=== PATIENT | male | born 1955 | race Caucasian/White ===

== ENCOUNTER → 2016-03-14 | Outpatient (CLI) | payer OTHER ==
[~2016-03-14] MED LIST: ALBU1NEB10 INH; ASPCH81X PO; BUPR-79 PO; CARV3.12 PO; CLBCRM30 EXT; DICY10CA55 PO; DIVA500T3 PO; DTRSR/10 PO; DULO-24 PO; ERGO500037 PO; FENO145T26 PO; FLNIN NAE; FURO-85 PO; HYDR-3126 PO; HYDR2.5C37 TOP; INSDGI SC; INSUINJ14 SC; INSUINJ4 SC; LEVO-14 PO; LEVO100T7 PO; LOSA100T65 PO; MECL1TAB42 PO; METO-157 PO; MIRT15TA2 PO; MIRT15TA3 PO; MTR600X PO; MYS50 PO; NIFEDIPINE TD; NIFEDIPINE TOP; NVLGI/PEN SQ; OMEGCAP2 PO; OMEP20TA PO; ONDA4TAB46 PO; OXYB10TA PO; OXYB15TA PO; OXYC1TAB3 PO; POLY3350 PO; PRIM50TA34 PO; RANI300T PO; ROSU40TA PO; TIZA2CAP2 PO; TRAM-10 PO; TRAM-453 PO; TRIA0.1C20 TOP; TRMCR130WC TOP; VNTHFA/IN INH
--- NOTE | 2016-03-14 12:09 | DIAGNOSTIC IMAGING REPORT ---
CT OF THE CHEST WITHOUT IV CONTRAST CLINICAL HISTORY: Pulmonary nodule. COMPARISON STUDY: Chest CTs April 18, 2015 and July 11, 2015. CT DOSE: 485.69 mGycm TECHNIQUE: Axial images of the chest were obtained without IV contrast. Images were reviewed in the axial, sagittal, and coronal planes. IV contrast was not administered for this examination. FINDINGS: The irregular linear density within the right upper lobe shown on image 91 of [address] of June 17, 2015. Exact measurements are difficult to obtain due to the configuration. The largest component measures approximately 1 cm. There is an associated dilated airway. No nodular component is present. Several small left lower lobe nodules are unchanged since abdominal CT of August 18, 2011. These are benign. No new nodules are present. Central airways are patent. There are no enlarged thoracic lymph nodes. The size the heart is normal. There is fatty infiltration of the liver. A small left adrenal nodule is unchanged. The gallbladder surgically absent. No suspicious osseous lesions are present. IMPRESSION: No change in the irregular linear density within the right upper lobe since CT of April 18, 2015. The appearance favors scar. A neoplastic etiology is considered less likely although a follow-up CT in one year to ensure stability is recommended. Electronically signed by: Bhanu Levy M.D. 03/14/2016 12:07 PM Dictated Date/Time: 03/14/2016 11:53 AM
== END | disposition home or self-care (01) ==
LOC: C.CTS 11:31
PROVIDERS: ATTEND Internal Medicine Critical Care Medicine
DX: R91.1 Solitary pulmonary nodule (principal)

== ENCOUNTER 2016-04-01 02:20 | Inpatient (IN) | payer OTHER ==
[2016-04-01] VITALS (7 sets, daily range): BP systolic 125–169; BP diastolic 74–116; PULSE 65–103; TEMP 36.4–36.7; O2SAT 97–99; BMI 36.5
[~2016-04-01] VITALS: Ht 165.1 cm; Wt 99.6 kg
[~2016-04-01 02:20] MED LIST changes: -BUPR-79 PO; -CARV3.12 PO; -CLBCRM30 EXT; -DIVA500T3 PO; -DTRSR/10 PO; -DULO-24 PO; -ERGO500037 PO; -FENO145T26 PO; -FURO-85 PO; -HYDR2.5C37 TOP; -INSDGI SC; -LEVO-14 PO; -LEVO100T7 PO; -LOSA100T65 PO; -METO-157 PO; -MIRT15TA3 PO; -MYS50 PO; -NIFEDIPINE TOP; -NVLGI/PEN SQ; -OMEP20TA PO; -ONDA4TAB46 PO; -OXYB10TA PO; -OXYC1TAB3 PO; -POLY3350 PO; -PRIM50TA34 PO; -RANI300T PO; -ROSU40TA PO; -TRAM-10 PO; -TRMCR130WC TOP; -VNTHFA/IN INH
[2016-04-01] MEDS ORDERED: SODIUM CHLORIDE 0.9% 1000ML 1,000 ML IV STA (02:39)
[2016-04-01] MEDS ORDERED: ONDANSETRON INJ 2 MG/ML 2 ML VIAL IV STA (02:39)
[2016-04-01] MEDS ORDERED: FENTANYL CITRATE INJ 50 MCG/1 ML 2 ML VIAL IV STA (02:39)
--- NOTE | 2016-04-01 02:45 | EMERGENCY ROOM VISIT NOTE ---
History Report prepared by Nina: Claudine Macario Under the Supervision of: Dr. Thomas Adler M.D. First contact with patient: 02:31 Chief Complaint: DIARRHEA Stated Complaint: HARD TIME BREATHING,HIGH SUGAR,KIDNEYS NOT WORKING Nursing Triage Summary: Pt reports that since Thursday he has had nausea, vomiting, diarrhea, SOB with exertion, and urinary incontinence. Pt states it has continued to get worse. Also complaining of feeling weak and shakey. History of Present Illness The patient is a 60 year old male who presents to the Emergency Room with complaints of persistent shortness of breath starting 2 days ago. He uses 3 L oxygen at home. The patient also complains of a headache, runny nose, and a dry cough starting 2 days ago. He has been taking Tylenol without relief. He also reports high blood sugar levels. He has a history of diabetes and uses insulin. He has a history of chronic headaches. He denies fevers, neck stiffness/pain, or any other complaints. Source of History: patient Onset: 2 days ago Position: other (global) Quality: other (shortness of breath) Timing: other (persistent) Modifying Factors (Relieving): tylenol (without relief) Associated Symptoms: + cough, + headache, No fevers, No neck pain Review of Systems See HPI for pertinent positives & negatives. A total of 10 systems reviewed and were otherwise negative. Past Medical & Surgical Medical Problems: (1) Appendectomy (2) Asthma (3) Benign hypertension (4) Cholecystectomy (5) Depression (6) Diabetes mellitus (7) Gastroesophageal reflux disease (8) Pneumonia Family History Diabetes mellitus FH: lung disease FHx: cancer FHx: gallbladder disease Hypertension Social History Smoking Status: Never Smoker Alcohol Use: none Drug Use: none Marital Status: Housing Status: lives with family Occupation Status: disabled Current/Historical Medications Scheduled Bupropion (Wellbutrin Sr), 150 MG PO BID Carvedilol (Coreg), 3.125 MG PO BID Clobetasol Propionate (Clobetasol Propionate Cream 0.05%), 1 APPLN EXT BID Dicyclomine Hcl (Bentyl), 10 MG PO AC Divalproex Sodium (Depakote Er), 1,500 MG PO HS Duloxetine HCl (Cymbalta), 20 MG PO DAILY Fenofibrate (Tricor), 145 MG PO DAILY Furosemide (Lasix), 20 MG PO QPM Insulin Aspart (Novolog Flexpen), 28 UNITS SQ TIDM Insulin Glargine (Lantus), 55 UNITS SC BID Levocetirizine Dihydrochloride (Levocetirizine Dihydrochl), 5 MG PO QPM Levothyroxine Sodium (Levothyroxine Sodium), 100 MCG PO DAILY Losartan Potassium (Cozaar), 100 MG PO DAILY Mirtazapine (Remeron), 15 MG PO HS Omeprazole (Omeprazole), 20 MG PO DAILY Oxybutynin Chloride Er (Ditropan Xl), 10 MG PO DAILY Polyethylene Glycol 3350 (Polyethylene Glycol 3350), 17 GM PO DAILY Primidone (Mysoline), 250 MG PO QAM Primidone (Mysoline), 100 MG PO QPM Ranitidine Hcl (Zantac), 300 MG PO BID Rosuvastatin Calcium (Crestor), 40 MG PO DAILY Triamcinolone Acet (Aristocort 0.1%), 1 APPLN TOP BID [Nifedipine 2% Oint], 1 APPLN TOP DAILY Scheduled PRN Albuterol Hfa (Ventolin Hfa), 2 PUFFS INH Q6H PRN for Shortness of Breath Hydrocortisone 2.5% (Rectal) (Anusol-Hc 2.5%), 1 APPLN TOP TID PRN for Hemorrhoids Ondansetron Hcl (Zofran), 4 MG PO Q8 PRN for Nausea Tramadol Hcl (Ultram), 50 MG PO Q6H PRN for Pain Allergies Coded Allergies: Amitriptyline (Verified Allergy, Intermediate, HIVES, 04/01/16) Penicillins (Verified Allergy, Intermediate, HIVES, 04/01/16) ITCHY,HIVES Tramadol (Verified Allergy, Intermediate, ITCHY, 04/01/16) ITCHY Acetaminophen (Verified Allergy, Mild, Rash, Hives, 04/01/16) BIRGIT Inhibitors (Verified Allergy, Unknown, ? ANGIOEDEMA, 04/01/16) Lorazepam (Verified Allergy, Unknown, "DON'T REMEMBER", 04/01/16) Codeine (Verified Adverse Reaction, Mild, N&V, 04/01/16) N/V Physical Exam Vital Signs Date Time Temp Pulse Resp B/P Pulse Ox O2 Delivery O2 Flow Rate FiO2 04/01/16 04:34 104 16 04/01/16 04:29 175/99 04/01/16 04:25 102 17 98 Nasal Cannula 3.0 04/01/16 03:58 145/87 04/01/16 03:55 86 14 98 Nasal Cannula 3.0 04/01/16 03:50 87 16 98 Nasal Cannula 3.0 04/01/16 03:28 174/97 04/01/16 03:20 89 14 99 Nasal Cannula 3.0 04/01/16 03:15 98 Nasal Cannula 3.0 04/01/16 03:12 165/97 04/01/16 03:06 92 04/01/16 02:35 98 Nasal Cannula 3.0 04/01/16 02:32 177/97 04/01/16 02:26 36.6 108 21 182/98 96 Room Air Physical Exam GENERAL: Patient is well appearing and in no acute distress. HEENT: No acute trauma, normocephalic atraumatic, mucous membranes moist, no nasal congestion, no scleral icterus. NECK: No stridor, no adenopathy, no meningismus, trachea is midline. LUNGS: No dyspnea. Clear to auscultation and equal bilaterally. No wheeze, no rhonchi. HEART: Regular rate and rhythm. No murmurs, rubs, gallops appreciated. ABDOMEN: Soft, epigastric tenderness to palpation, bowel sounds positive, no masses appreciated, no peritonitis. BACK: No midline tenderness, no CVA tenderness EXTREMITIES: Normal motion all extremities, no cyanosis, no edema. NEUROLOGIC: Alert and oriented, no acute motor or sensory deficits, no focal weakness, cranial nerves grossly intact. SKIN: No rash, no jaundice, no diaphoresis. Medical Decision & Procedures ER Provider Diagnostic Interpretation: X ray results are stated below per my interpretation: Chest: 1 view: No infiltrate, no effusion, normal cardiac border. Laboratory Results 04/01/16 03:05 Red Blood Count 4.90, Mean Corpuscular Volume 84.1, Mean Corpuscular Hemoglobin 30.0, Mean Corpuscular Hemoglobin Concent 35.7, Mean Platelet Volume 9.9, Neutrophils (%) (Auto) 46.0, Lymphocytes (%) (Auto) 42.9, Monocytes (%) (Auto) 8.8, Eosinophils (%) (Auto) 1.9, Basophils (%) (Auto) 0.1, Neutrophils # (Auto) 3.18, Lymphocytes # (Auto) 2.97, Monocytes # (Auto) 0.61, Eosinophils # (Auto) 0.13, Basophils # (Auto) 0.01 04/01/16 03:05 Test 04/01/16 03:05 04/01/16 03:16 White Blood Count 6.92 K/uL (4.8-10.8) Red Blood Count 4.90 M/uL (4.7-6.1) Hemoglobin 14.7 g/dL (14.0-18.0) Hematocrit 41.2 % (42-52) Mean Corpuscular Volume 84.1 fL (80-100) Mean Corpuscular Hemoglobin 30.0 pg (25-34) Mean Corpuscular Hemoglobin Concent 35.7 g/dl (32-36) Platelet Count 208 K/uL (130-400) Mean Platelet Volume 9.9 fL (7.4-10.4) Neutrophils (%) (Auto) 46.0 % Lymphocytes (%) (Auto) 42.9 % Monocytes (%) (Auto) 8.8 % Eosinophils (%) (Auto) 1.9 % Basophils (%) (Auto) 0.1 % Neutrophils # (Auto) 3.18 K/uL (1.4-6.5) Lymphocytes # (Auto) 2.97 K/uL (1.2-3.4) Monocytes # (Auto) 0.61 K/uL (0.11-0.59) Eosinophils # (Auto) 0.13 K/uL (0-0.5) Basophils # (Auto) 0.01 K/uL (0-0.2) RDW Standard Deviation 39.8 fL (36.4-46.3) RDW Coefficient of Variation 13.3 % (11.5-14.5) Immature Granulocyte % (Auto) 0.3 % Immature Granulocyte # (Auto) 0.02 K/uL (0.00-0.02) Prothrombin Time 10.7 SECONDS (9.0-12.0) Prothromb Time International Ratio 1.0 (0.9-1.1) Activated Partial Thromboplast Time 23.5 SECONDS (21.0-31.0) Partial Thromboplastin Ratio 0.9 D-Dimer < 190 ug/L FEU (0-500) Urine Color YELLOW Urine Appearance CLEAR (CLEAR) Urine pH 6.5 (4.5-7.5) Urine Specific [place] 1.033 (1.000-1.030) Urine Protein NEG (NEG) Urine Glucose (UA) 3+ (NEG) Urine Ketones TRACE (NEG) Urine Occult Blood NEG (NEG) Urine Nitrite NEG (NEG) Urine Bilirubin NEG (NEG) Urine Urobilinogen NEG (NEG) Urine Leukocyte Esterase NEG (NEG) Urine WBC (Auto) 1-5 /hpf (0-5) Urine RBC (Auto) 0-4 /hpf (0-4) Urine Hyaline Casts (Auto) 1-5 /lpf (0-5) Urine Epithelial Cells (Auto) 20-30 /lpf (0-5) Urine Bacteria (Auto) NEG (NEG) Anion Gap 10.0 mmol/L (3-11) Est Creatinine Clear Calc Drug Dose 66.2 ml/min Estimated GFR () 69.2 Estimated GFR (Non- 59.7 BUN/Creatinine Ratio 10.8 (10-20) Calcium Level 8.8 mg/dl (8.5-10.1) Magnesium Level 1.8 mg/dl (1.8-2.4) Total Bilirubin 0.2 mg/dl (0.2-1) Direct Bilirubin < 0.1 mg/dl (0-0.2) Aspartate Amino Transf (AST/SGOT) 11 U/L (15-37) Alanine Aminotransferase (ALT/SGPT) 23 U/L (12-78) Alkaline Phosphatase 62 U/L (45-117) Troponin I < 0.015 ng/ml (0-0.045) Total Protein 7.0 gm/dl (6.4-8.2) Albumin 4.0 gm/dl (3.4-5.0) Triglycerides Level 542 mg/dl (0-150) Lipase 1198 U/L (73-393) Valproic Acid (Depakene) Level 70 mcg/ml (50-100) Influenza Type A (RT-PCR) Neg for Influ A (NEG) Influenza Type A Antigen Neg for Influ A (NEG) Influenza Type B Antigen Neg for Influ B (NEG) Influenza Type B (RT-PCR) Neg for Influ B (NEG) Laboratory results as reviewed by me. Medications Administered Medications (Trade) Dose Ordered Sig/Dean Route Start Time Stop Time Status Last Admin Dose Admin Sodium Chloride (Nss 1000ml) 1,000 ml @ 999 mls/hr Q1H1M STAT IV 04/01/16 02:39 04/01/16 03:39 DC 04/01/16 03:09 999 MLS/HR Fentanyl Citrate (Fentanyl Inj) 75 mcg NOW STAT IV 04/01/16 02:39 04/01/16 02:41 DC 04/01/16 03:10 75 MCG Ondansetron HCl 4 mg 4 mg NOW STAT IV 04/01/16 02:39 04/01/16 02:41 DC 04/01/16 03:09 4 MG Lactated Ringer's (Lr 1000ml) 1,000 ml @ 100 mls/hr Q10H IV 04/01/16 04:30 04/02/16 00:29 04/01/16 04:40 100 MLS/HR ECG Indication: SOB/dyspnea Rate (beats per minute): 94 Rhythm: normal sinus Findings: no acute ischemic change, no ectopy ED Course 0231: The patient was evaluated in room B12B. A complete history and physical exam was performed. 0239: Zofran Inj 4 mg IV, Fentanyl Inj 75 mcg IV, Sodium Chloride 1000 ml @ 999 mls/hr IV 0400: Upon reevaluation, the patient is complaining of some discomfort. Discussed results and treatment plan with the patient. He verbalized understanding and agreement with the treatment plan. The patient will be evaluated for further management. 0412: I discussed the [facility]'s [facility] Medical Decision Differential: Sepsis, Infectious (UTI/Pneumonia/Meningitis/etc), Metabolic/ Electrolyte Abnormality, Cardiac, Hepatic, Endocrine, Toxicologic, Neurologic, amongst other pathologies entertained. 60 yr old male arrives with multiple complaints including URI symptoms and epigastric abdominal pain and diarrhea. Exam he is uncomfortable though does not have meningitic findings. He has TTP over epigastrium though no other acute abdominal findings. No pneumonia on CXR. BG is actually good here currently. Does have elevated Lipase which given his epigastric TTP consistent with pancreatitis. Will defer imaging to hospitalist team as patient stable, feeling improved after fentanyl and does not have surgical abdomen by examination. No evidence of sepsis at this time and otherwise labs looking good as well. No neuro deficits. Consults Time Called: [phone] Consulting Physician: Dr. Washington, from [facility] Returned Call: [phone] I discussed the patient's case with Dr. Washington, from [facility]. Impression Primary Impression: Acute pancreatitis Additional Impression: URI (upper respiratory infection) Scribe Attestation The scribe's documentation has been prepared under my direction and personally reviewed by me in its entirety. I confirm that the note above accurately reflects all work, treatment, procedures, and medical decision making performed by me. Departure Information Dispostion Being Evaluated By Hospitalist Referrals Anup Butt D.O. (PCP) Patient Instructions My [facility] Problem Qualifiers Primary Impression: Acute pancreatitis Pancreatitis type: unspecified pancreatitis type Acute pancreatitis complication: unspecified Qualified Codes: K85.90 - Acute pancreatitis without necrosis or infection, unspecified Additional Impression: URI (upper respiratory infection) URI type: unspecified URI Qualified Codes: J06.9 - Acute upper respiratory infection, unspecified
[2016-04-01] MEDS ORDERED: MYS50 PO (03:23)
[2016-04-01] MEDS ORDERED: POLY3350 PO (03:25)
[2016-04-01] MEDS ORDERED: DTRSR/10 PO (03:28)
[2016-04-01 03:29] LABS: BASO % 0.1 %; BASO ABS # 0.01 K/uL (0-0.2); COMPLETE YES; EOS % 1.9 %; HEMATOCRIT 41.2 % (42-52); IG% 0.3 %; LYMPH % 42.9 %; LYMPH ABS # 2.97 K/uL (1.2-3.4); MEAN CELL VOLUME 84.1 fL (80-100); MEAN CORPUSCULAR HGB CONC 35.7 g/dl (32-36); MEAN PLATELET VOLUME 9.9 fL (7.4-10.4); MONO % 8.8 %; PLATELET COUNT 208 K/uL (130-400); WHITE BLOOD COUNT 6.92 K/uL (4.8-10.8)
[2016-04-01 03:30] LABS: URINE APPEARANCE CLEAR (CLEAR); URINE BILIRUBIN NEG (NEG); URINE COLOR YELLOW; URINE EPITHELIAL CELL AUTO 20-30 /lpf (0-5); URINE NITRITE NEG (NEG); URINE PH 6.5 (4.5-7.5); URINE SPECIFIC GRAVITY 1.033 (1.000-1.030); UROBILINOGEN NEG (NEG); ZZUR CULT IF INDIC CLEAN CATCH NO
[2016-04-01 03:31] LABS: MANUAL MICROSCOPIC REQUIRED? NO; REVIEW REQ? NO
[2016-04-01 03:40] LABS: PARTIAL THROMBOPLASTIN RATIO 0.9; PROTHROMBIN TIME (PATIENT) 10.7 SECONDS (9.0-12.0)
[2016-04-01] MEDS ORDERED: NVLGI/PEN SQ (03:43)
[2016-04-01] MEDS ORDERED: INSDGI SC (03:43)
[2016-04-01] MEDS ORDERED: TRMCR130WC TOP (03:47)
[2016-04-01 03:48] LABS: ALT/SGPT 23 U/L (12-78); AST/SGOT 11 U/L (15-37); BLOOD UREA NITROGEN 14 mg/dl (7-18); BUN/CREATININE RATIO 10.8 (10-20); CALCIUM 8.8 mg/dl (8.5-10.1); CARBON DIOXIDE 28 mmol/L (21-32); CHLORIDE 108 mmol/L (98-107); GLUCOSE 100 mg/dl (70-99); MAGNESIUM 1.8 mg/dl (1.8-2.4); POTASSIUM 3.5 mmol/L (3.5-5.1); SODIUM 146 mmol/L (136-145)
[2016-04-01] MEDS ORDERED: CLBCRM30 EXT (03:50)
[2016-04-01 03:53] LABS: ALKALINE PHOSPHATASE 62 U/L (45-117)
[2016-04-01] MEDS: LACTATED RINGER'S 1000ML 1,000 ML IV SCH ×5 (04:40→23:58)
[2016-04-01 05:15] LABS: INFLUENZA A PCR Neg for Influ A (NEG); INFLUENZA B PCR Neg for Influ B (NEG)
[2016-04-01] MEDS ORDERED: MoRPHine SULFATE 2 MG/ML CARP IV PRN (05:15)
[2016-04-01] MEDS ORDERED: ACETAMINOPHEN 325 MG TAB PO PRN (05:15)
[2016-04-01] MEDS ORDERED: GLUCOSE 10 TABS/TUBE PO PRN (05:15)
[2016-04-01] MEDS ORDERED: GLUCAGON FOR INJ 1 MG VIAL SQ PRN (05:15)
[2016-04-01] MEDS ORDERED: DEXTROSE 50% 50 ML SYR IV PRN (05:15)
[2016-04-01] MEDS ORDERED: GLUCOSE 40% GEL 15 GM TUBE PO PRN (05:15)
[2016-04-01] MEDS ORDERED: PROMETHAZINE HCL INJ 12.5 MG in SODIUM CHLORIDE 0.9% 50ML 50 ML IV PRN (05:15)
[2016-04-01 05:25] LABS: TRIGLYCERIDES 542 mg/dl (0-150)
[2016-04-01] MEDS ORDERED: HYDROmorphone INJ 0.5 MG/0.5 ML SYR IV PRN (05:30)
[2016-04-01] MEDS ORDERED: CARVEDILOL 3.125 MG TAB PO STA (05:33)
--- NOTE | 2016-04-01 06:02 | HISTORY & PHYSICAL EXAMINATION ---
DATE OF ADMISSION: 04/01/2016 PRIMARY CARE PHYSICIAN: Dr. Butt. CHIEF COMPLAINT: Abdominal pain and shortness of breath. Hx obtained from px and records. HISTORY OF PRESENT ILLNESS: Medical history is significant for hypertension, DM2 insulin requiring, chronic respiratory failure secondary to on home O2 2 to ILD (asbestosis) on home O2, past tobacco abuse, PVD as per records. Recent confinement in the hospital last year for bronchitis. Few days history of diarrhea symptoms, epigastric pain achy and sharp, some nausea, some vomiting, no fever, no chills, no abdominal trauma, sob, hurts to take a deep breath. No cough symptoms. loose stools, non-bloody, no recent antibiotic intake/no known sick contacts Denies alcohol intake. Blood sugars high at home 200-300 as per px. The patient was brought to the Emergency Room. MEDICAL HISTORY: As above. SURGERIES: He has had cholecystectomy, back surgery, carpal tunnel surgery, tonsillectomy, and adenectomy. HOME MEDICATIONS: Include bupropion, fenofibrate, levothyroxine, Remeron, losartan, Crestor, Zofran, oxybutynin, tramadol, clobetasone, dicyclomine, omeprazole, Flonase, aspirin, NovoLog, Cymbalta, Lantus, Mysoline, valproic acid , Lasix. ALLERGIES: AMITRIPTYLINE, GABAPENTIN, PENICILLIN. FAMILY HISTORY: Heart disease. PERSONAL AND SOCIAL HISTORY: Past tobacco abuse. No chronic intake of alcoholic beverages. Disabled. REVIEW OF SYSTEMS: As per HPI. All other ROS negative. PHYSICAL EXAMINATION: VITAL SIGNS: Blood pressure was noted to be 175/89, pulse rate 102, RR 17, temperature 36.6, sats 98 on 3 liters. GENERAL: Noted to be uncomfortable, obese, no respiratory distress. SKIN: Normal. HEENT: [place] palpebral conjunctivae. Dry mucosa. nasal cannula in place NECK: Short neck. LUNGS: Decreased breath sounds. HEART: Tachycardic ABD : epigastric tenderness. EXTREMITIES: Minimal LE edema. no tenderness NEUROLOGIC: No gross focality. LABORATORY DATA: Hemoglobin 14, hematocrit 40, white cells 9, platelets 208. Sodium 140, potassium 4, chloride 108, CO2 28, BUN 14, creatinine 1.3, glucose 100. lipase 1198, troponin normal. D-dimer normal. outpx Hemoglobin A1c from March of 2016 was 9.5. TSH was noted to be normal IMAGING DATA: Chest x-ray, elevated right hemidiaphragm. EKG NSR, no ischemia. ASSESSMENT: 1. Acute pancreatitis unclear etiology 2. hypertension urgency secondary to discomfort. 3. DM2, insulin requiring suboptimal control as of recent outpx HgA1c admission BSG kind of low 4. chronic resp failure secondary to interstitial lung disease/asbestosis as per records pulmo status at baseline 5. past tobacco abuse. 6. diarrhea 2 to pancreatitis ro cdif PLAN: GMF analgesia, IV fluids, clear liquids for now. check serum triglyceride levels GI consult, pancreatitis. Facilitate home blood pressure meds. Basal insulin adjusted for clear liquid diet for now. ISS BG goal 140-180. Carb count coverage indicated for suboptimal blood sugar control. stool cdif DVT prophylaxis Lovenox subQ. Full code. MTDD
[2016-04-01] MEDS: INSULIN ASPART 100 UNITS/ML 3 ML PEN SC SCH ×4 (06:30→20:41)
--- NOTE | 2016-04-01 07:45 | DIAGNOSTIC IMAGING REPORT ---
CHEST ONE VIEW PORTABLE CLINICAL HISTORY: Shortness of breath, cough and fatigue. COMPARISON STUDY: Chest CT March 14, 2016. FINDINGS: An anterior cervical spine fusion is incidentally noted. No pneumothorax or pleural effusion is present. There is no evidence of pulmonary edema. Cardiac size is normal. Mediastinal contours are normal. The appearance of the chest is unchanged. IMPRESSION: No acute cardiopulmonary findings. Electronically signed by: Bhanu Levy M.D. 04/01/2016 7:43 AM Dictated Date/Time: 04/01/2016 7:43 AM
[2016-04-01] MEDS: LEVOTHYROXINE 100 MCG TAB PO SCH (07:58)
[2016-04-01] MEDS: PANTOprazole SOD 40 MG TAB PO SCH (08:00)
[2016-04-01] MEDS: BuPROPion SR 150 MG TABCR PO SCH ×2 (08:01→20:43)
[2016-04-01] MEDS: LOSARTAN POTASSIUM 50 MG TAB PO SCH (08:01)
[2016-04-01] MEDS: RANITIDINE HCL 150 MG TAB PO SCH ×2 (08:02→20:43)
[2016-04-01] MEDS: DULOXETINE HCL 20 MG CAP PO SCH (08:02)
[2016-04-01] MEDS: PRIMIDONE 50 MG TAB PO SCH ×2 (08:04→20:44)
[2016-04-01] MEDS: ENOXAPARIN 40 MG/0.4 ML SYR SQ SCH (08:05)
[2016-04-01] MEDS: INSULIN GLARGINE SOLOSTAR 100 UNITS/ML 3 ML PEN SC SCH ×2 (08:07→20:36)
[2016-04-01] MEDS ORDERED: NURSING VERBAL MED ORDER ONE ×2 (08:15→08:30)
[2016-04-01] MEDS: OXYCODONE/ACETAMINOPHEN 5-325 TAB PO PRN ×2 (08:31→15:32)
[2016-04-01] MEDS ORDERED: LANTUS PER UNIT CHARGE SC SCH (09:00)
--- NOTE | 2016-04-01 09:59 | Progress Note ---
Internal Med Progress Note Date of Service: Apr 01, 2016. Provider Documentation: SUBJECTIVE: Patient is c/o epigastric and RLQ pain. No vomiting since yesterday night. No fever, chills, diarrhea. Asking for food OBJECTIVE: Vital Signs-as noted below Exam: General-AAOX3, no distress Eyes-No icterus Neck-Supple, NO JVD Lungs-AEBE, no wheezing, rhonchi Heart-S1, S2 normal, no murmurs Abdomen-Soft, tenderness in epigastrium, No distension, BS present Extremities-No edema Lab data as noted below. ASSESSMENT & PLAN: ASSESSMENT AND PLAN : ACUTE PANCREATITIS: Unclear etiology. No hx of alcoholism, hx of cholecystectomy. Hypertriglyceridemia with TGLS 542 ? -IV fluids, NPO -Pain mx- IV hydrocodone 0.5 mg PRN -Work up - Lipase 1198, TGLS- 542 HYPERTENSIVE URGENCY- Improved -Likely precipitated by pain, pancreatitis -Continue home meds - losartan DM-IDDM Suboptimal control as of recent outpatient HBA1C -On high doses of Insulin at home -As NPO, decreased dose, ISS -Monitor CHRONIC RESPIRATORY FAILURE SECONDARY TO ILD./ASBESTOSIS -On 3 L at rest/night DVT prophylaxis Lovenox subQ. FULL CODE DISPOSITION Expected discharge home when stable Vital Signs: Date Time Temp Pulse Resp B/P Pulse Ox O2 Delivery O2 Flow Rate FiO2 04/01/16 09:02 87 99 04/01/16 08:39 36.5 78 18 147/80 97 Room Air 04/01/16 05:40 36.6 103 22 169/77 98 Nasal Cannula 3.0 04/01/16 05:30 93 20 145/91 97 04/01/16 05:04 100 16 97 Nasal Cannula 3.0 04/01/16 04:59 185/87 04/01/16 04:34 104 16 04/01/16 04:29 175/99 04/01/16 04:25 102 17 98 Nasal Cannula 3.0 04/01/16 03:58 145/87 04/01/16 03:55 86 14 98 Nasal Cannula 3.0 04/01/16 03:50 87 16 98 Nasal Cannula 3.0 04/01/16 03:28 174/97 04/01/16 03:20 89 14 99 Nasal Cannula 3.0 04/01/16 03:15 98 Nasal Cannula 3.0 04/01/16 03:12 165/97 04/01/16 03:06 92 04/01/16 02:35 98 Nasal Cannula 3.0 04/01/16 02:32 177/97 04/01/16 02:26 36.6 108 21 182/98 96 Room Air Lab Results: Results Past 24 Hours Test 04/01/16 03:05 04/01/16 03:16 04/01/16 08:44 Range/Units White Blood Count 6.92 4.8-10.8 K/uL Red Blood Count 4.90 4.7-6.1 M/uL Hemoglobin 14.7 14.0-18.0 g/dL Hematocrit 41.2 42-52 % Mean Corpuscular Volume 84.1 80-100 fL Mean Corpuscular Hemoglobin 30.0 25-34 pg Mean Corpuscular Hemoglobin Concent 35.7 32-36 g/dl Platelet Count 208 130-400 K/uL Mean Platelet Volume 9.9 7.4-10.4 fL Neutrophils (%) (Auto) 46.0 % Lymphocytes (%) (Auto) 42.9 % Monocytes (%) (Auto) 8.8 % Eosinophils (%) (Auto) 1.9 % Basophils (%) (Auto) 0.1 % Neutrophils # (Auto) 3.18 1.4-6.5 K/uL Lymphocytes # (Auto) 2.97 1.2-3.4 K/uL Monocytes # (Auto) 0.61 0.11-0.59 K/uL Eosinophils # (Auto) 0.13 0-0.5 K/uL Basophils # (Auto) 0.01 0-0.2 K/uL RDW Standard Deviation 39.8 36.4-46.3 fL RDW Coefficient of Variation 13.3 11.5-14.5 % Immature Granulocyte % (Auto) 0.3 % Immature Granulocyte # (Auto) 0.02 0.00-0.02 K/uL Prothrombin Time 10.7 9.0-12.0 SECONDS Prothromb Time International Ratio 1.0 0.9-1.1 Activated Partial Thromboplast Time 23.5 21.0-31.0 SECONDS Partial Thromboplastin Ratio 0.9 D-Dimer < 190 0-500 ug/L FEU Urine Color YELLOW Urine Appearance CLEAR CLEAR Urine pH 6.5 4.5-7.5 Urine Specific [place] 1.033 1.000-1.030 Urine Protein NEG NEG Urine Glucose (UA) 3+ NEG Urine Ketones TRACE NEG Urine Occult Blood NEG NEG Urine Nitrite NEG NEG Urine Bilirubin NEG NEG Urine Urobilinogen NEG NEG Urine Leukocyte Esterase NEG NEG Urine WBC (Auto) 1-5 0-5 /hpf Urine RBC (Auto) 0-4 0-4 /hpf Urine Hyaline Casts (Auto) 1-5 0-5 /lpf Urine Epithelial Cells (Auto) 20-30 0-5 /lpf Urine Bacteria (Auto) NEG NEG Sodium Level 146 136-145 mmol/L Potassium Level 3.5 3.5-5.1 mmol/L Chloride Level 108 98-107 mmol/L Carbon Dioxide Level 28 21-32 mmol/L Anion Gap 10.0 3-11 mmol/L Blood Urea Nitrogen 14 7-18 mg/dl Creatinine 1.30 0.60-1.40 mg/dl Est Creatinine Clear Calc Drug Dose 66.2 ml/min Estimated GFR () 69.2 Estimated GFR (Non- 59.7 BUN/Creatinine Ratio 10.8 10-20 Random Glucose 100 70-99 mg/dl Calcium Level 8.8 8.5-10.1 mg/dl Magnesium Level 1.8 1.8-2.4 mg/dl Total Bilirubin 0.2 0.2-1 mg/dl Direct Bilirubin < 0.1 0-0.2 mg/dl Aspartate Amino Transf (AST/SGOT) 11 15-37 U/L Alanine Aminotransferase (ALT/SGPT) 23 12-78 U/L Alkaline Phosphatase 62 45-117 U/L Troponin I < 0.015 0-0.045 ng/ml Total Protein 7.0 6.4-8.2 gm/dl Albumin 4.0 3.4-5.0 gm/dl Triglycerides Level 542 0-150 mg/dl Lipase 1198 73-393 U/L Valproic Acid (Depakene) Level 70 50-100 mcg/ml Influenza Type A (RT-PCR) Neg for Influ A NEG Influenza Type A Antigen Neg for Influ A NEG Influenza Type B Antigen Neg for Influ B NEG Influenza Type B (RT-PCR) Neg for Influ B NEG Bedside Glucose 120 70-99 mg/dl
--- NOTE | 2016-04-01 10:38 | Gastrointestinal Consultation ---
Gastrointestinal Consultation Date of Consultation: Apr 01, 2016 Attending Physician: Consult from Dr. Washington; on Dr. Monique Johns's service Consulting Physician: Dr. Alcala Reason for Consultation: Pancreatitis History of Present Illness Patient is a 60 year old male patient of Dr. Butt with a hx of DM-2, gastroparesis, PVD, chronic respiratory failure, lung nodules on home O2 presented to the ED yesterday for abdominal pain. GI consulted for pancreatitis. He experienced a sudden onset of upper abdomen burning, knife like pain, nausea and vomiting on Thursday evening after eating a few wings. The pain persisted, accompanied by and nausea but he was able to get some sleep that night. He woke Thursday morning with the same pain, nausea, one yellow, loose BM with mucous early that morning. He was unable to eat but did drink some water yesterday morning. He was unable to sleep last night and presented to the ED. He had very dark urine on Thursday, now clear. He has not had jaundice or icterus. He denies ever drinking any alcohol. His is S/P cholecystectomy in 2005 with a normal cholangiogram. On arrival, Lipase was 1198, Hb 14.7, Cr 1.3, triglycerides 542. He has been afebrile w/o leukocytosis and his LFTs are normal. He is seen and examined while he is resting in bed. He continues with moderate to severe epigastric pain. He is being kept NPO. Past Medical/Surgical History Medical Problems: (1) Acute pancreatitis Status: Acute (2) Dermatitis Status: Acute (3) Foot pain Status: Acute (4) Light-headed feeling Status: Acute (5) URI (upper respiratory infection) Status: Acute Past Medical History: 1. HTN 2. Hyperlipidemia 3. DM-2 4. GERD 5. Gastroparesis 6. Chronic Respiratory Failure 7. Seizure Disorder Past Surgical History: 1. Shoulder surgery 2. Lap Cholecystectomy 3. Appendectomy 4. TURP Family History Diabetes mellitus FH: lung disease FHx: cancer FHx: gallbladder disease Hypertension Social History Smoking Status: Former Smoker Alcohol Use: none Drug Use: none Marital Status: Housing Status: lives with family Occupation Status: disabled Allergies Coded Allergies: Amitriptyline (Verified Allergy, Intermediate, HIVES, 04/01/16) Penicillins (Verified Allergy, Intermediate, HIVES, 04/01/16) ITCHY,HIVES Tramadol (Verified Allergy, Intermediate, ITCHY, 04/01/16) ITCHY Acetaminophen (Verified Allergy, Mild, Rash, Hives, 04/01/16) BIRGIT Inhibitors (Verified Allergy, Unknown, ? ANGIOEDEMA, 04/01/16) Lorazepam (Verified Allergy, Unknown, "DON'T REMEMBER", 04/01/16) Codeine (Verified Adverse Reaction, Mild, N&V, 04/01/16) N/V Current Medications Home Meds and Scripts Medications Dose Route/Sig Max Daily Dose Days Date Category Dose Instructions Clobetasol Propionate Cream 0.05% (Clobetasol Propionate) 90 Appln/30 Gm Cr 1 Appln EXT BID 04/01/16 Reported APPLY TO AFFECTED AREA FOR UP TO 2 WEEKS Ditropan Xl (Oxybutynin Chloride) 10 Mg Tab 10 Mg PO DAILY 04/01/16 Reported Aristocort 0.1% (Triamcinolone Acet) 90 Appln/30 Gm Cr 1 Appln TOP BID 04/01/16 Reported APPLY TO AFFECTED AREA [Nifedipine 2% Oint] 1 Appln TOP DAILY 04/01/16 Reported NIFEDIPINE RECTAL OINTMENT Lantus (Insulin Glargine) 100 Unit/Ml Inj 55 Units SC BID 04/01/16 Reported Novolog Flexpen (Insulin Aspart) 100 Units/Ml Inj 28 Units SQ TIDM 04/01/16 Reported PLUS SLIDING SCALE Zofran (Ondansetron HCl) 4 Mg Tab 4 Mg PO Q8 PRN 04/01/16 Reported Remeron (Mirtazapine) 15 Mg Tab 15 Mg PO HS 04/01/16 Reported Lasix (Furosemide) 20 Mg Tab 20 Mg PO QPM 04/01/16 Reported take at 6pm to lessen overnight urine output Polyethylene Glycol 3350 1 Pow Pow 17 Gm PO DAILY 04/01/16 Reported Levocetirizine Dihydrochl (Levocetirizine Dihydrochloride) 5 Mg Tab 5 Mg PO QPM 04/01/16 Reported Cymbalta (Duloxetine HCl) 20 Mg Cap 20 Mg PO DAILY 04/01/16 Reported Ventolin Hfa (Albuterol) 200 Puffs/55975 Mcg Aers 2 Puffs INH Q6H PRN 04/01/16 Reported Wellbutrin Sr (Bupropion HCl) 150 Mg Ertab 150 Mg PO BID 03/31/15 Reported Anusol-Hc 2.5% (Hydrocortisone 2.5% (Rectal)) 2.5 % Cre 1 Appln TOP TID PRN 7 03/31/15 Reported Bentyl (Dicyclomine Hcl) 10 Mg Cap 10 Mg PO AC 03/31/15 Reported Ultram (Tramadol Hcl) 50 Mg Tab 50 Mg PO Q6H PRN 10/27/12 Reported Omeprazole 20 Mg Tab 20 Mg PO DAILY 10/27/12 Reported Levothyroxine Sodium 100 Mcg Tab 100 Mcg PO DAILY 10/27/12 Reported Zantac (Ranitidine Hcl) 300 Mg Tab 300 Mg PO BID 10/27/12 Reported Mysoline (Primidone) 50 Mg Tab 100 Mg PO QPM 10/27/12 Reported Mysoline (Primidone) 50 Mg Tab 250 Mg PO QAM 10/27/12 Reported Cozaar (Losartan Potassium) 100 Mg Tab 100 Mg PO DAILY 10/27/12 Reported Coreg (Carvedilol) 3.125 Mg Tab 3.125 Mg PO BID 10/27/12 Reported TAKE THIS MEDICATION WITH FOOD. Crestor (Rosuvastatin Calcium) 40 Mg Tab 40 Mg PO DAILY 10/27/12 Reported Depakote Er (Divalproex Sodium) 500 Mg Tab 1,500 Mg PO HS 10/27/12 Reported Tricor (Fenofibrate) 145 Mg Tab 145 Mg PO DAILY 08/18/11 Reported Review of Systems Constitutional: No chills, No fever, No sweats, No weakness, No weight loss Eyes: No eye pain, No redness ENT: No pain on swallowing, No sore throat, No trouble swallowing Respiratory: No cough, No dyspnea on exertion, No shortness of breath, No wheezing Cardiac: No chest pain, No edema, No palpitations Abdomen: + diarrhea, + nausea, + pain, + see HPI, + vomiting (one Thursday), No GI bleeding, No constipation Neuro: No balance problems, No memory loss, No numbness/tingling, No vertigo, No weakness Psych: No anxiety, No depression symptoms, No insomnia Heme: No abnormal bleeding/bruising, No night sweats Endo: No excessive thirst, No excessive urination Skin: No itch, No jaundice, No new/changing skin lesions, No rash Physical Exam Date Time Temp Pulse Resp B/P Pulse Ox O2 Delivery O2 Flow Rate FiO2 04/01/16 09:02 87 99 04/01/16 08:39 36.5 78 18 147/80 97 Room Air 04/01/16 05:40 36.6 103 22 169/77 98 Nasal Cannula 3.0 04/01/16 05:30 93 20 145/91 97 04/01/16 05:04 100 16 97 Nasal Cannula 3.0 04/01/16 04:59 185/87 04/01/16 04:34 104 16 04/01/16 04:29 175/99 04/01/16 04:25 102 17 98 Nasal Cannula 3.0 04/01/16 03:58 145/87 04/01/16 03:55 86 14 98 Nasal Cannula 3.0 04/01/16 03:50 87 16 98 Nasal Cannula 3.0 04/01/16 03:28 174/97 04/01/16 03:20 89 14 99 Nasal Cannula 3.0 04/01/16 03:15 98 Nasal Cannula 3.0 04/01/16 03:12 165/97 04/01/16 03:06 92 04/01/16 02:35 98 Nasal Cannula 3.0 04/01/16 02:32 177/97 04/01/16 02:26 36.6 108 21 182/98 96 Room Air General Appearance: no apparent distress Eyes: normal inspection, EOMI Neck: supple, no adenopathy, thyroid normal Respiratory/Chest: chest non-tender, lungs clear, normal breath sounds, no accessory muscle use Cardiovascular: regular rate, rhythm, no JVD, no murmur Abdomen: normal bowel sounds, soft, no organomegaly, + tenderness (very tender epigastric area) Extremities: normal inspection, no pedal edema, normal capillary refill Neurologic/Psych: alert, normal mood/affect, oriented x 3 Skin: normal color, no jaundice, warm/dry, no rash Laboratory Results Last 24 Hours Test 04/01/16 03:05 04/01/16 03:16 04/01/16 08:44 White Blood Count 6.92 K/uL Red Blood Count 4.90 M/uL Hemoglobin 14.7 g/dL Hematocrit 41.2 % Mean Corpuscular Volume 84.1 fL Mean Corpuscular Hemoglobin 30.0 pg Mean Corpuscular Hemoglobin Concent 35.7 g/dl Platelet Count 208 K/uL Mean Platelet Volume 9.9 fL Neutrophils (%) (Auto) 46.0 % Lymphocytes (%) (Auto) 42.9 % Monocytes (%) (Auto) 8.8 % Eosinophils (%) (Auto) 1.9 % Basophils (%) (Auto) 0.1 % Neutrophils # (Auto) 3.18 K/uL Lymphocytes # (Auto) 2.97 K/uL Monocytes # (Auto) 0.61 K/uL Eosinophils # (Auto) 0.13 K/uL Basophils # (Auto) 0.01 K/uL RDW Standard Deviation 39.8 fL RDW Coefficient of Variation 13.3 % Immature Granulocyte % (Auto) 0.3 % Immature Granulocyte # (Auto) 0.02 K/uL Prothrombin Time 10.7 SECONDS Prothromb Time International Ratio 1.0 Activated Partial Thromboplast Time 23.5 SECONDS Partial Thromboplastin Ratio 0.9 D-Dimer < 190 ug/L FEU Urine Color YELLOW Urine Appearance CLEAR Urine pH 6.5 Urine Specific Matthews 1.033 Urine Protein NEG Urine Glucose (UA) 3+ Urine Ketones TRACE Urine Occult Blood NEG Urine Nitrite NEG Urine Bilirubin NEG Urine Urobilinogen NEG Urine Leukocyte Esterase NEG Urine WBC (Auto) 1-5 /hpf Urine RBC (Auto) 0-4 /hpf Urine Hyaline Casts (Auto) 1-5 /lpf Urine Epithelial Cells (Auto) 20-30 /lpf Urine Bacteria (Auto) NEG Sodium Level 146 mmol/L Potassium Level 3.5 mmol/L Chloride Level 108 mmol/L Carbon Dioxide Level 28 mmol/L Anion Gap 10.0 mmol/L Blood Urea Nitrogen 14 mg/dl Creatinine 1.30 mg/dl Est Creatinine Clear Calc Drug Dose 66.2 ml/min Estimated GFR () 69.2 Estimated GFR (Non- 59.7 BUN/Creatinine Ratio 10.8 Random Glucose 100 mg/dl Calcium Level 8.8 mg/dl Magnesium Level 1.8 mg/dl Total Bilirubin 0.2 mg/dl Direct Bilirubin < 0.1 mg/dl Aspartate Amino Transf (AST/SGOT) 11 U/L Alanine Aminotransferase (ALT/SGPT) 23 U/L Alkaline Phosphatase 62 U/L Troponin I < 0.015 ng/ml Total Protein 7.0 gm/dl Albumin 4.0 gm/dl Triglycerides Level 542 mg/dl Lipase 1198 U/L Valproic Acid (Depakene) Level 70 mcg/ml Influenza Type A (RT-PCR) Neg for Influ A Influenza Type A Antigen Neg for Influ A Influenza Type B Antigen Neg for Influ B Influenza Type B (RT-PCR) Neg for Influ B Bedside Glucose 120 mg/dl Impression Patient is a 60 year old male with acute pancreatitis. Plan 1. Increase LR to 250cc/hr. 2. Biliary US to screen for choledocholithiasis. 3. Eventual CT or EUS of pancreas. 4. Clears Attg addendum: I interviewed and examined pt, reviewed chart and labs. Pt with h/o DM, obesity, hyperTG s/p khoa admit with abrupt onset of severe pain Sun night after eating fatty meal. Pain continued on Thursday. Admission labs show increased lipase with nl LFT's, Hypernatremia, mildly increased creat above baseline with normal BUN and no hemoconcentration. He was hydrated with improvement in admission tachy. At present, he reports some mild abd pain after drinking clears, persistent diffuse abd pain, + flatus. A/P: Aggressive hydration overnight, then decrease fluid rate to maintenance tomorrow am. Follow BUN and Hgb. Consider CT tomorrow, pending clinical eval Diet as brenton Suspect that his panc may be related to hyperTG, agree with Priyanka. Eventual EUS.
[2016-04-01] MEDS: HYDROmorphone INJ 1 MG/ML SYR IV PRN ×2 (10:44→18:39)
--- NOTE | 2016-04-01 15:04 | DIAGNOSTIC IMAGING REPORT ---
ABDOMINAL ULTRASOUND, RIGHT UPPER QUADRANT HISTORY: Pancreatitis, r/o bile duct abnormalities. COMPARISON: CT of the abdomen and pelvis June 18, 2015. FINDINGS: Hepatic echogenicity is increased. This suggests fatty infiltration. The liver is mildly enlarged. There is no biliary ductal dilatation status post cholecystectomy. There is no right hydronephrosis. A hypoechoic focus within the right renal sinus likely reflects a prominent column of Onur when correlating with CT of June 18, 2015. The pancreatic body is normal. The head and tail are obscured. No peripancreatic fluid collection is identified IMPRESSION: 1. No biliary ductal dilatation status post cholecystectomy. 2. Fatty liver and hepatomegaly. 3. Partially obscured pancreas. Electronically signed by: Bhanu Levy M.D. 04/01/2016 3:03 PM Dictated Date/Time: 04/01/2016 3:00 PM
[2016-04-01] MEDS: ONDANSETRON INJ 2 MG/ML 2 ML VIAL IV PRN (15:31)
[2016-04-01] MEDS: CARVEDILOL 3.125 MG TAB PO SCH (20:42)
[2016-04-01] MEDS: MIRTAZAPINE TAB 15 MG TAB PO SCH (20:43)
[2016-04-01] MEDS: DIVALPROEX 500 MG EXTENDED RELEASE TAB PO SCH (20:44)
[2016-04-01] MEDS ORDERED: DiphenhydrAMINE INJ 12.5 MG in SYRINGE 0 ML IV PRN (21:45)
[2016-04-01] MEDS ORDERED: DiphenhydrAMINE HCL 50 MG/ML VIAL IV PRN (22:00)
[2016-04-02] VITALS (8 sets, daily range): BP systolic 124–181; BP diastolic 76–97; PULSE 63–78; TEMP 36.3–36.9; O2SAT 93–99; Ht 165.1 cm; Wt 99.6 kg
[2016-04-02] MEDS: LACTATED RINGER'S 1000ML 1,000 ML IV SCH ×5 (04:02→20:54)
[2016-04-02] MEDS: LEVOTHYROXINE 100 MCG TAB PO SCH (06:09)
[2016-04-02] MEDS: INSULIN ASPART 100 UNITS/ML 3 ML PEN SC SCH ×4 (06:30→21:13)
[2016-04-02 07:48] LABS: BASO % 0.1 %; BASO ABS # 0.01 K/uL (0-0.2); COMPLETE YES; EOS % 1.3 %; HEMATOCRIT 37.3 % (42-52); IG% 0.1 %; LYMPH % 32.5 %; LYMPH ABS # 2.17 K/uL (1.2-3.4); MEAN CELL VOLUME 84.4 fL (80-100); MEAN CORPUSCULAR HEMOGLOBIN 29.9 pg (25-34); MEAN CORPUSCULAR HGB CONC 35.4 g/dl (32-36); MEAN PLATELET VOLUME 9.6 fL (7.4-10.4); MONO % 9.4 %; NEUT % 56.6 %; PLATELET COUNT 165 K/uL (130-400); RED BLOOD COUNT 4.42 M/uL (4.7-6.1); WHITE BLOOD COUNT 6.68 K/uL (4.8-10.8)
[2016-04-02] MEDS: OXYCODONE/ACETAMINOPHEN 5-325 TAB PO PRN ×2 (07:52→17:52)
[2016-04-02] MEDS: RANITIDINE HCL 150 MG TAB PO SCH ×2 (07:54→20:58)
[2016-04-02] MEDS: PRIMIDONE 50 MG TAB PO SCH ×2 (07:55→20:57)
[2016-04-02] MEDS: BuPROPion SR 150 MG TABCR PO SCH ×2 (07:55→20:58)
[2016-04-02] MEDS: PANTOprazole SOD 40 MG TAB PO SCH (07:56)
[2016-04-02] MEDS: FENOFIBRATE 145 MG TAB PO SCH (07:56)
[2016-04-02] MEDS: CARVEDILOL 3.125 MG TAB PO SCH ×2 (07:57→20:55)
[2016-04-02] MEDS: DULOXETINE HCL 20 MG CAP PO SCH (07:58)
[2016-04-02] MEDS: LOSARTAN POTASSIUM 50 MG TAB PO SCH (07:58)
[2016-04-02] MEDS: INSULIN GLARGINE SOLOSTAR 100 UNITS/ML 3 ML PEN SC SCH ×2 (08:00→21:13)
[2016-04-02] MEDS: ENOXAPARIN 40 MG/0.4 ML SYR SQ SCH (08:00)
[2016-04-02 08:22] LABS: ALB/GLOB RATIO 1.3 (0.9-2); BUN/CREATININE RATIO 7.4 (10-20); CALCIUM 8.7 mg/dl (8.5-10.1); CREATININE 0.84 mg/dl (0.60-1.40); POTASSIUM 3.6 mmol/L (3.5-5.1)
--- NOTE | 2016-04-02 11:08 | Progress Note ---
Internal Med Progress Note Date of Service: Apr 02, 2016. Provider Documentation: SUBJECTIVE: Patient is doing better- epigastric pain has improved. No more nausea, vomiting. No fever, chills, diarrhea. Tolerating clear liquid well OBJECTIVE: Vital Signs-as noted below Exam: General-AAOX3, no distress Eyes-No icterus Neck-Supple, NO JVD Lungs-AEBE, no wheezing, rhonchi Heart-S1, S2 normal, no murmurs Abdomen-Soft, tenderness in epigastrium, No distension, BS present Extremities-No edema Lab data as noted below. ASSESSMENT & PLAN: ASSESSMENT AND PLAN : ACUTE PANCREATITIS: Improving Unclear etiology. No hx of alcoholism, hx of cholecystectomy. Hypertriglyceridemia with TGLS 542 ? -IV fluids- decrease frequency, Clear liquid diet -Pain mx- IV hydrocodone 0.5 mg PRN- decrease frequency as c/o nausea with meds -Work up - Lipase 1198-->132, TGLS- 542; US- no biliary duct obstruction, no GB -GI - discussed with WILLIAM may require CT scan/EUS in future as unclear etiology of pancreatitis. 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 FULL CODE DISPOSITION Expected discharge home when stable Discussed with GI Vital Signs: Date Time Temp Pulse Resp B/P Pulse Ox O2 Delivery O2 Flow Rate FiO2 04/02/16 07:51 99 Nasal Cannula 2.0 04/02/16 07:41 36.3 73 17 130/80 99 Nasal Cannula 2.0 04/02/16 04:12 63 159/93 04/02/16 01:26 Nasal Cannula 3.0 04/01/16 23:58 36.4 68 18 161/90 97 Nasal Cannula 3.0 04/01/16 20:30 Nasal Cannula 3.0 04/01/16 20:28 36.7 82 18 125/74 04/01/16 18:27 75 153/95 04/01/16 15:39 36.6 65 17 166/116 99 Nasal Cannula 3.0 Lab Results: Results Past 24 Hours Test 04/01/16 11:52 04/01/16 16:18 04/01/16 20:14 04/02/16 07:24 Range/Units Bedside Glucose 86 123 102 70-99 mg/dl White Blood Count 6.68 4.8-10.8 K/uL Red Blood Count 4.42 4.7-6.1 M/uL Hemoglobin 13.2 14.0-18.0 g/dL Hematocrit 37.3 42-52 % Mean Corpuscular Volume 84.4 80-100 fL Mean Corpuscular Hemoglobin 29.9 25-34 pg Mean Corpuscular Hemoglobin Concent 35.4 32-36 g/dl Platelet Count 165 130-400 K/uL Mean Platelet Volume 9.6 7.4-10.4 fL Neutrophils (%) (Auto) 56.6 % Lymphocytes (%) (Auto) 32.5 % Monocytes (%) (Auto) 9.4 % Eosinophils (%) (Auto) 1.3 % Basophils (%) (Auto) 0.1 % Neutrophils # (Auto) 3.77 1.4-6.5 K/uL Lymphocytes # (Auto) 2.17 1.2-3.4 K/uL Monocytes # (Auto) 0.63 0.11-0.59 K/uL Eosinophils # (Auto) 0.09 0-0.5 K/uL Basophils # (Auto) 0.01 0-0.2 K/uL RDW Standard Deviation 41.4 36.4-46.3 fL RDW Coefficient of Variation 13.5 11.5-14.5 % Immature Granulocyte % (Auto) 0.1 % Immature Granulocyte # (Auto) 0.01 0.00-0.02 K/uL Sodium Level 146 136-145 mmol/L Potassium Level 3.6 3.5-5.1 mmol/L Chloride Level 109 98-107 mmol/L Carbon Dioxide Level 29 21-32 mmol/L Anion Gap 8.0 3-11 mmol/L Blood Urea Nitrogen 6 7-18 mg/dl Creatinine 0.84 0.60-1.40 mg/dl Est Creatinine Clear Calc Drug Dose 102.8 ml/min Estimated GFR () 111.1 Estimated GFR (Non- 95.8 BUN/Creatinine Ratio 7.4 10-20 Random Glucose 59 70-99 mg/dl Calcium Level 8.7 8.5-10.1 mg/dl Total Bilirubin 0.2 0.2-1 mg/dl Aspartate Amino Transf (AST/SGOT) 84 15-37 U/L Alanine Aminotransferase (ALT/SGPT) 100 12-78 U/L Alkaline Phosphatase 81 45-117 U/L Total Protein 6.0 6.4-8.2 gm/dl Albumin 3.4 3.4-5.0 gm/dl Globulin 2.6 2.5-4.0 gm/dl Albumin/Globulin Ratio 1.3 0.9-2 Lipase 132 73-393 U/L Test 04/02/16 07:47 Range/Units Bedside Glucose 88 70-99 mg/dl
[2016-04-02] MEDS ORDERED: MoRPHine SULFATE 2 MG/ML CARP IV PRN (11:15)
[2016-04-02] MEDS ORDERED: KETOROLAC TROMETHAMINE 15 MG/ML VIAL IV PRN (11:15)
--- NOTE | 2016-04-02 12:07 | Gastroenterology Progress Note ---
Progress Note Date of Service: Apr 02, 2016 Subjective Pt evaluation today including: conversation w/ patient, conversation w/ family , physical exam, chart review, lab review, review of studies, review of inpatient medication list Mr. De Santiago is a 60 yr old male who was admitted on 03/31 for pancreatitis. Today his pain is "better" but he still rates it as an 8 of 10. His pain is right mid to RLQ (but this area is chronic and his pain is not worse than usual ) and epigastric which is new and is improved compared to yesterday. He is taking clear liquids po w/o increased pain or nausea. No vomiting. Lipase was 1198 yesterday, today 132. Review of Systems Constitutional: No fever Respiratory: No cough Cardiac: No chest pain Abdomen: + pain, No GI bleeding, No constipation, No diarrhea, No nausea, No vomiting Male : No dysuria Neuro: No memory loss Psych: No depression symptoms Heme: No abnormal bleeding/bruising Endo: No fatigue Skin: No itch, No jaundice, No rash Medications Current Inpatient Medications Medications (Trade) Dose Ordered Sig/Dean Route Start Time Stop Time Status Last Admin Dose Admin Lactated Ringer's (Lr 1000ml) 1,000 ml @ 150 mls/hr Q6H40M IV 04/01/16 04:30 05/01/16 04:29 04/02/16 10:43 150 MLS/HR Enoxaparin Sodium (Lovenox Inj) 40 mg Q24H SQ 04/01/16 09:00 05/01/16 08:59 04/02/16 08:00 40 MG Insulin Aspart (novoLOG ASPART) SLIDING SCALE If C... ACHS SC 04/01/16 06:30 05/01/16 06:59 Glucose (Glucose 40% Gel) 15-30 GRAMS 15 GRAMS... UD PRN PO 04/01/16 05:15 05/01/16 05:14 Glucose (Glucose Chew Tab) 4-8 Tablets 4 Tabl... UD PRN PO 04/01/16 05:15 05/01/16 05:14 Dextrose (Dextrose 50% 50ML Syringe) 25-50ML OF 50% DW IV FOR... UD PRN IV 04/01/16 05:15 05/01/16 05:14 Glucagon (Glucagon Inj) 1 mg UD PRN SQ 04/01/16 05:15 05/01/16 05:14 Oxycodone/ Acetaminophen (Percocet 5-325mg Tab) pain not relieved by tylenol Q6H PRN PO 04/01/16 05:15 04/15/16 05:14 04/02/16 07:52 2 TAB Bupropion HCl (Wellbutrin-Sr Tab) 150 mg BID PO 04/01/16 09:00 05/01/16 08:59 04/02/16 07:55 150 MG Carvedilol (Coreg Tab) 3.125 mg BID PO 04/01/16 21:00 05/01/16 20:59 04/02/16 07:57 3.125 MG Divalproex Sodium (Depakote Extended Rel Tab) 1,500 mg HS PO 04/01/16 21:00 05/01/16 20:59 04/01/16 20:44 1,500 MG Duloxetine HCl (Cymbalta Cap) 20 mg DAILY PO 04/01/16 09:00 05/01/16 08:59 04/02/16 07:58 20 MG Levothyroxine Sodium (Synthroid Tab) 100 mcg DAILYBB PO 04/01/16 06:30 05/01/16 06:59 04/02/16 06:09 100 MCG Losartan Potassium (coZAAR TAB) 100 mg DAILY PO 04/01/16 09:00 05/01/16 08:59 04/02/16 07:58 100 MG Mirtazapine (Remeron Tab) 15 mg HS PO 04/01/16 21:00 05/01/16 20:59 04/01/16 20:43 15 MG Primidone (Mysoline Tab) 100 mg QPM PO 04/01/16 21:00 05/01/16 20:59 04/01/16 20:44 100 MG Primidone (Mysoline Tab) 250 mg QAM PO 04/01/16 09:00 05/01/16 08:59 04/02/16 07:55 250 MG Miscellaneous Information (Order Awaiting Action) 1 ea QS N/A 04/01/16 08:00 05/01/16 07:59 Pantoprazole Sodium (Protonix Tab) 40 mg QAM PO 04/01/16 09:00 05/01/16 08:59 04/02/16 07:56 40 MG Ranitidine HCl (zANTac TAB) 300 mg BID PO 04/01/16 09:00 05/01/16 08:59 04/02/16 07:54 300 MG Ondansetron HCl 4 mg 4 mg Q6H PRN IV 04/01/16 05:15 05/01/16 05:14 04/01/16 15:31 4 MG Promethazine HCl/ Sodium Chloride (Phenergan Inj/ Nss 50ml) 50.5 ml @ 204 mls/hr Q6H PRN IV 04/01/16 05:15 05/01/16 05:14 04/01/16 18:50 204 MLS/HR Insulin Glargine (Lantus Solostar Pen) 5 unit BID SC 04/01/16 09:00 05/01/16 08:59 04/02/16 08:00 5 UNIT Fenofibrate (Tricor Tab) 145 mg QAM PO 04/02/16 09:00 05/02/16 08:59 04/02/16 07:56 145 MG Diphenhydramine HCl (Benadryl Inj) 12.5 mg Q6H PRN IV 04/01/16 22:00 05/01/16 21:59 04/01/16 22:08 12.5 MG Morphine Sulfate (MoRPHine SULFATE INJ) 2 mg Q4H PRN IV 04/02/16 11:15 04/16/16 11:14 Ketorolac Tromethamine (Toradol Inj) 15 mg Q6H PRN IV 04/02/16 11:15 04/07/16 11:14 Objective Vital Signs Date Time Temp Pulse Resp B/P Pulse Ox O2 Delivery O2 Flow Rate FiO2 04/02/16 08:00 Room Air 04/02/16 07:51 99 Nasal Cannula 2.0 04/02/16 07:41 36.3 73 17 130/80 99 Nasal Cannula 2.0 04/02/16 04:12 63 159/93 04/02/16 01:26 Nasal Cannula 3.0 04/01/16 23:58 36.4 68 18 161/90 97 Nasal Cannula 3.0 04/01/16 20:30 Nasal Cannula 3.0 04/01/16 20:28 36.7 82 18 125/74 04/01/16 18:27 75 153/95 04/01/16 15:39 36.6 65 17 166/116 99 Nasal Cannula 3.0 Physical Exam General Appearance: + mild distress Neck: no adenopathy, no JVD Respiratory/Chest: lungs clear, normal breath sounds Cardiovascular: regular rate, rhythm, no JVD, no murmur Abdomen: soft, + tenderness (epigastric and diffuse right mid/lower abdomen tenderness) Neurologic/Psych: alert, normal mood/affect, oriented x 3 Skin: no jaundice Laboratory Results Last 24 Hours Test 04/01/16 16:18 04/01/16 20:14 04/02/16 07:24 04/02/16 07:47 Bedside Glucose 123 mg/dl 102 mg/dl 88 mg/dl White Blood Count 6.68 K/uL Red Blood Count 4.42 M/uL Hemoglobin 13.2 g/dL Hematocrit 37.3 % Mean Corpuscular Volume 84.4 fL Mean Corpuscular Hemoglobin 29.9 pg Mean Corpuscular Hemoglobin Concent 35.4 g/dl Platelet Count 165 K/uL Mean Platelet Volume 9.6 fL Neutrophils (%) (Auto) 56.6 % Lymphocytes (%) (Auto) 32.5 % Monocytes (%) (Auto) 9.4 % Eosinophils (%) (Auto) 1.3 % Basophils (%) (Auto) 0.1 % Neutrophils # (Auto) 3.77 K/uL Lymphocytes # (Auto) 2.17 K/uL Monocytes # (Auto) 0.63 K/uL Eosinophils # (Auto) 0.09 K/uL Basophils # (Auto) 0.01 K/uL RDW Standard Deviation 41.4 fL RDW Coefficient of Variation 13.5 % Immature Granulocyte % (Auto) 0.1 % Immature Granulocyte # (Auto) 0.01 K/uL Sodium Level 146 mmol/L Potassium Level 3.6 mmol/L Chloride Level 109 mmol/L Carbon Dioxide Level 29 mmol/L Anion Gap 8.0 mmol/L Blood Urea Nitrogen 6 mg/dl Creatinine 0.84 mg/dl Est Creatinine Clear Calc Drug Dose 102.8 ml/min Estimated GFR () 111.1 Estimated GFR (Non- 95.8 BUN/Creatinine Ratio 7.4 Random Glucose 59 mg/dl Calcium Level 8.7 mg/dl Total Bilirubin 0.2 mg/dl Aspartate Amino Transf (AST/SGOT) 84 U/L Alanine Aminotransferase (ALT/SGPT) 100 U/L Alkaline Phosphatase 81 U/L Total Protein 6.0 gm/dl Albumin 3.4 gm/dl Globulin 2.6 gm/dl Albumin/Globulin Ratio 1.3 Lipase 132 U/L Test 04/02/16 11:18 Bedside Glucose 112 mg/dl Assessment and Plan Mr. De Santiago is a 60 yr old male with acute pancreatitis. Etiology is uncertain, possibly hypertriglyceridemia. He does not drink alcohol and is S/P cholecystectomy w/o bile duct abnormalities on US. No new suspect medications. Plan: 1. Decreased LR to 150cc/hr. 2. Daily LFTs, lipase. 3. Incentive spirometry and ambulation to prevent pneumonia. 4. Clear liquids po. 5. Will plan for CT pancreatic protocol tomorrow and for EUS in 6-8 weeks. Attg addendum: I interviewed an examined pt, reviewed chart and labs. Pt mildly improved, but still with persistent pain. Rob small amts clears, passing gas. Abd non distended, mild tender. Plan CT tomorrow, ow cont current plan of care.
[2016-04-02] MEDS: ONDANSETRON INJ 2 MG/ML 2 ML VIAL IV PRN ×2 (12:27→17:52)
[2016-04-02] MEDS: DIVALPROEX 500 MG EXTENDED RELEASE TAB PO SCH (20:56)
[2016-04-02] MEDS: MIRTAZAPINE TAB 15 MG TAB PO SCH (20:57)
[2016-04-02] MEDS: LEVOCETIRIZINE 5 MG PO SCH (21:04)
[2016-04-03] MEDS: LACTATED RINGER'S 1000ML 1,000 ML IV SCH ×4 (03:18→21:06)
[2016-04-03] MEDS: LEVOTHYROXINE 100 MCG TAB PO SCH (06:11)
[2016-04-03 07:21] LABS: HEMATOCRIT 35.4 % (42-52); MEAN CELL VOLUME 85.5 fL (80-100); MEAN CORPUSCULAR HEMOGLOBIN 29.7 pg (25-34); MEAN CORPUSCULAR HGB CONC 34.7 g/dl (32-36); MEAN PLATELET VOLUME 9.8 fL (7.4-10.4); PLATELET COUNT 152 K/uL (130-400); RED BLOOD COUNT 4.14 M/uL (4.7-6.1); WHITE BLOOD COUNT 4.63 K/uL (4.8-10.8)
[2016-04-03 07:48] LABS: BUN/CREATININE RATIO 4.1 (10-20); CALCIUM 8.8 mg/dl (8.5-10.1); CREATININE 0.92 mg/dl (0.60-1.40); POTASSIUM 4.2 mmol/L (3.5-5.1)
[2016-04-03 07:51] VITALS: BP 127/70; PULSE 76; TEMP 36.5; O2SAT 94
[2016-04-03] MEDS ORDERED: OPTIRAY 320 IV PRN (08:15)
--- NOTE | 2016-04-03 08:25 | DIAGNOSTIC IMAGING REPORT ---
CT OF THE ABDOMEN WITH AND WITHOUT CONTRAST PANCREAS PROTOCOL CT DOSE: 2084.97 mGy.cm CLINICAL HISTORY: Acute pancreatitis. TECHNIQUE: Unenhanced, arterial and venous phase imaging of the abdomen was performed. Injection of 93 cc of Optiray 320 IV was uneventful. Oral contrast was administered. COMPARISON STUDY: CT of the abdomen and pelvis June 18, 2015 and right upper quadrant ultrasound April 01, 2016. FINDINGS: Several left lower lobe nodules measuring up to 4 mm are unchanged since CT of August 18, 2011. These are benign. There is mild interlobular septal thickening and scattered groundglass opacities within visualized portions of the lungs. The liver is mildly enlarged. There is fatty infiltration of the liver. No biliary ductal dilatation is identified status post cholecystectomy. There is no pancreatic ductal dilatation. No peripancreatic infiltration or fluid is present. No pancreatic mass is identified. The spleen, adrenal glands and kidneys are unremarkable. There is no upper abdominal adenopathy or ascites. There is moderate plaque of the abdominal aorta which is normal in caliber. Caliber and wall thickness of visualized small and large bowel are normal. Skeletal structures are unremarkable. Major vasculature of the abdomen is patent. IMPRESSION: 1. No acute findings within the abdomen. Normal CT appearance of the pancreas. 2. No biliary ductal dilatation status post cholecystectomy. 3. Hepatomegaly and fatty infiltration of the liver. 4. Scattered groundglass opacities within the lungs. Atelectasis is favored. However, a mild infectious process or mild pulmonary edema could appear similar. Electronically signed by: Bhanu Levy M.D. 04/03/2016 8:24 AM Dictated Date/Time: 04/03/2016 8:12 AM
[2016-04-03] MEDS: OXYCODONE/ACETAMINOPHEN 5-325 TAB PO PRN (08:34)
[2016-04-03] MEDS: CARVEDILOL 3.125 MG TAB PO SCH ×2 (08:35→21:07)
[2016-04-03] MEDS: DULOXETINE HCL 20 MG CAP PO SCH (08:35)
[2016-04-03] MEDS: LOSARTAN POTASSIUM 50 MG TAB PO SCH (08:35)
[2016-04-03] MEDS: PRIMIDONE 50 MG TAB PO SCH ×2 (08:36→21:07)
[2016-04-03] MEDS: ENOXAPARIN 40 MG/0.4 ML SYR SQ SCH (08:37)
[2016-04-03] MEDS: BuPROPion SR 150 MG TABCR PO SCH ×2 (08:37→21:08)
[2016-04-03] MEDS: RANITIDINE HCL 150 MG TAB PO SCH ×2 (08:37→21:08)
[2016-04-03] MEDS: FENOFIBRATE 145 MG TAB PO SCH (08:37)
[2016-04-03] MEDS: INSULIN GLARGINE SOLOSTAR 100 UNITS/ML 3 ML PEN SC SCH ×2 (08:45→21:09)
[2016-04-03] MEDS: INSULIN ASPART 100 UNITS/ML 3 ML PEN SC SCH ×4 (08:47→21:09)
--- NOTE | 2016-04-03 09:29 | Progress Note ---
Internal Med Progress Note Date of Service: Apr 03, 2016. Provider Documentation: SUBJECTIVE: Patient is doing better - epigastric pain has improved. No more nausea, vomiting. No fever, chills, diarrhea. Tolerating clear liquid well OBJECTIVE: Vital Signs-as noted below Exam: General-AAOX3, no distress Eyes-No icterus Neck-Supple, NO JVD Lungs-AEBE, no wheezing, rhonchi Heart-S1, S2 normal, no murmurs Abdomen-Soft, Mild tenderness in epigastrium, No distension, BS present Extremities-No edema Lab data as noted below. CT SCAN ABD: IMPRESSION: 1. No acute findings within the abdomen. Normal CT appearance of the pancreas. 2. No biliary ductal dilatation status post cholecystectomy. 3. Hepatomegaly and fatty infiltration of the liver. 4. Scattered groundglass opacities within the lungs. Atelectasis is favored. However, a mild infectious process or mild pulmonary edema could appear similar. ASSESSMENT & PLAN: ASSESSMENT AND PLAN : ACUTE PANCREATITIS: Improving Unclear etiology. No hx of alcoholism, hx of cholecystectomy. Hypertriglyceridemia with TGLS 542 ? -IV fluids- decrease frequency, Clear liquid diet--> advance to mechanical soft diet -Pain mx- IV hydrocodone 0.5 mg PRN- decrease frequency as c/o nausea with meds -Work up - Lipase 1198-->132, TGLS- 542; US- no biliary duct obstruction, no GB ; CT scan with IV contrast today- No acute abn, hepatomegaly/fatty liver -GI - discussed with WILLIAM may require EUS in future as unclear etiology of pancreatitis. 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 FULL CODE DISPOSITION Expected discharge home when stable Discussed with GI Vital Signs: Date Time Temp Pulse Resp B/P Pulse Ox O2 Delivery O2 Flow Rate FiO2 04/03/16 07:51 36.5 76 20 127/70 94 Room Air 04/02/16 23:59 Nasal Cannula 3.0 04/02/16 23:54 36.5 63 16 143/84 93 Room Air 04/02/16 16:15 78 17 124/76 98 Nasal Cannula 3.0 04/02/16 16:00 98 Nasal Cannula 3.0 04/02/16 15:08 36.9 69 17 181/97 96 Nasal Cannula 2.0 04/02/16 12:35 36.5 70 16 131/77 96 Nasal Cannula 2.0 Lab Results: Results Past 24 Hours Test 04/02/16 11:18 04/02/16 16:31 04/02/16 19:55 04/03/16 06:48 Range/Units Bedside Glucose 112 94 214 70-99 mg/dl White Blood Count 4.63 4.8-10.8 K/uL Red Blood Count 4.14 4.7-6.1 M/uL Hemoglobin 12.3 14.0-18.0 g/dL Hematocrit 35.4 42-52 % Mean Corpuscular Volume 85.5 80-100 fL Mean Corpuscular Hemoglobin 29.7 25-34 pg Mean Corpuscular Hemoglobin Concent 34.7 32-36 g/dl RDW Standard Deviation 42.0 36.4-46.3 fL RDW Coefficient of Variation 13.5 11.5-14.5 % Platelet Count 152 130-400 K/uL Mean Platelet Volume 9.8 7.4-10.4 fL Sodium Level 145 136-145 mmol/L Potassium Level 4.2 3.5-5.1 mmol/L Chloride Level 108 98-107 mmol/L Carbon Dioxide Level 29 21-32 mmol/L Anion Gap 8.0 3-11 mmol/L Blood Urea Nitrogen 4 7-18 mg/dl Creatinine 0.92 0.60-1.40 mg/dl Est Creatinine Clear Calc Drug Dose 93.8 ml/min Estimated GFR () 105.1 Estimated GFR (Non- 90.7 BUN/Creatinine Ratio 4.1 10-20 Random Glucose 131 70-99 mg/dl Calcium Level 8.8 8.5-10.1 mg/dl Test 04/03/16 07:39 Range/Units Bedside Glucose 130 70-99 mg/dl
--- NOTE | 2016-04-03 11:42 | Gastroenterology Progress Note ---
Progress Note Date of Service: Apr 03, 2016 Subjective Pt evaluation today including: conversation w/ patient, physical exam, chart review, lab review, review of studies, review of inpatient medication list Mr. Toscano is a 60 yr old male admitted on 04/01 for acute pancreatitis, possibly from hypertriglyceridemia. CT normal yesterday. Lipase 1198 on arrival and 132 now. Review of Systems Constitutional: No fever Respiratory: No cough Cardiac: No chest pain Abdomen: No nausea, No pain Male : No dysuria Neuro: No memory loss Heme: No abnormal bleeding/bruising Endo: No fatigue Skin: No rash Medications Current Inpatient Medications Medications (Trade) Dose Ordered Sig/Dean Route Start Time Stop Time Status Last Admin Dose Admin Lactated Ringer's (Lr 1000ml) 1,000 ml @ 100 mls/hr Q10H IV 04/01/16 04:30 05/01/16 04:29 04/03/16 11:01 100 MLS/HR Enoxaparin Sodium (Lovenox Inj) 40 mg Q24H SQ 04/01/16 09:00 05/01/16 08:59 04/03/16 08:37 40 MG Insulin Aspart (novoLOG ASPART) SLIDING SCALE If C... ACHS SC 04/01/16 06:30 05/01/16 06:59 04/03/16 08:47 4 UNITS Glucose (Glucose 40% Gel) 15-30 GRAMS 15 GRAMS... UD PRN PO 04/01/16 05:15 05/01/16 05:14 Glucose (Glucose Chew Tab) 4-8 Tablets 4 Tabl... UD PRN PO 04/01/16 05:15 05/01/16 05:14 Dextrose (Dextrose 50% 50ML Syringe) 25-50ML OF 50% DW IV FOR... UD PRN IV 04/01/16 05:15 05/01/16 05:14 Glucagon (Glucagon Inj) 1 mg UD PRN SQ 04/01/16 05:15 05/01/16 05:14 Oxycodone/ Acetaminophen (Percocet 5-325mg Tab) pain not relieved by tylenol Q6H PRN PO 04/01/16 05:15 04/15/16 05:14 04/03/16 08:34 2 TAB Bupropion HCl (Wellbutrin-Sr Tab) 150 mg BID PO 04/01/16 09:00 05/01/16 08:59 04/03/16 08:37 150 MG Carvedilol (Coreg Tab) 3.125 mg BID PO 04/01/16 21:00 05/01/16 20:59 04/03/16 08:35 3.125 MG Divalproex Sodium (Depakote Extended Rel Tab) 1,500 mg HS PO 04/01/16 21:00 05/01/16 20:59 04/02/16 20:56 1,500 MG Duloxetine HCl (Cymbalta Cap) 20 mg DAILY PO 04/01/16 09:00 05/01/16 08:59 04/03/16 08:35 20 MG Levothyroxine Sodium (Synthroid Tab) 100 mcg DAILYBB PO 04/01/16 06:30 05/01/16 06:59 04/03/16 06:11 100 MCG Losartan Potassium (coZAAR TAB) 100 mg DAILY PO 04/01/16 09:00 05/01/16 08:59 04/03/16 08:35 100 MG Mirtazapine (Remeron Tab) 15 mg HS PO 04/01/16 21:00 05/01/16 20:59 04/02/16 20:57 15 MG Primidone (Mysoline Tab) 100 mg QPM PO 04/01/16 21:00 05/01/16 20:59 04/02/16 20:57 100 MG Primidone (Mysoline Tab) 250 mg QAM PO 04/01/16 09:00 05/01/16 08:59 04/03/16 08:36 250 MG Pantoprazole Sodium (Protonix Tab) 40 mg QAM PO 04/01/16 09:00 05/01/16 08:59 04/02/16 07:56 40 MG Ranitidine HCl (zANTac TAB) 300 mg BID PO 04/01/16 09:00 05/01/16 08:59 04/03/16 08:37 300 MG Ondansetron HCl 4 mg 4 mg Q6H PRN IV 04/01/16 05:15 05/01/16 05:14 04/02/16 17:52 4 MG Promethazine HCl/ Sodium Chloride (Phenergan Inj/ Nss 50ml) 50.5 ml @ 204 mls/hr Q6H PRN IV 04/01/16 05:15 05/01/16 05:14 04/01/16 18:50 204 MLS/HR Insulin Glargine (Lantus Solostar Pen) 5 unit BID SC 04/01/16 09:00 05/01/16 08:59 04/03/16 08:45 5 UNIT Fenofibrate (Tricor Tab) 145 mg QAM PO 04/02/16 09:00 05/02/16 08:59 04/03/16 08:37 145 MG Diphenhydramine HCl (Benadryl Inj) 12.5 mg Q6H PRN IV 04/01/16 22:00 05/01/16 21:59 04/01/16 22:08 12.5 MG Morphine Sulfate (MoRPHine SULFATE INJ) 2 mg Q4H PRN IV 04/02/16 11:15 04/16/16 11:14 04/02/16 20:02 2 MG Ketorolac Tromethamine (Toradol Inj) 15 mg Q6H PRN IV 04/02/16 11:15 04/07/16 11:14 Levocetirizine (Xyzal) 5 mg HS PO 04/02/16 21:00 05/02/16 20:59 04/02/16 21:04 5 MG Ioversol (Optiray 320) 111 ml UD PRN IV 04/03/16 08:15 04/07/16 08:14 Objective Vital Signs Date Time Temp Pulse Resp B/P Pulse Ox O2 Delivery O2 Flow Rate FiO2 04/03/16 08:00 Room Air 04/03/16 07:51 36.5 76 20 127/70 94 Room Air 04/02/16 23:59 Nasal Cannula 3.0 04/02/16 23:54 36.5 63 16 143/84 93 Room Air 04/02/16 16:15 78 17 124/76 98 Nasal Cannula 3.0 04/02/16 16:00 98 Nasal Cannula 3.0 04/02/16 15:08 36.9 69 17 181/97 96 Nasal Cannula 2.0 04/02/16 12:35 36.5 70 16 131/77 96 Nasal Cannula 2.0 Physical Exam General Appearance: + mild distress Neck: no JVD Respiratory/Chest: lungs clear Cardiovascular: regular rate, rhythm, no JVD, no murmur Abdomen: soft, + tenderness (minimal epigastric tenderness) Neurologic/Psych: alert, normal mood/affect, oriented x 3 Skin: no jaundice Laboratory Results Last 24 Hours Test 04/02/16 16:31 04/02/16 19:55 04/03/16 06:48 04/03/16 07:39 Bedside Glucose 94 mg/dl 214 mg/dl 130 mg/dl White Blood Count 4.63 K/uL Red Blood Count 4.14 M/uL Hemoglobin 12.3 g/dL Hematocrit 35.4 % Mean Corpuscular Volume 85.5 fL Mean Corpuscular Hemoglobin 29.7 pg Mean Corpuscular Hemoglobin Concent 34.7 g/dl RDW Standard Deviation 42.0 fL RDW Coefficient of Variation 13.5 % Platelet Count 152 K/uL Mean Platelet Volume 9.8 fL Sodium Level 145 mmol/L Potassium Level 4.2 mmol/L Chloride Level 108 mmol/L Carbon Dioxide Level 29 mmol/L Anion Gap 8.0 mmol/L Blood Urea Nitrogen 4 mg/dl Creatinine 0.92 mg/dl Est Creatinine Clear Calc Drug Dose 93.8 ml/min Estimated GFR () 105.1 Estimated GFR (Non- 90.7 BUN/Creatinine Ratio 4.1 Random Glucose 131 mg/dl Calcium Level 8.8 mg/dl Test 04/03/16 10:58 Bedside Glucose 228 mg/dl Assessment and Plan Mr. De Santiago is a 60 yr old male with acute pancreatitis. Etiology is uncertain, possibly hypertriglyceridemia. He does not drink alcohol and is S/P cholecystectomy w/o bile duct abnormalities on US. No new suspect medications. Plan: 1. Continue LR at 150cc/hr. 2. Daily LFTs, lipase. 3. Incentive spirometry and ambulation to prevent pneumonia. 4. Clear liquids po. 5. Will plan for OP EUS in about 6 weeks. Attg addendum: I interviewed and examined pt, reviewed chart and labs. Pt with continued discomfot, although improved. He is tolerating small amts of PO. Still requiring narcs. Abd is tender in epigastrium. CT without evidence of pancreatitis. Possible that his discomfort is related to gastroparesis? Willl begin Reglan, cont current diet.
[2016-04-03] MEDS: PANTOprazole SOD 40 MG TAB PO SCH (12:14)
[2016-04-03] MEDS: ONDANSETRON INJ 2 MG/ML 2 ML VIAL IV PRN (12:18)
[2016-04-03 15:47] VITALS: BP 127/77; PULSE 72; TEMP 37.3; O2SAT 91
[2016-04-03] MEDS: METOCLOPRAMIDE HCL INJ 5 MG/ML 2 ML VIAL IV. SCH ×2 (16:00→21:08)
[2016-04-03] MEDS: DIVALPROEX 500 MG EXTENDED RELEASE TAB PO SCH (21:07)
[2016-04-03] MEDS: MIRTAZAPINE TAB 15 MG TAB PO SCH (21:07)
[2016-04-03] MEDS: LEVOCETIRIZINE 5 MG PO SCH (21:08)
[2016-04-03 23:23] VITALS: BP 146/86; PULSE 71; TEMP 36.9; O2SAT 92
[2016-04-04] MEDS: METOCLOPRAMIDE HCL INJ 5 MG/ML 2 ML VIAL IV. SCH ×2 (03:11→10:24)
[2016-04-04] MEDS: LACTATED RINGER'S 1000ML 1,000 ML IV SCH (05:11)
[2016-04-04] MEDS: LEVOTHYROXINE 100 MCG TAB PO SCH (06:01)
[2016-04-04 07:56] LABS: BUN/CREATININE RATIO 9.1 (10-20); CALCIUM 8.9 mg/dl (8.5-10.1); CREATININE 0.96 mg/dl (0.60-1.40)
[2016-04-04 07:57] VITALS: BP 130/84; PULSE 68; TEMP 36.7; O2SAT 90
[2016-04-04 07:58] LABS: ALB/GLOB RATIO 1.3 (0.9-2)
[2016-04-04] MEDS: PRIMIDONE 50 MG TAB PO SCH (08:45)
[2016-04-04] MEDS: RANITIDINE HCL 150 MG TAB PO SCH (08:46)
[2016-04-04] MEDS: FENOFIBRATE 145 MG TAB PO SCH (08:46)
[2016-04-04] MEDS: LOSARTAN POTASSIUM 50 MG TAB PO SCH (08:46)
[2016-04-04] MEDS: DULOXETINE HCL 20 MG CAP PO SCH (08:46)
[2016-04-04] MEDS: BuPROPion SR 150 MG TABCR PO SCH (08:47)
[2016-04-04] MEDS: PANTOprazole SOD 40 MG TAB PO SCH (08:47)
[2016-04-04] MEDS: ENOXAPARIN 40 MG/0.4 ML SYR SQ SCH (08:47)
[2016-04-04] MEDS: CARVEDILOL 3.125 MG TAB PO SCH (08:47)
[2016-04-04] MEDS: INSULIN ASPART 100 UNITS/ML 3 ML PEN SC SCH ×2 (08:53→12:43)
[2016-04-04] MEDS: INSULIN GLARGINE SOLOSTAR 100 UNITS/ML 3 ML PEN SC SCH (08:54)
[2016-04-04] MEDS: ONDANSETRON INJ 2 MG/ML 2 ML VIAL IV PRN (08:54)
[2016-04-04 09:12] VITALS: O2SAT 90
--- NOTE | 2016-04-04 09:56 | Progress Note ---
Internal Med Progress Note Date of Service: Apr 04, 2016. Provider Documentation: SUBJECTIVE : Patient is doing better - epigastric pain has improved significantly. Last IV morphine use 8 PM, just once in 24 hours, none since than No more nausea, vomiting. No fever, chills, diarrhea. Tolerating soft diet well. OBJECTIVE: Vital Signs-as noted below Exam: General-AAOX3, no distress Eyes-No icterus Neck-Supple, NO JVD Lungs-AEBE, no wheezing, rhonchi Heart-S1, S2 normal, no murmurs Abdomen-Soft, Mild tenderness in epigastrium- improved, No distension, BS present Extremities-No edema Lab data as noted below. CT SCAN ABD: IMPRESSION: 1. No acute findings within the abdomen. Normal CT appearance of the pancreas. 2. No biliary ductal dilatation status post cholecystectomy. 3. Hepatomegaly and fatty infiltration of the liver. 4. Scattered groundglass opacities within the lungs. Atelectasis is favored. However, a mild infectious process or mild pulmonary edema could appear similar. ASSESSMENT & PLAN: ASSESSMENT AND PLAN : ACUTE PANCREATITIS: Improving Unclear etiology. No hx of alcoholism, hx of cholecystectomy. Hypertriglyceridemia with TGLS 542 ? -IV fluids- decrease frequency, Clear liquid diet--> advance to mechanical soft diet -Pain mx- IV Morphine PRN, PO percocet PRN (used one po percocet and one IV morphine dose in 24 hours) -Work up - Lipase 1198-->132, TGLS- 542; US- no biliary duct obstruction, no GB ; CT scan with IV contrast today- No acute abn, hepatomegaly/fatty liver -GI - discussed with WILLIAM will require EUS in 6-8 weeks as unclear etiology of pancreatitis. 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 FULL CODE DISPOSITION Expected discharge home when stable. Probably dc in AM Discussed with GI Vital Signs: Date Time Temp Pulse Resp B/P Pulse Ox O2 Delivery O2 Flow Rate FiO2 2/10/17 09:12 90 Room Air 04/04/16 08:30 Room Air 04/04/16 07:57 36.7 68 18 130/84 90 Room Air 04/04/16 00:00 Nasal Cannula 3.0 04/03/16 23:23 36.9 71 16 146/86 92 Room Air 04/03/16 16:00 Room Air 3.0 04/03/16 15:47 37.3 72 18 127/77 91 Room Air Lab Results: Results Past 24 Hours Test 04/03/16 10:58 04/03/16 16:04 04/04/16 06:23 04/04/16 08:00 Range/Units Bedside Glucose 228 128 145 70-99 mg/dl Sodium Level 144 136-145 mmol/L Potassium Level 4.0 3.5-5.1 mmol/L Chloride Level 106 98-107 mmol/L Carbon Dioxide Level 30 21-32 mmol/L Anion Gap 8.0 3-11 mmol/L Blood Urea Nitrogen 9 7-18 mg/dl Creatinine 0.96 0.60-1.40 mg/dl Est Creatinine Clear Calc Drug Dose 89.9 ml/min Estimated GFR () 99.9 Estimated GFR (Non- 86.2 BUN/Creatinine Ratio 9.1 10-20 Random Glucose 140 70-99 mg/dl Calcium Level 8.9 8.5-10.1 mg/dl Total Bilirubin 0.3 0.2-1 mg/dl Aspartate Amino Transf (AST/SGOT) 19 15-37 U/L Alanine Aminotransferase (ALT/SGPT) 54 12-78 U/L Alkaline Phosphatase 68 45-117 U/L Total Protein 5.6 6.4-8.2 gm/dl Albumin 3.2 3.4-5.0 gm/dl Globulin 2.4 2.5-4.0 gm/dl Albumin/Globulin Ratio 1.3 0.9-2 Microbiology Results 04/03/16 C.difficile Toxin B Gene (PCR) - Final, Complete No C. difficile toxin B gene detected
[2016-04-04] MEDS ORDERED: DICY10CA55 PO (12:54)
[2016-04-04] MEDS ORDERED: INSDGI SC (12:54)
--- NOTE | 2016-04-04 12:58 | Discharge Instructions ---
Discharge Instructions Admission Reason for Admission: Acute Pancreatitis Discharge Discharge Diagnosis / Problem: 1. Acute pancreatitis Discharge Goals Goal(s): Diagnostic testing, Therapeutic intervention Activity Recommendations Activity Limitations: resume your previous activity (as tolerated) . Instructions / Follow-Up Instructions / Follow-Up MEDICATION CHANGES -DM medications: Insulin Novolog with meals discontinued Insulin Glargine decreased to 10 Units SQ BID Significant reduction in doses due to hypoglycemia episodes and blood sugar in range of 120-130s only while on Insulin lantus 5 units BID. Need to monitor closely outpatient and need home blood glucose monitoring - to take readings to PCP office during next visit DIET: Low fat, Low cholesterol, Diabetes, Low sodium, heart health diet recommended. Triglycerides very high 500s, so need good diet control. FOLLOW UP Dr Butt 04/10/16 at 8:50 AM GI as scheduled- Need Endoscopic ultrasound to be done in 6-8 weeks to look into the cause of pancreatitis Current Hospital Diet Patient's current hospital diet: Low Sodium Diet (2gm Na), Diabetes Type 2 Diet Discharge Diet Recommended Diet: AHA Diet (Heart Healthy), Low Sodium Diet (2gm Na), Diabetes Type 2 Diet, Low Fat Diet Pending Studies Studies pending at discharge: no Laboratory Results Lipid Panel Test 04/01/16 03:05 Range/Units Triglycerides Level 542 H 0-150 mg/dl Medical Emergencies . Who to Call and When: Medical Emergencies: If at any time you feel your situation is an emergency, please call 911 immediately. . Non-Emergent Contact Non-Emergency issues call your: Primary Care Provider . . "Provider Documentation" section prepared by Basilia Johns. VTE Core Measure Inpt VTE Proph given/why not?: Jimmy Viera, SCD's
--- NOTE | 2016-04-04 13:01 | Discharge Summary ---
Discharge Summary Admission Date: Apr 01, 2016 at 04:58 Discharge Date: Apr 04, 2016 Discharge Disposition: Home Principal Diagnosis: 1. Acute pancreatitis 2. Hypertension, uncontrolled Secondary Diagnoses/Problems: 1. DM-IDDM 2. Chronic respiratory failure (hypoxic) Procedures: IV fluids CT scan abd/pelvis US abdomen CXR Consultations: GI Pending Studies/Follow-Up: Instructions / Follow-Up -DM medications: Insulin Novolog with meals discontinued Insulin Glargine decreased to 10 units SQ BID Significant reduction in doses due to hypoglycemia episodes and blood sugar in range of 120-130s only while on Insulin lantus 5 units BID. Need to monitor closely outpatient and need home blood glucose monitoring - to take readings to PCP office during next visit DIET: Low fat, Low cholesterol, Diabetes, Low sodium, heart health diet recommended. Triglycerides very high 500s, so need good diet control. FOLLOW UP Dr Butt 04/10/16 at 8:50 AM GI as scheduled- Need Endoscopic ultrasound to be done in 6-8 weeks to look into the cause of pancreatitis Medication Reconciliation Changed Medications: Dicyclomine Hcl (Bentyl) 10 Mg Cap 10 MG PO BID PRN for abdominal cramps, #20 3 Refills (Changed from: AC) Insulin Glargine (Lantus) 100 Unit/Ml Inj 10 UNITS SC BID for 30 Days, VIAL (Changed from: 55 UNITS) Continued Medications: Albuterol Hfa (Ventolin Hfa) 200 Puffs/53859 Mcg Aers 2 PUFFS INH Q6H PRN for Shortness of Breath Bupropion (Wellbutrin Sr) 150 Mg Ertab 150 MG PO BID, TAB Carvedilol (Coreg) 3.125 Mg Tab 3.125 MG PO BID, TAB TAKE THIS MEDICATION WITH FOOD. Clobetasol Propionate (Clobetasol Propionate Cream 0.05%) 90 Appln/30 Gm Cr 1 APPLN EXT BID APPLY TO AFFECTED AREA FOR UP TO 2 WEEKS Divalproex Sodium (Depakote Er) 500 Mg Tab 1500 MG PO HS Duloxetine HCl (Cymbalta) 20 Mg Cap 20 MG PO DAILY Fenofibrate (Tricor) 145 Mg Tab 145 MG PO DAILY, TAB Furosemide (Lasix) 20 Mg Tab 20 MG PO QPM take at 6pm to lessen overnight urine output Hydrocortisone 2.5% (Rectal) (Anusol-Hc 2.5%) 2.5 % Cre 1 APPLN TOP TID PRN for Hemorrhoids for 7 Days, 1 Refill Levocetirizine Dihydrochloride (Levocetirizine Dihydrochl) 5 Mg Tab 5 MG PO QPM Levothyroxine Sodium (Levothyroxine Sodium) 100 Mcg Tab 100 MCG PO DAILY Losartan Potassium (Cozaar) 100 Mg Tab 100 MG PO DAILY, TAB Mirtazapine (Remeron) 15 Mg Tab 15 MG PO HS Omeprazole (Omeprazole) 20 Mg Tab 20 MG PO DAILY Ondansetron Hcl (Zofran) 4 Mg Tab 4 MG PO Q8 PRN for Nausea, TAB Oxybutynin Chloride Er (Ditropan Xl) 10 Mg Tab 10 MG PO DAILY Polyethylene Glycol 3350 (Polyethylene Glycol 3350) 1 Pow Pow 17 GM PO DAILY, #527 GM Primidone (Mysoline) 50 Mg Tab 250 MG PO QAM Primidone (Mysoline) 50 Mg Tab 100 MG PO QPM Ranitidine Hcl (Zantac) 300 Mg Tab 300 MG PO BID, TAB Rosuvastatin Calcium (Crestor) 40 Mg Tab 40 MG PO DAILY, TAB Tramadol Hcl (Ultram) 50 Mg Tab 50 MG PO Q6H PRN for Pain Triamcinolone Acet (Aristocort 0.1%) 90 Appln/30 Gm Cr 1 APPLN TOP BID APPLY TO AFFECTED AREA [Nifedipine 2% Oint] () 1 APPLN TOP DAILY NIFEDIPINE RECTAL OINTMENT Discontinued Medications: Insulin Aspart (Novolog Flexpen) 100 Units/Ml Inj 28 UNITS SQ TIDM PLUS SLIDING SCALE Admission Information HPI (per Admitting provider): HISTORY OF PRESENT ILLNESS: Medical history is significant for hypertension, DM2 insulin requiring, chronic respiratory failure secondary to on home O2 2 to ILD (asbestosis) on home O2, past tobacco abuse, PVD as per records. Recent confinement in the hospital last year for bronchitis. Few days history of diarrhea symptoms, epigastric pain achy and sharp, some nausea, some vomiting, no fever, no chills, no abdominal trauma, sob, hurts to take a deep breath. No cough symptoms. loose stools, non-bloody, no recent antibiotic intake/no known sick contacts Denies alcohol intake. Blood sugars high at home 200-300 as per px. The patient was brought to the Emergency Room. Hospital Course ASSESSMENT AND PLAN : ACUTE PANCREATITIS: Improving Unclear etiology. No hx of alcoholism, hx of cholecystectomy. Hypertriglyceridemia with TGLS 542 ? -IV fluids- decrease frequency, Clear liquid diet--> advance to mechanical soft diet -Pain mx- IV Morphine PRN, PO percocet PRN (used one po percocet and one IV morphine dose in 24 hours) -Work up - Lipase 1198-->132, TGLS- 542; US- no biliary duct obstruction, no GB ; CT scan with IV contrast today- No acute abn, hepatomegaly/fatty liver -GI - discussed with PAShaun will require EUS in 6-8 weeks as unclear etiology of pancreatitis. 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 FULL CODE DISPOSITION Expected discharge home when stable. Probably dc in AM Discussed with GI Total time spent on discharge = 35 minutes This includes examination of the patient, discharge planning, medication reconciliation, and communication with other providers. Discharge Instructions Activity Recommendations Activity Limitations: resume your previous activity (as tolerated) . Instructions / Follow-Up Instructions / Follow-Up No changes in medications DIET: Low fat, Low cholesterol, Diabetes, Low sodium, heart health diet recommended. Triglycerides very high 500s, so need good diet control. FOLLOW UP Dr Butt 04/10/16 at 8:50 AM GI as scheduled- Need Endoscopic ultrasound to be done in 6-8 weeks to look into the cause of pancreatitis Current Hospital Diet Patient's current hospital diet: Low Sodium Diet (2gm Na), Diabetes Type 2 Diet Discharge Diet Recommended Diet: AHA Diet (Heart Healthy), Low Sodium Diet (2gm Na), Diabetes Type 2 Diet, Low Fat Diet Pending Studies Studies pending at discharge: no Laboratory Results Lipid Panel Test 04/01/16 03:05 Range/Units Triglycerides Level 542 H 0-150 mg/dl Medical Emergencies . Who to Call and When: Medical Emergencies: If at any time you feel your situation is an emergency, please call 911 immediately. . Non-Emergent Contact Non-Emergency issues call your: Primary Care Provider . . "Provider Documentation" section prepared by Basilia Johns. VTE Core Measure Inpt VTE Proph given/why not?: Jimmy Viera, SCD's
[2016-04-04 13:23] VITALS: BP 130/84; PULSE 68; TEMP 36.7; O2SAT 90
[2016-08-17] MEDS ORDERED: VNTHFA/IN INH (03:18)
[2016-08-17] MEDS ORDERED: DULO-24 PO (03:20)
[2016-08-17] MEDS ORDERED: LEVO-14 PO (03:23)
[2016-08-17] MEDS ORDERED: FURO-85 PO (03:26)
[2016-08-17] MEDS ORDERED: MIRT15TA3 PO (03:30)
[2016-08-17] MEDS ORDERED: ONDA4TAB46 PO (03:34)
[2016-08-17] MEDS ORDERED: NIFEDIPINE TOP (03:46)
[2016-08-17] MEDS ORDERED: OXYB10TA PO (03:49)
[2016-08-17] MEDS ORDERED: INSDGI SC ×2 (09:53)
[2016-08-17] MEDS ORDERED: NVLGI/PEN SQ (09:53)
[2016-08-17] MEDS ORDERED: ERGO500037 PO (09:54)
[2016-08-17] MEDS ORDERED: FENO145T26 PO (15:42)
[2016-10-31] MEDS ORDERED: TRAM-10 PO (12:10)
== END 2016-04-04 13:50 | disposition home or self-care (01) | DRG 439 ==
LOC: ENRESERVDT → ENRESERVTM → C.EDB 02:21 → C.MS2W 04:58
PROVIDERS: ADMIT Internal Medicine; ATTEND Internal Medicine
DX: K85.90 Acute pancreatitis without necrosis or infection, unspecified (principal); J96.10 Chronic respiratory failure, unspecified whether with hypoxia or hypercapnia; J84.9 Interstitial pulmonary disease, unspecified; Z99.81 Dependence on supplemental oxygen; Z87.891 Personal history of nicotine dependence; E11.51 Type 2 diabetes mellitus with diabetic peripheral angiopathy without gangrene; Z90.49 Acquired absence of other specified parts of digestive tract; I10 Essential (primary) hypertension; Z79.82 Long term (current) use of aspirin; Z79.4 Long term (current) use of insulin; Z79.899 Other long term (current) drug therapy; Z88.8 Allergy status to other drugs, medicaments and biological substances; Z88.0 Allergy status to penicillin; Z82.49 Family history of ischemic heart disease and other diseases of the circulatory system; I16.0 Hypertensive urgency; K21.9 Gastro-esophageal reflux disease without esophagitis; G40.909 Epilepsy, unspecified, not intractable, without status epilepticus; E11.43 Type 2 diabetes mellitus with diabetic autonomic (poly)neuropathy; E78.5 Hyperlipidemia, unspecified; Z83.3 Family history of diabetes mellitus; Z83.6 Family history of other diseases of the respiratory system; Z80.9 Family history of malignant neoplasm, unspecified; Z83.79 Family history of other diseases of the digestive system; Z88.6 Allergy status to analgesic agent; Z88.5 Allergy status to narcotic agent; E78.1 Pure hyperglyceridemia; J61 Pneumoconiosis due to asbestos and other mineral fibers; E11.649 Type 2 diabetes mellitus with hypoglycemia without coma

== ENCOUNTER → 2016-04-28 | Outpatient (CLI) | payer OTHER ==
[~2016-04-28] MED LIST changes: -ALBU1NEB10 INH; -ASPCH81X PO; +BUPR-79 PO; +CARV3.12 PO; +CLBCRM30 EXT; +DIVA500T3 PO; +DULO-24 PO; +ERGO500037 PO; +FENO145T26 PO; -FLNIN NAE; +FURO-85 PO; -HYDR-3126 PO; +HYDR2.5C37 TOP; +INSDGI SC; -INSUINJ14 SC; -INSUINJ4 SC; +LEVO-14 PO; +LEVO100T7 PO; +LOSA100T65 PO; -MECL1TAB42 PO; +METO-157 PO; -MIRT15TA2 PO; +MIRT15TA3 PO; -MTR600X PO; -NIFEDIPINE TD; +NIFEDIPINE TOP; +NVLGI/PEN SQ; -OMEGCAP2 PO; +OMEP20TA PO; +ONDA4TAB46 PO; +OXYB10TA PO; -OXYB15TA PO; +OXYC1TAB3 PO; +POLY3350 PO; +PRIM50TA34 PO; +RANI300T PO; +ROSU40TA PO; -TIZA2CAP2 PO; +TRAM-10 PO; -TRIA0.1C20 TOP; +TRMCR130WC TOP; +VNTHFA/IN INH
--- NOTE | 2016-04-30 16:19 | EEG Procedure Note ---
EEG Procedure Note Date of Service Apr 28, 2016. Start / End Times Start Time: 1:58 PM End Time: 2:58 PM Referring Physician Shreya Lopez History This is a 60-year-old male with a history of epilepsy and intermittent numbness/ paresthesias of the left leg. EEG for further evaluation of possible seizure etiology. Pertinent home medications: Depakote Home Medication List Scheduled Bupropion (Wellbutrin Sr), 150 MG PO BID Carvedilol (Coreg), 3.125 MG PO BID Clobetasol Propionate (Clobetasol Propionate Cream 0.05%), 1 APPLN EXT BID Divalproex Sodium (Depakote Er), 1,500 MG PO HS Duloxetine HCl (Cymbalta), 20 MG PO DAILY Fenofibrate (Tricor), 145 MG PO DAILY Furosemide (Lasix), 20 MG PO QPM Insulin Glargine (Lantus), 10 UNITS SC BID Levocetirizine Dihydrochloride (Levocetirizine Dihydrochl), 5 MG PO QPM Levothyroxine Sodium (Levothyroxine Sodium), 100 MCG PO DAILY Losartan Potassium (Cozaar), 100 MG PO DAILY Mirtazapine (Remeron), 15 MG PO HS Omeprazole (Omeprazole), 20 MG PO DAILY Oxybutynin Chloride Er (Ditropan Xl), 10 MG PO DAILY Polyethylene Glycol 3350 (Polyethylene Glycol 3350), 17 GM PO DAILY Primidone (Mysoline), 250 MG PO QAM Primidone (Mysoline), 100 MG PO QPM Ranitidine Hcl (Zantac), 300 MG PO BID Rosuvastatin Calcium (Crestor), 40 MG PO DAILY Triamcinolone Acet (Aristocort 0.1%), 1 APPLN TOP BID [Nifedipine 2% Oint], 1 APPLN TOP DAILY Scheduled PRN Albuterol Hfa (Ventolin Hfa), 2 PUFFS INH Q6H PRN for Shortness of Breath Dicyclomine Hcl (Bentyl), 10 MG PO BID PRN for abdominal cramps Hydrocortisone 2.5% (Rectal) (Anusol-Hc 2.5%), 1 APPLN TOP TID PRN for Hemorrhoids Ondansetron Hcl (Zofran), 4 MG PO Q8 PRN for Nausea Tramadol Hcl (Ultram), 50 MG PO Q6H PRN for Pain Description This is a 21 electrode EEG with a single channel dedicated to limited EKG. The electrodes were placed in accordance with the International 10-20 system. At the start of the recording the patient was in an awake state. Background was well organized and composed of symmetric low to moderate amplitude mixed alpha and beta frequencies. There was a symmetric well-formed moderate amplitude 8-9 Hz posterior dominant rhythm that was reactive to eye opening and closure. Hyperventilation was not done. Intermittent photic stimulation at various frequencies produced no abnormalities. Sleep was indicated by vertex waves and symmetric sleep spindles. Interpretation This is a normal awake and asleep 1 hour extended EEG. There was no electrographic seizures or epileptiform discharges. Clinical Correlation A normal EEG does not rule out epilepsy if there is a strong clinical suspicion.
== END | disposition home or self-care (01) ==
LOC: C.NEUR 13:44
PROVIDERS: ATTEND Psychiatry & Neurology Neurology
DX: R20.2 Paresthesia of skin (principal)

== ENCOUNTER → 2016-05-13 | Outpatient (CLI) | payer OTHER ==
[2016-05-13 14:50] LABS: ALT/SGPT 20 U/L (12-78); BLOOD UREA NITROGEN 15 mg/dl (7-18); BUN/CREATININE RATIO 13.2 (10-20); CALCIUM 9.3 mg/dl (8.5-10.1); CARBON DIOXIDE 27 mmol/L (21-32); CHLORIDE 102 mmol/L (98-107); CHOLESTEROL 199 mg/dl (0-200); GLUCOSE 222 mg/dl (70-99); POTASSIUM 4.6 mmol/L (3.5-5.1); SODIUM 138 mmol/L (136-145); TRIGLYCERIDES 208 mg/dl (0-150); VERY LOW DENSITY LIPOPROT CALC 42 mg/dl
[2016-05-13 14:53] LABS: ALB/GLOB RATIO 1.3 (0.9-2); ALKALINE PHOSPHATASE 55 U/L (45-117); AST/SGOT 12 U/L (15-37); CHOLESTEROL/HDL RATIO 4.3; HDL CHOLESTEROL 46 mg/dl; LDL CHOLESTEROL CALCULATED 111 mg/dl; PROTHROMBIN TIME (PATIENT) 10.7 SECONDS (9.0-12.0)
[2016-05-13 14:56] LABS: BASO % 0.2 %; BASO ABS # 0.01 K/uL (0-0.2); COMPLETE YES; EOS % 0.7 %; HEMATOCRIT 39.3 % (42-52); IG% 0.5 %; LYMPH ABS # 2.23 K/uL (1.2-3.4); MEAN CELL VOLUME 84.3 fL (80-100); MEAN CORPUSCULAR HEMOGLOBIN 29.6 pg (25-34); MEAN CORPUSCULAR HGB CONC 35.1 g/dl (32-36); MEAN PLATELET VOLUME 10.4 fL (7.4-10.4); NEUT % 52.6 %; PLATELET COUNT 228 K/uL (130-400); RED BLOOD COUNT 4.66 M/uL (4.7-6.1); WHITE BLOOD COUNT 6.03 K/uL (4.8-10.8)
[2016-05-13 15:17] LABS: RATIO 5.1 mcg/mg (0-30.0)
--- NOTE | 2016-05-20 08:22 | CODING QUERY MEDICAL NECESSITY ---
SUPPORTING DIAGNOSIS NEEDED A supporting diagnosis is required for the test/procedure performed on this patient in order for us to be reimbursed by the patient's insurance. Please provide a supporting diagnosis for the following test/procedure listed below next to the test name along with your signature. *If there is no additional diagnosis for this patient that would support the following test/procedure please document that below next to the test/procedure. Test(s)/Procedure(s) that require a supporting diagnosis: DOS 05/13 * Vitamin D DIAGNOSIS: Provider Signature: Date: Thank you Edna Rosales Health Information Management Once completed, please kindly fax back to [phone] For questions please call [phone]
== END | disposition home or self-care (01) ==
LOC: C.LAB1850 12:28
PROVIDERS: ATTEND Nurse Practitioner Adult Health
DX: R91.1 Solitary pulmonary nodule (principal); E11.65 Type 2 diabetes mellitus with hyperglycemia; E78.5 Hyperlipidemia, unspecified; I10 Essential (primary) hypertension; G25.0 Essential tremor; G40.309 Generalized idiopathic epilepsy and epileptic syndromes, not intractable, without status epilepticus; E55.9 Vitamin D deficiency, unspecified

== ENCOUNTER 2016-06-06 09:02 | Day surgery (SDC) | payer OTHER ==
[2016-05-29 09:27] VITALS: BMI 37.0
[~2016-06-06] VITALS: Ht 165.1 cm; Wt 100.9 kg
[~2016-06-06 09:02] MED LIST changes: -BUPR-79 PO; -CARV3.12 PO; -DIVA500T3 PO; -DULO-24 PO; -ERGO500037 PO; -FENO145T26 PO; -FURO-85 PO; -HYDR2.5C37 TOP; -INSDGI SC; -LEVO-14 PO; -LEVO100T7 PO; -LOSA100T65 PO; -METO-157 PO; -MIRT15TA3 PO; -NIFEDIPINE TOP; -NVLGI/PEN SQ; -OMEP20TA PO; -ONDA4TAB46 PO; -OXYB10TA PO; -OXYC1TAB3 PO; -POLY3350 PO; -PRIM50TA34 PO; -RANI300T PO; -ROSU40TA PO; -TRAM-10 PO; -TRAM-453 PO; -VNTHFA/IN INH
[2016-06-06 09:32] VITALS: BP 148/81; PULSE 62; TEMP 36.6; O2SAT 97; Ht 165.1 cm; Wt 100.9 kg
[2016-06-06] MEDS ORDERED: MIDAZOLAM HCL 1 MG/ML 2ML VIAL ONE (10:03)
[2016-06-06] MEDS ORDERED: FENTANYL CITRATE INJ 50 MCG/1 ML 2 ML VIAL ONE (10:09)
[2016-06-06] MEDS ORDERED: FLUMAZENIL 0.1 MG/1 ML 10 ML VIAL IV PRN (10:15)
[2016-06-06] MEDS ORDERED: ONDANSETRON INJ 2 MG/ML 2 ML VIAL IV PRN (10:15)
[2016-06-06] MEDS ORDERED: NALOXONE HCL 0.4 MG/1 ML VIAL/CARP IV PRN (10:15)
[2016-06-06] MEDS ORDERED: LABETALOL HCL IV 5 MG/ML 20ML IV PRN (10:15)
[2016-06-06] MEDS ORDERED: EpHEDrine SULFATE INJ 50 MG/ML AMP IV PRN (10:15)
[2016-06-06] MEDS ORDERED: ATROPINE SULFATE 0.1 MG/ML 5ML SYR IV PRN (10:15)
[2016-06-06] MEDS ORDERED: PHENYLEPHRINE 100MCG/ML 5ML SYR IV PRN (10:15)
--- NOTE | 2016-06-06 10:29 | Progress Note ---
Progress Note Date of Service Jun 06, 2016. Progress Note Discussed with patient NABS/Soft/NT/ND A and o x 3 cohen nad Proceed with EUS as scheduled
--- NOTE | 2016-06-06 10:29 | Endo History and Physical ---
History & Physical Date of Service: Jun 05, 2016. Chief Complaint: Referring Physician: History of Present Illness Erikc Pardo III is a 60 year old male, who presented to clinic today for c/ o diarrhea. He was admitted at [facility], [place] early March for acute pancreatitis, suspected to be due to hypertriglyceridemia (TG >500s). He has been started on Tricor and is currently on Crestor. Lipase >1000 on admission and had normalized at DC. He denies any ETOH uses, current tobacco uses, autoimmune disorder in the family. He is also s/p cholecystectomy. Pt reports that since his DC from hospital, he's been having watery stools up to 5x a day. Has nocturnal awakening w diarrhea. Has hemorrhoids, and given frequency of BM, felt it's irritated and sometimes they may bleed. He had diffuse abd cramping. Denies any nausea, vomiting, fever, chills. He has hx of Cdiff years ago, states been eating yogurt hoping he'll not have a recurrence. Denies any sick contact other than his last hospitalization, also denies any recent med changes , including antibx. He had hx of diarrhea after eating years ago. Also hx of gastroparesis. Is currently taking Dicyclomine 10mg twice daily but not getting much relief w the abd cramping and diarrhea. Last colonoscopy 2013 - normal exam. Past Medical History Diabetes, Arthritis, Male Genitourinary Prob., Anxiety, Seizure Disorder, High Cholesterol, Syncopal Episodes, Hypertension, COPD, Thyroid Disease, Chronic Steroid Use, Depression Past Surgical History Hx Cardiac Surgery: No Hx Internal Defibrillator: No Hx Pacemaker: No Hx Abdominal Surgery: Yes (appendectomy and cholecystectomy 2013) Hx Post-Op Nausea and Vomiting: No Hx Cancer Surgery: No Hx Thoracic Surgery: No Hx Orthopedic: Yes (rotator cuff 1997, neck c5,c6,c7 replaced) Hx Urinary Tract Surgery: Yes (turp 1998) Social History Smoking Status: Former Smoker Hx Substance Use: No Hx Alcohol Use: No Allergies Coded Allergies: Amitriptyline (Verified Allergy, Intermediate, HIVES, 05/29/16) Penicillins (Verified Allergy, Intermediate, HIVES, 05/29/16) ITCHY,HIVES Tramadol (Verified Allergy, Intermediate, ITCHY, 05/29/16) ITCHY Acetaminophen (Verified Allergy, Mild, Rash, Hives, 05/29/16) BIRGIT Inhibitors (Verified Allergy, Unknown, ? ANGIOEDEMA, 04/01/16) Gabapentin (Unverified Allergy, Unknown, per sandstone inspector repairer note , ) Lorazepam (Verified Allergy, Unknown, "DON'T REMEMBER", 04/01/16) Codeine (Verified Adverse Reaction, Mild, N&V, 04/01/16) N/V Current Medications Reported Home Medications Medications Dose Route/Sig Max Daily Dose Days Date Category Dose Instructions Vitamin D 68321 Unit (Ergocalciferol) 50,000 Unit Cap 50,000 Unit PO WK 05/29/16 Reported Novolog Flexpen (Insulin Aspart) 100 Units/Ml Inj 1 Units SQ UD 05/29/16 Reported sliding scale taken before meals Lantus (Insulin Glargine) 100 Unit/Ml Inj 55 Units SC HS 05/29/16 Reported Lantus (Insulin Glargine) 100 Unit/Ml Inj 44 Units SC QAM 05/29/16 Reported Bentyl (Dicyclomine Hcl) 10 Mg Cap 10 Mg PO BID PRN 04/04/16 Rx Clobetasol Propionate Cream 0.05% (Clobetasol Propionate) 90 Appln/30 Gm Cr 1 Appln EXT BID 04/01/16 Reported APPLY TO AFFECTED AREA FOR UP TO 2 WEEKS Ditropan Xl (Oxybutynin Chloride) 10 Mg Tab 10 Mg PO HS 04/01/16 Reported Aristocort 0.1% (Triamcinolone Acet) 90 Appln/30 Gm Cr 1 Appln TOP BID 04/01/16 Reported APPLY TO AFFECTED AREA [Nifedipine 2% Oint] 1 Appln TOP DAILY 04/01/16 Reported NIFEDIPINE RECTAL OINTMENT Zofran (Ondansetron HCl) 4 Mg Tab 4 Mg PO Q8 PRN 04/01/16 Reported Remeron (Mirtazapine) 15 Mg Tab 15 Mg PO HS 04/01/16 Reported Lasix (Furosemide) 20 Mg Tab 20 Mg PO QPM 04/01/16 Reported take at 6pm to lessen overnight urine output Levocetirizine Dihydrochl (Levocetirizine Dihydrochloride) 5 Mg Tab 5 Mg PO QPM 04/01/16 Reported Cymbalta (Duloxetine HCl) 20 Mg Cap 20 Mg PO QAM 04/01/16 Reported Ventolin Hfa (Albuterol) 200 Puffs/60695 Mcg Aers 2 Puffs INH Q6H PRN 04/01/16 Reported Wellbutrin Sr (Bupropion HCl) 150 Mg Ertab 150 Mg PO BID 03/31/15 Reported Anusol-Hc 2.5% (Hydrocortisone 2.5% (Rectal)) 2.5 % Cre 1 Appln TOP TID PRN 7 03/31/15 Reported Omeprazole 20 Mg Tab 20 Mg PO QAM 10/27/12 Reported Levothyroxine Sodium 100 Mcg Tab 100 Mcg PO DAILY 10/27/12 Reported Zantac (Ranitidine Hcl) 300 Mg Tab 300 Mg PO BID 10/27/12 Reported Mysoline (Primidone) 50 Mg Tab 100 Mg PO QPM 10/27/12 Reported Mysoline (Primidone) 50 Mg Tab 250 Mg PO QAM 10/27/12 Reported Cozaar (Losartan Potassium) 100 Mg Tab 100 Mg PO HS 10/27/12 Reported Coreg (Carvedilol) 3.125 Mg Tab 3.125 Mg PO BID 10/27/12 Reported TAKE THIS MEDICATION WITH FOOD. Crestor (Rosuvastatin Calcium) 40 Mg Tab 40 Mg PO HS 10/27/12 Reported Depakote Er (Divalproex Sodium) 500 Mg Tab 1,500 Mg PO HS 10/27/12 Reported Tricor (Fenofibrate) 145 Mg Tab 145 Mg PO HS 08/18/11 Reported Vital Signs Weight (Kilograms): 100.91 Height (Feet): 5 Height (Inches): 5 Physical Exam General Appearance: WD/WN, no apparent distress Respiratory/Chest: Respiratory effort: no dyspnea Auscultation: breath sounds normal, CTA except as noted, no wheezing Cardiovascular: Apical Impulse: not displaced Heart Auscultation: RRR, normal S1, normal S2 Abdomen: Bowel Sounds: normal Inspection & Palpation: soft, non-distended Assessment and Plan 60-year-old gentleman with longstanding diarrhea and recent admission to the hospital with possible hypertriglyceridemia induced pancreatitis presenting for endoscopic ultrasound. Proceed as planned
[2016-06-06] MEDS ORDERED: ONDANSETRON INJ 2 MG/ML 2 ML VIAL ONE (10:57)
[2016-06-06] MEDS ORDERED: SUCCINYLCHOLINE CHLORIDE 20 MG/ML 10 ML VIAL IV ONE (10:57)
[2016-06-06] MEDS ORDERED: LIDOCAINE HCL 2% 2 ML VIAL (20MG/ML) ONE (10:57)
[2016-06-06] MEDS ORDERED: PROPOFOL IV EMULSION 10 MG/ML 20 ML VIAL IV ONE (10:57)
[2016-06-06] MEDS ORDERED: DEXAMETHASONE SOD INJ 4 MG/ML VIAL ONE (10:57)
[2016-06-06] MEDS ORDERED: ALBUTEROL HFA INHALER 8.5 GM INH ONE (11:35)
--- NOTE | 2016-06-06 11:48 | GI REPORT ---
Procedure Date: 06/06/2016 10:51 AM Procedure: Upper EUS Indications: Acute pancreatitis Medicines: General Anesthesia Complications: No immediate complications. Estimated blood loss: None. Estimated Blood Loss: Estimated blood loss: none. Procedure: Pre-Anesthesia Assessment: - Pre-Anesthesia Assessment: - Prior to the procedure, a History and Physical was performed, and patient medications, allergies and sensitivities were reviewed. The patient's tolerance of previous anesthesia was reviewed. Please see Tarena for complete details. - The risks and benefits of the procedure and the sedation options and risks were discussed with the patient. All questions were answered and informed consent was obtained. - Patient identification and proposed procedure were verified prior to the procedure by the physician and the nurse. The procedure was verified in the pre-procedure area in the procedure room. After obtaining informed consent, the endoscope was passed carefully and meticuously under direct vision and only advanced when the lumen was clearly identified, C02 insuflation was utilized throughout the entirity of the procedure. Throughout the procedure, the patient's blood pressure, pulse, and oxygen saturations were monitored continuously. After obtaining informed consent, the endoscope was passed under direct vision. Throughout the procedure, the patient's blood pressure, pulse, and oxygen saturations were monitored continuously. The Endosonoscope was introduced through the mouth, and advanced to the second part of duodenum. The upper EUS was accomplished without difficulty. The patient tolerated the procedure well. Findings: Endosonographic Finding : There was no sign of significant endosonographic abnormality in the entire pancreas. No masses, no cysts, no calcifications, the pancreatic duct was well visualized from ampulla to tail, the pancreatic duct was thin in caliber, the pancreatic duct was regular in contour. No lymphadenopathy seen. A lesion was found in the left lobe of the liver. The lesion was hypoechoic. The lesion measured 9 mm by 9 mm in maximal cross-sectional diameter. OTHER There was no sign of significant endosonographic abnormality in the entire examined left adrenal gland. There was no sign of significant endosonographic abnormality involving the celiac trunk. There was no sign of significant endosonographic abnormality in the common bile duct. No pathologic lymphadenopathy, no masses, no cysts, no calcifications, no stones and no biliary sludge were identified. Impression: - There was no sign of significant pathology in the entire pancreas. - A lesion was found in the left lobe of the liver. The lesion was hypoechoic. The lesion measured 9 mm by 9 mm. - Endosonographic images of the left adrenal gland were unremarkable. - The celiac trunk was endosonographically normal. - There was no sign of significant pathology in the common bile duct. - No specimens collected. Recommendation: - Discharge patient to home (with escort). - Return to referring physician as previously scheduled. - Contrasted image of the abdomen, preferably MRI to eval left liver lobe lesion Neftaly Small MD 06/06/2016 11:48:10 AM This report has been signed electronically. Note Initiated On: 06/06/2016 10:51 AM I attest to the content of the Intraoperative Record and orders documented therein, exceptions below
[2016-06-06] MEDS: FENTANYL CITRATE INJ 50 MCG/1 ML 2 ML VIAL IV PRN ×4 (11:55→12:10)
--- NOTE | 2016-06-06 11:55 | Discharge Instructions ---
Endoscopy Patient Instructions Date / Procedure(s) Performed Jun 06, 2016. Other (Endoscopic ultrasound) Allergy Information Coded Allergies: Amitriptyline (Verified Allergy, Intermediate, HIVES, 05/29/16) Penicillins (Verified Allergy, Intermediate, HIVES, 05/29/16) ITCHY,HIVES Tramadol (Verified Allergy, Intermediate, ITCHY, 05/29/16) ITCHY Acetaminophen (Verified Allergy, Mild, Rash, Hives, 05/29/16) BIRGIT Inhibitors (Verified Allergy, Unknown, ? ANGIOEDEMA, 04/01/16) Gabapentin (Unverified Allergy, Unknown, per doctor of dental medicine note , ) Lorazepam (Verified Allergy, Unknown, "DON'T REMEMBER", 04/01/16) Codeine (Verified Adverse Reaction, Mild, N&V, 04/01/16) N/V Discharge Date / Findings Jun 06, 2016. Small ill defined lesion in left lobe of liver Provider Instructions Activity Restrictions - No exercising or heavy lifting for 24 hours. - Do not drink alcohol the day of the procedure. - Do not drive a car or operate machinery until the day after the procedure. - Do not make any important decisions or sign important papers in 24 hours after the procedure. Following Day: - Return to full activity which may include returning to work/school. Diet Start your diet with liquids and light foods (jello, soup, juice, toast). Then eat your usual diet if not nauseated. Treatment For Common After Affects For mild abdominal pain, bloating, or excessive gas: - Rest - Eat lightly - Lie on right side Follow-Up Information Follow-up with as scheduled Anesthesia Information What You Should Know You have had a procedure that required some medicine to reduce anxiety and discomfort. This treatment is called moderate sedation. After receiving the treatment, you may be sleepy, but you will be able to breathe on your own. The effects of the treatment may last for several hours. Follow these instructions along with Activity/Diet recommendations noted above: * Do NOT do anything where dizziness or clumsiness would be dangerous. * Rest quietly at home today, then you can be up and about tomorrow. * Have a responsible person stay with you the rest of today. * You may have had an I.V. today. If so, you may take the dressing off later today. Recommendations Call your doctor if: * Trouble breathing * Continuous vomiting for more than 24 hours * Temperature above 101 degrees * Severe abdominal pain or bloating * Pain not relieved by pain medicine ordered * There is increased drainage or redness from any incision * A large amount of rectal bleeding greater than 2-3 tablespoons. (If you had a polyp/s removed or have hemorrhoids, a small amount of blood - from the rectum is to be expected.) * You have any unanswered questions or concerns. IN THE EVENT OF A SERIOUS EMERGENCY, GO TO THE NEAREST EMERGENCY ROOM Your discharge instructions were prepared by provider Neftaly Small. Patient Instructions Signature Page Erick Pardo Patient (or Guardian) Signature/Date: I have read and understand the instructions given to me by my caregivers. Caregiver/RN/Doctor Signature/Date: The above-named patient and/or guardian has received patient instructions on this date. + Original Patient Signature Page (only) stays with chart. Please make copy for patient.
[2016-06-06] MEDS: MEPERIDINE HCL 25 MG/ML CARP IV PRN ×3 (12:15→12:25)
[2016-06-06] MEDS ORDERED: LARYING-O-JET KIT (LTA) EXT ONE ×2 (12:52)
[2016-06-06 12:55] VITALS: BP 141/78; PULSE 90; TEMP 37.1; O2SAT 94
--- NOTE | 2016-06-06 12:55 | Anesthesiology Progress Note ---
Anesthesia Post Op Note Date & Time Jun 06, 2016 at 12:54 Vital Signs Pain Intensity: 2 Vital Signs Past 12 Hours Date Time Temp Pulse Resp B/P Pulse Ox O2 Delivery O2 Flow Rate FiO2 06/06/16 12:45 36.3 72 18 121/68 97 Nasal Cannula 2 06/06/16 12:35 82 14 135/68 97 Nasal Cannula 2 06/06/16 12:25 77 12 131/79 90 Nasal Cannula 2 06/06/16 12:15 89 19 136/91 94 Nasal Cannula 2 06/06/16 12:05 74 13 116/79 99 Mask 10 06/06/16 11:55 64 12 132/73 100 Mask 10 06/06/16 11:48 36.0 84 16 141/79 99 Mask 10 06/06/16 09:32 36.6 62 18 148/81 97 Room Air Notes Mental Status: alert / awake / arousable, participated in evaluation Pt Amnestic to Procedure: Yes Nausea / Vomiting: adequately controlled Pain: adequately controlled Airway Patency, RR, SpO2: stable & adequate BP & HR: stable & adequate Hydration State: stable & adequate Anesthetic Complications: no major complications apparent
[2016-06-06 13:25] VITALS: BP 126/60; PULSE 85; TEMP 37.1; O2SAT 94
[2016-06-06 13:55] VITALS: BP 121/64; PULSE 81; TEMP 36.5; O2SAT 93
[2016-08-17] MEDS ORDERED: VNTHFA/IN INH (03:18)
[2016-08-17] MEDS ORDERED: DULO-24 PO (03:20)
[2016-08-17] MEDS ORDERED: LEVO-14 PO (03:23)
[2016-08-17] MEDS ORDERED: FURO-85 PO (03:26)
[2016-08-17] MEDS ORDERED: MIRT15TA3 PO (03:30)
[2016-08-17] MEDS ORDERED: ONDA4TAB46 PO (03:34)
[2016-08-17] MEDS ORDERED: NIFEDIPINE TOP (03:46)
[2016-08-17] MEDS ORDERED: OXYB10TA PO (03:49)
[2016-08-17] MEDS ORDERED: NVLGI/PEN SQ (09:53)
[2016-08-17] MEDS ORDERED: INSDGI SC ×2 (09:53)
[2016-08-17] MEDS ORDERED: ERGO500037 PO (09:54)
[2016-08-17] MEDS ORDERED: FENO145T26 PO (15:42)
[2016-10-31] MEDS ORDERED: TRAM-10 PO (12:10)
[2016-12-27] MEDS ORDERED: ASPCH81X PO (05:54)
[2016-12-27] MEDS ORDERED: OMEG10007 PO (05:54)
[2016-12-27] MEDS ORDERED: CHOL1TAB42 PO (05:54)
[2016-12-27] MEDS ORDERED: OXYC1TAB3 PO (05:54)
[2016-12-29] MEDS ORDERED: METF500T PO (15:53)
[2016-12-29] MEDS ORDERED: CARV3.12 PO (15:53)
[2017-01-26] MEDS ORDERED: DICY10CA55 PO (08:36)
== END 2016-06-06 14:00 | disposition home or self-care (01) ==
LOC: C.ACU 09:02
PROVIDERS: ATTEND Internal Medicine
DX: K85.90 Acute pancreatitis without necrosis or infection, unspecified (principal); E11.9 Type 2 diabetes mellitus without complications; M19.90 Unspecified osteoarthritis, unspecified site; F41.9 Anxiety disorder, unspecified; E78.5 Hyperlipidemia, unspecified; I10 Essential (primary) hypertension; J44.9 Chronic obstructive pulmonary disease, unspecified; E07.9 Disorder of thyroid, unspecified; F32.9 Major depressive disorder, single episode, unspecified; Z79.52 Long term (current) use of systemic steroids; Z90.49 Acquired absence of other specified parts of digestive tract; Z98.890 Other specified postprocedural states; Z87.442 Personal history of urinary calculi; Z87.891 Personal history of nicotine dependence; Z88.0 Allergy status to penicillin; Z88.1 Allergy status to other antibiotic agents; Z88.5 Allergy status to narcotic agent; Z88.8 Allergy status to other drugs, medicaments and biological substances

== ENCOUNTER → 2016-06-12 | Outpatient (CLI) | payer OTHER ==
[~2016-06-12] MED LIST changes: +ASPCH81X PO; +BUPR-79 PO; +CARV3.12 PO; +CHOL1TAB42 PO; +DIVA500T3 PO; +DULO-24 PO; +ERGO500037 PO; +FENO145T26 PO; +FURO-85 PO; +GADOXETATE DISODIUM (NON-WT BASED PROCEDURE) IV PRN; +HYDR2.5C37 TOP; +INSDGI SC; +LEVO-14 PO; +LEVO100T7 PO; +LOSA100T65 PO; +METF500T PO; +METO-157 PO; +MIRT15TA3 PO; +NIFEDIPINE TOP; +NVLGI/PEN SQ; +OMEG10007 PO; +OMEP20TA PO; +ONDA4TAB46 PO; +OXYB10TA PO; +OXYC1TAB3 PO; +PRIM50TA34 PO; +RANI300T PO; +ROSU40TA PO; +TRAM-10 PO; +VNTHFA/IN INH
--- NOTE | 2016-06-12 18:35 | DIAGNOSTIC IMAGING REPORT ---
LIVER MRI WITH AND WITHOUT INTRAVENOUS CONTRAST HISTORY: Evaluate LIVER LESION TECHNIQUE: Multiplanar multisequence MRI of the liver was performed both before and after the intravenous administration of contrast to evaluate the liver. 10 cc of Eovist this was administered. COMPARISON STUDY: Abdominal CT 04/03/2016. FINDINGS: Hepatic steatosis. Cholecystectomy. The pancreas, spleen, adrenal glands, and kidneys are unremarkable. No retroperitoneal lymphadenopathy. A left circumaortic renal vein. The lung bases appear clear. There are 2, T2 hyperintense lesions within the liver. The largest in the left hepatic lobe measures 12 mm and the smaller lesion within the right hepatic lobe measures 6 mm. These are best seen on axial image 11 of 30. The 12 mm left hepatic lobe lesion demonstrates discontinuous peripheral nodular enhancement with delayed filling. Therefore, this is consistent with a hemangioma. A 6 mm right hepatic lobe lesion is difficult to characterize due to its small size but appears to demonstrate similar characteristics. Therefore, this also favors a hemangioma. IMPRESSION: 1. There are 2 similar T2 hyperintense lesions within the liver as described above. The left hepatic lobe 12 mm lesion is consistent with a hemangioma. The smaller 6 mm right hepatic lobe lesion is difficult to characterize due to its small size but also favors a hemangioma. 2. Cholecystectomy. 3. Hepatic steatosis.. Electronically signed by: Shahab Golden M.D. 06/12/2016 6:33 PM Dictated Date/Time: 06/12/2016 6:22 PM
== END | disposition home or self-care (01) ==
LOC: C.MRI 16:10
PROVIDERS: ATTEND Internal Medicine
DX: K76.89 Other specified diseases of liver (principal); K76.0 Fatty (change of) liver, not elsewhere classified; Z90.49 Acquired absence of other specified parts of digestive tract

== ENCOUNTER 2016-06-22 23:08 | Emergency (ER) | payer OTHER ==
[~2016-06-22] VITALS: Ht 165.1 cm; Wt 101.0 kg
[~2016-06-22 23:08] MED LIST changes: -ASPCH81X PO; -BUPR-79 PO; -CARV3.12 PO; -CHOL1TAB42 PO; -DIVA500T3 PO; -DULO-24 PO; -ERGO500037 PO; -FENO145T26 PO; -FURO-85 PO; -GADOXETATE DISODIUM (NON-WT BASED PROCEDURE) IV PRN; -HYDR2.5C37 TOP; -INSDGI SC; -LEVO-14 PO; -LEVO100T7 PO; -LOSA100T65 PO; -METF500T PO; -METO-157 PO; -MIRT15TA3 PO; -NIFEDIPINE TOP; -NVLGI/PEN SQ; -OMEG10007 PO; -OMEP20TA PO; -ONDA4TAB46 PO; -OXYB10TA PO; -OXYC1TAB3 PO; -PRIM50TA34 PO; -RANI300T PO; -ROSU40TA PO; -TRAM-10 PO; -VNTHFA/IN INH
[2016-06-22 23:09] VITALS: TEMP 36.9; Ht 165.1 cm; Wt 101.0 kg
[2016-06-22] MEDS ORDERED: SODIUM CHLORIDE 0.9% 1000ML 1,000 ML IV STA (23:24)
[2016-06-22] MEDS ORDERED: PROMETHAZINE HCL INJ 6.25 MG in SODIUM CHLORIDE 0.9% 50ML 50 ML IV STA (23:24)
[2016-06-22] MEDS ORDERED: DiphenhydrAMINE HCL 50 MG/ML VIAL IV STA (23:24)
[2016-06-22] MEDS ORDERED: SODIUM CHLORIDE 0.9% 1000ML 500 ML IV STA (23:24)
[2016-06-22] MEDS ORDERED: ONDANSETRON INJ 2 MG/ML 2 ML VIAL IV STA (23:24)
[2016-06-22] MEDS ORDERED: MoRPHine SULFATE 4 MG/ML 1 ML CARP\\VIAL IV PRN (23:30)
--- NOTE | 2016-06-22 23:31 | EMERGENCY ROOM VISIT NOTE ---
History Report prepared by Nina: Casper Thompson Under the Supervision of: Dr. David Zamora M.D. First contact with patient: 23:19 Chief Complaint: ABDOMINAL PAIN Stated Complaint: ABD CRAMPS,HIVES,ICY/HOT SPOTS,SOB Nursing Triage Summary: Pt reports he was seen here a month ago for pancreatitis. Pt reports he has had abdominal pain ever since. Pt reports nausea, vomiting, and diarrhea. Pt reports he got generalized hives on with unknown cause. Pt reports he was placed on a cream from his PCP and he feels it is not helping. History of Present Illness The patient is a 60 year old male who presents to the Emergency Room with complaints of abdominal pain that began 4 days ago. He rates his pain an 8/10 in severity. 1 month ago, the patient was seen in the ED and discharged with pancreatitis. He states his current pain feels very similar to that pain as well. He states that eating makes his pain worse. His pain does not radiate anywhere. He is experiencing nausea, vomiting, and diarrhea. He also reports that he has generalized hives that began a couple of days ago. He has a past medical history of a cholecystectomy and appendectomy. He denies any hematochezia. Source of History: patient Onset: 4 days ago Position: abdomen Symptom Intensity: 8/10 Quality: sharp Timing: other (persistent) Modifying Factors (Worsening): eating Associated Symptoms: + diarrhea, + nausea, + rash, + vomiting, No back pain , No hematochezia Review of Systems See HPI for pertinent positives & negatives. A total of 10 systems reviewed and were otherwise negative. Past Medical & Surgical Medical Problems: (1) Asbestosis (2) Depression (3) Diabetes mellitus, type II (4) Dyslipidemia (5) GERD (gastroesophageal reflux disease) (6) HTN (hypertension) (7) Hypothyroidism (8) Seizure disorder (9) Tobacco abuse Surgical Problems: (1) H/O arthroscopy of shoulder (2) History of appendectomy (3) History of carpal tunnel surgery (4) History of cholecystectomy (5) History of tonsillectomy and adenoidectomy Family History Diabetes mellitus FH: lung disease FHx: cancer FHx: gallbladder disease Hypertension Social History Smoking Status: Never Smoker Smokeless Tobacco Use: No Alcohol Use: none Drug Use: none Marital Status: Housing Status: lives with family Occupation Status: disabled Current/Historical Medications Scheduled Bupropion (Wellbutrin Sr), 150 MG PO BID Carvedilol (Coreg), 3.125 MG PO BID Clobetasol Propionate (Clobetasol Propionate Cream 0.05%), 1 APPLN EXT BID Divalproex Sodium (Depakote Er), 1,500 MG PO HS Duloxetine HCl (Cymbalta), 20 MG PO QAM Ergocalciferol (Vitamin D 81349 Unit), 50,000 UNIT PO WK Fenofibrate (Tricor), 145 MG PO HS Furosemide (Lasix), 20 MG PO QPM Insulin Aspart (Novolog Flexpen), 1 UNITS SQ UD Insulin Glargine (Lantus), 44 UNITS SC QAM Insulin Glargine (Lantus), 55 UNITS SC HS Levocetirizine Dihydrochloride (Levocetirizine Dihydrochl), 5 MG PO QPM Levothyroxine Sodium (Levothyroxine Sodium), 100 MCG PO DAILY Losartan Potassium (Cozaar), 100 MG PO HS Mirtazapine (Remeron), 15 MG PO HS Omeprazole (Omeprazole), 20 MG PO QAM Oxybutynin Chloride Er (Ditropan Xl), 10 MG PO HS Primidone (Mysoline), 250 MG PO QAM Primidone (Mysoline), 100 MG PO QPM Ranitidine Hcl (Zantac), 300 MG PO BID Rosuvastatin Calcium (Crestor), 40 MG PO HS Triamcinolone Acet (Aristocort 0.1%), 1 APPLN TOP BID [Nifedipine 2% Oint], 1 APPLN TOP DAILY Scheduled PRN Albuterol Hfa (Ventolin Hfa), 2 PUFFS INH Q6H PRN for Shortness of Breath Dicyclomine Hcl (Bentyl), 10 MG PO BID PRN for abdominal cramps Hydrocortisone 2.5% (Rectal) (Anusol-Hc 2.5%), 1 APPLN TOP TID PRN for Hemorrhoids Ondansetron Hcl (Zofran), 4 MG PO Q8 PRN for Nausea Allergies Coded Allergies: Amitriptyline (Verified Allergy, Intermediate, HIVES, 06/23/16) Penicillins (Verified Allergy, Intermediate, HIVES, 06/23/16) ITCHY,HIVES Tramadol (Verified Allergy, Intermediate, ITCHY, 06/23/16) ITCHY Acetaminophen (Verified Allergy, Mild, Rash, Hives, 06/23/16) BIRGIT Inhibitors (Verified Allergy, Unknown, ? ANGIOEDEMA, 06/23/16) Gabapentin (Unverified Allergy, Unknown, per storage brine worker note , 06/23/16 ) Lorazepam (Verified Allergy, Unknown, "DON'T REMEMBER", 06/23/16) Codeine (Verified Adverse Reaction, Mild, N&V, 06/23/16) N/V Physical Exam Vital Signs Date Time Temp Pulse Resp B/P Pulse Ox O2 Delivery O2 Flow Rate FiO2 06/23/16 00:23 93 20 131/71 94 Room Air 06/22/16 23:09 36.9 95 18 123/76 95 Room Air Physical Exam GENERAL: Patient is in no acute distress. HEENT: No acute trauma, normocephalic atraumatic, mucous membranes moist, no nasal congestion, no scleral icterus. NECK: No stridor, no adenopathy, no meningismus, trachea is midline. LUNGS: Clear to auscultation bilaterally, no wheeze, no rhonchi, breath sounds equal. HEART: Without murmurs gallops or rubs, regular rate and rhythm. ABDOMEN: Soft, moderately tender in the epigastrium, bowel sounds positive, no hernias, no peritonitis. EXTREMITIES: No cyanosis or edema, full range of motion of all the joints without pain or difficulty, no signs for acute trauma. NEUROLOGIC: Oriented x 3, no acute motor or sensory deficits, no focal weakness. SKIN: Scattered raised erythematous lesions consistent with urticaria. No evidence for abscess. Medical Decision & Procedures ER Provider Diagnostic Interpretation: X-ray results as stated below per interpretation by me and the radiologist: CHEST 1 VIEW: No mediastinal widening, no pneumonia, no free air. Per me Laboratory Results 06/22/16 23:45 Red Blood Count 4.37, Mean Corpuscular Volume 84.7, Mean Corpuscular Hemoglobin 30.9, Mean Corpuscular Hemoglobin Concent 36.5, Mean Platelet Volume 9.8, Neutrophils (%) (Auto) 53.0, Lymphocytes (%) (Auto) 36.2, Monocytes (%) (Auto) 8.7, Eosinophils (%) (Auto) 1.2, Basophils (%) (Auto) 0.3, Neutrophils # (Auto) 3.49, Lymphocytes # (Auto) 2.38, Monocytes # (Auto) 0.57, Eosinophils # (Auto) 0.08, Basophils # (Auto) 0.02 06/22/16 23:45 06/23/16 01:00 Test 06/22/16 23:35 06/22/16 23:45 06/23/16 01:00 06/23/16 01:39 Urine Color YELLOW Urine Appearance CLEAR (CLEAR) Urine pH 6.5 (4.5-7.5) Urine Specific [place] 1.037 (1.000-1.030) Urine Protein NEG (NEG) Urine Glucose (UA) 3+ (NEG) Urine Ketones TRACE (NEG) Urine Occult Blood NEG (NEG) Urine Nitrite NEG (NEG) Urine Bilirubin NEG (NEG) Urine Urobilinogen NEG (NEG) Urine Leukocyte Esterase NEG (NEG) White Blood Count 6.58 K/uL (4.8-10.8) Red Blood Count 4.37 M/uL (4.7-6.1) Hemoglobin 13.5 g/dL (14.0-18.0) Hematocrit 37.0 % (42-52) Mean Corpuscular Volume 84.7 fL (80-100) Mean Corpuscular Hemoglobin 30.9 pg (25-34) Mean Corpuscular Hemoglobin Concent 36.5 g/dl (32-36) Platelet Count 218 K/uL (130-400) Mean Platelet Volume 9.8 fL (7.4-10.4) Neutrophils (%) (Auto) 53.0 % Lymphocytes (%) (Auto) 36.2 % Monocytes (%) (Auto) 8.7 % Eosinophils (%) (Auto) 1.2 % Basophils (%) (Auto) 0.3 % Neutrophils # (Auto) 3.49 K/uL (1.4-6.5) Lymphocytes # (Auto) 2.38 K/uL (1.2-3.4) Monocytes # (Auto) 0.57 K/uL (0.11-0.59) Eosinophils # (Auto) 0.08 K/uL (0-0.5) Basophils # (Auto) 0.02 K/uL (0-0.2) RDW Standard Deviation 39.8 fL (36.4-46.3) RDW Coefficient of Variation 13.0 % (11.5-14.5) Immature Granulocyte % (Auto) 0.6 % Immature Granulocyte # (Auto) 0.04 K/uL (0.00-0.02) Nucleated RBC Absolute Count (auto) 0.06 K/uL (0-0) Nucleated Red Blood Cells % 1.0 % Prothrombin Time 9.8 SECONDS (9.0-12.0) Prothromb Time International Ratio 0.9 (0.9-1.1) Activated Partial Thromboplast Time 24.2 SECONDS (21.0-31.0) Partial Thromboplastin Ratio 0.9 Anion Gap 7.0 mmol/L (3-11) Est Creatinine Clear Calc Drug Dose 72.5 ml/min Estimated GFR () 76.3 Estimated GFR (Non- 65.8 BUN/Creatinine Ratio 26.7 (10-20) Calcium Level 8.8 mg/dl (8.5-10.1) Total Bilirubin 0.3 mg/dl (0.2-1) Alanine Aminotransferase (ALT/SGPT) 33 U/L (12-78) Alkaline Phosphatase 87 U/L (45-117) Total Protein 7.3 gm/dl (6.4-8.2) Albumin 3.9 gm/dl (3.4-5.0) Globulin 3.4 gm/dl (2.5-4.0) Albumin/Globulin Ratio 1.1 (0.9-2) Lipase 257 U/L (73-393) Beta-Hydroxybutyric Acid 1.43 mg/dL (0.2-2.81) Bedside Glucose 204 mg/dl (70-99) Laboratory results reviewed by me. Medications Administered Medications (Trade) Dose Ordered Sig/Dean Route Start Time Stop Time Status Last Admin Dose Admin Sodium Chloride (Nss 1000ml) 500 ml @ 999 mls/hr Q31M STAT IV 06/22/16 23:24 06/22/16 23:54 DC 06/22/16 23:42 999 MLS/HR Ondansetron HCl 4 mg 4 mg NOW STAT IV 06/22/16 23:24 06/22/16 23:28 DC 06/22/16 23:41 4 MG Sodium Chloride (Nss 1000ml) 1,000 ml @ 200 mls/hr Q5H STAT IV 06/22/16 23:24 06/23/16 04:23 06/22/16 23:42 200 MLS/HR Morphine Sulfate 4 mg 4 mg Q30M PRN IV 06/22/16 23:30 07/06/16 23:29 06/22/16 23:41 4 MG Promethazine HCl/ Sodium Chloride (Phenergan Inj/ Nss 50ml) 50.25 ml @ 204 mls/hr NOW STAT IV 06/22/16 23:24 06/22/16 23:38 DC 06/22/16 23:41 204 MLS/HR Diphenhydramine HCl 25 mg 25 mg NOW STAT IV 06/22/16 23:24 06/22/16 23:28 DC 06/22/16 23:41 25 MG Sodium Chloride (Nss 500ml) 500 ml @ 999 mls/hr Q31M STAT IV 06/23/16 00:32 06/23/16 01:02 DC 06/23/16 00:32 999 MLS/HR Insulin Human Regular 8 units 8 units NOW STAT IV 06/23/16 00:59 06/23/16 01:00 DC 06/23/16 01:09 8 UNITS Sodium Chloride (Nss 500ml) 500 ml @ 999 mls/hr Q31M STAT IV 06/23/16 01:11 06/23/16 01:41 DC 06/23/16 01:11 999 MLS/HR ECG Indication: abdominal pain Rate (beats per minute): 89 Rhythm: normal sinus Findings: no acute ischemic change, no ectopy ED Course 2319: The patient was evaluated in room B6. A complete history and physical exam was performed. 2324: Ordered Benadryl Inj 25 mg IV, Promethazine HCl 6.25 mg/Sodium Chloride 50.25 ml @ 204 mls/hr IV, Sodium Chloride 1000 ml @ 200 mls/hr IV, Zofran Inj 4 mg IV, Sodium Chloride 500 ml @ 999 mls/hr IV 2330: Ordered Morphine Sulfate 4 mg IV 0032: Ordered Sodium Chloride 500 ml @ 999 mls/hr IV. 0059: Ordered Insulin Human Regular 8 units IV 0111: Ordered Sodium Chloride 500 ml @ 999 mls/hr IV. The patient is feeling better at this time. 0146: Reevaluated the patient. Discussed results and discharge instructions: He verbalized understanding and agreement. The patient is ready for discharge. Medical Decision Differential diagnosis includes but is not limited to pancreatitis, bowel obstruction, dehydration, electrolyte imbalance, viral illness, pneumonia, and bowel rupture. There is no leukocytosis or concerning anemia. Renal panel testing shows some hyperglycemia with a sugar just over 300. No other significant electrolyte abnormality requiring correction. No evidence for acidosis. There was no hepatitis. Urinalysis shows glucose, no infection. Chest x-ray does not show pneumonia or mediastinal widening. There was no free air. EKG shows a normal sinus rhythm, no acute ischemia. There was no coagulopathy. Testing here does not show any evidence for pancreatitis. The patient received IV saline, he was eventually given a small amount of IV insulin. He did receive IV morphine for pain, IV Zofran for nausea, IV Phenergan for nausea. He received IV Benadryl for his hives and itching. His blood sugar is now in the low 200s, he feels markedly improved. He is resting comfortably. The patient presents with vomiting and diarrhea, he likely has a viral illness. He was not febrile, he was not toxic. He is doing better since being medicated and receiving IV fluids. I do think he can be discharged home. Impression Primary Impression: Vomiting and diarrhea Additional Impressions: Dehydration Hyperglycemia Epigastric abdominal pain Scribe Attestation The scribe's documentation has been prepared under my direction and personally reviewed by me in its entirety. I confirm that the note above accurately reflects all work, treatment, procedures, and medical decision making performed by me. Departure Information Dispostion Home / Self-Care Referrals Anup Butt DOnielO. (PCP) Forms Call Back Authorization, HOME CARE DOCUMENTATION FORM, IMPORTANT VISIT INFORMATION Patient Instructions My [facility] Additional Instructions benadryl 1-2 tab every 6 hours for itching and hives bland diet--fluids, soup, toast, crackers rest follow with your fam md this week--call tomorrow for an appt keep a good watch on your blood sugars return for worsening symptoms or if not continuing to improve no evidence for pancreatitis today by our testing Problem Qualifiers
[2016-06-22 23:48] LABS: URINE APPEARANCE CLEAR (CLEAR); URINE BILIRUBIN NEG (NEG); URINE COLOR YELLOW; URINE NITRITE NEG (NEG); URINE PH 6.5 (4.5-7.5); URINE SPECIFIC GRAVITY 1.037 (1.000-1.030); UROBILINOGEN NEG (NEG)
[2016-06-22 23:49] LABS: BASO % 0.3 %; BASO ABS # 0.02 K/uL (0-0.2); COMPLETE YES; EOS % 1.2 %; IG% 0.6 %; LYMPH % 36.2 %; LYMPH ABS # 2.38 K/uL (1.2-3.4); MEAN CELL VOLUME 84.7 fL (80-100); MEAN CORPUSCULAR HEMOGLOBIN 30.9 pg (25-34); MEAN CORPUSCULAR HGB CONC 36.5 g/dl (32-36); MEAN PLATELET VOLUME 9.8 fL (7.4-10.4); MONO % 8.7 %; PLATELET COUNT 218 K/uL (130-400); RED BLOOD COUNT 4.37 M/uL (4.7-6.1); WHITE BLOOD COUNT 6.58 K/uL (4.8-10.8)
[2016-06-22 23:52] LABS: MANUAL MICROSCOPIC REQUIRED? NO; REVIEW REQ? NO
[2016-06-23 00:04] LABS: INR 0.9 (0.9-1.1); PARTIAL THROMBOPLASTIN RATIO 0.9; PROTHROMBIN TIME (PATIENT) 9.8 SECONDS (9.0-12.0)
[2016-06-23 00:21] LABS: ALKALINE PHOSPHATASE 87 U/L (45-117); ALT/SGPT 33 U/L (12-78); BLOOD UREA NITROGEN 33 mg/dl (7-18); CALCIUM 8.8 mg/dl (8.5-10.1); CARBON DIOXIDE 33 mmol/L (21-32); CHLORIDE 99 mmol/L (98-107)
[2016-06-23] MEDS ORDERED: SODIUM CHLORIDE 0.9% 500ML 500 ML IV STA ×2 (00:32→01:11)
[2016-06-23 00:47] LABS: ALB/GLOB RATIO 1.1 (0.9-2); GLUCOSE 323 mg/dl (70-99); SODIUM 141 mmol/L (136-145)
[2016-06-23 00:49] LABS: BUN/CREATININE RATIO 26.7 (10-20)
[2016-06-23] MEDS ORDERED: NovoLIN-R INSULIN PER UNIT CHARGE IV STA (00:59)
[2016-06-23 01:14] LABS: BETA-HYDROXYBUTYRATE 1.43 mg/dL (0.2-2.81)
[2016-06-23 01:33] LABS: POTASSIUM 4.2 mmol/L (3.5-5.1)
[2016-06-23 03:49] VITALS: BP 124/59; PULSE 76; O2SAT 95
--- NOTE | 2016-06-23 06:50 | DIAGNOSTIC IMAGING REPORT ---
CHEST ONE VIEW PORTABLE CLINICAL HISTORY: Pain, radiating to the abdomen. Shortness of breath. COMPARISON STUDY: No previous studies for comparison. FINDINGS: The cardiac and mediastinal contours are normal. There is no evidence of focal pulmonary consolidation. There is no evidence of failure. No pleural effusions are visualized.[ No free intraperitoneal air is visualized. IMPRESSION: No active disease in the chest. Electronically signed by: Travis Mendoza M.D. 06/23/2016 6:49 AM Dictated Date/Time: 06/23/2016 6:49 AM
[2016-08-17] MEDS ORDERED: VNTHFA/IN INH (03:18)
[2016-08-17] MEDS ORDERED: DULO-24 PO (03:20)
[2016-08-17] MEDS ORDERED: LEVO-14 PO (03:23)
[2016-08-17] MEDS ORDERED: FURO-85 PO (03:26)
[2016-08-17] MEDS ORDERED: MIRT15TA3 PO (03:30)
[2016-08-17] MEDS ORDERED: ONDA4TAB46 PO (03:34)
[2016-08-17] MEDS ORDERED: NIFEDIPINE TOP (03:46)
[2016-08-17] MEDS ORDERED: OXYB10TA PO (03:49)
[2016-08-17] MEDS ORDERED: NVLGI/PEN SQ (09:53)
[2016-08-17] MEDS ORDERED: INSDGI SC ×2 (09:53)
[2016-08-17] MEDS ORDERED: ERGO500037 PO (09:54)
[2016-08-17] MEDS ORDERED: FENO145T26 PO (15:42)
[2016-10-31] MEDS ORDERED: TRAM-10 PO (12:10)
[2016-12-27] MEDS ORDERED: OXYC1TAB3 PO (05:54)
[2016-12-27] MEDS ORDERED: ASPCH81X PO (05:54)
[2016-12-27] MEDS ORDERED: CHOL1TAB42 PO (05:54)
[2016-12-27] MEDS ORDERED: OMEG10007 PO (05:54)
[2016-12-29] MEDS ORDERED: CARV3.12 PO (15:53)
[2016-12-29] MEDS ORDERED: METF500T PO (15:53)
[2017-01-26] MEDS ORDERED: DICY10CA55 PO (08:36)
== END 2016-06-23 03:49 | disposition home or self-care (01) ==
LOC: C.EDB 23:09
DX: R11.10 Vomiting, unspecified (principal); R19.7 Diarrhea, unspecified; R10.13 Epigastric pain; E11.65 Type 2 diabetes mellitus with hyperglycemia; E86.0 Dehydration; L50.9 Urticaria, unspecified; Z90.49 Acquired absence of other specified parts of digestive tract; F32.9 Major depressive disorder, single episode, unspecified; E78.5 Hyperlipidemia, unspecified; K21.9 Gastro-esophageal reflux disease without esophagitis; I10 Essential (primary) hypertension; E03.9 Hypothyroidism, unspecified; G40.909 Epilepsy, unspecified, not intractable, without status epilepticus; Z83.3 Family history of diabetes mellitus; Z80.9 Family history of malignant neoplasm, unspecified; Z82.49 Family history of ischemic heart disease and other diseases of the circulatory system; Z79.4 Long term (current) use of insulin; Z79.899 Other long term (current) drug therapy

== ENCOUNTER 2016-08-17 18:26 | Emergency (ER) | payer OTHER ==
[~2016-08-17] VITALS: Ht 165.1 cm; Wt 92.0 kg
[~2016-08-17 18:26] MED LIST changes: +DULO-24 PO; +ERGO500037 PO; +FENO145T26 PO; +FURO-85 PO; +INSDGI SC; +LEVO-14 PO; +MIRT15TA3 PO; +NIFEDIPINE TOP; +NVLGI/PEN SQ; +ONDA4TAB46 PO; +OXYB10TA PO; +VNTHFA/IN INH
[2016-08-17 18:38] VITALS: TEMP 36.6; Ht 165.1 cm; Wt 92.0 kg
[2016-08-17] MEDS ORDERED: SODIUM CHLORIDE 0.9% 1000ML 1,000 ML IV STA (19:09)
--- NOTE | 2016-08-17 19:18 | EMERGENCY ROOM VISIT NOTE ---
History Report prepared by Nina: Alexa Thomas Under the Supervision of: Dr. Stuart Chang M.D. First contact with patient: 18:50 Chief Complaint: FOOT PAIN Stated Complaint: RT FOOT FEELS LIKE NEEDLES/PAIN,DIABETIC History of Present Illness The patient is a 60 year old male who presents to the Emergency Room with complaints of worsening right foot pain for the past 2 months. The patient is diabetic. He notes right foot pain, as well as burning and tingling in the right foot. He rates his pain as a 7/10 in severity. His pain is worsened with ambulation. He has seen his PCP for these symptoms and had negative x-rays. The patient was referred to physical therapy. He has not seen orthopedics. He has been taking ibuprofen without relief of his symptoms. He denies fevers or chills. Source of History: patient Onset: 2 months ago Position: foot (right) Symptom Intensity: 7/10 Quality: tingling, burning Timing: worsening Modifying Factors (Worsening): other (ambulation) Associated Symptoms: No fevers, No chills Review of Systems See HPI for pertinent positives & negatives. A total of 10 systems reviewed and were otherwise negative. Past Medical & Surgical Medical Problems: (1) Asbestosis (2) Depression (3) Diabetes mellitus, type II (4) Dyslipidemia (5) GERD (gastroesophageal reflux disease) (6) HTN (hypertension) (7) Hypothyroidism (8) Seizure disorder (9) Tobacco abuse Surgical Problems: (1) H/O arthroscopy of shoulder (2) History of appendectomy (3) History of carpal tunnel surgery (4) History of cholecystectomy (5) History of tonsillectomy and adenoidectomy Family History Diabetes mellitus FH: lung disease FHx: cancer FHx: gallbladder disease Hypertension Social History Smoking Status: Former Smoker Alcohol Use: none Drug Use: none Marital Status: Housing Status: lives with family Occupation Status: disabled Current/Historical Medications Scheduled Bupropion (Wellbutrin Sr), 150 MG PO BID Carvedilol (Coreg), 3.125 MG PO BID Divalproex Sodium (Depakote Er), 1,500 MG PO HS Duloxetine HCl (Cymbalta), 20 MG PO QAM Ergocalciferol (Vitamin D 47178 Unit), 50,000 UNIT PO WK Fenofibrate (Tricor), 145 MG PO HS Furosemide (Lasix), 20 MG PO QPM Insulin Aspart (Novolog Flexpen), 1 UNITS SQ UD Insulin Glargine (Lantus), 44 UNITS SC QAM Insulin Glargine (Lantus), 55 UNITS SC HS Levocetirizine Dihydrochloride (Levocetirizine Dihydrochl), 5 MG PO QPM Levothyroxine Sodium (Levothyroxine Sodium), 100 MCG PO DAILY Losartan Potassium (Cozaar), 100 MG PO HS Mirtazapine (Remeron), 15 MG PO HS Omeprazole (Omeprazole), 20 MG PO QAM Oxybutynin Chloride Er (Ditropan Xl), 10 MG PO HS Primidone (Mysoline), 250 MG PO QAM Primidone (Mysoline), 100 MG PO QPM Ranitidine Hcl (Zantac), 300 MG PO BID Rosuvastatin Calcium (Crestor), 40 MG PO HS Scheduled PRN Albuterol Hfa (Ventolin Hfa), 2 PUFFS INH Q6H PRN for Shortness of Breath Clobetasol Propionate (Clobetasol Propionate Cream 0.05%), 1 APPLN EXT BID PRN for Dicyclomine Hcl (Bentyl), 10 MG PO BID PRN for abdominal cramps Hydrocortisone 2.5% (Rectal) (Anusol-Hc 2.5%), 1 APPLN TOP TID PRN for Hemorrhoids Ondansetron Hcl (Zofran), 4 MG PO Q8 PRN for Nausea Triamcinolone Acet (Aristocort 0.1%), 1 APPLN TOP BID PRN for [Nifedipine 2% Oint], 1 APPLN TOP DAILY PRN for Allergies Coded Allergies: Amitriptyline (Verified Allergy, Intermediate, HIVES, 06/23/16) Penicillins (Verified Allergy, Intermediate, HIVES, 06/23/16) ITCHY,HIVES Tramadol (Verified Allergy, Intermediate, ITCHY, 06/23/16) ITCHY Acetaminophen (Verified Allergy, Mild, Rash, Hives, 06/23/16) BIRGIT Inhibitors (Verified Allergy, Unknown, ? ANGIOEDEMA, 06/23/16) Gabapentin (Unverified Allergy, Unknown, per tax record clerk note , 06/23/16 ) Lorazepam (Verified Allergy, Unknown, "DON'T REMEMBER", 06/23/16) Codeine (Verified Adverse Reaction, Mild, N&V, 06/23/16) N/V Physical Exam Vital Signs Date Time Temp Pulse Resp B/P (MAP) Pulse Ox O2 Delivery O2 Flow Rate FiO2 08/17/16 20:45 66 16 155/84 98 08/17/16 18:38 36.6 77 18 171/94 95 Room Air Physical Exam GENERAL: Patient is a healthy-appearing well-nourished male. HEAD: Normocephalic atraumatic EYES: Ocular movements intact pupils equal and react to light OROPHARYNX mucous membranes are moist no exudates present no erythema or edema present NECK: Supple no nuchal rigidity CHEST: Good equal expansion LUNGS: Clear and equal to auscultation CARDIAC: Normal S1 and S2 ABDOMEN: Soft nontender no guarding BACK: No CVA tenderness EXTREMITIES: Exquisitely tender to the right 5th metatarsal. No bruising, swelling, or redness noted. NEURO: Patient is following commands and answering questions appropriately. Alert and oriented x3 Cranial Nerves 2-12 grossly intact Medical Decision & Procedures ER Provider Diagnostic Interpretation: Radiology results as stated below per my review and radiologist interpretation: RIGHT FOOT MIN 3 VIEWS ROUTINE CLINICAL HISTORY: Pt c/o Rt foot pain Right pain COMPARISON: None. DISCUSSION: Mild soft tissue edema. No acute bony abnormality. Mild degenerative change of the interphalangeal joints distally. There is no evidence for soft tissue swelling. IMPRESSION: Mild degenerative change. No acute bony abnormality. Electronically signed by: Jean Brush M.D. 08/17/2016 7:41 PM Dictated Date/Time: 08/17/2016 7:40 PM Laboratory Results 08/17/16 19:20 Red Blood Count 4.56, Mean Corpuscular Volume 85.1, Mean Corpuscular Hemoglobin 29.6, Mean Corpuscular Hemoglobin Concent 34.8, Mean Platelet Volume 10.0, Neutrophils (%) (Auto) 41.0, Lymphocytes (%) (Auto) 47.1, Monocytes (%) (Auto) 9.5, Eosinophils (%) (Auto) 2.0, Basophils (%) (Auto) 0.2, Neutrophils # (Auto) 2.07, Lymphocytes # (Auto) 2.38, Monocytes # (Auto) 0.48, Eosinophils # (Auto) 0.10, Basophils # (Auto) 0.01 08/17/16 19:20 Test 08/17/16 19:20 White Blood Count 5.05 K/uL (4.8-10.8) Red Blood Count 4.56 M/uL (4.7-6.1) Hemoglobin 13.5 g/dL (14.0-18.0) Hematocrit 38.8 % (42-52) Mean Corpuscular Volume 85.1 fL (80-100) Mean Corpuscular Hemoglobin 29.6 pg (25-34) Mean Corpuscular Hemoglobin Concent 34.8 g/dl (32-36) Platelet Count 191 K/uL (130-400) Mean Platelet Volume 10.0 fL (7.4-10.4) Neutrophils (%) (Auto) 41.0 % Lymphocytes (%) (Auto) 47.1 % Monocytes (%) (Auto) 9.5 % Eosinophils (%) (Auto) 2.0 % Basophils (%) (Auto) 0.2 % Neutrophils # (Auto) 2.07 K/uL (1.4-6.5) Lymphocytes # (Auto) 2.38 K/uL (1.2-3.4) Monocytes # (Auto) 0.48 K/uL (0.11-0.59) Eosinophils # (Auto) 0.10 K/uL (0-0.5) Basophils # (Auto) 0.01 K/uL (0-0.2) RDW Standard Deviation 40.0 fL (36.4-46.3) RDW Coefficient of Variation 13.0 % (11.5-14.5) Immature Granulocyte % (Auto) 0.2 % Immature Granulocyte # (Auto) 0.01 K/uL (0.00-0.02) Erythrocyte Sedimentation Rate 2 mm/hr (0-14) Anion Gap 7.0 mmol/L (3-11) Est Creatinine Clear Calc Drug Dose 75.4 ml/min Estimated GFR () 84.7 Estimated GFR (Non- 73.1 BUN/Creatinine Ratio 12.5 (10-20) Uric Acid 4.6 mg/dl (2.6-7.2) Calcium Level 9.1 mg/dl (8.5-10.1) Total Bilirubin 0.3 mg/dl (0.2-1) Direct Bilirubin < 0.1 mg/dl (0-0.2) Aspartate Amino Transf (AST/SGOT) 13 U/L (15-37) Alanine Aminotransferase (ALT/SGPT) 23 U/L (12-78) Alkaline Phosphatase 55 U/L (45-117) C-Reactive Protein < 0.29 mg/dl (0-0.29) Total Protein 6.7 gm/dl (6.4-8.2) Albumin 4.1 gm/dl (3.4-5.0) Thyroid Stimulating Hormone (TSH) 1.350 uIu/ml (0.300-4.500) Lyme Disease IgG Antibody NEG (NEG) Lyme Disease IgM Antibody NEG (NEG) Anti-Streptolysin O Antibody Screen NEG IU/ml (<200 IU) Labs reviewed by ED physician. Medications Administered Medications (Trade) Dose Ordered Sig/Dean Route Start Time Stop Time Status Last Admin Dose Admin Sodium Chloride 1,000 ml @ 999 mls/hr Q1H1M STAT IV 08/17/16 19:09 08/17/16 20:09 DC 08/17/16 19:09 999 MLS/HR Ketorolac Tromethamine (Toradol Inj) 30 mg NOW STAT IV 08/17/16 19:19 08/17/16 19:23 DC 08/17/16 19:35 30 MG ED Course 1849: Past medical records reviewed. The patient was evaluated in room B9. A complete history and physical examination was performed. 1908: NSS 1000 ml @ 999 mls/hr IV 1918: Toradol 30 mg IV 2011: I reassessed the patient at this time. He is feeling better and resting comfortably. He was able to bear weight on his foot. I discussed the results and treatment plan with the patient. I answered all pertaining questions that he had. He expressed understanding and verbalized agreement. The patient will be discharged home. He will follow-up with orthopedics. Medical Decision Differential diagnosis: Etiologies such as fracture, dislocation, neurovascular compromise, compartment syndrome, soft tissue injury, as well as others were entertained. Medication Reconciliation: I attest that I have personally reviewed the patient' s current medication list. Blood Pressure Screening: Patient was found to have an elevated blood pressure and was referred to their primary care doctor for recheck and further treatment. This is a 60-year-old male who presents emergency department and checked in while his was being evaluated. The patient is complaining of right foot pain however does not appear to be in any distress and is able to bear weight on the foot with his other foot. There is no evidence of redness tenderness or cellulitis on examination. Foot x-ray does not reveal any acute process. The patient was given IV Toradol along with a normal saline bolus in the emergency department. He does not have an elevation in his uric acid level the be consistent with gout. I do believe that the patient is well enough to be discharged home for follow-up with orthopedics. He was placed in a hard sole shoe with crutches. The patient was in agreement with the treatment plan. Impression Primary Impression: Foot pain Scribe Attestation The scribe's documentation has been prepared under my direction and personally reviewed by me in its entirety. I confirm that the note above accurately reflects all work, treatment, procedures, and medical decision making performed by me. Departure Information Dispostion Home / Self-Care Referrals Anup Butt D.O. (PCP) Serjio Suazo M.D. Forms HOME CARE DOCUMENTATION FORM, IMPORTANT VISIT INFORMATION Patient Instructions Crutches Non Weight Bearing Dc, ED RUSSEL, Hypertension Control, My [facility] Additional Instructions Follow up with DR Suazo's office for continued foot pain You were found to have an elevated blood pressure today (>120 sytolic or >90 diastolic). Per medicare guidelines, you need to follow up with this blood pressure screening with your Primary Care Physician (PCP). For a new PCP call [phone]. You have been examined and treated today on an emergency basis only. This is not a substitute for, or an effort to provide, complete comprehensive medical care. It is impossible to recognize and treat all injuries or illnesses in a single emergency department visit. It is therefore important that you follow up closely with [facility]. Call as soon as possible for an appointment. Thank you for your time and consideration. I look forward to speaking with you again soon. Please don't hesitate to call us if you have any questions. Problem Qualifiers Primary Impression: Foot pain Laterality: right Qualified Codes: M79.671 - Pain in right foot
[2016-08-17] MEDS ORDERED: KETOROLAC TROMETHAMINE 30 MG/ML VIAL IV STA (19:19)
[2016-08-17 19:39] LABS: BASO % 0.2 %; BASO ABS # 0.01 K/uL (0-0.2); COMPLETE YES; HEMATOCRIT 38.8 % (42-52); IG% 0.2 %; LYMPH % 47.1 %; LYMPH ABS # 2.38 K/uL (1.2-3.4); MEAN CELL VOLUME 85.1 fL (80-100); MEAN CORPUSCULAR HEMOGLOBIN 29.6 pg (25-34); MEAN CORPUSCULAR HGB CONC 34.8 g/dl (32-36); MONO % 9.5 %; PLATELET COUNT 191 K/uL (130-400); RED BLOOD COUNT 4.56 M/uL (4.7-6.1); WHITE BLOOD COUNT 5.05 K/uL (4.8-10.8)
--- NOTE | 2016-08-17 19:42 | DIAGNOSTIC IMAGING REPORT ---
RIGHT FOOT MIN 3 VIEWS ROUTINE CLINICAL HISTORY: Pt c/o Rt foot pain Right pain COMPARISON: None. DISCUSSION: Mild soft tissue edema. No acute bony abnormality. Mild degenerative change of the interphalangeal joints distally. There is no evidence for soft tissue swelling. IMPRESSION: Mild degenerative change. No acute bony abnormality. Electronically signed by: Jean Brush M.D. 08/17/2016 7:41 PM Dictated Date/Time: 08/17/2016 7:40 PM
[2016-08-17 19:56] LABS: ALT/SGPT 23 U/L (12-78); AST/SGOT 13 U/L (15-37); BLOOD UREA NITROGEN 14 mg/dl (7-18); BUN/CREATININE RATIO 12.5 (10-20); C-REACTIVE PROTEIN < 0.29 mg/dl (0-0.29); CALCIUM 9.1 mg/dl (8.5-10.1); CARBON DIOXIDE 28 mmol/L (21-32); CHLORIDE 101 mmol/L (98-107); GLUCOSE 184 mg/dl (70-99); POTASSIUM 4.2 mmol/L (3.5-5.1); SODIUM 136 mmol/L (136-145); URIC ACID 4.6 mg/dl (2.6-7.2)
[2016-08-17] MEDS ORDERED: ROSU40TA PO (20:00)
[2016-08-17] MEDS ORDERED: DIVA500T3 PO (20:00)
[2016-08-17] MEDS ORDERED: CARV3.12 PO (20:00)
[2016-08-17] MEDS ORDERED: LOSA100T65 PO (20:00)
[2016-08-17] MEDS ORDERED: PRIM50TA34 PO ×2 (20:00)
[2016-08-17] MEDS ORDERED: RANI300T PO (20:03)
[2016-08-17] MEDS ORDERED: OMEP20TA PO (20:03)
[2016-08-17] MEDS ORDERED: LEVO100T7 PO (20:03)
[2016-08-17 20:05] LABS: ANTI-STREP O SCR: 5YRS OR > NEG IU/ml (<200 IU)
[2016-08-17 20:07] LABS: ALKALINE PHOSPHATASE 55 U/L (45-117)
[2016-08-17 20:35] LABS: LYME DISEASE AB IGG NEG (NEG); LYME DISEASE AB IGM NEG (NEG)
[2016-08-17 20:45] VITALS: BP 155/84; PULSE 66; O2SAT 98
[2016-08-17] MEDS ORDERED: HYDR2.5C37 TOP (22:47)
[2016-08-17] MEDS ORDERED: BUPR-79 PO (22:47)
[2016-10-31] MEDS ORDERED: TRAM-10 PO (12:10)
[2016-12-27] MEDS ORDERED: OMEG10007 PO (05:54)
[2016-12-27] MEDS ORDERED: ASPCH81X PO (05:54)
[2016-12-27] MEDS ORDERED: OXYC1TAB3 PO (05:54)
[2016-12-27] MEDS ORDERED: CHOL1TAB42 PO (05:54)
[2016-12-29] MEDS ORDERED: METF500T PO (15:53)
[2016-12-29] MEDS ORDERED: CARV3.12 PO (15:53)
[2017-01-26] MEDS ORDERED: DICY10CA55 PO (08:36)
== END 2016-08-17 20:46 | disposition home or self-care (01) ==
LOC: C.EDB 18:27
DX: M79.671 Pain in right foot (principal); E11.9 Type 2 diabetes mellitus without complications; G40.909 Epilepsy, unspecified, not intractable, without status epilepticus; E03.9 Hypothyroidism, unspecified; Z79.4 Long term (current) use of insulin; I10 Essential (primary) hypertension; E78.5 Hyperlipidemia, unspecified; Z87.891 Personal history of nicotine dependence

== ENCOUNTER → 2016-08-19 | Outpatient (CLI) | payer OTHER ==
[~2016-08-19] MED LIST changes: +BUPR-79 PO; +CARV3.12 PO; +DIVA500T3 PO; +HYDR2.5C37 TOP; +LEVO100T7 PO; +LOSA100T65 PO; +OMEP20TA PO; +PRIM50TA34 PO; +RANI300T PO; +ROSU40TA PO
== END | disposition home or self-care (01) ==
LOC: C.RDSM 13:34
PROVIDERS: ATTEND Physical Medicine & Rehabilitation Sports Medicine
DX: M25.571 Pain in right ankle and joints of right foot (principal)

== ENCOUNTER → 2016-08-22 | Outpatient (CLI) | payer OTHER ==
[~2016-08-22] MED LIST changes: +METO-157 PO; +OXYC1TAB3 PO; +TRAM-10 PO
--- NOTE | 2016-08-22 15:05 | DIAGNOSTIC IMAGING REPORT ---
RIGHT ANKLE MRI HISTORY: Right ankle pain. TECHNIQUE: Multiplanar multisequence MRI of the right ankle was performed without the use of intravenous contrast. COMPARISON STUDY: Right ankle 08/19/2016. FINDINGS: No fracture or dislocation within the right ankle. Normal marrow signal intensity within the osseous structures. The medial and lateral stabilizing ligaments are intact. Mild lateral subcutaneous edema. Small linear focus of increased signal within the distal Achilles tendon. The flexor and extensor tendons are intact. There is a split tear within the peroneus brevis tendon immediately distal to the lateral malleolus. There is fluid surrounding the intact peroneus longus tendon consistent with a tenosynovitis. Cartilage spaces are maintained for age. The plantar fascia is intact. IMPRESSION: 1. Split tear within the peroneus brevis tendon. 2. Tenosynovitis of the peroneus longus. 3. Small linear focus of increased signal within the distal Achilles tendon. This could represent a mild tendinosis versus a small partial tear.. Electronically signed by: Shahab Golden M.D. 08/22/2016 3:03 PM Dictated Date/Time: 08/22/2016 2:55 PM
== END | disposition home or self-care (01) ==
LOC: C.MRI 13:26
PROVIDERS: ATTEND Physical Medicine & Rehabilitation Sports Medicine
DX: M25.571 Pain in right ankle and joints of right foot (principal)

== ENCOUNTER → 2016-10-31 | Outpatient (CLI) | payer OTHER ==
[~2016-10-31] VITALS: Ht 165.1 cm; Wt 103.1 kg
[~2016-10-31] MED LIST changes: +ASPCH81X PO; +CHOL1TAB42 PO; +LACTATED RINGER'S 1000ML 1,000 ML IV SCH; +METF500T PO; +OMEG10007 PO
[2016-10-31 12:12] VITALS: Ht 165.1 cm; Wt 103.1 kg
--- NOTE | 2016-10-31 12:47 | PAT Medication Instructions ---
Service Date Oct 31, 2016. Current Home Medication List Bupropion (Wellbutrin Sr), 150 MG PO BID Carvedilol (Coreg), 3.125 MG PO BID Clobetasol Propionate (Clobetasol Propionate Cream 0.05%), 1 APPLN EXT BID PRN for Dicyclomine Hcl (Bentyl), 10 MG PO BID PRN for abdominal cramps Divalproex Sodium (Depakote Er), 1,500 MG PO HS Duloxetine HCl (Cymbalta), 20 MG PO QAM Ergocalciferol (Vitamin D 79608 Unit), 50,000 UNIT PO WK Fenofibrate (Tricor), 145 MG PO HS Furosemide (Lasix), 20 MG PO QPM Hydrocortisone 2.5% (Rectal) (Anusol-Hc 2.5%), 1 APPLN TOP TID PRN for Hemorrhoids Insulin Aspart (Novolog Flexpen), 1 DOSE SQ UD Insulin Glargine (Lantus), 44 UNITS SC QAM Insulin Glargine (Lantus), 55 UNITS SC HS Levocetirizine Dihydrochloride (Levocetirizine Dihydrochl), 5 MG PO QPM Levothyroxine Sodium (Levothyroxine Sodium), 100 MCG PO QAM Losartan Potassium (Cozaar), 100 MG PO HS Mirtazapine (Remeron), 15 MG PO HS Omeprazole (Omeprazole), 20 MG PO QAM Ondansetron Hcl (Zofran), 4 MG PO Q8 PRN for Nausea Oxybutynin Chloride Er (Ditropan Xl), 10 MG PO HS Primidone (Mysoline), 250 MG PO QAM Primidone (Mysoline), 100 MG PO QPM Ranitidine Hcl (Zantac), 300 MG PO BID Rosuvastatin Calcium (Crestor), 40 MG PO HS Tramadol (Ultram), 50 MG PO Q6 PRN for Pain Triamcinolone Acet (Aristocort 0.1%), 1 APPLN TOP BID PRN for [Nifedipine 2% Oint], 1 APPLN TOP DAILY PRN for Medication Instructions For Your Scheduled Surgery - Hold the following medications 24 hours prior to surgery: Hydrocortisone 2.5% (Rectal) (Anusol-Hc 2.5%), 1 APPLN TOP TID PRN for Hemorrhoids Clobetasol Propionate (Clobetasol Propionate Cream 0.05%), 1 APPLN EXT BID PRN Triamcinolone Acet (Aristocort 0.1%), 1 APPLN TOP BID PRN for [Nifedipine 2% Oint], 1 APPLN TOP DAILY PRN for Fenofibrate (Tricor), 145 MG PO HS Losartan Potassium (Cozaar), 100 MG PO HS - Hold the following medications the morning of surgery: Insulin Aspart (Novolog Flexpen), 1 DOSE SQ UD Dicyclomine Hcl (Bentyl), 10 MG PO BID PRN for abdominal cramps - Take the following medications the morning of surgery with a sip of water OTHERWISE NOTHING TO EAT OR DRINK AFTER MIDNIGHT: Ranitidine Hcl (Zantac), 300 MG PO BID Bupropion (Wellbutrin Sr), 150 MG PO BID Carvedilol (Coreg), 3.125 MG PO BID Levothyroxine Sodium (Levothyroxine Sodium), 100 MCG PO QAM Omeprazole (Omeprazole), 20 MG PO QAM Primidone (Mysoline), 250 MG PO QAM Ondansetron Hcl (Zofran), 4 MG PO Q8 PRN for Nausea Tramadol (Ultram), 50 MG PO Q6 PRN for Pain (may take as needed up to 4 hours prior to surgery) Duloxetine HCl (Cymbalta), 20 MG PO QAM - For Insulin Dependent Diabetic patients: Test blood sugar A.M. of surgery. - If Blood Sugar is GREATER THAN 150, take HALF of your regular dose of: Insulin Glargine (Lantus) - If Blood Sugar is LESS THAN 150, do not take any: Insulin Glargine ( Lantus) - Take the following medications as scheduled the night before surgery: Ranitidine Hcl (Zantac), 300 MG PO BID Bupropion (Wellbutrin Sr), 150 MG PO BID Carvedilol (Coreg), 3.125 MG PO BID Insulin Glargine (Lantus), 55 UNITS SC HS Divalproex Sodium (Depakote Er), 1,500 MG PO HS Oxybutynin Chloride Er (Ditropan Xl), 10 MG PO HS Mirtazapine (Remeron), 15 MG PO HS Furosemide (Lasix), 20 MG PO QPM Levocetirizine Dihydrochloride (Levocetirizine Dihydrochl), 5 MG PO QPM Primidone (Mysoline), 100 MG PO QPM Rosuvastatin Calcium (Crestor), 40 MG PO HS Ondansetron Hcl (Zofran), 4 MG PO Q8 PRN for Nausea Tramadol (Ultram), 50 MG PO Q6 PRN for Pain Dicyclomine Hcl (Bentyl), 10 MG PO BID PRN for abdominal cramps If you have any questions please call us at [phone] or [phone] or [phone]
[2016-10-31 13:20] LABS: BASO % 0.2 %; BASO ABS # 0.01 K/uL (0-0.2); COMPLETE YES; EOS % 3.2 %; HEMATOCRIT 37.8 % (42-52); IG% 0.8 %; LYMPH % 37.7 %; LYMPH ABS # 2.36 K/uL (1.2-3.4); MEAN CELL VOLUME 86.3 fL (80-100); MEAN CORPUSCULAR HEMOGLOBIN 30.1 pg (25-34); MEAN CORPUSCULAR HGB CONC 34.9 g/dl (32-36); MEAN PLATELET VOLUME 9.8 fL (7.4-10.4); MONO % 11.3 %; NEUT % 46.8 %; PLATELET COUNT 195 K/uL (130-400); RED BLOOD COUNT 4.38 M/uL (4.7-6.1); WHITE BLOOD COUNT 6.26 K/uL (4.8-10.8)
[2016-10-31 13:30] LABS: ESTIMATED AVERAGE GLUCOSE 232 mg/dl; HA1C FLAG Normal (Normal)
[2016-10-31 13:39] LABS: BUN/CREATININE RATIO 13.3 (10-20); CALCIUM 8.9 mg/dl (8.5-10.1); CREATININE 1.1 mg/dl (0.60-1.40); POTASSIUM 4.8 mmol/L (3.5-5.1)
--- NOTE | 2016-12-30 10:31 | CODING QUERY MEDICAL NECESSITY ---
SUPPORTING DIAGNOSIS NEEDED A supporting diagnosis is required for the test/procedure performed on this patient in order for us to be reimbursed by the patient's insurance. Please provide a supporting diagnosis for the following test/procedure listed below next to the test name along with your signature. *If there is no additional diagnosis for this patient that would support the following test/procedure please document that below next to the test/procedure. Test(s)/Procedure(s) that require a supporting diagnosis: * HEMOGLOBIN A1C DIAGNOSIS: Provider Signature: Date: Thank you Jhoana Boyle [employer] Information Management Once completed, please kindly fax back to [phone] For questions please call [phone]
== END | disposition home or self-care (01) ==
LOC: C.LAB 08:00 → C.ACU 11:30 → EDSTATUS 11-18 07:00
PROVIDERS: ATTEND Physical Medicine & Rehabilitation Sports Medicine
DX: Z01.812 Encounter for preprocedural laboratory examination (principal)

== ENCOUNTER 2016-11-20 15:53 | Emergency (ER) | payer OTHER ==
[~2016-11-20] VITALS: Ht 165.1 cm; Wt 104.0 kg
[~2016-11-20 15:53] MED LIST changes: -METO-157 PO; -OXYC1TAB3 PO
[2016-11-20 15:56] VITALS: TEMP 36.6; Ht 165.1 cm; Wt 104.0 kg
[2016-11-20] MEDS ORDERED: OXYCODONE HCL IR 5 MG TAB (IMMEDIATE RELEASE) PO STA (16:07)
--- NOTE | 2016-11-20 16:20 | EMERGENCY ROOM VISIT NOTE ---
History First contact with patient: 16:01 Chief Complaint: FOOT PAIN Stated Complaint: RT FOOT SHARP PAIN, PAIN GOING THROUGH LEG History of Present Illness The patient is a 61 year old male who presents to the Emergency Room via private vehicle with complaints of "right foot sharp pain, pain going through leg". The patient states that he has to torn tendons, and to numb toes and was to have surgery this past Thursday. He states his family doctor canceled this because his sugar was uncontrolled. The surgeries mostly performed by Dr. Navas. Patient states he has had CTs and MRIs of the foot. He has diabetes. He states that the pain is now worse over the past 2 days. He has been working with his new family doctor, Dr. Loya and after calling the office today he was referred here for further evaluation and management. Review of Systems A complete 6-point Review of Systems was discussed with the patient, with pertinent positives and negatives listed in the History of Present Illness. All remaining Review of Systems questions can be considered negative unless otherwise specified. Past Medical/Surgical History Medical Problems: (1) Asbestosis (2) Depression (3) Diabetes mellitus, type II (4) Dyslipidemia (5) GERD (gastroesophageal reflux disease) (6) HTN (hypertension) (7) Hypothyroidism (8) Seizure disorder (9) Tobacco abuse Surgical Problems: (1) H/O arthroscopy of shoulder (2) History of appendectomy (3) History of carpal tunnel surgery (4) History of cholecystectomy (5) History of tonsillectomy and adenoidectomy Family History Diabetes mellitus FH: lung disease FHx: cancer FHx: gallbladder disease Hypertension Social History Smoking Status: Former Smoker Alcohol Use: none Drug Use: none Marital Status: Housing Status: lives with family Occupation Status: disabled Current/Historical Medications Scheduled Bupropion (Wellbutrin Sr), 150 MG PO BID Carvedilol (Coreg), 3.125 MG PO BID Divalproex Sodium (Depakote Er), 1,500 MG PO HS Duloxetine HCl (Cymbalta), 20 MG PO QAM Fenofibrate (Tricor), 145 MG PO HS Furosemide (Lasix), 20 MG PO QPM Insulin Aspart (Novolog Flexpen), 1 DOSE SQ AC Insulin Glargine (Lantus), 44 UNITS SC QAM Insulin Glargine (Lantus), 55 UNITS SC HS Levocetirizine Dihydrochloride (Levocetirizine Dihydrochl), 5 MG PO QPM Levothyroxine Sodium (Levothyroxine Sodium), 100 MCG PO QAM Losartan Potassium (Cozaar), 100 MG PO HS Metoclopramide (Reglan), 10 MG PO ACHS Mirtazapine (Remeron), 15 MG PO HS Omeprazole (Omeprazole), 20 MG PO QAM Oxybutynin Chloride Er (Ditropan Xl), 10 MG PO HS Primidone (Mysoline), 250 MG PO QAM Primidone (Mysoline), 100 MG PO QPM Ranitidine Hcl (Zantac), 300 MG PO BID Rosuvastatin Calcium (Crestor), 40 MG PO HS Scheduled PRN Clobetasol Propionate (Clobetasol Propionate Cream 0.05%), 1 APPLN EXT BID PRN for Hydrocortisone 2.5% (Rectal) (Anusol-Hc 2.5%), 1 APPLN TOP TID PRN for Hemorrhoids Ondansetron Hcl (Zofran), 4 MG PO Q8 PRN for Nausea Oxycodone Ir (Roxicodone Ir), 1-2 TAB PO Q4H PRN for Pain Tramadol (Ultram), 50 MG PO Q6 PRN for Pain Triamcinolone Acet (Aristocort 0.1%), 1 APPLN TOP BID PRN for [Nifedipine 2% Oint], 1 APPLN TOP DAILY PRN for Physical Exam Vital Signs Date Time Temp Pulse Resp B/P (MAP) Pulse Ox O2 Delivery O2 Flow Rate FiO2 11/20/16 18:29 65 16 146/81 96 11/20/16 15:56 36.6 80 20 182/93 95 Room Air Physical Exam VITAL SIGNS - Vital signs and nursing notes were reviewed. Stable. GENERAL - 61-year-old male appearing his stated age who is in no acute distress. Communicates well with provider and answers questions appropriately. SKIN - Without rashes. Right foot is non erythematous and non edematous. HEAD - NC/AT. EXTREMITIES - No clubbing or peripheral cyanosis. No pretibial edema present. + 5/5 strength noted in UE/LE bilaterally. Tenderness to palpation overlying the patient's right ankle region. NEUROLOGIC - Cranial nerves II through XII grossly intact. Sensory intact to light touch throughout. Medical Decision & Procedures ER Provider Diagnostic Interpretation: R ANKLE MIN 3 VIEWS ROUTINE CLINICAL HISTORY: Right foot pain pain COMPARISON: None. DISCUSSION: The bones and joint spaces appear intact. There is no evidence of fracture, dislocation or bony disease. There is no evidence for soft tissue swelling. IMPRESSION: Negative study. The above report was generated using voice recognition software. It may contain grammatical, syntax or spelling errors. Electronically signed by: Jean Brush M.D. 11/20/2016 4:38 PM Dictated Date/Time: 11/20/2016 4:38 PM R FOOT MIN 3 VIEWS ROUTINE CLINICAL HISTORY: Right foot pain pain COMPARISON: 08/17/2016 DISCUSSION: Mild/moderate degenerative change. No acute bony abnormality. Mild degenerative changes distal interphalangeal joint right great toe. Cortical margins are intact. No periarticular osteopenia. There is no evidence for soft tissue swelling. IMPRESSION: Mild/moderate degenerative change. No acute bony abnormality. No change from the prior exam. The above report was generated using voice recognition software. It may contain grammatical, syntax or spelling errors. Electronically signed by: Jean Brush M.D. 11/20/2016 4:37 PM Dictated Date/Time: 11/20/2016 4:36 PM Medications Administered Medications (Trade) Dose Ordered Sig/Dean Route Start Time Stop Time Status Last Admin Dose Admin Oxycodone HCl (Roxicodone Immediate Rel Tab) 5 mg NOW STAT PO 11/20/16 16:07 11/20/16 16:09 DC 11/20/16 16:45 5 MG Medical Decision Patient was seen and evaluated as above. He presents to us today with right foot pain. No evidence of DVT on my exam. I suspect the patient is likely experiencing acute exacerbation of his chronic pain. He has an MRI which does reveal tendon disruption. Patient had labs drawn earlier in the day and these were reviewed. No evidence of infection at this time. His A1c was high around 9.1. Patient states he was sent here by his family doctor for further evaluation and management of his foot pain, as well as potentially his uncontrolled diabetes and low blood sugar at night. In regard to the foot, x- rays were obtained with results as above. No acute fracture or dislocation. I reviewed the MRI, and discussed the case with Dr. Murdock. Orthopedic surgeon. He recommended Ortho-Glass posterior, nonweightbearing with crutches, and follow -up with Dr. Suazo. This does sound reasonable. He is to follow-up with that surgeon because that is to was to do surgery this past Thursday. Patient states the surgery was canceled by his family doctor. In regard to his diabetes , he is to cut his sliding scale dose in half. He is then to follow with a family doctor. He is felt stable for outpatient management. Case was discussed with the attending physician who also personally evaluated the patient. The patient is also to follow up regarding his high blood pressure. Short prescription for OxyIR was written. Patient was educated upon worrisome symptoms in which to return, had questions or discharge, and was discharged home in good condition. In the evaluation and treatment of this patient, the following differential diagnoses were considered: Ankle Fracture, Ankle Sprain, Distal Fibula Fracture , Distal Tibia Fracture, Foot Fracture, [place]uve Fracture. [place] Drug Monitoring Program Search Results: patient reviewed within database, no issues identified Medication Reconcilliation Current Medication List: was personally reviewed by md Blood Pressure Screening Patient's blood pressure: Elevated blood pressure Blood pressure disposition: Elevated BP felt to be situational Impression Primary Impression: Foot pain Additional Impression: Hyperglycemia Departure Information Dispostion Home / Self-Care Condition GOOD Prescriptions Oxycodone Ir (Roxicodone Ir) 5 Mg Tab 1-2 TAB PO Q4H Y for Pain, #15 TAB For Initial Treatment Prov: Alo Carr PA-C 11/20/16 Referrals Farhad Loya D.O. (PCP) Serjio Suazo M.D. Patient Instructions My [facility] Additional Instructions You have been treated in the Emergency Department for right ankle pain. You have received pain medicine in the emergency department which impairs your ability to operate a vehicle. It is illegal for you to drive after receiving these medicines. You have been prescribed Oxy IR to be used for pain control. This is a narcotic medication. You cannot drive or consume alcohol while on this medicine. This medicine should only be used for pain that cannot be controlled with over-the- counter pain medicines. You have been provided the number for an Orthopaedic Surgeon. You should call this number as soon as possible to establish a follow-up visit from today's Emergency Department visit. Keep the ankle brace/splint in place until cleared by Orthopedics. Use the crutches you have been provided to keep ALL weight off of the ankle until weight bearing is tolerable. Please cut sliding scale in half so you will not bottom out at night. Please call family doctor to schedule appt for diabetes management and high blood pressure. Return to the Emergency Department if your current symptoms worsen despite treatment course outlined above, or if you develop any of the following symptoms : intractable pain despite aforementioned treatment course or new onset of numbness or tingling of the foot. Please return with any new/concerning symptoms. Problem Qualifiers
[2016-11-20] MEDS ORDERED: METO-157 PO (16:22)
--- NOTE | 2016-11-20 16:39 | DIAGNOSTIC IMAGING REPORT ---
R ANKLE MIN 3 VIEWS ROUTINE CLINICAL HISTORY: Right foot pain pain COMPARISON: None. DISCUSSION: The bones and joint spaces appear intact. There is no evidence of fracture, dislocation or bony disease. There is no evidence for soft tissue swelling. IMPRESSION: Negative study. The above report was generated using voice recognition software. It may contain grammatical, syntax or spelling errors. Electronically signed by: Jean Brush M.D. 11/20/2016 4:38 PM Dictated Date/Time: 11/20/2016 4:38 PM
--- NOTE | 2016-11-20 16:39 | DIAGNOSTIC IMAGING REPORT ---
R FOOT MIN 3 VIEWS ROUTINE CLINICAL HISTORY: Right foot pain pain COMPARISON: 08/17/2016 DISCUSSION: Mild/moderate degenerative change. No acute bony abnormality. Mild degenerative changes distal interphalangeal joint right great toe. Cortical margins are intact. No periarticular osteopenia. There is no evidence for soft tissue swelling. IMPRESSION: Mild/moderate degenerative change. No acute bony abnormality. No change from the prior exam. The above report was generated using voice recognition software. It may contain grammatical, syntax or spelling errors. Electronically signed by: Jean Brush M.D. 11/20/2016 4:37 PM Dictated Date/Time: 11/20/2016 4:36 PM
--- NOTE | 2016-11-20 17:26 | EMERGENCY ROOM VISIT NOTE ---
ED Visit Note First contact with patient: 16:01 HPI: Foot pain, followed by Dr. Sanchez. Planned for surgery for known ligamentous injury. But canceled procedure 2/2 hyperglycemia. PE: AFVSS, NAD NC/AT RRR, no murmurs CTAB Abd soft NT/ND Ext: right ankle mild swelling with ttp. Neuro: grossly intact Plan: FSBG 200s. d/w with ortho for f/u. Advised to decrease his SSI to avoid hypoglycemic episodes. Plan for pcp f/u. I reviewed the patient's past medical history, medications, and visit nursing notes. I discussed the case with the physician syrup mixer assistant, examined the patient, and agree with the findings and plan as documented in the physician assistants note.
[2016-11-20] MEDS ORDERED: OXYC1TAB3 PO (18:03)
[2016-11-20 18:29] VITALS: BP 146/81; PULSE 65; O2SAT 96
== END 2016-11-20 18:32 | disposition home or self-care (01) ==
LOC: C.EDB 15:54 → C.EDD 18:32
DX: M79.671 Pain in right foot (principal); R73.9 Hyperglycemia, unspecified; J61 Pneumoconiosis due to asbestos and other mineral fibers; F32.9 Major depressive disorder, single episode, unspecified; E11.9 Type 2 diabetes mellitus without complications; E78.5 Hyperlipidemia, unspecified; K21.9 Gastro-esophageal reflux disease without esophagitis; I10 Essential (primary) hypertension; E03.9 Hypothyroidism, unspecified; G40.909 Epilepsy, unspecified, not intractable, without status epilepticus; Z83.3 Family history of diabetes mellitus; Z82.49 Family history of ischemic heart disease and other diseases of the circulatory system; Z87.891 Personal history of nicotine dependence; Z79.4 Long term (current) use of insulin; E11.65 Type 2 diabetes mellitus with hyperglycemia; Z51.81 Encounter for therapeutic drug level monitoring; E55.9 Vitamin D deficiency, unspecified

== ENCOUNTER → 2016-11-20 | Outpatient (CLI) | payer OTHER ==
[~2016-11-20] MED LIST changes: -ASPCH81X PO; -CHOL1TAB42 PO; -LACTATED RINGER'S 1000ML 1,000 ML IV SCH; -METF500T PO; -OMEG10007 PO; -VNTHFA/IN INH
[2016-11-20 13:05] LABS: BASO % 0.5 %; BASO ABS # 0.03 K/uL (0-0.2); COMPLETE YES; EOS % 1.9 %; HEMATOCRIT 38.1 % (42-52); IG% 0.5 %; LYMPH % 39.9 %; LYMPH ABS # 2.29 K/uL (1.2-3.4); MEAN CELL VOLUME 86.6 fL (80-100); MEAN CORPUSCULAR HEMOGLOBIN 29.8 pg (25-34); MEAN CORPUSCULAR HGB CONC 34.4 g/dl (32-36); MEAN PLATELET VOLUME 10.4 fL (7.4-10.4); MONO % 14.3 %; NEUT % 42.9 %; PLATELET COUNT 210 K/uL (130-400); WHITE BLOOD COUNT 5.74 K/uL (4.8-10.8)
[2016-11-20 13:35] LABS: ALT/SGPT 18 U/L (12-78); AST/SGOT 7 U/L (15-37); BLOOD UREA NITROGEN 24 mg/dl (7-18); BUN/CREATININE RATIO 19.7 (10-20); CARBON DIOXIDE 28 mmol/L (21-32); CHLORIDE 105 mmol/L (98-107); GLUCOSE 181 mg/dl (70-99); POTASSIUM 4.5 mmol/L (3.5-5.1); SODIUM 140 mmol/L (136-145)
[2016-11-20 13:46] LABS: ALB/GLOB RATIO 1.3 (0.9-2); ALKALINE PHOSPHATASE 63 U/L (45-117); CHOLESTEROL 178 mg/dl (0-200); CHOLESTEROL/HDL RATIO 4.8; HDL CHOLESTEROL 37 mg/dl; LDL CHOLESTEROL CALCULATED 77 mg/dl; TRIGLYCERIDES 319 mg/dl (0-150); VERY LOW DENSITY LIPOPROT CALC 64 mg/dl
[2016-11-20 13:50] LABS: ESTIMATED AVERAGE GLUCOSE 217 mg/dl; HA1C FLAG Normal (Normal)
[2016-11-23 01:35] LABS: PHENOBARBITAL <5.0 mg/L (15.0-40.0)
== END | disposition home or self-care (01) ==
LOC: C.LAB 11:53
PROVIDERS: ATTEND Psychiatry & Neurology Neurology
DX: G40.909 Epilepsy, unspecified, not intractable, without status epilepticus (principal); E03.9 Hypothyroidism, unspecified; E11.65 Type 2 diabetes mellitus with hyperglycemia; Z51.81 Encounter for therapeutic drug level monitoring; Z79.4 Long term (current) use of insulin; I10 Essential (primary) hypertension; E78.5 Hyperlipidemia, unspecified; E55.9 Vitamin D deficiency, unspecified

== ENCOUNTER → 2017-01-26 | Outpatient (CLI) | payer OTHER ==
[~2017-01-26] MED LIST changes: +ASPCH81X PO; +CHOL1TAB42 PO; -ERGO500037 PO; +METF500T PO; +METO-157 PO; +OMEG10007 PO; -OMEP20TA PO; +OXYC1TAB3 PO; -TRAM-10 PO
[2017-01-26 11:07] LABS: ALT/SGPT 20 U/L (12-78); AST/SGOT 12 U/L (15-37); BLOOD UREA NITROGEN 19 mg/dl (7-18); BUN/CREATININE RATIO 20.5 (10-20); CARBON DIOXIDE 31 mmol/L (21-32); CHLORIDE 105 mmol/L (98-107); CREATININE 0.95 mg/dl (0.60-1.40); GLUCOSE 100 mg/dl (70-99); POTASSIUM 4.3 mmol/L (3.5-5.1); SODIUM 137 mmol/L (136-145)
[2017-01-26 11:10] LABS: ALB/GLOB RATIO 1.3 (0.9-2); ALKALINE PHOSPHATASE 59 U/L (45-117)
--- NOTE | 2017-01-30 08:02 | CODING QUERY NO DIAGNOSIS ---
TREATMENT RENDERED WITHOUT A DIAGNOSIS : 1955 To promote full compliance with coding requirements relating to patient care, physician participation is requested in all cases of sustainability communicator uncertainty. Please assist us with providing a diagnosis/symptom for the test(s) below: A diagnosis/symptom was not documented on your Order. A valid diagnosis/symptom is required to bill all insurances. Please remember that we are unable to code a diagnosis of rule out, probable, possible, questionable, or suspected. Tests that require a diagnosis: DOS: 01/26/17 * COMPREHENSIVE METABO DIAGNOSIS: Provider Signature: Date: Thank you Osiris Walker [employer] Information Management Once completed, please kindly fax back to [phone] For questions please call [phone]
== END | disposition home or self-care (01) ==
LOC: C.LAB 08:20
PROVIDERS: ATTEND Neuromusculoskeletal Medicine & OMM
DX: N17.9 Acute kidney failure, unspecified (principal)

== ENCOUNTER 2017-02-20 05:05 | Day surgery (SDC) | payer OTHER ==
[2017-01-26 08:37] VITALS: BMI 38.0
--- NOTE | 2017-01-26 09:27 | PAT Medication Instructions ---
Service Date Jan 26, 2017. Current Home Medication List Aspirin (Aspirin Chewable), 81 MG PO HS Bupropion (Wellbutrin Sr), 150 MG PO BID Carvedilol (Coreg), 3.125 MG PO BID Cholecalciferol (Vitamin D), 5,000 UNITS PO QID Clobetasol Propionate (Clobetasol Propionate Cream 0.05%), 1 APPLN EXT BID PRN for Dicyclomine Hcl (Bentyl), 1 CAP PO TID Divalproex Sodium (Depakote Er), 1,500 MG PO HS Duloxetine HCl (Cymbalta), 20 MG PO QAM Fenofibrate (Tricor), 145 MG PO HS Fish Oil ([place]-3), 1 CAP PO BID Furosemide (Lasix), 20 MG PO QPM AT 1800 Hydrocortisone 2.5% (Rectal) (Anusol-Hc 2.5%), 1 APPLN TOP TID PRN for Hemorrhoids Insulin Aspart (Novolog Flexpen), 1 DOSE SQ AC Insulin Glargine (Lantus), 50 UNITS SC QAM Insulin Glargine (Lantus), 60 UNITS SC HS Levocetirizine Dihydrochloride (Levocetirizine Dihydrochl), 5 MG PO QPM Levothyroxine Sodium (Levothyroxine Sodium), 100 MCG PO QAM Losartan Potassium (Cozaar), 100 MG PO HS Metformin Hcl (Glucophage), 1 TAB PO BID Metoclopramide (Reglan), 10 MG PO ACHS Mirtazapine (Remeron), 15 MG PO HS Ondansetron Hcl (Zofran), 4 MG PO Q8 PRN for Nausea Oxybutynin Chloride Er (Ditropan Xl), 10 MG PO HS Oxycodone Immediate Rel Tab (Roxicodone Ir), 5-10 MG PO Q4H PRN for Severe Pain Primidone (Mysoline), 250 MG PO QAM Primidone (Mysoline), 100 MG PO QPM Ranitidine Hcl (Zantac), 300 MG PO HS Rosuvastatin Calcium (Crestor), 40 MG PO HS [Nifedipine 2% Oint], 1 APPLN TOP DAILY PRN for Medication Instructions For Your Scheduled Surgery -Contact your surgeon for instructions Aspirin (Aspirin Chewable), 81 MG PO HS -Continue as directed: Metoclopramide (Reglan), 10 MG PO ACHS - Hold the following medications 2 weeks prior to surgery: Fish Oil ([place]-3), 1 CAP PO BID - Hold the following medications 24 hours prior to surgery: [Nifedipine 2% Oint], 1 APPLN TOP DAILY PRN for Losartan Potassium (Cozaar), 100 MG PO HS (do not take the night before surgery) Hydrocortisone 2.5% (Rectal) (Anusol-Hc 2.5%), 1 APPLN TOP TID PRN for Hemorrhoids Fenofibrate (Tricor), 145 MG PO HS (do not take the night before surgery) Clobetasol Propionate (Clobetasol Propionate Cream 0.05%), 1 APPLN EXT BID PRN - Hold the following medications 48 hours prior to surgery: Metformin Hcl (Glucophage), 1 TAB PO BID - Hold the following medications the morning of surgery: Insulin Aspart (Novolog Flexpen), 1 DOSE SQ AC Cholecalciferol (Vitamin D), 5,000 UNITS PO QID Dicyclomine Hcl (Bentyl), 1 CAP PO TID - Take the following medications the morning of surgery with a sip of water: Primidone (Mysoline), 250 MG PO QAM Oxycodone Immediate Rel Tab (Roxicodone Ir), 5-10 MG PO Q4H PRN for Severe Pain (if needed, can be taken up to four hours before surgery) Ondansetron Hcl (Zofran), 4 MG PO Q8 PRN for Nausea (if needed) Levothyroxine Sodium (Levothyroxine Sodium), 100 MCG PO QAM Duloxetine HCl (Cymbalta), 20 MG PO QAM Carvedilol (Coreg), 3.125 MG PO BID Bupropion (Wellbutrin Sr), 150 MG PO BID - Take the following medications as scheduled the night before surgery: Rosuvastatin Calcium (Crestor), 40 MG PO HS Ranitidine Hcl (Zantac), 300 MG PO HS Primidone (Mysoline), 100 MG PO QPM Oxybutynin Chloride Er (Ditropan Xl), 10 MG PO HS Mirtazapine (Remeron), 15 MG PO HS Ondansetron Hcl (Zofran), 4 MG PO Q8 PRN for Nausea (if needed) Levocetirizine Dihydrochloride (Levocetirizine Dihydrochl), 5 MG PO QPM Insulin Glargine (Lantus), 60 UNITS SC HS Insulin Aspart (Novolog Flexpen), 1 DOSE SQ AC Furosemide (Lasix), 20 MG PO QPM AT 1800 Divalproex Sodium (Depakote Er), 1,500 MG PO HS Dicyclomine Hcl (Bentyl), 1 CAP PO TID Cholecalciferol (Vitamin D), 5,000 UNITS PO QID Carvedilol (Coreg), 3.125 MG PO BID Bupropion (Wellbutrin Sr), 150 MG PO BID - For Insulin Dependent Diabetic patients: Test blood sugar A.M. of surgery. - If BLOOD SUGAR IS GREATER THAN 150, take half of your regular dose of: Insulin Glargine (Lantus), 50 UNITS SC QAM (TAKE 25 UNITS) - If BLOOD SUGAR IS LESS THAN 150, do not take any: Insulin Glargine ( Lantus), 50 UNITS SC QAM If you have any questions please call us at [phone] or [phone] or [phone]
[2017-01-26 10:34] LABS: HEMOGLOBIN A1C 7.5 % (4.5-5.6)
--- NOTE | 2017-02-19 11:42 | History and Physical ---
History & Physical Date Feb 19, 2017. Chief Complaint right ankle pain History of Present Illness The patient is a 61 year old male with complaints of lateral right ankle pain. He was treated conservatively but failed conservative treatments. An MRI showed a peroneal tendon tear and an ATFL tear. He was scheduled to have surgery previously but the surgery was canceled because of elevated blood sugars but then wasn't rescheduled after they were controlled. He is now being set up for the procedure. Past Medical/Surgical History Medical Problems: (1) ERON (acute kidney injury) (2) Asbestosis (3) Depression (4) Diabetes mellitus, type II (5) Dyslipidemia (6) GERD (gastroesophageal reflux disease) (7) HTN (hypertension) (8) Hypothyroidism (9) Seizure disorder (10) Tobacco abuse Surgical Problems: (1) H/O arthroscopy of shoulder (2) History of appendectomy (3) History of carpal tunnel surgery (4) History of cholecystectomy (5) History of tonsillectomy and adenoidectomy Allergies Coded Allergies: Amitriptyline (Verified Allergy, Intermediate, HIVES, 12/27/16) Penicillins (Verified Allergy, Intermediate, HIVES, 12/27/16) ITCHY,HIVES Tramadol (Verified Allergy, Intermediate, ITCHY, 12/27/16) ITCHY BIRGIT Inhibitors (Verified Allergy, Unknown, ? ANGIOEDEMA, 12/27/16) Gabapentin (Verified Allergy, Unknown, per atmospheric technician note , 01/26/17) makes tremors worse Lorazepam (Verified Allergy, Unknown, "DON'T REMEMBER", 12/27/16) Codeine (Verified Adverse Reaction, Mild, N&V, 12/27/16) N/V Home Medications Scheduled Aspirin (Aspirin Chewable), 81 MG PO HS Bupropion (Wellbutrin Sr), 150 MG PO BID Carvedilol (Coreg), 3.125 MG PO BID Cholecalciferol (Vitamin D), 5,000 UNITS PO QID Dicyclomine Hcl (Bentyl), 1 CAP PO TID Divalproex Sodium (Depakote Er), 1,500 MG PO HS Duloxetine HCl (Cymbalta), 20 MG PO QAM Fenofibrate (Tricor), 145 MG PO HS Fish Oil ([place]-3), 1 CAP PO BID Furosemide (Lasix), 20 MG PO QPM AT 1800 Insulin Aspart (Novolog Flexpen), 1 DOSE SQ AC Insulin Glargine (Lantus), 50 UNITS SC QAM Insulin Glargine (Lantus), 60 UNITS SC HS Levocetirizine Dihydrochloride (Levocetirizine Dihydrochl), 5 MG PO QPM Levothyroxine Sodium (Levothyroxine Sodium), 100 MCG PO QAM Losartan Potassium (Cozaar), 100 MG PO HS Metformin Hcl (Glucophage), 1 TAB PO BID Metoclopramide (Reglan), 10 MG PO ACHS Mirtazapine (Remeron), 15 MG PO HS Oxybutynin Chloride Er (Ditropan Xl), 10 MG PO HS Primidone (Mysoline), 250 MG PO QAM Primidone (Mysoline), 100 MG PO QPM Ranitidine Hcl (Zantac), 300 MG PO HS Rosuvastatin Calcium (Crestor), 40 MG PO HS Scheduled PRN Clobetasol Propionate (Clobetasol Propionate Cream 0.05%), 1 APPLN EXT BID PRN for Hydrocortisone 2.5% (Rectal) (Anusol-Hc 2.5%), 1 APPLN TOP TID PRN for Hemorrhoids Ondansetron Hcl (Zofran), 4 MG PO Q8 PRN for Nausea Oxycodone Immediate Rel Tab (Roxicodone Ir), 5-10 MG PO Q4H PRN for Severe Pain [Nifedipine 2% Oint], 1 APPLN TOP DAILY PRN for Physical Examination Skin: warm/dry, no rash Eyes: normal inspection ENT: normal ENT inspection Head: normocephalic, atraumatic Neck: supple, no adenopathy, trachea midline Respiratory/Chest: lungs clear, normal breath sounds, no respiratory distress Cardiovascular: regular rate, rhythm, no murmur Abdomen / GI: normal bowel sounds, non tender Extremities: + pertinent finding (Right ankle: swelling along the peroneal tendons. Tender along the peroneal tendons and over the ATFL. Mild lateral ankle laxity. Painful PROM. Decreased strength, particularly with eversion.) Neurologic/Psych: no motor/sensory deficits, alert, oriented x 3 Diagnosis Right ankle peroneal tendon tear. Right ankle lateral ankle instability with ATFL tear Plan of Treatment Recommend a right ankle scope with synovectomy, open modified Brostrom, open repair peroneal tendon tear. All potential risks, benefits, complications, alternatives, and rehab have been discussed with the patient and he wishes to proceed. He will be scheduled on 02.20.17 with plans for Lovenox 40 mg SQ daily for 14 days then ASA 81 mg BID for 30 days.
[~2017-02-20] VITALS: Ht 165.1 cm; Wt 106.1 kg
[~2017-02-20 05:05] MED LIST changes: +OXYC-737 PO; -OXYC1TAB3 PO; -TRMCR130WC TOP
[2017-02-20 05:35] VITALS: BP 153/88; PULSE 84; TEMP 37; O2SAT 96; Ht 165.1 cm; Wt 106.1 kg
[2017-02-20] MEDS ORDERED: LACTATED RINGER'S 1000ML 1,000 ML IV SCH ×2 (06:00)
[2017-02-20] MEDS ORDERED: CEFAZOLIN 2000MG IV PUSH 10 ML IV SCH (06:00)
[2017-02-20] MEDS ORDERED: CLINDAMYCIN 600 MG/54 ML D5W IV ONE (06:12)
[2017-02-20] MEDS ORDERED: ROPIVACAINE 0.5% 5 MG/ML 30 ML VIAL ONE (06:28)
[2017-02-20] MEDS ORDERED: FENTANYL CITRATE INJ 50 MCG/1 ML 2 ML VIAL ONE ×2 (07:00→09:06)
[2017-02-20] MEDS ORDERED: LIDOCAINE HCL 2% 2 ML VIAL (20MG/ML) ONE (07:00)
[2017-02-20] MEDS ORDERED: DEXAMETHASONE SOD INJ 4 MG/ML VIAL ONE (07:00)
[2017-02-20] MEDS ORDERED: ONDANSETRON INJ 2 MG/ML 2 ML VIAL ONE (07:00)
[2017-02-20] MEDS ORDERED: PROPOFOL IV EMULSION 10 MG/ML 20 ML VIAL IV ONE (07:00)
[2017-02-20] MEDS ORDERED: MIDAZOLAM HCL 1 MG/ML 2ML VIAL ONE (07:00)
[2017-02-20] MEDS ORDERED: BUPIVACAINE/EPINEPHRINE 0.5% MPF 1:200,000 30 ML VIAL ONE (07:02)
[2017-02-20] MEDS ORDERED: EpINEphrine HCL INJ 1 MG/ML 1ML SYRINGE ONE (07:02)
[2017-02-20] MEDS ORDERED: EpHEDrine SULFATE INJ 50 MG/ML AMP IV PRN (07:30)
[2017-02-20] MEDS ORDERED: ATROPINE SULFATE 0.1 MG/ML 5ML SYR IV PRN (07:30)
[2017-02-20] MEDS ORDERED: HYDROmorphone INJ 1 MG/ML SYR IV PRN (07:30)
[2017-02-20] MEDS ORDERED: ONDANSETRON INJ 2 MG/ML 2 ML VIAL IV PRN (07:30)
--- NOTE | 2017-02-20 07:31 | History & Physical Bridge Note ---
H&P Re-Evaluation Bridge Note: I have examined the patient, reviewed the History & Physical and in the interval since the performance of the History & Physical I have noted the following changes of clinical significance: No changes noted
[2017-02-20] MEDS ORDERED: LARYING-O-JET KIT (LTA) ONE (08:33)
[2017-02-20] MEDS ORDERED: SUCCINYLCHOLINE 100MG/5ML SYR IV ONE (08:33)
[2017-02-20] MEDS ORDERED: PHENYLEPHRINE 100MCG/ML 5ML SYR ONE (08:39)
[2017-02-20] MEDS ORDERED: LABETALOL HCL IV 5 MG/ML 20ML IV ONE (09:49)
[2017-02-20] MEDS ORDERED: PROM25TA9 PO (10:41)
[2017-02-20] MEDS ORDERED: OXYC-737 PO (10:41)
[2017-02-20] MEDS ORDERED: ENOX40IN SQ (10:41)
[2017-02-20] MEDS ORDERED: ASPI-320 PO (10:41)
--- NOTE | 2017-02-20 10:44 | Discharge Instructions ---
Discharge Instructions Date of Service Feb 20, 2017. Admission Reason for Admission: Right Ankle Peroneal Tendon Tear, Atfl Tear Discharge Discharge Diagnosis / Problem: Right peroneal tendon tear Discharge Goals Goal(s): Decrease discomfort, Improve function Activity Recommendations Activity Limitations: per Instructions/Follow-up section Weightbearing Status: Right non-weightbearing . Instructions / Follow-Up Instructions / Follow-Up ACTIVITY RECOMMENDATIONS: Limitations: No weight bearing to affected limb at all times. SPECIAL CARE INSTRUCTIONS: * Some drainage onto the dressing is normal and is no cause for alarm. * Some swelling is natural especially after walking. * When resting, keep your foot elevated above the level of your heart. * Call [facility] if you notice: -Increased drainage -Fever over 101 degrees F -Severe constant pain BANDAGE: * Leave bandage/cast in place unless otherwise directed. * Keep bandage/cast dry at all times. FOLLOW UP VISIT WITH DR. DEJESUS If appointment is not already scheduled: Please call [facility] after you get home today to schedule a follow-up appointment for [address] Dejesus at . Current Hospital Diet Patient's current hospital diet: Discharge Diet Recommended Diet: Diabetes Type 1 Diet Procedures Procedures Performed: Right Ankle: Arthroscopy with Synovectomy, Open Debridement and Repair Peroneus Brevis, Debridement Peroneus Longus with Tenosynovectomy peroneal Tendon, Open Modified Brostrom Procedure with Arthrex Internal Brace Pending Studies Studies pending at discharge: no Laboratory Results Hemoglobin A1c Test 01/26/17 09:39 Range/Units Estimated Average Glucose 169 mg/dl Hemoglobin A1c 7.5 H 4.5-5.6 % Medical Emergencies . Who to Call and When: Medical Emergencies: If at any time you feel your situation is an emergency, please call 911 immediately. . Non-Emergent Contact Non-Emergency issues call your: Surgeon Call Non-Emergent contact if: temperature is above 101, your pain is not controlled, your pain is worsening . "Provider Documentation" section prepared by Kit Dos Santos. . VTE Core Measure Inpt VTE Proph given/why not?: SCD's
[2017-02-20] MEDS ORDERED: OXYCODONE/ACETAMINOPHEN 5-325 TAB PO PRN (10:45)
--- NOTE | 2017-02-20 10:46 | [facility] Post Operative Brief Note ---
Immediate Operative Summary Operative Date Feb 20, 2017. Pre-Operative Diagnosis Right Ankle Peroneal Tendon Tear, Right Ankle Lateral Instability with Anterior Talofibular Ligament Tear Post-Operative Diagnosis Right Ankle Peroneus Brevis Tendon Tear, Peroneus Longus Tendon Tear, Tenosynovitis Peroneus and Peroneus Brevis Tendons, Right Ankle Lateral Instability with Anterior Talofibular Ligament Tear, Synovitis Ankle Joint Procedure(s) Performed Right Ankle: 1. Arthroscopy with Synovectomy, 2. Open Debridement and Repair Peroneus Brevis, 3. Debridement Peroneus Longus tendon, 4. Tenosynovectomy Peroneus Longus and Brevis tendons, 5. Open Modified Brostrom Procedure with Arthrex Internal Brace Surgeon Dr. Echols Apparatus Lineman Surgeon(s) Abhinav Dos Santos PA-C Estimated Blood Loss 3 ml Findings See dict Specimens none per surgeon Drains None Anesthesia GLMA w/ popliteal block Complication(s) None Disposition Recovery Room / PACU
[2017-02-20] MEDS ORDERED: ALBUTEROL HFA INHALER 8.5 GM INH ONE (10:57)
[2017-02-20] MEDS: FENTANYL CITRATE INJ 50 MCG/1 ML 2 ML VIAL IV PRN ×4 (11:01→11:20)
--- NOTE | 2017-02-20 11:42 | Anesthesiology Progress Note ---
Anesthesia Post Op Note Date & Time Feb 20, 2017 at 11:41 Vital Signs Pain Intensity: 4 Vital Signs Past 12 Hours Date Time Temp Pulse Resp B/P (MAP) Pulse Ox O2 Delivery O2 Flow Rate FiO2 02/20/17 11:35 98 16 164/97 93 Nasal Cannula 4 02/20/17 11:25 36.8 100 18 159/94 92 Oxymask 4 02/20/17 11:15 92 15 159/99 96 Oxymask 8 02/20/17 11:05 99 17 156/78 95 Oxymask 15 02/20/17 10:55 96 20 166/90 94 Oxymask 15 02/20/17 10:49 36.4 100 16 183/90 97 Oxymask 15 02/20/17 05:35 37 84 20 153/88 (109) 96 Room Air Notes Mental Status: alert / awake / arousable, participated in evaluation Pt Amnestic to Procedure: Yes Nausea / Vomiting: adequately controlled Pain: adequately controlled Airway Patency, RR, SpO2: stable & adequate BP & HR: stable & adequate Hydration State: stable & adequate Anesthetic Complications: no major complications apparent The patient was instructed to wear his CPAP for the next 24 hours whenever he thinks he may fall asleep even if it's just a nap on the couch. He understands and agrees.
[2017-02-20 11:47] VITALS: BP 183/89; PULSE 95; TEMP 37.3; O2SAT 93
[2017-02-20 12:17] VITALS: BP 173/74; PULSE 95; TEMP 37.3; O2SAT 94
--- NOTE | 2017-02-20 12:20 | OPERATIVE REPORT ---
DATE OF OPERATION: 02/20/2017 PREOPERATIVE DIAGNOSES: 1. Right ankle lateral instability. 2. Anterior talofibular ligament tear. 3. Tear of the peroneus brevis tendon with tenosynovitis. POSTOPERATIVE DIAGNOSES: 1. Right ankle lateral ligament instability. 2. Anterior talofibular ligament tear. 3. Peroneus longus tear. 4. Peroneus brevis tendon tear. 5. Tenosynovitis of the peroneus longus and peroneus brevis. 6. Synovitis of the ankle joint. PROCEDURES: 1. Right ankle arthroscopy with synovectomy. 2. Open debridement and repair of the peroneus brevis tendon. 3. Debridement of the peroneus longus tendon. 4. Tenosynovectomy of the peroneus longus and peroneus brevis tendons. 5. Open modified Brostrom reconstruction with Arthrex internal brace. SURGEON: Dr. Echols. MAINTENANCE OF WAY SUPERINTENDENT: Kit Dos Santos PA-C who was present for patient positioning, sterile prep and drape, management of retractors and instruments. He was present through the critical portions of the case including wound closure, application of sterile dressing and transport of the patient to recovery. ANESTHESIA: General LMA with popliteal block. SPECIMENS: None. DRAINS: None. COMPLICATIONS: None. BLOOD LOSS: 3 mL. PERTINENT HISTORY: This is a 61-year-old gentleman who had sustained a traumatic injury to his right lateral ankle. He had consistent and worsening pain and swelling localized to the right lateral ankle. He attempted and failed conservative management including shoewear modification, activity modification, anti-inflammatories, rest, physician directed home exercises, physical therapy and bracing. He had an MRI which demonstrated a tear of the peroneus brevis with tenosynovitis tear of the anterior talofibular ligament and clinical examination consistent with lateral ligament instability and pain. The patient was then scheduled for surgery as indicated. All potential risks, benefits, complications, alternatives, rehab, potential for incomplete relief of symptoms, need for further surgery, DVT, PE, , persistent pain, swelling, scarring, weakness, neurovascular injury, wound complications were discussed with the patient. The patient decided to proceed with the procedure as indicated. OPERATION AND FINDINGS: PROCEDURE: After popliteal block was administered, the patient then taken to the operative suite and placed supine on the operating room table. I reviewing the consent and identification of proper operative site, patient anesthetized, LMA was placed. Tourniquet was placed high on the right thigh over cast padding. Right lower extremity was then sterilely prepped with Betadine and then injected in the ankle joint with approximately 10 mL of 0.5% Marcaine with epinephrine. Next, the right lower extremity was then sterilely prepped and draped in usual fashion, elevated and placed on a bolster. An 11 blade scalpel was used to make an incision anterior medial aspect of the ankle joint followed by placement of blunt trocar and sleeve, camera and inflow. Traction was applied around the ankle with sterile Kerlix roll and sterilely placed around the surgeon's waist. Next, an 18 gauge spinal needle was then placed for lateral portal placement under direct visualization followed by 11 blade scalpel incision following placement of a blunt tipped probe. There was noted to be significant synovitis in the anterior compartment of the ankle joint, no loose bodies, no articular cartilage damage of the talus or the tibia. Next, the 3.5 mm sucker shaver was introduced and a synovectomy was then performed of the ankle joint. The medial and lateral gutters were inspected and noted to be intact. No loose bodies, noted to be patulous lateral capsule and anterior talofibular ligament noted of the lateral gutter. Next, the arthroscope was then removed followed by closure of the portal sites with interrupted 4-0 nylon sutures. This was then followed by creation of a 15 blade scalpel incision on the posterolateral aspect of the right ankle, centered over the peroneal tendons starting proximal to the fibula and extending over the lateral hindfoot. The incision was then deepened through subcutaneous tissue. Meticulous hemostasis was achieved with electrocautery. Full thickness skin flaps were developed. The peroneal tendon sheath was then incised with 15 blade scalpel. The Metzenbaum scissors were then used to open the tendon sheath further to gain visualization. There was noted to be significant tenosynovitis of both the peroneus longus and peroneus brevis. At this time Metzenbaum scissors were used to perform tenosynovectomy of both the peroneus longus and peroneus brevis tendons. Once this was completed, there was noted be significant tear of the peroneus brevis tendon, it was split in its mid substance. At this point, the tear was then debrided with Metzenbaum scissors and forceps and the damaged portion of the tendon was then resected. There was subsequently noted to be significant impingement in the peroneal tendon sheath with a low lying muscle belly of the peroneus brevis followed by myoplasty and partial myomectomy with the Metzenbaum scissors. Once this was completed attention was then directed toward the peroneus longus tendon that was also noted to be partially torn. This was debrided with a 15 blade scalpel back to stable tendon. There was no split tear therefore no need for any type of repair of peroneus longus. Next, attention was then directed back towards the peroneus brevis tendon, which was then repaired and tubularized with a 4-0 FiberWire suture, both a back wall and front wall repair with a buried locking looped suture. Once this was completed, the tendons were then placed back in the sheath temporarily. Next, soft tissue window was then created over the distal aspect of the fibula, a 15 blade scalpel was then used to incise the periosteum distal aspect of the fibula and then also to incise the remnant of the torn and thickened anterior talofibular ligament. Next, the distal aspect of the fibula was then slightly decorticated with a rongeur to bleeding bone. Next, this was irrigated with sterile normal saline followed by localization of the superficial peroneal retinaculum which was then carefully elevated with Metzenbaum scissors and protected. Next, the Arthrex internal brace drill was then used to drill a drone pilot hole in the lateral process of the talus. This was then tapped and then the SwiveLock anchor was then placed with a continuous loop FiberTape. Next, the calcaneofibular ligament was then plicated with a #2 FiberWire suture and then the free needle was then used to pass the FiberTapes under the periosteal tissue in the distal aspect of the fibula. Next, the foot was held in neutral dorsiflexion with slight eversion and the FiberTapes were then passed through the eyelet and the locking Bio-Tenodesis screw. Drill was used to drill drone pilot hole in the distal lateral fibula and then the calcaneofibular ligament suture was then tied and cut with the foot held in neutral dorsiflexion and eversion. Next, the drone pilot hole was drilled in lateral fibula, tapped and then with the foot held in neutral dorsiflexion with version the FiberTapes were then locked into the distal lateral fibula with a hemostat placed underneath the FiberTapes to avoid over tightening. Next, the excess FiberTape was then incised with 15 blade scalpel and the stay suture within the SwiveLock was then passed under the superficial peroneal retinaculum and then under the periosteal tissue of the distal lateral aspect of the fibula to perform a [id number] closure of tissue. The suture was then looped back once again over the superficial peroneal retinaculum with a free needle and then tied and cut. The wound was copiously irrigated with sterile normal saline. Peroneal tendons were then placed back in their sheath. The peroneal tendon sheath was then closed using 2-0 Vicryl. Next, the dermis was closed using buried interrupted 3-0 Vicryl and the skin was then closed using 4-0 nylon sutures. A sterile compressive dressing and bulky Luis A Jackson plaster splint was applied with the foot held in neutral dorsiflexion with eversion. The tourniquet had been inflated after the arthroscopy portion of the case had been completed and at this point, the tourniquet was then released. The patient was awakened and then taken to recovery in stable condition. I attest to the content of the Intraoperative Record and any orders documented therein. Any exception s are noted below.
[2017-02-20 12:47] VITALS: BP 171/78; PULSE 94; TEMP 37; O2SAT 96
== END 2017-02-20 13:20 | disposition home or self-care (01) ==
LOC: C.ACU 05:05
PROVIDERS: ATTEND Orthopaedic Surgery Sports Medicine
DX: S96.891A Other specified injury of other specified muscles and tendons at ankle and foot level, right foot, initial encounter (principal); M25.371 Other instability, right ankle; M65.9 Synovitis and tenosynovitis, unspecified; X58.XXXA Exposure to other specified factors, initial encounter; E11.9 Type 2 diabetes mellitus without complications; J45.909 Unspecified asthma, uncomplicated; I10 Essential (primary) hypertension; E78.5 Hyperlipidemia, unspecified; I65.29 Occlusion and stenosis of unspecified carotid artery; K21.9 Gastro-esophageal reflux disease without esophagitis; K31.84 Gastroparesis; E03.9 Hypothyroidism, unspecified; G40.909 Epilepsy, unspecified, not intractable, without status epilepticus; Z90.49 Acquired absence of other specified parts of digestive tract; Z79.82 Long term (current) use of aspirin; Z79.4 Long term (current) use of insulin; Z79.899 Other long term (current) drug therapy

== ENCOUNTER → 2017-06-02 | Outpatient (CLI) | payer OTHER ==
[~2017-06-02] MED LIST changes: -ASPCH81X PO; +ASPI-320 PO; +CYCL10TA6 PO; -ONDA4TAB46 PO; +OXYC-57 PO; -OXYC-737 PO; +OXYC1TAB3 PO; +PROM25TA9 PO
[2017-06-02 14:39] LABS: BASO % 0.3 %; BASO ABS # 0.02 K/uL (0-0.2); EOS ABS # 0.14 K/uL (0-0.5); HEMATOCRIT 36.3 % (42-52); IG# 0.06 K/uL (0.00-0.02); LYMPH % 41.1 %; LYMPH ABS # 2.87 K/uL (1.2-3.4); MEAN CELL VOLUME 85.8 fL (80-100); MEAN CORPUSCULAR HEMOGLOBIN 30.7 pg (25-34); MEAN CORPUSCULAR HGB CONC 35.8 g/dl (32-36); MEAN PLATELET VOLUME 10.5 fL (7.4-10.4); MONO % 10.9 %; MONO ABS # 0.76 K/uL (0.11-0.59); NEUT % 44.8 %; NEUT ABS # 3.14 K/uL (1.4-6.5); PLATELET COUNT 213 K/uL (130-400); RED CELL DISTRIBUTION WIDTH CV 14.1 % (11.5-14.5); RED CELL DISTRIBUTION WIDTH SD 43.3 fL (36.4-46.3); WHITE BLOOD COUNT 6.99 K/uL (4.8-10.8)
[2017-06-02 15:08] LABS: ALBUMIN 3.7 gm/dl (3.4-5.0); ALT/SGPT 19 U/L (12-78); AST/SGOT 9 U/L (15-37); BLOOD UREA NITROGEN 15 mg/dl (7-18); CALCIUM 9.2 mg/dl (8.5-10.1); CARBON DIOXIDE 29 mmol/L (21-32); CREATININE 1.04 mg/dl (0.60-1.40); GLUCOSE 130 mg/dl (70-99); POTASSIUM 4.4 mmol/L (3.5-5.1); SODIUM 138 mmol/L (136-145)
[2017-06-02 15:17] LABS: ALKALINE PHOSPHATASE 58 U/L (45-117); TOTAL PROTEIN 6.7 gm/dl (6.4-8.2)
== END | disposition home or self-care (01) ==
LOC: C.LAB 12:57
PROVIDERS: ATTEND Psychiatry & Neurology Neurology
DX: Z51.81 Encounter for therapeutic drug level monitoring (principal); G25.0 Essential tremor

== ENCOUNTER → 2017-06-05 | Outpatient (CLI) | payer OTHER ==
[~2017-06-05] MED LIST changes: +OPTIRAY 320 IV PRN
--- NOTE | 2017-06-05 11:57 | DIAGNOSTIC IMAGING REPORT ---
CHEST CT WITH CONTRAST CT DOSE: 578.84 mGycm HISTORY: Acute cough with history of pulmonary nodules R91.1 TECHNIQUE: Multiaxial CT images of the chest were performed following the intravenous administration of contrast. A dose lowering technique was utilized adhering to the principles of ALARA. COMPARISON: CT chest 03/14/2016, 07/11/2015. FINDINGS: No dominant thyroid nodule identified. No pathologic adenopathy. Heart is normal in size without pericardial effusion. Foci of air within the right ventricle are likely iatrogenic. Coronary arterial disease. Mild to moderate mixed plaquing of the thoracic aorta. The imaged proximal great vessels appear patent. The opacified pulmonary arterial tree is unremarkable. There is no pneumothorax, pleural effusion, focal airspace consolidation or overt pulmonary edema. 2 mm solid nodule of the left lower lobe, image 255 series 4 has decreased in size from prior study, previously measuring 3 mm. No new or enlarging pulmonary nodules identified. Punctate calcific granuloma of the basal right lower lobe. Subpleural 2 mm nodule of the right upper lobe, image 68 series 4 is unchanged suggesting benign etiology. There is a linear irregular opacity in seen within the right upper lobe with adjacent cystic change measuring up to 10 mm which is unchanged from prior study, image 93 series 4. Central airways are patent. Prior cholecystectomy. No acute process of the imaged upper abdomen. Soft tissues are unremarkable. The bones appear intact. IMPRESSION: 1. No acute intrathoracic abnormality identified. 2. Unchanged 10 mm linear nodular opacity of the right upper lobe appears unchanged from 07/11/2015 suggesting area of postinflammatory parenchymal scarring. 3. No pathologic adenopathy or focal airspace consolidation. Electronically signed by: Cristi Oakley M.D. 06/05/2017 11:55 AM Dictated Date/Time: 06/05/2017 11:48 AM
== END | disposition home or self-care (01) ==
LOC: C.CTS 11:21
PROVIDERS: ATTEND Neuromusculoskeletal Medicine & OMM
DX: G47.34 Idiopathic sleep related nonobstructive alveolar hypoventilation (principal); R05 Cough; R91.1 Solitary pulmonary nodule

== ENCOUNTER 2017-06-10 21:37 | Emergency (ER) | payer OTHER ==
[~2017-06-10] VITALS: Ht 165.1 cm; Wt 102.2 kg
[~2017-06-10 21:37] MED LIST changes: -CYCL10TA6 PO; -OPTIRAY 320 IV PRN; -OXYC-57 PO
[2017-06-10 21:40] VITALS: Ht 165.1 cm; Wt 102.2 kg
--- NOTE | 2017-06-10 22:32 | EMERGENCY ROOM VISIT NOTE ---
History First contact with patient: 22:26 Chief Complaint: HIP PAIN Stated Complaint: RT HIP AND LEG PAIN History of Present Illness The patient is a 61 year old male who presents to the Emergency Room with complaints of right-sided lower back pain after having a fall 2010 days ago. The patient slipped sliding down 6 wooden steps. He landed on his buttocks. He has had pain into the right buttock and right side of his groin. He denies any numbness or tingling. He denies any weakness in his lower extremities. He has been taking oxycodone which seems to help with the pain. The patient has seen his primary care physician in addition to physical therapy. The pain has been persistent. No urinary or bowel incontinence. Review of Systems 6 system review negative. Please see pertinent positives in the history of present illness section. Past Medical/Surgical History Medical Problems: (1) ERON (acute kidney injury) (2) Asbestosis (3) Depression (4) Diabetes mellitus, type II (5) Dyslipidemia (6) GERD (gastroesophageal reflux disease) (7) HTN (hypertension) (8) Hypothyroidism (9) Seizure disorder (10) Tobacco abuse Surgical Problems: (1) H/O arthroscopy of shoulder (2) History of appendectomy (3) History of carpal tunnel surgery (4) History of cholecystectomy (5) History of tonsillectomy and adenoidectomy Family History Diabetes mellitus FH: lung disease FHx: cancer FHx: gallbladder disease Hypertension Social History Smoking Status: Never Smoker Alcohol Use: none Drug Use: none Marital Status: Housing Status: lives with family Occupation Status: disabled Current/Historical Medications Scheduled Aspirin (Aspirin EC Low Dose), 81 MG PO Q12 Bupropion (Wellbutrin Sr), 300 MG PO QAM Carvedilol (Coreg), 3.125 MG PO BID Cholecalciferol (Vitamin D), 5,000 UNITS PO QID Dicyclomine Hcl (Bentyl), 1 CAP PO TID Divalproex Sodium (Depakote Er), 1,500 MG PO HS Duloxetine HCl (Cymbalta), 20 MG PO QAM Fenofibrate (Tricor), 145 MG PO HS Fish Oil (Orange-3), 1 CAP PO BID Furosemide (Lasix), 20 MG PO QPM AT 1800 Insulin Aspart (Novolog Flexpen), 1 DOSE SQ AC Insulin Glargine (Lantus), 50 UNITS SC QAM Insulin Glargine (Lantus), 60 UNITS SC HS Levocetirizine Dihydrochloride (Levocetirizine Dihydrochl), 5 MG PO QPM Levothyroxine Sodium (Levothyroxine Sodium), 100 MCG PO QAM Losartan Potassium (Cozaar), 100 MG PO HS Metformin Hcl (Glucophage), 1 TAB PO BID Metoclopramide (Reglan), 10 MG PO ACHS Mirtazapine (Remeron), 15 MG PO HS Oxybutynin Chloride Er (Ditropan Xl), 10 MG PO HS Primidone (Mysoline), 250 MG PO QAM Primidone (Mysoline), 100 MG PO QPM Ranitidine Hcl (Zantac), 300 MG PO BID Rosuvastatin Calcium (Crestor), 40 MG PO HS Scheduled PRN Clobetasol Propionate (Clobetasol Propionate Cream 0.05%), 1 APPLN EXT BID PRN for Hydrocortisone 2.5% (Rectal) (Anusol-Hc 2.5%), 1 APPLN TOP TID PRN for Hemorrhoids Oxycodone Immediate Rel Tab (Roxicodone Ir), 5-10 MG PO Q4H PRN for Severe Pain Promethazine Hcl (Phenergan), 25 MG PO Q6H PRN for Nausea [Nifedipine 2% Oint], 1 APPLN TOP DAILY PRN for Physical Exam Vital Signs Date Time Temp Pulse Resp B/P (MAP) Pulse Ox O2 Delivery O2 Flow Rate FiO2 06/10/17 23:26 74 16 133/63 95 Room Air 06/10/17 21:40 36.6 74 16 128/79 96 Room Air Physical Exam VITALS: Vitals are noted on the nurse's note and reviewed by myself. Vital signs stable. GENERAL: 61-year-old male, in no acute distress, nondiaphoretic, well-developed well-nourished. SKIN: The skin was without rashes, erythema, edema, or bruising. HEAD: Normocephalic atraumatic. NECK:. Cervical spine is nontender. HEART: Regular rate and rhythm without murmurs gallops or rubs. LUNGS: Clear to auscultation bilaterally without wheezes, rales or rhonchi. No accessory muscle use. MUSCULOSKELETAL: Mild tenderness over the lumbar spinous processes and right- sided SI joint. Quadricep and hamstring strength 5/5 bilaterally. Sensation in the lower extremities is intact bilaterally. Strength 5/5 throughout. NEURO: Patient was alert and oriented to person place and time. Normal sensation to touch. No focal neurological deficits. Medical Decision & Procedures ER Provider Diagnostic Interpretation: CT lumbar spine without contrast IMPRESSION: No acute osseous injury or significant degenerative changes of the lumbar spine. Electronically signed by: Serjio Gomez M.D. 06/10/2017 11:02 PM Dictated Date/Time: 06/10/2017 11:01 PM ED Course The patient was seen and examined Imaging was performed and reviewed Upon reevaluation, the patient was resting comfortably. We discussed the results of his imaging. He voiced understanding, was comfortable being discharged home. Discharge instructions were reviewed, and he was discharged in good condition Medical Decision Differential diagnosis: Spine fracture, ligamentous injury, subluxation, spondylolisthesis, spondylosis, herniated disc, contusion, muscle spasm This patient is a 61-year-old male presents to the emergency department with complaints of back pain into the right buttock and right side of his groin. He does not have any signs of cauda equina syndrome. There is no paresthesias in the groin. No numbness or weakness. I ordered imaging because of the patient' s fall. CT did not show any acute fractures. I believe this is likely muscular in nature. The patient was very tense over the right paraspinous muscle. The patient will be given a short course of narcotics in addition to muscle relaxants. He was comfortable with this plan. He was also encouraged to follow-up with his primary care physician and continue physical therapy. He will return with any new or worsening symptoms This chart was completed in part utilizing [employer] Speech Voice Recognition software. Attempts were made to minimize the grammatical errors, random word insertions, pronoun errors and incomplete sentences. Any formal questions or concerns about the content, text or information contained within the body of this dictation should be directly addressed to the provider for clarification. Medication Reconcilliation Current Medication List: was personally reviewed by me Blood Pressure Screening Patient's blood pressure: Normal blood pressure Impression Primary Impression: Low back pain Departure Information Dispostion Home / Self-Care Condition GOOD Prescriptions Cyclobenzaprine Hcl (FLEXERIL) 10 Mg Tab 10 MG PO TID for Muscle Spasms, #20 TAB Prov: Lenore Nicholson PA-C 06/10/17 Oxycodone/Acetaminophen 5MG/325MG (PERCOCET 5MG/325MG) Tab 1 TAB PO Q4H Y for Pain, #15 TAB For Initial Treatment Prov: Lenore Nicholson PA-C 06/10/17 Referrals Farhad Loya D.OOniel (PCP) Patient Instructions My [facility] Additional Instructions You were evaluated in the emergency department for back pain into the right buttock and right side of the groin. A CT scan was performed and did not show any signs of fracture. Percocet 1-2 tabs every 4 hours for severe pain. Do not drink alcohol or drive while taking this medication. Flexeril every 8 hours as needed for muscle spasm/pain. Please also do not drink alcohol or drive while taking this medication. Please follow-up with your primary care physician within the next 2-3 days for recheck Do not hesitate to return to the emergency department with any new, worsening or concerning symptoms; especially, weakness in the lower extremities, problems with urination or bowel movements, numbness in the extremities, severe pain Work Instructions Return To Work: 2 days
--- NOTE | 2017-06-10 23:04 | DIAGNOSTIC IMAGING REPORT ---
LUMBAR SPINE WITHOUT CLINICAL HISTORY: 61 years-old Male presenting with fall down steps pain in r buttock r groin. TECHNIQUE: Multidetector CT of the lumbar spine was performed without the use of intravenous contrast. IV contrast: None. A dose lowering technique was used consistent with the principles of ALARA (as low as reasonably achievable). COMPARISON: CT of the abdomen and pelvis from 12/28/2016. CT DOSE (mGy.cm): The estimated cumulative dose is 701.06 mGy.cm. 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 Normal lumbar lordosis. Vertebral bodies maintain normal height and alignment. Several Schmorl's nodes noted. Intervertebral disc heights preserved. No acute fracture or subluxation. No advanced degenerative change. No osseous neural foraminal or spinal canal stenosis. Visualized portion of the sacrum is grossly intact. Paraspinal soft tissues remarkable for atherosclerosis of the normal caliber abdominal aorta. Paraspinal musculature normal. Nonspecific mild edema in the lumbar subcutaneous tissue. IMPRESSION: No acute osseous injury or significant degenerative changes of the lumbar spine. Electronically signed by: Serjio Gomez M.D. 06/10/2017 11:02 PM Dictated Date/Time: 06/10/2017 11:01 PM
[2017-06-10] MEDS ORDERED: CYCL10TA6 PO (23:32)
[2017-06-10] MEDS ORDERED: OXYC-57 PO (23:32)
[2017-06-10 23:43] VITALS: BP 133/63; PULSE 74; O2SAT 95
== END 2017-06-10 23:44 | disposition home or self-care (01) ==
LOC: C.EDB 21:38 → C.EDA 23:44
DX: M54.5 Low back pain (principal); N17.9 Acute kidney failure, unspecified; E11.9 Type 2 diabetes mellitus without complications; E78.5 Hyperlipidemia, unspecified; K21.9 Gastro-esophageal reflux disease without esophagitis; I10 Essential (primary) hypertension; E03.9 Hypothyroidism, unspecified; R56.9 Unspecified convulsions; Z79.4 Long term (current) use of insulin; Z79.899 Other long term (current) drug therapy

== ENCOUNTER 2017-09-23 23:55 | Observation (INO) | payer OTHER ==
[~2017-09-23] VITALS: Ht 165.1 cm; Wt 100.7 kg
[~2017-09-23 23:55] MED LIST changes: +OXYC-57 PO; +OXYC-737 PO; -OXYC1TAB3 PO; -PROM25TA9 PO
[2017-09-24] MEDS ORDERED: SODIUM CHLORIDE 0.9% 1000ML 1,000 ML IV STA ×2 (00:16→01:47)
[2017-09-24 00:25] LABS: BASO % 0.1 %; BASO ABS # 0.01 K/uL (0-0.2); EOS % 0.9 %; EOS ABS # 0.06 K/uL (0-0.5); HEMATOCRIT 36.5 % (42-52); HEMOGLOBIN 12.5 g/dL (14.0-18.0); IG# 0.06 K/uL (0.00-0.02); LYMPH % 38.8 %; LYMPH ABS # 2.64 K/uL (1.2-3.4); MEAN CELL VOLUME 85.5 fL (80-100); MEAN CORPUSCULAR HEMOGLOBIN 29.3 pg (25-34); MEAN CORPUSCULAR HGB CONC 34.2 g/dl (32-36); MEAN PLATELET VOLUME 10.3 fL (7.4-10.4); MONO ABS # 0.68 K/uL (0.11-0.59); NEUT % 49.3 %; NEUT ABS # 3.35 K/uL (1.4-6.5); PLATELET COUNT 201 K/uL (130-400); RED CELL DISTRIBUTION WIDTH CV 13.3 % (11.5-14.5); RED CELL DISTRIBUTION WIDTH SD 41.1 fL (36.4-46.3)
[2017-09-24] MEDS ORDERED: NITROGLYCERIN 0.4 MG SL PER TAB CHARGE SL STA (00:25)
[2017-09-24] MEDS ORDERED: PANTOprazole INJ 80 MG in DEXTROSE 5% 100ML 100 ML IV SCH (00:30)
[2017-09-24 00:38] LABS: PTT PATIENT 23.3 SECONDS (21.0-31.0)
[2017-09-24 00:45] LABS: ALBUMIN 3.6 gm/dl (3.4-5.0); ALKALINE PHOSPHATASE 68 U/L (45-117); ALT/SGPT 19 U/L (12-78); AST/SGOT 9 U/L (15-37); BLOOD UREA NITROGEN 21 mg/dl (7-18); CALCIUM 9.1 mg/dl (8.5-10.1); CARBON DIOXIDE 25 mmol/L (21-32); CREATININE 1.23 mg/dl (0.60-1.40); GLUCOSE 208 mg/dl (70-99); LIPASE 141 U/L (73-393); POTASSIUM 4.1 mmol/L (3.5-5.1); SODIUM 138 mmol/L (136-145); TOTAL PROTEIN 6.8 gm/dl (6.4-8.2)
[2017-09-24] MEDS ORDERED: GLC/500 PO (00:56)
[2017-09-24] MEDS ORDERED: CARV3.122 PO (00:56)
[2017-09-24] MEDS ORDERED: ASPI81TA28 PO (00:56)
[2017-09-24] MEDS ORDERED: MAGNESIUM SULFATE 1GM / D5W 1 GM BAG IV STA (01:30)
[2017-09-24] MEDS ORDERED: DICYCLOMINE HCL 10 MG/ML 2 ML AMP IM ONE (02:00)
[2017-09-24] MEDS ORDERED: OPTIRAY 320 IV PRN (02:00)
--- NOTE | 2017-09-24 02:07 | EMERGENCY ROOM VISIT NOTE ---
ED Visit Note First contact with patient: 00:10 I saw this patient in conjunction with Evonne Scott PA-C. I agree with her decision making and treatment plan.
[2017-09-24] MEDS ORDERED: ONDANSETRON INJ 2 MG/ML 2 ML VIAL IV STA (02:56)
[2017-09-24] MEDS ORDERED: MoRPHine SULFATE 4 MG/ML 1 ML CARP\\VIAL IV STA (02:56)
[2017-09-24] MEDS ORDERED: MAGNESIUM HYDROXIDE SUSP 30 ML UDC PO PRN (03:30)
[2017-09-24] MEDS ORDERED: ACETAMINOPHEN 325 MG TAB PO PRN (03:30)
[2017-09-24] MEDS ORDERED: MoRPHine SULFATE 2 MG/ML CARP IV PRN (03:30)
[2017-09-24] MEDS ORDERED: ALUMINUM/MAGNESIUM/SIMETH (MAALOX MAX) 30 ML UDC PO PRN (03:30)
[2017-09-24] MEDS ORDERED: NITROGLYCERIN 0.4 MG SL PER TAB CHARGE SL PRN (03:30)
[2017-09-24] MEDS ORDERED: POLYETHYLENE (MIRALAX) 17 GM PACK PO PRN (03:30)
[2017-09-24] MEDS ORDERED: ONDANSETRON INJ 2 MG/ML 2 ML VIAL IV PRN (03:30)
--- NOTE | 2017-09-24 03:57 | EMERGENCY ROOM VISIT NOTE ---
History First contact with patient: 00:10 Chief Complaint: CHEST PAIN Stated Complaint: SOB PAIN TRIMERS BLOOD IN STOOL Nursing Triage Summary: Pt c/o chest pain across since Thursday. pt states that he noticed some dark red blood in stools tonight. C/o some shortness of breath and dizziness. History of Present Illness The patient is a 61 year old male who presents to the Emergency Room with complaints of left-sided chest pain that radiates down his arm that comes and goes in severity currently 5 out of 10 described as discomfort. Nothing makes it better or worse. Patient states today he has been having some diarrhea and then he had 4 episodes of bloody stool. No black stool. He has a history of GI bleeding the past. There is no clear etiology for this per patient. He is on a baby aspirin. No recent colonoscopy. Patient complains of minimal lower abdominal cramping. 2 out of 10. Nothing makes it better or worse. Patient denies dyspnea, leg pain or swelling, urinary symptoms, fever, chills. No recent antibiotics. Review of Systems An 10 system review of systems was completed with positives and pertinent negatives listed in the HPI. Past Medical/Surgical History Medical Problems: (1) ERON (acute kidney injury) (2) Asbestosis (3) Chest pain (4) Depression (5) Diabetes mellitus, type II (6) Diarrhea (7) Dyslipidemia (8) GERD (gastroesophageal reflux disease) (9) HTN (hypertension) (10) Hypothyroidism (11) Seizure disorder (12) Tobacco abuse Surgical Problems: (1) H/O arthroscopy of shoulder (2) History of appendectomy (3) History of carpal tunnel surgery (4) History of cholecystectomy (5) History of tonsillectomy and adenoidectomy Family History Diabetes mellitus FH: lung disease FHx: cancer FHx: gallbladder disease Hypertension Social History Smoking Status: Former Smoker Alcohol Use: none Drug Use: none Marital Status: Housing Status: lives with family Occupation Status: disabled Current/Historical Medications Scheduled Aspirin (Aspirin Ec), 81 MG PO BID Bupropion (Wellbutrin Sr), 300 MG PO QAM Carvedilol (Coreg), 3.125 MG PO BID WITH FOOD Cholecalciferol (Vitamin D), 5,000 UNITS PO QID Dicyclomine Hcl (Bentyl), 1 CAP PO TID Divalproex Sodium (Depakote Er), 1,500 MG PO HS Duloxetine HCl (Cymbalta), 20 MG PO QAM Fenofibrate (Tricor), 145 MG PO HS Fish Oil ([place]-3), 1 CAP PO BID Furosemide (Lasix), 20 MG PO QPM AT 1800 Insulin Aspart (Novolog Flexpen), 1 DOSE SQ AC Insulin Glargine (Lantus), 55 UNITS SC QAM Insulin Glargine (Lantus), 60 UNITS SC HS Levocetirizine Dihydrochloride (Levocetirizine Dihydrochl), 5 MG PO QPM Levothyroxine Sodium (Levothyroxine Sodium), 100 MCG PO QAM Losartan Potassium (Cozaar), 100 MG PO HS Metformin Hcl (Glucophage), 500 MG PO BID Metoclopramide (Reglan), 10 MG PO ACHS Mirtazapine (Remeron), 15 MG PO HS Oxybutynin Chloride Er (Ditropan Xl), 10 MG PO HS Primidone (Mysoline), 250 MG PO QAM Primidone (Mysoline), 100 MG PO QPM Ranitidine Hcl (Zantac), 300 MG PO BID Rosuvastatin Calcium (Crestor), 40 MG PO HS Scheduled PRN Clobetasol Propionate (Clobetasol Propionate Cream 0.05%), 1 APPLN EXT BID PRN for Hydrocortisone 2.5% (Rectal) (Anusol-Hc 2.5%), 1 APPLN TOP TID PRN for Hemorrhoids [Nifedipine 2% Oint], 1 APPLN TOP DAILY PRN for Physical Exam Vital Signs Date Time Temp Pulse Resp B/P (MAP) Pulse Ox O2 Delivery O2 Flow Rate FiO2 09/24/17 02:50 73 18 170/57 95 Room Air 09/24/17 02:09 78 16 163/77 98 Room Air 09/24/17 01:30 66 18 130/69 09/24/17 01:00 62 18 134/76 97 Room Air 09/24/17 00:40 87 20 09/24/17 00:39 147/79 09/24/17 00:38 85 09/24/17 00:30 85 146/81 09/24/17 00:25 24 09/24/17 00:22 Room Air 09/24/17 00:20 Room Air 09/24/17 00:04 37.4 68 18 180/76 94 Room Air Physical Exam VITALS: Vitals are noted on the nurse's note and reviewed by myself. Vital signs hypertensive GENERAL: White male, in no acute distress, nondiaphoretic, well-developed well- nourished. SKIN: The skin was without rashes, erythema, edema, or bruising. There is no tenting of the skin. Capillary reflex less than 2 seconds. HEAD: Normocephalic atraumatic. EARS: External auditory canals clear, tympanic membranes pearly coughlin without erythema or effusion bilaterally. EYES: Pupils equal round and reactive to light and accommodation. Conjunctivae without injection, sclerae without icterus. Extraocular movements intact. NOSE: Patent, turbinates without inflammation or discharge. MOUTH: Mucous membranes moist. Pharynx without erythema or exudate. Uvula midline. Airway patent. Tongue does not deviate. NECK: Supple without nuchal rigidity. No lymphadenopathy. No thyromegaly. Cervical spine is nontender. No JVD. HEART: Regular rate and rhythm without murmurs gallops or rubs. LUNGS: Clear to auscultation bilaterally without wheezes, rales or rhonchi. No retractions or accessory muscle use. ABDOMEN: Positive bowel sounds x 4. Normal tympanic percussion. Soft, minimally tender to palpation lower abdomen, without masses or organomegaly. Dumont sign negative. No guarding or rebound tenderness. No CVA tenderness Rectal exam: Numerous nonthrombosed hemorrhoids, bright red blood per rectum, brown stool. No fissures or tears. MUSCULOSKELETAL: No muscle atrophy, erythema, or edema noted. NEURO: Patient was alert and oriented to person place and time. Normal sensation to light and sharp touch. No focal neurological deficits. Medical Decision & Procedures Laboratory Results 09/24/17 00:15 Red Blood Count 4.27, Mean Corpuscular Volume 85.5, Mean Corpuscular Hemoglobin 29.3, Mean Corpuscular Hemoglobin Concent 34.2, Mean Platelet Volume 10.3, Neutrophils (%) (Auto) 49.3, Lymphocytes (%) (Auto) 38.8, Monocytes (%) (Auto) 10.0, Eosinophils (%) (Auto) 0.9, Basophils (%) (Auto) 0.1, Neutrophils # (Auto ) 3.35, Lymphocytes # (Auto) 2.64, Monocytes # (Auto) 0.68, Eosinophils # (Auto ) 0.06, Basophils # (Auto) 0.01 09/24/17 00:15 Test 09/24/17 00:15 09/24/17 00:19 09/24/17 02:45 White Blood Count 6.80 K/uL (4.8-10.8) Red Blood Count 4.27 M/uL (4.7-6.1) Hemoglobin 12.5 g/dL (14.0-18.0) Hematocrit 36.5 % (42-52) Mean Corpuscular Volume 85.5 fL (80-100) Mean Corpuscular Hemoglobin 29.3 pg (25-34) Mean Corpuscular Hemoglobin Concent 34.2 g/dl (32-36) Platelet Count 201 K/uL (130-400) Mean Platelet Volume 10.3 fL (7.4-10.4) Neutrophils (%) (Auto) 49.3 % Lymphocytes (%) (Auto) 38.8 % Monocytes (%) (Auto) 10.0 % Eosinophils (%) (Auto) 0.9 % Basophils (%) (Auto) 0.1 % Neutrophils # (Auto) 3.35 K/uL (1.4-6.5) Lymphocytes # (Auto) 2.64 K/uL (1.2-3.4) Monocytes # (Auto) 0.68 K/uL (0.11-0.59) Eosinophils # (Auto) 0.06 K/uL (0-0.5) Basophils # (Auto) 0.01 K/uL (0-0.2) RDW Standard Deviation 41.1 fL (36.4-46.3) RDW Coefficient of Variation 13.3 % (11.5-14.5) Immature Granulocyte % (Auto) 0.9 % Immature Granulocyte # (Auto) 0.06 K/uL (0.00-0.02) Prothrombin Time 10.2 SECONDS (9.0-12.0) Prothromb Time International Ratio 1.0 (0.9-1.1) Activated Partial Thromboplast Time 23.3 SECONDS (21.0-31.0) Partial Thromboplastin Ratio 0.9 D-Dimer < 190 ug/L FEU (0-500) Anion Gap 9.0 mmol/L (3-11) Est Creatinine Clear Calc Drug Dose 69.5 ml/min Estimated GFR () 73.5 Estimated GFR (Non- 63.4 BUN/Creatinine Ratio 17.2 (10-20) Calcium Level 9.1 mg/dl (8.5-10.1) Magnesium Level 1.7 mg/dl (1.8-2.4) Total Bilirubin 0.2 mg/dl (0.2-1) Direct Bilirubin < 0.1 mg/dl (0-0.2) Aspartate Amino Transf (AST/SGOT) 9 U/L (15-37) Alanine Aminotransferase (ALT/SGPT) 19 U/L (12-78) Alkaline Phosphatase 68 U/L (45-117) Total Protein 6.8 gm/dl (6.4-8.2) Albumin 3.6 gm/dl (3.4-5.0) Lipase 141 U/L (73-393) Bedside Troponin I < 0.030 ng/ml (0-0.045) Urine Color YELLOW Urine Appearance CLEAR (CLEAR) Urine pH 5.5 (4.5-7.5) Urine Specific [place] > 1.045 (1.000-1.030) Urine Protein NEG (NEG) Urine Glucose (UA) NEG (NEG) Urine Ketones NEG (NEG) Urine Occult Blood NEG (NEG) Urine Nitrite NEG (NEG) Urine Bilirubin NEG (NEG) Urine Urobilinogen NEG (NEG) Urine Leukocyte Esterase NEG (NEG) Urine WBC (Auto) 0 /hpf (0-5) Urine RBC (Auto) 0-4 /hpf (0-4) Urine Hyaline Casts (Auto) 1-5 /lpf (0-5) Urine Epithelial Cells (Auto) 0-5 /lpf (0-5) Urine Bacteria (Auto) NEG (NEG) Medications Administered Medications (Trade) Dose Ordered Sig/Dean Route Start Time Stop Time Status Last Admin Dose Admin Sodium Chloride 1,000 ml @ 999 mls/hr Q1H1M STAT IV 09/24/17 00:16 09/24/17 01:16 DC 09/24/17 00:30 999 MLS/HR Pantoprazole Sodium 80 mg/ Dextrose 120 ml @ 400 mls/hr NOW IV 09/24/17 00:30 10/24/17 00:29 09/24/17 00:40 400 MLS/HR Nitroglycerin (Nitrostat Tab) 0.4 mg ONE STAT SL 09/24/17 00:25 09/24/17 00:27 DC 09/24/17 00:33 0.4 MG Magnesium Sulfate (Magnesium Sulfate 1gm / D5W) 1 gm NOW STAT IV 09/24/17 01:30 09/24/17 01:32 DC 09/24/17 01:46 1 GM Dicyclomine HCl (Bentyl Inj) 20 mg NOW ONCE IM 09/24/17 02:00 09/24/17 02:01 DC 09/24/17 01:55 20 MG Sodium Chloride 1,000 ml @ 999 mls/hr Q1H1M STAT IV 09/24/17 01:47 09/24/17 02:47 DC 09/24/17 01:56 999 MLS/HR Morphine Sulfate (MoRPHine SULFATE INJ) 4 mg NOW STAT IV 09/24/17 02:56 09/24/17 02:57 DC 09/24/17 03:02 4 MG Ondansetron HCl (Zofran Inj) 4 mg NOW STAT IV 09/24/17 02:56 09/24/17 02:57 DC 09/24/17 03:01 4 MG ED Course Prior records/ancillary studies reviewed. Triage Nursing notes reviewed. The patient's history was concerning for possible gastrointestinal bleeding with diarrhea and chest pain. Differential diagnosis: Etiologies such as diverticulosis, AVM, coagulopathy, colitis, inflammatory bowel disease, malignancy, Suzanne-Mckeon tear, esophagitis, peptic ulcer disease , variceal bleed, gastritis, epistaxis, fissure, hemorrhoids, angina, [place], pericarditis, myocarditis, aortic dissection, pleurisy, pneumothorax, PE, pneumonia, pneumomediastinum, esophagitis, esophageal spasm, GERD, perforated esophagus, perforated duodenal ulcer, pancreatitis, cholecystitis, costochondritis, musculoskeletal, bronchitis, URI, stool infection, C. difficile , as well as others were entertained. Physical exam: As above. The patients vital signs were stable. ER treatment provided: IV fluids, nitroglycerin, Bentyl, Protonix On reassessment the patient felt better. Diagnostics interpreted by me: ECG: Normal sinus, normal intervals, no acute ST-T wave changes. Impression normal sinus rhythm interpreted by myself. Repeat EKG is unchanged. I think arrhythmia is unlikely. EKG shows normal sinus rhythm with no interval abnormalities such as QT prolongation or WPW. There are no findings to suggest Brugada syndrome. Cardiac monitoring in the emergency department reveals no tachycardic or bradycardic dysrhythmia. Hypertrophic cardiomyopathy was considered but there are no clear historical elements pointing toward this. EKG is not suggestive. The QRS voltage is not extremely large and there are no suggestive Q waves. The labs revealed mild anemia. Negative troponin. Negative d-dimer. Hyperglycemia without DKA Imaging studies: CT ABDOMEN & PELVIS With Contrast: Fluid levels in the colon without obstruction or significant wall thickening, suggesting a mild diarrheal illness Radiologist: Yon Grijalva MD Chest x-ray with no acute consolidation, pneumothorax free of my interpretation Consultation: A consultation was placed with Dr Goodrich, hospitalist. The case was discussed and diagnostics were reviewed. The patient was evaluated in the ER for further treatment. HEART SCORE: Hx: high/mod/low suspicion: 1 ECG: ST depression/nonspecific changes/normal: 0 Age: Greater than 65/45-64/less than 45: 1 Risk factors: (Hypertension, hyperlipidemia, diabetes, coronary disease, tobacco use, cocaine use): 3 Troponin: Greater than 2 times normal limits/1-2 times normal limits/normal: 0 Total: 5 Wells Score Symptoms of DVT 3pt: 0 Alternative diagnoses better explains illness 3pts: 0 Tachycardia greater than 100 1.5 pts 0 Immobilization greater than 3 days or surgery in the previous 4 weeks 1.5 pts: 0 Prior history of DVT or PE 1.5 pts: 0 Presence of hemoptysis 1pt: 0 Presence of malignancy 1pt: 0 (Score greater than 6 is high probability, score 2-6 moderate probability, score less than 2 low probability) Total: 0 The pulmonary embolism rule out criteria (PERC rule) Age <50 years yes Heart rate <100 bpm 0 Oxyhemoglobin saturation =95% 0 No hemoptysis 0 No estrogen use 0 No prior DVT or PE 0 No unilateral leg swelling 0 No surgery/trauma requiring hospitalization within the prior four weeks 0 (0 low risk) Total: 1 yes This appears to be consistent with chest pains with concern for cardiac in etiology with lower GI bleeding. Patient had a normal EKG. first troponin was negative. Patient's heart score was 5. PERC score is positive and d-dimer was negative. Unlikely for PE then. Patient had a mild anemia. He did have an episode of bloody diarrhea while in the ER. Stool cultures were ordered. No acute findings on CT imaging. Patient has not had a colonoscopy. He will be evaluated by medicine for possible admission. Patient is agreeable to this. By the evaluation outlined above emergent etiologies such as esophageal perforation, peptic ulcer disease, variceal bleed, coagulopathy, gastritis, epistaxis as well as others were deemed relatively unlikely. The pt informed about the findings as listed above. All questions were answered and pleased with the treatment. Case reviewed with my attending The chart was completed utilizing [employer] voice recognition software. Grammatical errors, random word insertions, pronoun errors, and incomplete sentences are an occassional consequence of this system due to software limitations, ambient noise, and hardware issues. Any formal questions or concerns about the content, text, or information contained within the body of this dictation should be directly addressed to the physician entry level administrative assistant for clarification. Medical Decision as above Medication Reconcilliation Current Medication List: was personally reviewed by me Blood Pressure Screening Patient's blood pressure: Elevated blood pressure Blood pressure disposition: Elevated BP felt to be situational Impression Primary Impression: Substernal precordial chest pain Additional Impressions: Lower GI bleeding Diarrhea Hyperglycemia due to type 2 diabetes mellitus Departure Information Dispostion Being Evaluated By Hospitalist Condition FAIR Referrals Farhad Loya D.O. (PCP) Patient Instructions My [facility] Health Problem Qualifiers
--- NOTE | 2017-09-24 03:57 | History and Physical ---
History & Physical Date & Time of Service: Sep 24, 2017 at 03:30 Chief Complaint: Sob Pain Trimers Blood In Stool Primary Care Physician: Farhad Loya D.OOniel History of Present Illness Source: patient Erick is a 61 year old male with a PMH of HTN, DM, HLD, GERD, Hypothyroidism, Depression and haemorrhoids that presented to [facility] with chest pain. He notes that his chest pain started at approximately 3pm on 09/23/17. He says he was sitting in his recliner when he started having central substernal chest pain. He says the pain is burning in character and is made worse with ambulation. It radiates down his left arm. He says the pain comes and goes every few minutes and he rates it as a 8/10 in severity. It has been associated with shortness of breath. He notes that when he came to the ED he started having lower abdominal pain that is crampy in nature. He has been having diarrhea for the past two days and yesterday he noticed that he was having some dark blood in his stool and that it is painful when he has a bowel movement. He has associated nausea, but no vomiting. He notes that he has on and off chills. He has lost 15 pounds in the past 3 months. He had a lower GI bleed in january which resolved conservatively. He did not have a colonoscopy but was planned to have one as an outpatient which he notes has not been organized. He denies any recent take-out food, camping, travel or antibiotic use. In the ED his vitals were relatively stable except for mild elevated blood pressure. His labs were significant for a hgb of 12.5. He was noted to have external hemorrhoids by the ED staff with dark blood in the rectal vault. His EKG and trop were both normal. He had a CT of of his abdomen which showed fluid in his bowel without any other significant findings. We were asked to see the patient for further monitoring of his chest pain and his bloody diarrhea. Past Medical/Surgical History Seizure disorder Diabetes Mellitus T2 HLD, HTN Hypothyroidism Depression External hemorrhoids GERD Family History Diabetes mellitus FH: lung disease FHx: cancer FHx: gallbladder disease Hypertension Social History Smoking Status: Former Smoker Drug Use: none Marital Status: Housing status: lives with family Occupational Status: disabled Immunizations History of Influenza Vaccine: Yes Influenza Vaccine Date: Dec 02, 2006 History of Tetanus Vaccine?: Yes Tetanus Immunization Date: Dec 09, 2002 History of Pneumococcal: Yes History of Hepatitis B Vaccine: No Allergies Coded Allergies: Amitriptyline (Verified Allergy, Intermediate, HIVES, 09/24/17) Penicillins (Verified Allergy, Intermediate, HIVES, 09/24/17) ITCHY,HIVES Tramadol (Verified Allergy, Intermediate, ITCHY, 09/24/17) ITCHY BIRGIT Inhibitors (Verified Allergy, Unknown, ? ANGIOEDEMA, 09/24/17) Gabapentin (Verified Allergy, Unknown, per radiation physicist note , 09/24/17) makes tremors worse Lorazepam (Verified Allergy, Unknown, "DON'T REMEMBER", 09/24/17) Codeine (Verified Adverse Reaction, Mild, N&V, 09/24/17) N/V Home Medications Scheduled Aspirin (Aspirin Ec), 81 MG PO BID Bupropion (Wellbutrin Sr), 300 MG PO QAM Carvedilol (Coreg), 3.125 MG PO BID WITH FOOD Cholecalciferol (Vitamin D), 5,000 UNITS PO QID Dicyclomine Hcl (Bentyl), 1 CAP PO TID Divalproex Sodium (Depakote Er), 1,500 MG PO HS Duloxetine HCl (Cymbalta), 20 MG PO QAM Fenofibrate (Tricor), 145 MG PO HS Fish Oil ([place]-3), 1 CAP PO BID Furosemide (Lasix), 20 MG PO QPM AT 1800 Insulin Aspart (Novolog Flexpen), 1 DOSE SQ AC Insulin Glargine (Lantus), 55 UNITS SC QAM Insulin Glargine (Lantus), 60 UNITS SC HS Levocetirizine Dihydrochloride (Levocetirizine Dihydrochl), 5 MG PO QPM Levothyroxine Sodium (Levothyroxine Sodium), 100 MCG PO QAM Losartan Potassium (Cozaar), 100 MG PO HS Metformin Hcl (Glucophage), 500 MG PO BID Metoclopramide (Reglan), 10 MG PO ACHS Mirtazapine (Remeron), 15 MG PO HS Oxybutynin Chloride Er (Ditropan Xl), 10 MG PO HS Primidone (Mysoline), 250 MG PO QAM Primidone (Mysoline), 100 MG PO QPM Ranitidine Hcl (Zantac), 300 MG PO BID Rosuvastatin Calcium (Crestor), 40 MG PO HS Scheduled PRN Clobetasol Propionate (Clobetasol Propionate Cream 0.05%), 1 APPLN EXT BID PRN for Hydrocortisone 2.5% (Rectal) (Anusol-Hc 2.5%), 1 APPLN TOP TID PRN for Hemorrhoids [Nifedipine 2% Oint], 1 APPLN TOP DAILY PRN for Review of Systems 10 systems were reviewed and negative except as noted in the HPI Physical Exam Vital Signs Date Time Temp Pulse Resp B/P (MAP) Pulse Ox O2 Delivery O2 Flow Rate FiO2 09/24/17 02:50 73 18 170/57 95 Room Air 09/24/17 02:09 78 16 163/77 98 Room Air 09/24/17 01:30 66 18 130/69 09/24/17 01:00 62 18 134/76 97 Room Air 09/24/17 00:40 87 20 09/24/17 00:39 147/79 09/24/17 00:38 85 09/24/17 00:30 85 146/81 09/24/17 00:25 24 09/24/17 00:22 Room Air 09/24/17 00:20 Room Air 09/24/17 00:04 37.4 68 18 180/76 94 Room Air General Appearance: WD/WN, no apparent distress, + obese ENT: hearing grossly normal, pharynx normal Neck: supple, thyroid normal, no JVD, trachea midline Respiratory/Chest: lungs clear, no respiratory distress, no accessory muscle use Cardiovascular: regular rate, rhythm, no murmur, normal peripheral pulses Abdomen/GI: normal bowel sounds, soft, + tenderness (mild suprapubic tenderness ) Back: normal inspection Extremities/Musculoskelatal: normal inspection, no calf tenderness, no pedal edema, non-tender Neurologic/Psych: alert, normal mood/affect, oriented x 3 Skin: normal color, warm/dry, no rash Diagnostics Laboratory Results Results Past 24 Hours Test 09/24/17 00:15 09/24/17 00:19 09/24/17 02:45 Range/Units White Blood Count 6.80 4.8-10.8 K/uL Red Blood Count 4.27 4.7-6.1 M/uL Hemoglobin 12.5 14.0-18.0 g/dL Hematocrit 36.5 42-52 % Mean Corpuscular Volume 85.5 80-100 fL Mean Corpuscular Hemoglobin 29.3 25-34 pg Mean Corpuscular Hemoglobin Concent 34.2 32-36 g/dl Platelet Count 201 130-400 K/uL Mean Platelet Volume 10.3 7.4-10.4 fL Neutrophils (%) (Auto) 49.3 % Lymphocytes (%) (Auto) 38.8 % Monocytes (%) (Auto) 10.0 % Eosinophils (%) (Auto) 0.9 % Basophils (%) (Auto) 0.1 % Neutrophils # (Auto) 3.35 1.4-6.5 K/uL Lymphocytes # (Auto) 2.64 1.2-3.4 K/uL Monocytes # (Auto) 0.68 0.11-0.59 K/uL Eosinophils # (Auto) 0.06 0-0.5 K/uL Basophils # (Auto) 0.01 0-0.2 K/uL RDW Standard Deviation 41.1 36.4-46.3 fL RDW Coefficient of Variation 13.3 11.5-14.5 % Immature Granulocyte % (Auto) 0.9 % Immature Granulocyte # (Auto) 0.06 0.00-0.02 K/uL Prothrombin Time 10.2 9.0-12.0 SECONDS Prothromb Time International Ratio 1.0 0.9-1.1 Activated Partial Thromboplast Time 23.3 21.0-31.0 SECONDS Partial Thromboplastin Ratio 0.9 D-Dimer < 190 0-500 ug/L FEU Sodium Level 138 136-145 mmol/L Potassium Level 4.1 3.5-5.1 mmol/L Chloride Level 104 98-107 mmol/L Carbon Dioxide Level 25 21-32 mmol/L Anion Gap 9.0 3-11 mmol/L Blood Urea Nitrogen 21 7-18 mg/dl Creatinine 1.23 0.60-1.40 mg/dl Est Creatinine Clear Calc Drug Dose 69.5 ml/min Estimated GFR () 73.5 Estimated GFR (Non- 63.4 BUN/Creatinine Ratio 17.2 10-20 Random Glucose 208 70-99 mg/dl Calcium Level 9.1 8.5-10.1 mg/dl Magnesium Level 1.7 1.8-2.4 mg/dl Total Bilirubin 0.2 0.2-1 mg/dl Direct Bilirubin < 0.1 0-0.2 mg/dl Aspartate Amino Transf (AST/SGOT) 9 15-37 U/L Alanine Aminotransferase (ALT/SGPT) 19 12-78 U/L Alkaline Phosphatase 68 45-117 U/L Total Protein 6.8 6.4-8.2 gm/dl Albumin 3.6 3.4-5.0 gm/dl Lipase 141 73-393 U/L Bedside Troponin I < 0.030 0-0.045 ng/ml Urine Color YELLOW Urine Appearance CLEAR CLEAR Urine pH 5.5 4.5-7.5 Urine Specific [place] > 1.045 1.000-1.030 Urine Protein NEG NEG Urine Glucose (UA) NEG NEG Urine Ketones NEG NEG Urine Occult Blood NEG NEG Urine Nitrite NEG NEG Urine Bilirubin NEG NEG Urine Urobilinogen NEG NEG Urine Leukocyte Esterase NEG NEG Urine WBC (Auto) 0 0-5 /hpf Urine RBC (Auto) 0-4 0-4 /hpf Urine Hyaline Casts (Auto) 1-5 0-5 /lpf Urine Epithelial Cells (Auto) 0-5 0-5 /lpf Urine Bacteria (Auto) NEG NEG Diagnostic Radiology CT abdomen/pelvis= fluid levels in the colon without any other acute findings Normal EKG Impression Assessment and Plan Erick is a 61 year old male with a PMH of HTN, DM, HLD, GERD, Hypothyroidism, Depression and haemorrhoids that presented to [facility] with chest pain and bloody diarrhea. With regards to his chest pain he could be suffering from unstable angina vs a bleeding ulcer. He does have moderate risk of cardiac disease and therefore warrants further monitoring. With regards to his diarrhea and blood in his stool he may be suffering from food poisoning causing irritation of his external hemorrhoids; however I would expect bright red blood in his stool. It could be a bleeding duodenal/peptic ulcer due to the colour of the stool and the current chest pain as a symptom. It could also possibly be a GI tumor due to the fact that he has had 15 pounds weight loss in the past 3 months. Chest pain - Normal EKG in the ED - trend troponins - nitro and morphine prn - admit to telemetry - HEART score of 4 - hold aspirin Diarrhea with dark red blood - monitor Hgb with morning labs - may need colonoscopy depending on hgb trend, hold off on GI consult as of right now - Cdiff and stool culture ordered - protonix IV bid due to suspicion of upper GI bleed - NPO in case he needs to go for scope T2 DM - hold metformin and glargine - add ISS - continue metoclopramide for gastroparesis Hypothyroidism - continue levothyroxine HLD - continue statin HTN - continue losartan and carvedilol Lower extremity swelling - continue lasix Depression - continue cymbalta and bupropion Insomnia - continue remeron Epilepsy - continue depakote Overactive bladder - oxybutynin DVT prophylaxis - hold off on chemical anticoagulation due to GI bleeding - SCD's FULL CODE Resident Physician Supervision Note: I was present with Dr. Dean during the history and exam. I discussed the case with the resident and agree with the findings and plan as documented in the note. Any exceptions or clarifications are listed here: 61 y/o M Hx DM, HTN, HLD, hypothyroid, GERD, hemorrhoids. Presenting with intermittent CP radiating into his L arm. Pain can occur at rest and may worsen with exertion. Has also had cramping abdominal pain an diarrhea and today developed melanotic stool. A CT abdomen shows a mild inflammatory process. Initial trop and EKG do not support acute ischemia. OE AAO x 3 S1,2 R CTAB NT, ND No CCE P; Will assign to telemetry with serial enzymes - cannot provide ASA or other anticoagulation at present due to hematochezia. Will cont Carvedilol and a Statin We will wait to see if the diarrhea and hematochezia resolve as they may be related to a diarrheal illness. He does however describe dark stool and BUN is slightly elevated so that a concomitant upper GI process cannot be ruled out. It may also explain his CP if this is not cardiac in nature. We will provide IV Protonix and trend his Hb. If there is a significant decrease or if bleeding persists, we would contact GI. Placed on a SS for DM Cont Depakote for seizure disorder Documented By: Lalito Goodrich Resuscitation Status VTE Prophylaxis Will order VTE Prophylaxis: Yes
[2017-09-24] MEDS ORDERED: DEXTROSE 50% 50 ML SYR IV PRN (04:00)
[2017-09-24] MEDS ORDERED: GLUCAGON FOR INJ 1 MG VIAL IM PRN (04:00)
[2017-09-24] MEDS ORDERED: CARBOHYDRATES FOR HYPOGLYCEMIA PO PRN (04:00)
[2017-09-24] MEDS ORDERED: GLUCOSE 40% GEL 15 GM TUBE PO PRN (04:00)
[2017-09-24] MEDS ORDERED: GLUCOSE 10 TABS/TUBE PO PRN (04:00)
[2017-09-24] MEDS ORDERED: IV FLUIDS COMPLETED PRN (04:00)
[2017-09-24 04:40] VITALS: BP 152/87; PULSE 58; TEMP 36.7; O2SAT 97; BMI 36.9
[2017-09-24] MEDS ORDERED: LEVOTHYROXINE 100 MCG TAB PO SCH (06:00)
[2017-09-24 06:08] LABS: HEMATOCRIT 34.7 % (42-52); HEMOGLOBIN 12.1 g/dL (14.0-18.0)
--- NOTE | 2017-09-24 06:33 | DIAGNOSTIC IMAGING REPORT ---
CHEST ONE VIEW PORTABLE HISTORY: 61 years-old Male cp acute atypical chest pain COMPARISON: CT abdomen and pelvis of same day, chest CT 06/05/2017, chest radiograph 06/22/2016 TECHNIQUE: Portable AP view of the chest FINDINGS: Cardiomediastinal and hilar silhouettes are within normal limits. Opacity of the right cardiophrenic angle compatible with prominent epicardial fat pad. No pneumothorax, pleural effusion, focal airspace consolidation or overt pulmonary edema. There is mild right hemidiaphragmatic elevation. Cannulated screw of the left humeral head suggest prior rotator cuff repair. Degenerative changes of the shoulders and spine. IMPRESSION: No acute process. The above report was generated using voice recognition software. It may contain grammatical, syntax or spelling errors. Electronically signed by: Cristi Oakley M.D. 09/24/2017 6:32 AM Dictated Date/Time: 09/24/2017 6:30 AM
[2017-09-24 07:00] VITALS: BP 124/78; PULSE 79; TEMP 36.9; O2SAT 97
[2017-09-24] MEDS ORDERED: METOCLOPRAMIDE HCL 10 MG TAB PO SCH (07:00)
[2017-09-24] MEDS ORDERED: INSULIN ASPART 100 UNITS/ML 3 ML PEN SC SCH (07:00)
--- NOTE | 2017-09-24 07:00 | Family Medicine Progress Note ---
Progress Note Date of Service Sep 24, 2017.
--- NOTE | 2017-09-24 07:18 | DIAGNOSTIC IMAGING REPORT ---
ABDOMEN AND PELVIS CT WITH IV CONTRAST CT DOSE: 866.11 mGy.cm HISTORY: rectal bleeding, lower abd pain TECHNIQUE: Multiaxial CT images of the abdomen and pelvis were performed following the use of intravenous contrast. A dose lowering technique was utilized adhering to the principles of ALARA. COMPARISON STUDY: Abdomen and pelvis CT 12/28/2016. FINDINGS: Stable 4 mm nodule within the left lower lobe on image 59. Stable 3 mm nodule within the left lower lobe in image 90. No pneumoperitoneum. No pneumatosis. Stable small areas of patchy sclerosis within the femoral head. This favors avascular necrosis. No evidence for femoral head collapse. Hepatic steatosis. Cholecystectomy. The pancreas, spleen, adrenal glands, and kidneys are unremarkable. No hydronephrosis. Left retroaortic renal vein. No retroperitoneal lymphadenopathy. Mild calcified plaque within the normal caliber abdominal aorta. Mild bladder wall thickening, unchanged. Fluid-filled colon. No bowel wall thickening or obstruction. The appendix is not identified and reportedly surgically absent. IMPRESSION: 1. No bowel wall thickening or obstruction. 2. Fluid-filled colon. This can be seen in the setting of a gastroenteritis. 3. Cholecystectomy. 4. Hepatic steatosis. 5. Additional findings as described above. Electronically signed by: Shahab Golden M.D. 09/24/2017 7:17 AM Dictated Date/Time: 09/24/2017 7:10 AM
[2017-09-24] MEDS ORDERED: METFORMIN HCL 500 MG TAB PO SCH (07:30)
[2017-09-24] MEDS ORDERED: PHARMACY GLYCEMIC MGMT CONSULT PRN (08:34)
[2017-09-24] MEDS ORDERED: PANTOprazole INJ 40 MG in SYRINGE 0 ML IV SCH (09:00)
[2017-09-24] MEDS ORDERED: CARVEDILOL 3.125 MG TAB PO SCH (09:00)
[2017-09-24] MEDS ORDERED: FUROSEMIDE 20 MG TAB PO SCH (09:00)
[2017-09-24] MEDS ORDERED: BuPROPion SR 150 MG TABCR PO SCH (09:00)
[2017-09-24] MEDS ORDERED: INSULIN GLARGINE SOLOSTAR 100 UNITS/ML 3 ML PEN SC SCH ×3 (09:00→21:00)
[2017-09-24] MEDS ORDERED: DICYCLOMINE HCL 10 MG CAP PO SCH (09:00)
[2017-09-24] MEDS ORDERED: DULOXETINE HCL 20 MG CAP PO SCH (09:00)
[2017-09-24] MEDS ORDERED: GI COCKTAIL PO ONE (09:30)
[2017-09-24] MEDS ORDERED: ALUMINUM/MAGNESIUM SUSP 18 ML, LIDOCAINE HCL 2% VISCOUS SOLN 6 ML, BARCODE IDENTIFIER 1 EA PO ONE ×2 (09:30)
[2017-09-24 10:26] LABS: HEMATOCRIT 33.4 % (42-52); HEMOGLOBIN 11.6 g/dL (14.0-18.0)
--- NOTE | 2017-09-24 10:38 | Pharmacy Progress Note ---
Glycemic Control Intl Consult Date of Service Sep 24, 2017. Scope Glycemic Pharmacist consulted by Dr Sparks on 09/24/17 for glycemic control and to write orders per [facility] inpatient glycemic control protocol Objective Weight (Kilograms): 100.700 Accuchecks BSG (last 24hrs): Test 09/24/17 00:15 09/24/17 08:17 Random Glucose 208 mg/dl (70-99) Bedside Glucose 152 mg/dl (70-99) Laboratory Data (last 24hrs) Test 09/24/17 00:15 09/24/17 10:14 Anion Gap 9.0 mmol/L BUN/Creatinine Ratio 17.2 Blood Urea Nitrogen 21 mg/dl Creatinine 1.23 mg/dl Potassium Level 4.1 mmol/L Sodium Level 138 mmol/L White Blood Count 6.80 K/uL Red Blood Count 4.27 M/uL Hemoglobin 12.5 g/dL Hematocrit 36.5 % Mean Corpuscular Volume 85.5 fL Mean Corpuscular Hemoglobin 29.3 pg Mean Corpuscular Hemoglobin Concent 34.2 g/dl Platelet Count 201 K/uL Mean Platelet Volume 10.3 fL Neutrophils (%) (Auto) 49.3 % Lymphocytes (%) (Auto) 38.8 % Monocytes (%) (Auto) 10.0 % Eosinophils (%) (Auto) 0.9 % Basophils (%) (Auto) 0.1 % Neutrophils # (Auto) 3.35 K/uL Lymphocytes # (Auto) 2.64 K/uL Monocytes # (Auto) 0.68 K/uL Eosinophils # (Auto) 0.06 K/uL Basophils # (Auto) 0.01 K/uL HbA1c Recent Pertinent Medications Outpatient Anti-diabetic Regimen: * Lantus 55 units qAM, 60 units qHS * Novolog per sliding scale (typically 22 units with each meal) * Metformin 500 mg BID * A1c = 7.5 % 01/26/17 * More current one pending for today Risk Factors for Insulin Resistance/Sensitivity: * Diet: type 2 diabetes diet -> now made NPO Assessment & Plan ASSESSMENT: * 61 y/o male admitted with chest pain, possible GI bleed. He has type 2 diabetes that is controlled with basal/bolus insulin in addition to metformin as an outpatient. Total daily insulin dose is at least 181 units/day. * His medication list indicates that he received his insulin doses yesterday. Fasting BSG is just slightly above goal this AM. * For inpatient glycemic management, will hold metformin and continue basal/ bolus insulin therapy using insulin calculator estimates for est TDD ~200 units. Will provide a scale for the Lantus to give a lower dose with now NPO status, higher dosing should his BSGs become elevated. PLAN FOR INPATIENT GLYCEMIC CONTROL: * Hold outpatient oral diabetes medications * Basal insulin with LANTUS BID as per the following scale: * 45 units for BSG < 140 * 55 units for BSG 140-180 * 65 units for BSG > 180 * Correctional Insulin with NOVOLOG per scale ACHS or Q6hrs while NPO * Goal Range: Low 110 mg/dL - High 140 mg/dL * Correction Factor: 10 mg/dL/unit * Nutritional / Prandial insulin per carb ratio of 1 unit per 3 grams CHO consumed * Will await updated A1c prior to providing discharge recommendations * Please note that the plan above was derived based on current level of insulin resistance and hospital stress. These recommendations are appropriate for inpatient admission only. Plan of care upon discharge will need to be reassessed to avoid potential outpatient hypo/hyperglycemia. Thank you.
[2017-09-24 11:02] VITALS: BP 122/70; PULSE 57; TEMP 36.9; O2SAT 95
[2017-09-24 11:29] LABS: HEMOGLOBIN A1C 7.7 % (4.5-5.6)
[2017-09-24] MEDS ORDERED: LACTOBACILLUS ACIDOPHILUS 1 GM PACK PO SCH (11:30)
[2017-09-24] MEDS ORDERED: PRLSR20 PO (12:12)
--- NOTE | 2017-09-24 12:21 | Discharge Instructions ---
Discharge Instructions Date of Service Sep 24, 2017. Admission Reason for Admission: Chest Pain,Diarrhea Discharge Discharge Diagnosis / Problem: Chest Pain Rule Out / Bloody Stools Discharge Goals Goal(s): Decrease discomfort, Improve function, Increase independence, Improve disease control, Improve nutritional status, Learn about illness Activity Recommendations Activity Limitations: per Instructions/Follow-up section . Instructions / Follow-Up Instructions / Follow-Up You were admitted to the hospital for a concern that there were issues with your heart. Your EKG and Blood work suggested that the chest pain your were experiencing was unlikely originating from your heart but rather your Gastrointestinal symptoms. Furthermore you experience relief of your symptoms when you receive an oral suspension of Maalox and Lidocaine. After a review of your records we recommend an endoscopy to evaluate if there are any diseases in your upper or lower gastrointestinal track. The lumber stacker may also with to do evaluate your esophagus and stomach with an upper endoscopy. We want you to continue all of your home medications on discharge. We are adding one new medication called Omeprazole. Omeprazole will reduce the acid produced in your stomach. Please take this medication as prescribed. We will be arranging follow up with your with [facility]. Please keep this appointment. Follow up with your PCP in one week or sooner if you experience a worsening of your symptoms including chest pain, bloody stools and diarrhea. You may also return to the ER if your symptoms worsen. Current Hospital Diet Patient's current hospital diet: Diabetes Type 2 Diet, AHA Diet (Heart Healthy) Discharge Diet Recommended Diet: Diabetes Type 2 Diet Pending Studies Studies pending at discharge: no Laboratory Results Hemoglobin A1c Test 09/24/17 10:14 Range/Units Estimated Average Glucose 174 mg/dl Hemoglobin A1c 7.7 H 4.5-5.6 % Medical Emergencies . Who to Call and When: Medical Emergencies: If at any time you feel your situation is an emergency, please call 911 immediately. . Non-Emergent Contact Non-Emergency issues call your: Primary Care Provider, Wire Harness Assembler . . "Provider Documentation" section prepared by Jean Sparks. . Resident Involvement: Resident Care Provided Care Provided: Adult Hospital Medicine
--- NOTE | 2017-09-24 12:25 | Discharge Summary ---
Discharge Summary Date of Service Sep 24, 2017. Discharge Summary Admission Date: Sep 24, 2017 at 03:24 Discharge Disposition: Home Principal Diagnosis: Gastroenteritis Problems/Secondary Diagnoses: Bright red blood per rectum Epigastric Pain Left arm tingling Type 2 Diabetes Immunizations: Have You Had Influenza Vaccine: Yes Influenza Vaccine Date: Dec 02, 2006 History of Tetanus Vaccine?: Yes Tetanus Immunization Date: Dec 09, 2002 History of Pneumococcal: Yes History of Hepatitis B Vaccine: No Procedures: ABDOMEN AND PELVIS CT WITH IV CONTRAST IMPRESSION: 1. No bowel wall thickening or obstruction. 2. Fluid-filled colon. This can be seen in the setting of a gastroenteritis. 3. Cholecystectomy. 4. Hepatic steatosis. 5. Additional findings as described above. CHEST ONE VIEW PORTABLE IMPRESSION: No acute process. Medication Reconciliation New Medications: Omeprazole (Prilosec) 20 Mg Capcr 20 MG PO DAILY for 30 Days, #30 CAP Continued Medications: Aspirin (Aspirin Ec) 81 Mg Tab 81 MG PO BID Bupropion (Wellbutrin Sr) 150 Mg Ertab 300 MG PO QAM, TAB Carvedilol (Coreg) 3.125 Mg Tab 3.125 MG PO BID WITH FOOD, TAB Cholecalciferol (Vitamin D) 5,000 Unit Tab 5000 UNITS PO QID Clobetasol Propionate (Clobetasol Propionate Cream 0.05%) 90 Appln/30 Gm Cr 1 APPLN EXT BID PRN for APPLY TO AFFECTED AREA FOR UP TO 2 WEEKS Dicyclomine Hcl (Bentyl) 10 Mg Cap 1 CAP PO TID for 30 Days, #90 CAP 1 Refill Divalproex Sodium (Depakote Er) 500 Mg Tab 1500 MG PO HS Duloxetine HCl (Cymbalta) 20 Mg Cap 20 MG PO QAM Fenofibrate (Tricor) 145 Mg Tab 145 MG PO HS, TAB Fish Oil ([place]-3) 1 Ea Cap 1 CAP PO BID, CAP Furosemide (Lasix) 20 Mg Tab 20 MG PO QPM AT 1800 To lessen overnight urine output. Hydrocortisone 2.5% (Rectal) (Anusol-Hc 2.5%) 2.5 % Cre 1 APPLN TOP TID PRN for Hemorrhoids for 7 Days, 1 Refill Insulin Aspart (Novolog Flexpen) 100 Units/Ml Inj 1 DOSE SQ AC SLIDING SCALE COVERAGE Insulin Glargine (Lantus) 100 Unit/Ml Inj 55 UNITS SC QAM, VIAL Insulin Glargine (Lantus) 100 Unit/Ml Inj 60 UNITS SC HS, VIAL Levocetirizine Dihydrochloride (Levocetirizine Dihydrochl) 5 Mg Tab 5 MG PO QPM Levothyroxine Sodium (Levothyroxine Sodium) 100 Mcg Tab 100 MCG PO QAM Losartan Potassium (Cozaar) 100 Mg Tab 100 MG PO HS, TAB Metformin Hcl (Glucophage) 500 Mg Tab 500 MG PO BID, TAB Metoclopramide (Reglan) 10 Mg Tab 10 MG PO ACHS, TAB Mirtazapine (Remeron) 15 Mg Tab 15 MG PO HS Oxybutynin Chloride Er (Ditropan Xl) 10 Mg Tab 10 MG PO HS Primidone (Mysoline) 50 Mg Tab 250 MG PO QAM Primidone (Mysoline) 50 Mg Tab 100 MG PO QPM Ranitidine Hcl (Zantac) 300 Mg Tab 300 MG PO BID, TAB Rosuvastatin Calcium (Crestor) 40 Mg Tab 40 MG PO HS, TAB [Nifedipine 2% Oint] () 1 APPLN TOP DAILY PRN for NIFEDIPINE RECTAL OINTMENT Discharge Exam Pt seen and examined at bedside. still complaining of epigastric burning sensation and tingling in his left arm. He did experience some relief of these symptoms with a GI cocktail. He reports bloody loose stools 1 day [employer], no stools today so far, in fact he is having trouble producing a bowel movement. He has chronic loose stools and abdominal pain that resolve with bowel movements. Never diagnosed with IBS or IBD in the past. Per chart review and discussion pt was supposed to have colonoscopy in February but never got it done because of other medical problems. CT results reviewed with patient. Review of Systems: Constitutional: No fever, No chills Respiratory: + shortness of breath, + dyspnea on exertion, No cough, No sputum, No wheezing, No dyspnea at rest Abdomen: + diarrhea, + GI bleeding, No pain, No nausea, No vomiting, No constipation Musculoskeletal: No joint pain Genitourinary - Male: No hematuria, No dysuria Neurologic: No memory loss Psychiatric: No depression symptoms Physical Exam: General Appearance: WD/WN, no apparent distress, + obese Eyes: normal inspection, PERRL, EOMI ENT: normal ENT inspection Neck: supple, no adenopathy, thyroid normal, no JVD Respiratory/Chest: chest non-tender, lungs clear, normal breath sounds, no respiratory distress, no accessory muscle use Cardiovascular: regular rate, rhythm, no edema, no gallop, no JVD, no murmur , normal peripheral pulses Abdomen / GI: soft, no pulsatile mass, + pertinent finding (tender in Left Lower Quadrant) Extremities: normal inspection, no calf tenderness Neurologic/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 Lipase WNL. LFTs normal. On hospital day #1 there were no EKG changes. Trops neg x 3 and in fact the chest pain was found to be more in the epigastric region. Per chart review patient has had previous episode of bright red blood per rectum. Pt does have a longstanding history of GERD and unintentional 15lb weight loss in 3 months. Pt epigastric pain did resolve with a GI cocktail. He also had a stable hemoglobin on admission (12.0) and no bowel movements after admission. Advised to follow up with GI Patient scheduled to have outpatient colonoscopy by [facility]. Patient was also discharged on a new prescription of Omeprazole. DM2 HBA1C of 7.7 No changes on DC to insulin regimen. Hypothyroidism No changes on DC. HLD continue statin. HTN continue losartan and carvedilol Depression Continue cymbalta and bupropion Insomnia Continue remeron Epilepsy Continue depakote Overactive bladder Continue Oxybutynin Total Time Spent: Greater than 30 minutes (44) This includes examination of the patient, discharge planning, medication reconciliation, and communication with other providers. Discharge Instructions Please refer to the electronic Patient Visit Report (Discharge Instructions) for additional information. Additional Copies To Jose Sanchez M.D.; Farhad Loya D.O. Resident Involvement: Resident Care Provided Care Provided: Adult [facility] Medicine Reviewed: Pt Seen/Exam by Me History abdominal pain still present but better no further GI bleeding or dark stool Constitutional: denies: fever Respiratory: negative: short of breath Cardiovascular: denies chest pain General Appearance: no apparent distress Respiratory: lungs clear, no respiratory distress Cardiovascular: regular rate, rhythm Neurologic/Psychiatric: alert, oriented x 3 Skin Characteristics: warm/dry Assessment/Plan Resident Physician Supervision Note: I independently interviewed and examined the patient and verified the orr history and physical, reviewed labs and image studies, discussed the case with the resident Dr. Sparks and agree with the findings and care plan. Time spent in discharge 35 min
[2017-09-24 13:37] VITALS: BP 122/70; PULSE 57; TEMP 36.9; O2SAT 95
[2017-09-24 14:21] VITALS: Ht 165.1 cm; Wt 100.7 kg
[2017-09-24] MEDS ORDERED: ROSUVASTATIN CALCIUM 20 MG TAB PO SCH (21:00)
[2017-09-24] MEDS ORDERED: OXYBUTYNIN CHLORIDE 5 MG TABCR PO SCH (21:00)
[2017-09-24] MEDS ORDERED: MIRTAZAPINE TAB 15 MG TAB PO SCH (21:00)
[2017-09-24] MEDS ORDERED: LOSARTAN POTASSIUM 50 MG TAB PO SCH (21:00)
[2017-09-24] MEDS ORDERED: DIVALPROEX 500 MG EXTENDED RELEASE TAB PO SCH (21:00)
== END 2017-09-24 14:30 | disposition home or self-care (01) ==
LOC: C.EDB 23:57 → C.2T 09-24 03:24 → ENRESERV 09-24 03:54
PROVIDERS: ADMIT Internal Medicine; ATTEND Family Medicine
DX: K52.9 Noninfective gastroenteritis and colitis, unspecified (principal); K62.5 Hemorrhage of anus and rectum; R10.13 Epigastric pain; R20.2 Paresthesia of skin; E11.9 Type 2 diabetes mellitus without complications; I10 Essential (primary) hypertension; E78.5 Hyperlipidemia, unspecified; K21.9 Gastro-esophageal reflux disease without esophagitis; E03.9 Hypothyroidism, unspecified; F32.9 Major depressive disorder, single episode, unspecified; G40.909 Epilepsy, unspecified, not intractable, without status epilepticus; G47.00 Insomnia, unspecified; Z79.899 Other long term (current) drug therapy; Z79.82 Long term (current) use of aspirin; Z79.4 Long term (current) use of insulin; Z79.84 Long term (current) use of oral hypoglycemic drugs; Z87.891 Personal history of nicotine dependence

== ENCOUNTER → 2017-10-06 | Day surgery (SDC) | payer OTHER ==
[2017-10-05 08:21] VITALS: Ht 165.1 cm; Wt 99.0 kg
[~2017-10-06] VITALS: Ht 165.1 cm; Wt 99.0 kg
[~2017-10-06] MED LIST changes: -ASPI-320 PO; +ASPI81TA28 PO; +ATROPINE SULFATE 0.1 MG/ML 5ML SYR IV PRN; -CARV3.12 PO; +CARV3.122 PO; +EpHEDrine SULFATE INJ 50 MG/ML AMP IV PRN; +GLC/500 PO; +LIDOCAINE HCL 2% 2 ML VIAL (20MG/ML) ONE; -METF500T PO; +MIDAZOLAM HCL 1 MG/ML 2ML VIAL ONE; -OXYC-57 PO; -OXYC-737 PO; +PRLSR20 PO; +PROPOFOL IV EMULSION 10 MG/ML 20 ML VIAL ONE; +SODIUM CHLORIDE 0.9% 500ML 500 ML IV ONE
--- NOTE | 2017-10-06 08:38 | Endo History and Physical ---
History & Physical Date of Service: Oct 06, 2017. Chief Complaint: Abnormal CT Scan, Rectal bleeding Referring Physician: Farhad Loya DO History of Present Illness 61 yo CM who presents for colonoscopy secondary to abnormal CT scan and rectal bleeding. Past Medical History Diabetes, Arthritis, Male Genitourinary Prob., Anxiety, Seizure Disorder, High Cholesterol, Syncopal Episodes, Hypertension, COPD, Thyroid Disease, Chronic Steroid Use, Depression Past Surgical History Hx Cardiac Surgery: No Hx Internal Defibrillator: No Hx Pacemaker: No Hx Abdominal Surgery: Yes (APPE, DESTINY ) Hx of Implantable Prosthesis: No Hx Post-Op Nausea and Vomiting: No Hx Cancer Surgery: No Hx Thoracic Surgery: No Hx Orthopedic: Yes (LEFT SHOULDER REPAIR, RT FOOT SURGERY) Hx Urinary Tract Surgery: Yes (TURP) Family History None Social History Smoking Status: Former Smoker Hx Substance Use: No Hx Alcohol Use: No Allergies Coded Allergies: Amitriptyline (Verified Allergy, Intermediate, HIVES, 10/05/17) Penicillins (Verified Allergy, Intermediate, HIVES, 10/05/17) ITCHY,HIVES Tramadol (Verified Allergy, Intermediate, ITCHY, 10/05/17) ITCHY BIRGIT Inhibitors (Verified Allergy, Unknown, ? ANGIOEDEMA, 10/05/17) Gabapentin (Verified Allergy, Unknown, per lamination technician note , 10/05/17) makes tremors worse Lorazepam (Verified Allergy, Unknown, "DON'T REMEMBER", 10/05/17) Codeine (Verified Adverse Reaction, Mild, N&V, 10/05/17) N/V Current Medications Reported Home Medications Medications Dose Route/Sig Max Daily Dose Days Date Category Dose Instructions Prilosec (Omeprazole) 20 Mg Capcr 20 Mg PO DAILY 30 09/24/17 Rx Coreg (Carvedilol) 3.125 Mg Tab 3.125 Mg PO BID WITH FOOD 09/24/17 Reported Glucophage (Metformin Hcl) 500 Mg Tab 500 Mg PO BID 09/24/17 Reported Aspirin Ec (Aspirin) 81 Mg Tab 81 Mg PO BID 09/24/17 Reported Bentyl (Dicyclomine Hcl) 10 Mg Cap 1 Cap PO TID 30 01/26/17 Reported Vitamin D (Cholecalciferol) 5,000 Unit Tab 5,000 Units PO QID 12/27/16 Reported [place]-3 (Fish Oil) 1 Ea Cap 1 Cap PO BID 12/27/16 Reported Reglan (Metoclopramide HCl) 10 Mg Tab 10 Mg PO ACHS 11/20/16 Reported Novolog Flexpen (Insulin Aspart) 100 Units/Ml Inj 1 Dose SQ AC 05/29/16 Reported SLIDING SCALE COVERAGE Lantus (Insulin Glargine) 100 Unit/Ml Inj 60 Units SC HS 05/29/16 Reported Lantus (Insulin Glargine) 100 Unit/Ml Inj 55 Units SC QAM 05/29/16 Reported Clobetasol Propionate Cream 0.05% (Clobetasol Propionate) 90 Appln/30 Gm Cr 1 Appln EXT BID PRN 04/01/16 Reported APPLY TO AFFECTED AREA FOR UP TO 2 WEEKS Ditropan Xl (Oxybutynin Chloride) 10 Mg Tab 10 Mg PO HS 04/01/16 Reported [Nifedipine 2% Oint] 1 Appln TOP DAILY PRN 04/01/16 Reported NIFEDIPINE RECTAL OINTMENT Remeron (Mirtazapine) 15 Mg Tab 15 Mg PO HS 04/01/16 Reported Lasix (Furosemide) 20 Mg Tab 20 Mg PO QPM AT 1800 04/01/16 Reported To lessen overnight urine output. Levocetirizine Dihydrochl (Levocetirizine Dihydrochloride) 5 Mg Tab 5 Mg PO QPM 04/01/16 Reported Cymbalta (Duloxetine HCl) 20 Mg Cap 20 Mg PO QAM 04/01/16 Reported Wellbutrin Sr (Bupropion HCl) 150 Mg Ertab 300 Mg PO QAM 03/31/15 Reported Anusol-Hc 2.5% (Hydrocortisone 2.5% (Rectal)) 2.5 % Cre 1 Appln TOP TID PRN 7 03/31/15 Reported Levothyroxine Sodium 100 Mcg Tab 100 Mcg PO QAM 10/27/12 Reported Zantac (Ranitidine Hcl) 300 Mg Tab 300 Mg PO BID 10/27/12 Reported Mysoline (Primidone) 50 Mg Tab 100 Mg PO QPM 10/27/12 Reported Mysoline (Primidone) 50 Mg Tab 250 Mg PO QAM 10/27/12 Reported Cozaar (Losartan Potassium) 100 Mg Tab 100 Mg PO HS 10/27/12 Reported Crestor (Rosuvastatin Calcium) 40 Mg Tab 40 Mg PO HS 10/27/12 Reported Depakote Er (Divalproex Sodium) 500 Mg Tab 1,500 Mg PO HS 10/27/12 Reported Tricor (Fenofibrate) 145 Mg Tab 145 Mg PO HS 08/18/11 Reported Vital Signs Weight (Kilograms): 99 Height (Feet): 5 Height (Inches): 5 Physical Exam General Appearance: WD/WN, no apparent distress Respiratory/Chest: Auscultation: breath sounds normal Cardiovascular: Heart Auscultation: RRR Abdomen: Bowel Sounds: normal Inspection & Palpation: soft, non-distended, no tenderness, guarding & rebound Assessment and Plan Assessment: 61 yo CM who presents for colonoscopy secondary to abnormal CT scan and rectal bleeding. Plan: Proceed with colonoscopy.
--- NOTE | 2017-10-06 09:27 | Discharge Instructions ---
Endoscopy Patient Instructions Date / Procedure(s) Performed Oct 06, 2017. Colonoscopy Allergy Information Coded Allergies: Amitriptyline (Verified Allergy, Intermediate, HIVES, 10/05/17) Penicillins (Verified Allergy, Intermediate, HIVES, 10/05/17) ITCHY,HIVES Tramadol (Verified Allergy, Intermediate, ITCHY, 10/05/17) ITCHY BIRGIT Inhibitors (Verified Allergy, Unknown, ? ANGIOEDEMA, 10/05/17) Gabapentin (Verified Allergy, Unknown, per needle molder note , 10/05/17) makes tremors worse Lorazepam (Verified Allergy, Unknown, "DON'T REMEMBER", 10/05/17) Codeine (Verified Adverse Reaction, Mild, N&V, 10/05/17) N/V Discharge Date / Findings Oct 06, 2017. Colon polyp Internal hemorrhoids Medication Instructions Stopped Medication(s): ASA OK to resume all medications today as prescribed Reported Home Medications Medications Dose Route/Sig Max Daily Dose Days Date Category Dose Instructions Prilosec (Omeprazole) 20 Mg Capcr 20 Mg PO DAILY 30 09/24/17 Rx Coreg (Carvedilol) 3.125 Mg Tab 3.125 Mg PO BID WITH FOOD 09/24/17 Reported Glucophage (Metformin Hcl) 500 Mg Tab 500 Mg PO BID 09/24/17 Reported Aspirin Ec (Aspirin) 81 Mg Tab 81 Mg PO BID 09/24/17 Reported Bentyl (Dicyclomine Hcl) 10 Mg Cap 1 Cap PO TID 30 01/26/17 Reported Vitamin D (Cholecalciferol) 5,000 Unit Tab 5,000 Units PO QID 12/27/16 Reported [place]-3 (Fish Oil) 1 Ea Cap 1 Cap PO BID 12/27/16 Reported Reglan (Metoclopramide HCl) 10 Mg Tab 10 Mg PO ACHS 11/20/16 Reported Novolog Flexpen (Insulin Aspart) 100 Units/Ml Inj 1 Dose SQ AC 05/29/16 Reported SLIDING SCALE COVERAGE Lantus (Insulin Glargine) 100 Unit/Ml Inj 60 Units SC HS 05/29/16 Reported Lantus (Insulin Glargine) 100 Unit/Ml Inj 55 Units SC QAM 05/29/16 Reported Clobetasol Propionate Cream 0.05% (Clobetasol Propionate) 90 Appln/30 Gm Cr 1 Appln EXT BID PRN 04/01/16 Reported APPLY TO AFFECTED AREA FOR UP TO 2 WEEKS Ditropan Xl (Oxybutynin Chloride) 10 Mg Tab 10 Mg PO HS 04/01/16 Reported [Nifedipine 2% Oint] 1 Appln TOP DAILY PRN 04/01/16 Reported NIFEDIPINE RECTAL OINTMENT Remeron (Mirtazapine) 15 Mg Tab 15 Mg PO HS 04/01/16 Reported Lasix (Furosemide) 20 Mg Tab 20 Mg PO QPM AT 1800 04/01/16 Reported To lessen overnight urine output. Levocetirizine Dihydrochl (Levocetirizine Dihydrochloride) 5 Mg Tab 5 Mg PO QPM 04/01/16 Reported Cymbalta (Duloxetine HCl) 20 Mg Cap 20 Mg PO QAM 04/01/16 Reported Wellbutrin Sr (Bupropion HCl) 150 Mg Ertab 300 Mg PO QAM 03/31/15 Reported Anusol-Hc 2.5% (Hydrocortisone 2.5% (Rectal)) 2.5 % Cre 1 Appln TOP TID PRN 7 03/31/15 Reported Levothyroxine Sodium 100 Mcg Tab 100 Mcg PO QAM 10/27/12 Reported Zantac (Ranitidine Hcl) 300 Mg Tab 300 Mg PO BID 10/27/12 Reported Mysoline (Primidone) 50 Mg Tab 100 Mg PO QPM 10/27/12 Reported Mysoline (Primidone) 50 Mg Tab 250 Mg PO QAM 10/27/12 Reported Cozaar (Losartan Potassium) 100 Mg Tab 100 Mg PO HS 10/27/12 Reported Crestor (Rosuvastatin Calcium) 40 Mg Tab 40 Mg PO HS 10/27/12 Reported Depakote Er (Divalproex Sodium) 500 Mg Tab 1,500 Mg PO HS 10/27/12 Reported Tricor (Fenofibrate) 145 Mg Tab 145 Mg PO HS 08/18/11 Reported Provider Instructions Activity Restrictions - No exercising or heavy lifting for 24 hours. - Do not drink alcohol the day of the procedure. - Do not drive a car or operate machinery until the day after the procedure. - Do not make any important decisions or sign important papers in 24 hours after the procedure. Following Day: - Return to full activity which may include returning to work/school. Diet Start your diet with liquids and light foods (jello, soup, juice, toast). Then eat your usual diet if not nauseated. Treatment For Common After Affects For mild abdominal pain, bloating, or excessive gas: - Rest - Eat lightly - Lie on right side Follow-Up Information Follow-up with Farhad Loya as scheduled Anesthesia Information What You Should Know You have had a procedure that required some medicine to reduce anxiety and discomfort. This treatment is called moderate sedation. After receiving the treatment, you may be sleepy, but you will be able to breathe on your own. The effects of the treatment may last for several hours. Follow these instructions along with Activity/Diet recommendations noted above: * Do NOT do anything where dizziness or clumsiness would be dangerous. * Rest quietly at home today, then you can be up and about tomorrow. * Have a responsible person stay with you the rest of today. * You may have had an I.V. today. If so, you may take the dressing off later today. Recommendations Call your doctor if: * Trouble breathing * Continuous vomiting for more than 24 hours * Temperature above 101 degrees * Severe abdominal pain or bloating * Pain not relieved by pain medicine ordered * There is increased drainage or redness from any incision * A large amount of rectal bleeding greater than 2-3 tablespoons. (If you had a polyp/s removed or have hemorrhoids, a small amount of blood - from the rectum is to be expected.) * You have any unanswered questions or concerns. IN THE EVENT OF A SERIOUS EMERGENCY, GO TO THE NEAREST EMERGENCY ROOM Your discharge instructions were prepared by provider Brian Ballard. Patient Instructions Signature Page Erick Pardo Patient (or Guardian) Signature/Date: I have read and understand the instructions given to me by my caregivers. Caregiver/RN/Doctor Signature/Date: The above-named patient and/or guardian has received patient instructions on this date. + Original Patient Signature Page (only) stays with chart. Please make copy for patient.
--- NOTE | 2017-10-06 09:33 | Anesthesiology Progress Note ---
Anesthesia Post Op Note Date & Time Oct 06, 2017 at 09:33 Vital Signs Vital Signs Past 12 Hours Date Time Temp Pulse Resp B/P (MAP) Pulse Ox O2 Delivery O2 Flow Rate FiO2 10/06/17 09:20 36.8 78 16 116/53 (74) 96 Room Air 10/06/17 08:37 37 72 20 156/83 (107) 96 Room Air Notes Mental Status: alert / awake / arousable, participated in evaluation Pt Amnestic to Procedure: Yes Nausea / Vomiting: adequately controlled Pain: adequately controlled Airway Patency, RR, SpO2: stable & adequate BP & HR: stable & adequate Hydration State: stable & adequate Anesthetic Complications: no major complications apparent
[2017-10-06 09:50] VITALS: BP 153/57; PULSE 65; O2SAT 95
--- NOTE | 2017-10-06 10:01 | GI REPORT ---
Patient Name: Erick Pardo Procedure Date: 10/06/2017 8:56 AM Date of : 1955 Admit Type: Outpatient Age: 61 Gender: Male Attending MD: Brian Ballard DO Procedure: Colonoscopy Providers: Brian Ballard DO Referring MD: Farhad Loya DO Indications: Rectal bleeding, Abnormal CT of the GI tract Medicines: Monitored Anesthesia Care Complications: No immediate complications. Estimated Blood Loss: Estimated blood loss: none. Procedure: Pre-Anesthesia Assessment: - Prior to the procedure, a History and Physical was performed, and patient medications and allergies were reviewed. The patient's tolerance of previous anesthesia was also reviewed. The risks and benefits of the procedure and the sedation options and risks were discussed with the patient. All questions were answered, and informed consent was obtained. Prior Anticoagulants: The patient has taken aspirin, last dose was 1 day prior to procedure. ASA Grade Assessment: IV - A patient with severe systemic disease that is a constant threat to life. After reviewing the risks and benefits, the patient was deemed in satisfactory condition to undergo the procedure. After I obtained informed consent, the scope was passed under direct vision. Throughout the procedure, the patient's blood pressure, pulse, and oxygen saturations were monitored continuously. The On-site loaner was introduced through the anus and advanced to the terminal ileum. The colonoscopy was performed without difficulty. The patient tolerated the procedure well. The quality of the bowel preparation was good. The terminal ileum, ileocecal valve, appendiceal orifice, and rectum were photographed. Findings: The perianal and digital rectal examinations were normal. A 4 mm polyp was found in the sigmoid colon. The polyp was sessile. The polyp was removed with a cold snare. Resection and retrieval were complete. Non-bleeding internal hemorrhoids were found during retroflexion. The hemorrhoids were small. Impression: - One 4 mm polyp in the sigmoid colon, removed with a cold snare. Resected and retrieved. - Non-bleeding internal hemorrhoids. Recommendation: - Resume previous diet. - Continue present medications. - Await pathology results. - Return to primary care physician as previously scheduled. Brian Ballard DO 10/06/2017 10:01:02 AM This report has been signed electronically. Note Initiated On: 10/06/2017 8:56 AM Number of Addenda: 0 I attest to the content of the Intraoperative Record and orders documented therein, exceptions below {[id number]}
== END | disposition home or self-care (01) ==
LOC: C.GI 08:06
PROVIDERS: ATTEND Internal Medicine
DX: K62.5 Hemorrhage of anus and rectum (principal); R93.3 Abnormal findings on diagnostic imaging of other parts of digestive tract; K63.5 Polyp of colon; K64.8 Other hemorrhoids; E11.9 Type 2 diabetes mellitus without complications; Z87.891 Personal history of nicotine dependence; F32.9 Major depressive disorder, single episode, unspecified; F41.9 Anxiety disorder, unspecified; I10 Essential (primary) hypertension; G40.909 Epilepsy, unspecified, not intractable, without status epilepticus; E78.00 Pure hypercholesterolemia, unspecified; E03.9 Hypothyroidism, unspecified; Z79.82 Long term (current) use of aspirin; Z79.84 Long term (current) use of oral hypoglycemic drugs; Z88.8 Allergy status to other drugs, medicaments and biological substances; Z88.5 Allergy status to narcotic agent; E66.9 Obesity, unspecified; Z68.36 Body mass index [BMI] 36.0-36.9, adult

== ENCOUNTER → 2017-10-14 | Outpatient (CLI) | payer OTHER ==
[~2017-10-14] MED LIST changes: -ATROPINE SULFATE 0.1 MG/ML 5ML SYR IV PRN; -EpHEDrine SULFATE INJ 50 MG/ML AMP IV PRN; -LIDOCAINE HCL 2% 2 ML VIAL (20MG/ML) ONE; -MIDAZOLAM HCL 1 MG/ML 2ML VIAL ONE; -PROPOFOL IV EMULSION 10 MG/ML 20 ML VIAL ONE; -SODIUM CHLORIDE 0.9% 500ML 500 ML IV ONE
[2017-10-14 16:37] LABS: BASO % 0.2 %; BASO ABS # 0.01 K/uL (0-0.2); EOS % 1.6 %; EOS ABS # 0.09 K/uL (0-0.5); HEMOGLOBIN 12.8 g/dL (14.0-18.0); IG# 0.04 K/uL (0.00-0.02); LYMPH % 46.1 %; LYMPH ABS # 2.56 K/uL (1.2-3.4); MEAN CELL VOLUME 84.5 fL (80-100); MEAN CORPUSCULAR HEMOGLOBIN 29.2 pg (25-34); MEAN CORPUSCULAR HGB CONC 34.6 g/dl (32-36); MEAN PLATELET VOLUME 10.7 fL (7.4-10.4); MONO % 9.5 %; MONO ABS # 0.53 K/uL (0.11-0.59); NEUT % 41.9 %; NEUT ABS # 2.32 K/uL (1.4-6.5); PLATELET COUNT 205 K/uL (130-400); RED CELL DISTRIBUTION WIDTH SD 39.5 fL (36.4-46.3); WHITE BLOOD COUNT 5.55 K/uL (4.8-10.8)
[2017-10-14 17:17] LABS: ALKALINE PHOSPHATASE 58 U/L (45-117); ALT/SGPT 15 U/L (12-78); AST/SGOT 11 U/L (15-37); BLOOD UREA NITROGEN 15 mg/dl (7-18); CALCIUM 9.5 mg/dl (8.5-10.1); CARBON DIOXIDE 29 mmol/L (21-32); CHOLESTEROL 228 mg/dl (0-200); CREATININE 1.01 mg/dl (0.60-1.40); GLUCOSE 171 mg/dl (70-99); POTASSIUM 4.3 mmol/L (3.5-5.1); SODIUM 134 mmol/L (136-145); TOTAL PROTEIN 7.3 gm/dl (6.4-8.2)
[2017-10-15 06:26] LABS: HEMOGLOBIN A1C 7.7 % (4.5-5.6)
== END | disposition home or self-care (01) ==
LOC: C.LAB 15:23
PROVIDERS: ATTEND Nurse Practitioner Family
DX: E03.9 Hypothyroidism, unspecified (principal); E11.65 Type 2 diabetes mellitus with hyperglycemia; Z79.4 Long term (current) use of insulin; E78.5 Hyperlipidemia, unspecified; I10 Essential (primary) hypertension; R19.7 Diarrhea, unspecified; K62.5 Hemorrhage of anus and rectum

== ENCOUNTER 2018-04-19 23:14 | Observation (INO) ==
[2018-04-19 23:46] LABS: Hematocrit (blood only) 36.9 % (42-52); Mean Corpuscular Hgb Conc 35.2 g/dL (32-36); Mean Corpuscular Volume 84.4 fL (80-100); Mean Platelet Volume 9.4 fL (7.4-10.4); Platelet Count 200 K/uL (130-400); RDW Coefficient of Variation 13.5 % (11.5-14.5); RDW Standard Deviation 40.9 fL (36.4-46.3); Red Blood Count 4.37 M/uL (4.7-6.1); White Blood Count 5.84 K/uL (4.8-10.8)
[2018-04-20 00:03] LABS: Alanine Aminotransferase 18 U/L (12-78); Albumin Level 3.7 gm/dl (3.4-5.0); Aspartate Aminotransferase 9 U/L (15-37); BUN Creatinine Ratio 14.8 (10-20); Blood Urea Nitrogen 15 mg/dl (7-18); Calcium 9.5 mg/dl (8.5-10.1); Carbon Dioxide 33 mmol/L (21-32); Chloride 100 mmol/L (98-107); Creatinine Clr Calc Pharmacy 84.7 ml/min; Est GFR (African American) 93.7; Est GFR (Non-African American) 80.9; Glucose 220 mg/dl (70-99); Potassium 4.1 mmol/L (3.5-5.1); Sodium 139 mmol/L (136-145)
--- NOTE | 2018-04-20 00:07 | Emergency Department Note ---
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 The patient states he was doing housework when he started to feel a sharp pain across his chest. He states he had SOB and a headache. He notes he has a tingling feeling that goes down his arm and fingers. The patient states his pain is 8/10 right now. The patient states sitting makes the pain better. He notes he has had a similar episode before but this is worse. The patient states it hurts when he breathes. The patient denies vomiting, nausea, taking any medications for his heart, and having a previous heart attack. The patient states he had a stress test a few years ago but notes there were no findings. The patient notes his PCP is Dr. Loya. Home Medications Home Medications Medication Instructions Recorded Confirmed Type divalproex [Depakote ER] 1,500 mg PO HS #0 10/27/12 04/20/18 History levothyroxine 100 mcg PO QAM #0 10/27/12 04/20/18 History losartan 100 mg PO HS #0 tab 10/27/12 04/20/18 History primidone 100 mg PO HS #0 10/27/12 04/20/18 History primidone 250 mg PO QAM #0 10/27/12 04/20/18 History rosuvastatin [Crestor] 40 mg PO HS #0 tab 10/27/12 04/20/18 History bupropion HCl 150 mg PO BID #0 tab 03/31/15 04/20/18 History duloxetine 20 mg PO QAM #0 04/01/16 04/20/18 History levocetirizine 5 mg PO HS #0 04/01/16 04/20/18 History oxybutynin chloride 10 mg PO HS #0 04/01/16 04/20/18 History insulin glargine [Lantus U-100 55 unit SUBCUT QAM #0 vial 05/29/16 04/20/18 History Insulin] insulin glargine [Lantus U-100 60 unit SUBCUT HS #0 vial 05/29/16 04/20/18 History Insulin] insulin lispro [Humalog KwikPen 22 unit SUBCUT TIDM #0 05/29/16 04/20/18 History Insulin] cholecalciferol (vitamin D3) 5,000 unit PO QID #0 12/27/16 04/20/18 History [Vitamin D3] omega [id number] oil [Fish Oil] 1,000 mg PO BID #0 cap 12/27/16 04/20/18 History aspirin [Aspirin Low Dose] 81 mg PO HS #0 09/24/17 04/20/18 History carvedilol 3.125 mg PO BID #0 tab 09/24/17 04/20/18 History metoclopramide HCl [Reglan] 20 mg PO BID PRN 10/29/17 04/20/18 History omeprazole 20 mg PO DAILY 02/11/18 04/20/18 History carbidopa-levodopa 1 tab PO AC 04/20/18 04/20/18 History fluticasone [Flonase Allergy 2 spray INTRANASAL DAILY 04/20/18 04/20/18 History Relief] mirtazapine 15 mg PO HS 04/20/18 04/20/18 History ondansetron HCl [Zofran] 4 mg PO TID PRN 04/20/18 04/20/18 History propranolol 60 mg PO HS 04/20/18 04/20/18 History Allergies Allergy/AdvReac Type Severity Reaction Status Date / Time BIRGIT Inhibitors Allergy Intermediate ? Verified 04/20/18 00:35 ANGIOEDEMA amitriptyline Allergy Intermediate HIVES Verified 04/20/18 00:35 Penicillins Allergy Intermediate HIVES Verified 04/20/18 00:35 tramadol Allergy Intermediate ITCHY Verified 04/20/18 00:35 gabapentin Allergy Unknown per Verified 04/20/18 00:35 channel turner note -- UNKNOWN RX lorazepam Allergy Unknown "DON'T Verified 04/20/18 00:35 REMEMBER" codeine AdvReac Mild N&V Verified 04/20/18 00:35 Past Med/Surg History Medical History Anxiety Asbestosis Asthma Stable. No inhaler for the past year. No h/o hospitalization or intubation BPH (benign prostatic hyperplasia) Chronic obstructive pulmonary disease Depression Diabetes mellitus, type 2 IDDM - FOLLOWS WITH PCP Essential tremor Fusion of spine C4-C6. FULL ROM. (~2002) GERD (gastroesophageal reflux disease) Hyperlipidemia Hypertension Hypothyroidism Osteoarthritis Seizure LAST SEIZURE ~2009 [facility] Surgical History History of adenoidectomy History of appendectomy History of arthroscopy of left shoulder History of carpal tunnel release History of cholecystectomy History of colonoscopy History of tonsillectomy Status post right foot surgery TENDON REPLACEMENTS Family History Mother Family history of diabetes mellitus Social History Current Living Situation: Spouse current occupational status: employed Feels Safe at Home: Yes Safety Concerns: Feels Safe At This Time Smoking Status: Never smoker Do You Dip or Chew Tobacco: No Second Hand Exposure: No Tobacco Cessation Education Requested by Patient: No Hx Alcohol Use: No Hx Substance Use: No Beliefs That Will Affect Care: None Preferred Language: [place]er Communication Ability: Effective Media Operator Required: No Review of Systems See HPI for pertinent positives & negatives. and A total of 10 systems reviewed and were otherwise negative Physical Exam Vital Signs Vital Signs - 24 hr 04/19/18 23:22 04/19/18 23:44 04/20/18 00:48 Temperature 36.4 C L Temperature Source Oral Sepsis Recent Fever Within 48 Hours No Sepsis New/Unexplained Change in Mental Status No Sepsis Action Taken by Nursing No Action Required Pulse Rate 66 Pulse Rate [Right] 63 Pulse Rhythm Regular Pulse Rhythm [Right] Regular Pulse Strength Normal Pulse Strength [Right] Normal Respiratory Rate 22 16 Respiratory Effort / Characteristics Non-Labored Spontaneous Non-Labored Respiratory Depth Normal Normal Respiratory Pattern Regular Blood Pressure 182/80 H Blood Pressure [Left Arm] Blood Pressure [Right Arm] 170/79 H Blood Pressure Mean 114 Blood Pressure Mean [Left Arm] Blood Pressure Mean [Right Arm] 109 Blood Pressure Position Sitting Blood Pressure Position [Left Arm] Blood Pressure Position [Right Arm] Pulse Oximetry 95 98 96 Oxygen Delivery Method Room Air Room Air Room Air 04/20/18 02:18 04/20/18 03:20 04/20/18 04:19 Temperature Temperature Source Sepsis Recent Fever Within 48 Hours Sepsis New/Unexplained Change in Mental Status Sepsis Action Taken by Nursing Pulse Rate Pulse Rate [Right] 79 83 62 Pulse Rhythm Pulse Rhythm [Right] Regular Pulse Strength Pulse Strength [Right] Normal Respiratory Rate 16 14 18 Respiratory Effort / Characteristics Non-Labored Spontaneous Non-Labored Non-Labored Respiratory Depth Normal Normal Normal Respiratory Pattern Blood Pressure Blood Pressure [Left Arm] Blood Pressure [Right Arm] 185/71 H 140/71 120/75 Blood Pressure Mean Blood Pressure Mean [Left Arm] Blood Pressure Mean [Right Arm] 109 94 90 Blood Pressure Position Blood Pressure Position [Left Arm] Blood Pressure Position [Right Arm] Lying Sitting Sitting Pulse Oximetry 96 94 96 Oxygen Delivery Method Room Air Room Air Room Air 04/20/18 05:00 04/20/18 05:56 04/20/18 06:00 Temperature 36.6 C Temperature Source Oral Sepsis Recent Fever Within 48 Hours Sepsis New/Unexplained Change in Mental Status Sepsis Action Taken by Nursing Pulse Rate 61 Pulse Rate [Right] 62 62 Pulse Rhythm Pulse Rhythm [Right] Regular Pulse Strength Pulse Strength [Right] Normal Respiratory Rate 19 18 18 Respiratory Effort / Characteristics Non-Labored Spontaneous Respiratory Depth Normal Respiratory Pattern Regular Blood Pressure 138/76 Blood Pressure [Left Arm] Blood Pressure [Right Arm] 123/71 166/98 H Blood Pressure Mean Blood Pressure Mean [Left Arm] Blood Pressure Mean [Right Arm] 88 120 Blood Pressure Position Blood Pressure Position [Left Arm] Blood Pressure Position [Right Arm] Lying Pulse Oximetry 96 96 96 Oxygen Delivery Method Room Air Room Air Room Air 04/20/18 06:45 04/20/18 07:00 04/20/18 07:01 Temperature Temperature Source Sepsis Recent Fever Within 48 Hours Sepsis New/Unexplained Change in Mental Status Sepsis Action Taken by Nursing Pulse Rate 63 81 71 Pulse Rate [Right] Pulse Rhythm Pulse Rhythm [Right] Pulse Strength Pulse Strength [Right] Respiratory Rate 12 12 17 Respiratory Effort / Characteristics Respiratory Depth Respiratory Pattern Blood Pressure 165/86 H Blood Pressure [Left Arm] Blood Pressure [Right Arm] Blood Pressure Mean 112 Blood Pressure Mean [Left Arm] Blood Pressure Mean [Right Arm] Blood Pressure Position Blood Pressure Position [Left Arm] Blood Pressure Position [Right Arm] Pulse Oximetry Oxygen Delivery Method 04/20/18 07:30 04/20/18 08:00 04/20/18 08:01 Temperature Temperature Source Sepsis Recent Fever Within 48 Hours Sepsis New/Unexplained Change in Mental Status Sepsis Action Taken by Nursing Pulse Rate 66 66 63 Pulse Rate [Right] Pulse Rhythm Pulse Rhythm [Right] Pulse Strength Pulse Strength [Right] Respiratory Rate 12 10 L 13 Respiratory Effort / Characteristics Respiratory Depth Respiratory Pattern Blood Pressure 142/71 H Blood Pressure [Left Arm] Blood Pressure [Right Arm] Blood Pressure Mean 94 Blood Pressure Mean [Left Arm] Blood Pressure Mean [Right Arm] Blood Pressure Position Blood Pressure Position [Left Arm] Blood Pressure Position [Right Arm] Pulse Oximetry Oxygen Delivery Method 04/20/18 08:30 04/20/18 09:00 04/20/18 09:01 Temperature Temperature Source Sepsis Recent Fever Within 48 Hours Sepsis New/Unexplained Change in Mental Status Sepsis Action Taken by Nursing Pulse Rate 78 61 65 Pulse Rate [Right] Pulse Rhythm Pulse Rhythm [Right] Pulse Strength Pulse Strength [Right] Respiratory Rate 15 8 L 9 L Respiratory Effort / Characteristics Respiratory Depth Respiratory Pattern Blood Pressure 145/94 H Blood Pressure [Left Arm] Blood Pressure [Right Arm] Blood Pressure Mean 111 Blood Pressure Mean [Left Arm] Blood Pressure Mean [Right Arm] Blood Pressure Position Blood Pressure Position [Left Arm] Blood Pressure Position [Right Arm] Pulse Oximetry Oxygen Delivery Method 04/20/18 09:30 04/20/18 12:57 04/20/18 13:00 Temperature Temperature Source Sepsis Recent Fever Within 48 Hours Sepsis New/Unexplained Change in Mental Status Sepsis Action Taken by Nursing Pulse Rate 72 68 66 Pulse Rate [Right] Pulse Rhythm Pulse Rhythm [Right] Pulse Strength Pulse Strength [Right] Respiratory Rate 16 14 12 Respiratory Effort / Characteristics Respiratory Depth Respiratory Pattern Blood Pressure Blood Pressure [Left Arm] Blood Pressure [Right Arm] Blood Pressure Mean Blood Pressure Mean [Left Arm] Blood Pressure Mean [Right Arm] Blood Pressure Position Blood Pressure Position [Left Arm] Blood Pressure Position [Right Arm] Pulse Oximetry Oxygen Delivery Method 04/20/18 13:30 04/20/18 13:37 04/20/18 14:00 Temperature Temperature Source Sepsis Recent Fever Within 48 Hours Sepsis New/Unexplained Change in Mental Status Sepsis Action Taken by Nursing Pulse Rate 68 63 85 Pulse Rate [Right] Pulse Rhythm Pulse Rhythm [Right] Pulse Strength Pulse Strength [Right] Respiratory Rate 9 L 13 15 Respiratory Effort / Characteristics Respiratory Depth Respiratory Pattern Blood Pressure 157/86 H Blood Pressure [Left Arm] Blood Pressure [Right Arm] Blood Pressure Mean 109 Blood Pressure Mean [Left Arm] Blood Pressure Mean [Right Arm] Blood Pressure Position Blood Pressure Position [Left Arm] Blood Pressure Position [Right Arm] Pulse Oximetry Oxygen Delivery Method 04/20/18 14:30 04/20/18 15:00 04/20/18 15:30 Temperature Temperature Source Sepsis Recent Fever Within 48 Hours Sepsis New/Unexplained Change in Mental Status Sepsis Action Taken by Nursing Pulse Rate 68 75 70 Pulse Rate [Right] Pulse Rhythm Pulse Rhythm [Right] Pulse Strength Pulse Strength [Right] Respiratory Rate 27 H 19 12 Respiratory Effort / Characteristics Respiratory Depth Respiratory Pattern Blood Pressure Blood Pressure [Left Arm] Blood Pressure [Right Arm] Blood Pressure Mean Blood Pressure Mean [Left Arm] Blood Pressure Mean [Right Arm] Blood Pressure Position Blood Pressure Position [Left Arm] Blood Pressure Position [Right Arm] Pulse Oximetry Oxygen Delivery Method 04/20/18 16:00 04/20/18 16:30 04/20/18 17:00 Temperature Temperature Source Sepsis Recent Fever Within 48 Hours Sepsis New/Unexplained Change in Mental Status Sepsis Action Taken by Nursing Pulse Rate 73 69 85 Pulse Rate [Right] Pulse Rhythm Pulse Rhythm [Right] Pulse Strength Pulse Strength [Right] Respiratory Rate 14 14 12 Respiratory Effort / Characteristics Respiratory Depth Respiratory Pattern Blood Pressure Blood Pressure [Left Arm] Blood Pressure [Right Arm] Blood Pressure Mean Blood Pressure Mean [Left Arm] Blood Pressure Mean [Right Arm] Blood Pressure Position Blood Pressure Position [Left Arm] Blood Pressure Position [Right Arm] Pulse Oximetry Oxygen Delivery Method 04/20/18 17:30 04/20/18 17:59 Temperature 36.6 C Temperature Source Oral Sepsis Recent Fever Within 48 Hours Sepsis New/Unexplained Change in Mental Status Sepsis Action Taken by Nursing Pulse Rate 77 Pulse Rate [Right] 77 Pulse Rhythm Pulse Rhythm [Right] Pulse Strength Pulse Strength [Right] Respiratory Rate 14 18 Respiratory Effort / Characteristics Respiratory Depth Respiratory Pattern Blood Pressure Blood Pressure [Left Arm] 174/99 H Blood Pressure [Right Arm] 170/78 H Blood Pressure Mean Blood Pressure Mean [Left Arm] 124 Blood Pressure Mean [Right Arm] 108 Blood Pressure Position Blood Pressure Position [Left Arm] Sitting Blood Pressure Position [Right Arm] Sitting Pulse Oximetry 96 Oxygen Delivery Method Room Air GENERAL: Patient is awake and alert. He is somewhat anxious appearing and appears to be uncomfortable. EYES: The conjunctivae are clear. The pupils are round and reactive. EARS, NOSE, MOUTH AND THROAT: The nose is without any evidence of any deformity. Mucous membranes are moist tongue is midline NECK: The neck is nontender and supple. RESPIRATORY: Normal respiratory effort is noted there is no evidence of wheezing rhonchi or rales CARDIOVASCULAR: Regular rate and rhythm noted there no murmurs rubs or gallops normal S1 normal S2 GASTROINTESTINAL: The abdomen is soft. Bowel sounds are present in all quadrants. Abdomen is nontender MUSCULOSKELETAL/EXTREMITIES: There is no evidence of gross deformity full range of motion is noted in the hips and shoulders SKIN: There is no obvious evidence of any rash. There are no petechiae, pallor or cyanosis noted. NEUROLOGIC: Patient is awake alert and oriented x3. Course 2327: Past medical records reviewed. The patient was evaluated in room B3B, and a complete history and physical examination were performed. 0155: I reevaluated the patient. He states he does not feel better. His heart score is 4. 0215: I spoke with [facility] team and they will evaluate the patient. Administered Medications Bupropion HCl (Wellbutrin-Xl) 150 mg PO BID [facility]SI Stop: 05/20/18 08:59 Last Admin: 04/20/18 09:09 Dose: 150 mg Carbidopa/Levodopa (Sinemet 25/100 Mg) 1 tab PO AC [facility]SI Stop: 05/20/18 07:29 Last Admin: 04/20/18 16:37 Dose: 1 tab Admin: 04/20/18 13:00 Dose: 1 tab Admin: 04/20/18 09:09 Dose: 1 tab Carvedilol (Coreg) 3.125 mg PO BID [facility]SI Stop: 05/20/18 08:59 Last Admin: 04/20/18 09:11 Dose: 3.125 mg Duloxetine HCl (Cymbalta) 20 mg PO QAM [facility] Stop: 05/20/18 08:59 Last Admin: 04/20/18 09:09 Dose: 20 mg Heparin Sodium (Porcine) (Heparin Sodium (Porcine)) 5,000 units SQ Q8 [facility] Stop: 05/20/18 06:23 Last Admin: 04/20/18 16:37 Dose: 5,000 units Admin: 04/20/18 09:09 Dose: 5,000 units Insulin Aspart (Novolog Flexpen) 0 units SC Q6 [facility] Stop: 05/20/18 06:23 Last Admin: 04/20/18 16:38 Dose: 12 units Admin: 04/20/18 13:00 Dose: 2 units Admin: 04/20/18 09:10 Dose: 3 units Insulin Glargine (Lantus Solostar Pen) 0 units SC BID [facility]; Protocol Stop: 05/20/18 09:59 Last Admin: 04/20/18 13:01 Dose: 45 units Levothyroxine Sodium (Synthroid) 100 mcg PO DAILYBB [facility] Stop: 05/20/18 07:44 Last Admin: 04/20/18 09:09 Dose: 100 mcg Miscellaneous (Order Awaiting Action) 1 ea N/A QS [facility] Stop: 05/20/18 07:59 Last Admin: 04/20/18 15:14 Dose: Not Given Admin: 04/20/18 09:11 Dose: Not Given Morphine Sulfate (Morphine Sulfate) 2 mg IV Q30M PRN PRN Reason: Chest Pain Stop: 05/04/18 06:23 Last Admin: 04/20/18 06:46 Dose: 2 mg Pantoprazole Sodium (Protonix) 40 mg PO DAILY [facility] Stop: 05/20/18 08:59 Last Admin: 04/20/18 09:09 Dose: 40 mg Primidone (Primidone) 250 mg PO QAM [facility] Stop: 05/20/18 08:59 Last Admin: 04/20/18 09:09 Dose: 250 mg Discontinued Medications Al Hydrox/Mg Hydrox/Simethicone (Maalox) 30 ml PO NOW STA Stop: 04/20/18 01:55 Last Admin: 04/20/18 02:05 Dose: 30 ml Aspirin (Aspirin) 324 mg PO NOW STA Stop: 04/20/18 01:55 Last Admin: 04/20/18 02:05 Dose: 324 mg Sodium Chloride (Nss) 500 mls @ 80 mls/hr IV .Q6H15M [facility] Stop: 05/20/18 06:23 Last Infusion: 04/20/18 11:06 Dose: 0 mls/hr Admin: 04/20/18 09:10 Dose: 80 mls/hr Sodium Chloride (Nss) 500 mls @ 80 mls/hr IV .Q6H15M [facility] Stop: 05/20/18 06:23 Last Admin: 04/20/18 09:11 Dose: Not Given Sodium Chloride (Nss 1000ml) 1,000 mls @ 80 mls/hr IV .[id number] [facility] Stop: 05/20/18 06:23 Last Infusion: 04/20/18 17:15 Dose: 0 mls/hr Admin: 04/20/18 13:00 Dose: 80 mls/hr Morphine Sulfate (Morphine Sulfate) 2 mg IV NOW STA Stop: 04/20/18 06:25 Last Admin: 04/20/18 07:00 Dose: Not Given Morphine Sulfate (Morphine Sulfate) Confirm Administered Dose 4 mg .ROUTE .STK- MED ONE Stop: 04/20/18 06:46 Last Admin: 04/20/18 09:07 Dose: Not Given Nitroglycerin (Nitrostat) 0.4 mg SL NOW STA Stop: 04/20/18 01:55 Last Admin: 04/20/18 02:05 Dose: 0.4 mg Regadenoson (Lexiscan) Confirm Administered Dose 0.4 mg IV .STK-MED ONE Stop: 04/20/18 10:02 Last Admin: 04/20/18 13:00 Dose: Not Given Medical Decision Making Differential Diagnosis Differential diagnosis: Etiologies such as shingles, musculoskeletal pain, pericarditis, myocarditis, cardiac ischemia, pericardial tamponade, pneumonia, pneumothorax, pleural effusion, hemothorax, pleurisy, aortic pathology, pulmonary embolism, intra- abdominal process, as well as others were considered. Medical Records Attestation: I reviewed the patient's medical records. Home Medications Current Medication List: was personally reviewed by me Laboratory Data Attestation: I reviewed the patient's lab results. Result diagrams: 04/19/18 23:35 04/19/18 23:35 Lab Results 04/19/18 04/19/18 04/19/18 Range/Units 23:35 23:35 23:35 WBC 5.84 (4.8-10.8) K/uL RBC 4.37 L (4.7-6.1) M/uL Hgb 13.0 L (14.0-18.0) g/dL Hct 36.9 L (42-52) % MCV 84.4 (80-100) fL MCH 29.7 (25-34) pg MCHC 35.2 (32-36) g/dL RDW Std Deviation 40.9 (36.4-46.3) fL RDW Coeff of Cynthia 13.5 (11.5-14.5) % Plt Count 200 (130-400) K/uL MPV 9.4 (7.4-10.4) fL Neutrophils % (Manual) 44.0 % Lymphocytes % (Manual) 37.0 % Reactive Lymphs % (Man) 15.0 % Monocytes % (Manual) 4.0 % Neutrophils # (Manual) 2.57 (1.4-6.5) K/uL Total Absolute Neuts 2.57 (1.4-6.5) K/uL Lymphocytes # (Manual) 2.16 (1.2-3.4) K/uL Reactive Lymphs # 0.88 K/uL Total Abs Lymphocytes 3.04 (1.2-3.4) K/uL Monocytes # (Manual) 0.23 (0.11-0.59) K/uL RBC Morphology Unremarkable PT Cancelled INR Cancelled APTT Cancelled PTT Ratio Cancelled D-Dimer Cancelled Sodium 139 (136-145) mmol/L Potassium 4.1 (3.5-5.1) mmol/L Chloride 100 (98-107) mmol/L Carbon Dioxide 33 H (21-32) mmol/L Anion Gap 6.0 (3-11) BUN 15 (7-18) mg/dl Creatinine 1.00 (0.6-1.4) mg/dl Est Cr Clr Drug Dosing 84.7 ml/min Est GFR ( Amer) 93.7 Est GFR (Non-Af Amer) 80.9 BUN/Creatinine Ratio 14.8 (10-20) Glucose 220 H (70-99) mg/dl POC Glucose (70-99) Calcium 9.5 (8.5-10.1) mg/dl Total Bilirubin 0.2 (0.2-1) mg/dl AST 9 L (15-37) U/L ALT 18 (12-78) U/L Alkaline Phosphatase 94 (45-117) U/L Troponin I < 0.015 (0-0.045) ng/ml Total Protein 6.9 (6.4-8.2) gm/dl Albumin 3.7 (3.4-5.0) gm/dl Globulin 3.2 (2.5-4.0) gm/dl Albumin/Globulin Ratio 1.2 (0.9-2) Lipase 202 (73-393) U/L Urine Color Urine Appearance (Clear) Urine pH (4.5-7.5) Ur Specific [place] (1.000-1.030) Urine Protein (Negative) Urine Glucose (UA) (Negative) Urine Ketones (Negative) Urine Blood (Negative) Urine Nitrite (Negative) Urine Bilirubin (Negative) Urine Urobilinogen (Negative) Ur Leukocyte Esterase (Negative) Urine WBC (Auto) (0-5) /hpf Urine RBC (Auto) (0-4) /hpf U Hyaline Cast (Auto) (0-5) /lpf U Epithel Cells (Auto) (0-5) /lpf Urine Bacteria (Auto) (Negative) Nasal Screen MRSA (PCR) (Negative) Valproic Acid (50-100) mcg/ml 04/19/18 04/20/18 04/20/18 Range/Units 23:35 00:14 03:40 WBC (4.8-10.8) K/uL RBC (4.7-6.1) M/uL Hgb (14.0-18.0) g/dL Hct (42-52) % MCV (80-100) fL MCH (25-34) pg MCHC (32-36) g/dL RDW Std Deviation (36.4-46.3) fL RDW Coeff of Cynthia (11.5-14.5) % Plt Count (130-400) K/uL MPV (7.4-10.4) fL Neutrophils % (Manual) % Lymphocytes % (Manual) % Reactive Lymphs % (Man) % Monocytes % (Manual) % Neutrophils # (Manual) (1.4-6.5) K/uL Total Absolute Neuts (1.4-6.5) K/uL Lymphocytes # (Manual) (1.2-3.4) K/uL Reactive Lymphs # K/uL Total Abs Lymphocytes (1.2-3.4) K/uL Monocytes # (Manual) (0.11-0.59) K/uL RBC Morphology PT 10.3 INR 1.0 APTT 23.1 PTT Ratio 0.9 D-Dimer 220 Sodium (136-145) mmol/L Potassium (3.5-5.1) mmol/L Chloride (98-107) mmol/L Carbon Dioxide (21-32) mmol/L Anion Gap (3-11) BUN (7-18) mg/dl Creatinine (0.6-1.4) mg/dl Est Cr Clr Drug Dosing ml/min Est GFR ( Amer) Est GFR (Non-Af Amer) BUN/Creatinine Ratio (10-20) Glucose (70-99) mg/dl POC Glucose (70-99) Calcium (8.5-10.1) mg/dl Total Bilirubin (0.2-1) mg/dl AST (15-37) U/L ALT (12-78) U/L Alkaline Phosphatase (45-117) U/L Troponin I (0-0.045) ng/ml Total Protein (6.4-8.2) gm/dl Albumin (3.4-5.0) gm/dl Globulin (2.5-4.0) gm/dl Albumin/Globulin Ratio (0.9-2) Lipase (73-393) U/L Urine Color Yellow Urine Appearance Cloudy H (Clear) Urine pH 8.5 H (4.5-7.5) Ur Specific [place] 1.018 (1.000-1.030) Urine Protein Negative (Negative) Urine Glucose (UA) Trace H (Negative) Urine Ketones Trace H (Negative) Urine Blood Negative (Negative) Urine Nitrite Negative (Negative) Urine Bilirubin Negative (Negative) Urine Urobilinogen Negative (Negative) Ur Leukocyte Esterase Negative (Negative) Urine WBC (Auto) 1-5 (0-5) /hpf Urine RBC (Auto) 0-4 (0-4) /hpf U Hyaline Cast (Auto) 0 (0-5) /lpf U Epithel Cells (Auto) 0-5 (0-5) /lpf Urine Bacteria (Auto) Negative (Negative) Nasal Screen MRSA (PCR) (Negative) Valproic Acid 80 (50-100) mcg/ml 04/20/18 04/20/18 04/20/18 Range/Units 06:30 06:56 08:48 WBC (4.8-10.8) K/uL RBC (4.7-6.1) M/uL Hgb (14.0-18.0) g/dL Hct (42-52) % MCV (80-100) fL MCH (25-34) pg MCHC (32-36) g/dL RDW Std Deviation (36.4-46.3) fL RDW Coeff of Cynthia (11.5-14.5) % Plt Count (130-400) K/uL MPV (7.4-10.4) fL Neutrophils % (Manual) % Lymphocytes % (Manual) % Reactive Lymphs % (Man) % Monocytes % (Manual) % Neutrophils # (Manual) (1.4-6.5) K/uL Total Absolute Neuts (1.4-6.5) K/uL Lymphocytes # (Manual) (1.2-3.4) K/uL Reactive Lymphs # K/uL Total Abs Lymphocytes (1.2-3.4) K/uL Monocytes # (Manual) (0.11-0.59) K/uL RBC Morphology PT INR APTT PTT Ratio D-Dimer Sodium (136-145) mmol/L Potassium (3.5-5.1) mmol/L Chloride (98-107) mmol/L Carbon Dioxide (21-32) mmol/L Anion Gap (3-11) BUN (7-18) mg/dl Creatinine (0.6-1.4) mg/dl Est Cr Clr Drug Dosing ml/min Est GFR ( Amer) Est GFR (Non-Af Amer) BUN/Creatinine Ratio (10-20) Glucose (70-99) mg/dl POC Glucose 250 H (70-99) Calcium (8.5-10.1) mg/dl Total Bilirubin (0.2-1) mg/dl AST (15-37) U/L ALT (12-78) U/L Alkaline Phosphatase (45-117) U/L Troponin I < 0.015 (0-0.045) ng/ml Total Protein (6.4-8.2) gm/dl Albumin (3.4-5.0) gm/dl Globulin (2.5-4.0) gm/dl Albumin/Globulin Ratio (0.9-2) Lipase (73-393) U/L Urine Color Urine Appearance (Clear) Urine pH (4.5-7.5) Ur Specific [place] (1.000-1.030) Urine Protein (Negative) Urine Glucose (UA) (Negative) Urine Ketones (Negative) Urine Blood (Negative) Urine Nitrite (Negative) Urine Bilirubin (Negative) Urine Urobilinogen (Negative) Ur Leukocyte Esterase (Negative) Urine WBC (Auto) (0-5) /hpf Urine RBC (Auto) (0-4) /hpf U Hyaline Cast (Auto) (0-5) /lpf U Epithel Cells (Auto) (0-5) /lpf Urine Bacteria (Auto) (Negative) Nasal Screen MRSA (PCR) Negative (Negative) Valproic Acid (50-100) mcg/ml 04/20/18 04/20/18 04/20/18 Range/Units 12:20 12:59 16:33 WBC (4.8-10.8) K/uL RBC (4.7-6.1) M/uL Hgb (14.0-18.0) g/dL Hct (42-52) % MCV (80-100) fL MCH (25-34) pg MCHC (32-36) g/dL RDW Std Deviation (36.4-46.3) fL RDW Coeff of Cynthia (11.5-14.5) % Plt Count (130-400) K/uL MPV (7.4-10.4) fL Neutrophils % (Manual) % Lymphocytes % (Manual) % Reactive Lymphs % (Man) % Monocytes % (Manual) % Neutrophils # (Manual) (1.4-6.5) K/uL Total Absolute Neuts (1.4-6.5) K/uL Lymphocytes # (Manual) (1.2-3.4) K/uL Reactive Lymphs # K/uL Total Abs Lymphocytes (1.2-3.4) K/uL Monocytes # (Manual) (0.11-0.59) K/uL RBC Morphology PT INR APTT PTT Ratio D-Dimer Sodium (136-145) mmol/L Potassium (3.5-5.1) mmol/L Chloride (98-107) mmol/L Carbon Dioxide (21-32) mmol/L Anion Gap (3-11) BUN (7-18) mg/dl Creatinine (0.6-1.4) mg/dl Est Cr Clr Drug Dosing ml/min Est GFR ( Amer) Est GFR (Non-Af Amer) BUN/Creatinine Ratio (10-20) Glucose (70-99) mg/dl POC Glucose 199 H 230 H (70-99) Calcium (8.5-10.1) mg/dl Total Bilirubin (0.2-1) mg/dl AST (15-37) U/L ALT (12-78) U/L Alkaline Phosphatase (45-117) U/L Troponin I < 0.015 (0-0.045) ng/ml Total Protein (6.4-8.2) gm/dl Albumin (3.4-5.0) gm/dl Globulin (2.5-4.0) gm/dl Albumin/Globulin Ratio (0.9-2) Lipase (73-393) U/L Urine Color Urine Appearance (Clear) Urine pH (4.5-7.5) Ur Specific [place] (1.000-1.030) Urine Protein (Negative) Urine Glucose (UA) (Negative) Urine Ketones (Negative) Urine Blood (Negative) Urine Nitrite (Negative) Urine Bilirubin (Negative) Urine Urobilinogen (Negative) Ur Leukocyte Esterase (Negative) Urine WBC (Auto) (0-5) /hpf Urine RBC (Auto) (0-4) /hpf U Hyaline Cast (Auto) (0-5) /lpf U Epithel Cells (Auto) (0-5) /lpf Urine Bacteria (Auto) (Negative) Nasal Screen MRSA (PCR) (Negative) Valproic Acid (50-100) mcg/ml 04/20/18 Range/Units 20:05 WBC (4.8-10.8) K/uL RBC (4.7-6.1) M/uL Hgb (14.0-18.0) g/dL Hct (42-52) % MCV (80-100) fL MCH (25-34) pg MCHC (32-36) g/dL RDW Std Deviation (36.4-46.3) fL RDW Coeff of [place] (11.5-14.5) % Plt Count (130-400) K/uL MPV (7.4-10.4) fL Neutrophils % (Manual) % Lymphocytes % (Manual) % Reactive Lymphs % (Man) % Monocytes % (Manual) % Neutrophils # (Manual) (1.4-6.5) K/uL Total Absolute Neuts (1.4-6.5) K/uL Lymphocytes # (Manual) (1.2-3.4) K/uL Reactive Lymphs # K/uL Total Abs Lymphocytes (1.2-3.4) K/uL Monocytes # (Manual) (0.11-0.59) K/uL RBC Morphology PT INR APTT PTT Ratio D-Dimer Sodium (136-145) mmol/L Potassium (3.5-5.1) mmol/L Chloride (98-107) mmol/L Carbon Dioxide (21-32) mmol/L Anion Gap (3-11) BUN (7-18) mg/dl Creatinine (0.6-1.4) mg/dl Est Cr Clr Drug Dosing ml/min Est GFR ( Amer) Est GFR (Non-Af Amer) BUN/Creatinine Ratio (10-20) Glucose (70-99) mg/dl POC Glucose 193 H (70-99) Calcium (8.5-10.1) mg/dl Total Bilirubin (0.2-1) mg/dl AST (15-37) U/L ALT (12-78) U/L Alkaline Phosphatase (45-117) U/L Troponin I (0-0.045) ng/ml Total Protein (6.4-8.2) gm/dl Albumin (3.4-5.0) gm/dl Globulin (2.5-4.0) gm/dl Albumin/Globulin Ratio (0.9-2) Lipase (73-393) U/L Urine Color Urine Appearance (Clear) Urine pH (4.5-7.5) Ur Specific [place] (1.000-1.030) Urine Protein (Negative) Urine Glucose (UA) (Negative) Urine Ketones (Negative) Urine Blood (Negative) Urine Nitrite (Negative) Urine Bilirubin (Negative) Urine Urobilinogen (Negative) Ur Leukocyte Esterase (Negative) Urine WBC (Auto) (0-5) /hpf Urine RBC (Auto) (0-4) /hpf U Hyaline Cast (Auto) (0-5) /lpf U Epithel Cells (Auto) (0-5) /lpf Urine Bacteria (Auto) (Negative) Nasal Screen MRSA (PCR) (Negative) Valproic Acid (50-100) mcg/ml Imaging Data Radiologist's Impression: Chest X-Ray: Heart size is normal. No free air. No definite infiltrate. No acute disease. ECG Data Attestation: I personally reviewed and interpreted this ECG as follows: Indication: chest pain Rate (beats per minute): 72 Rhythm: sinus rhythm Findings: no ST depression, no ST elevation and no ectopy MDM Narrative The patient is a 62-year-old male who presented to the emergency department for an evaluation of chest pain. Patient was treated with medication for pain in the emergency department. I discussed the patient's laboratory and radiographic studies with him. I also discussed the limitations of the emergency department workup for chest pain with him. Given the patient's past medical history and comorbidities I discussed his case with the on-call [facility] hospitalist. They have agreed to evaluate the patient in the emergency department for further management and disposition. Impression & Plan Chest pain Discharge Plan Visit Data *Final* Discharge Date/Time: 04/20/18 05:56 Chief Complaint: Cardiac Assessment Stated Complaint: BREATHING TROUBLE, HEART/ARM/HEAD PAIN ED Provider: Jose Perry Discharge Problem: Chest pain Patient Disposition: Admitted As Inpatient Discharge Instructions Interventions: ED Discharge Assessment Last Done: 04/20/18 05:56 The scribe's documentation has been prepared under my direction and personally reviewed by me in its entirety. I confirm that the note above accurately reflects all work, treatment, procedures, and medical decision making performed by me.
[2018-04-20 00:10] LABS: Albumin Globulin Ratio 1.2 (0.9-2); Alkaline Phosphatase 94 U/L (45-117); Bilirubin,Total 0.2 mg/dl (0.2-1); Globulin 3.2 gm/dl (2.5-4.0); Total Protein 6.9 gm/dl (6.4-8.2); Troponin I < 0.015 ng/ml (0-0.045)
[2018-04-20 00:20] LABS: ALC (manual) 3.04 K/uL (1.2-3.4); Lymphocytes # (manual) 2.16 K/uL (1.2-3.4); Monocytes # (manual) 0.23 K/uL (0.11-0.59); RBC Morphology Unremarkable; Reactive Lymphocytes # (manual) 0.88 K/uL
[2018-04-20 00:34] LABS: D Dimer 220 ug/L FEU (0-500); Partial Thromboplastin Ratio 0.9; Partial Thromboplastin Time 23.1 Seconds (21.0-31.0); Prothrombin Time 10.3 Seconds (9.0-12.0)
[2018-04-20] MEDS ORDERED: NITROGLYCERIN SL 0.4 MG/TAB TAB SL STA (01:54)
[2018-04-20] MEDS ORDERED: ALUMINUM/MAGNESIUM SUSP 30 ML UDC PO STA (01:54)
[2018-04-20] MEDS ORDERED: ASPIRIN CHEW 324 MG PO STA (01:54)
[2018-04-20 03:51] LABS: Appearance Urine Cloudy (Clear); Bacteria Urine Automated Negative (Negative); Bilirubin Urine Negative (Negative); Blood Urine Negative (Negative); Cast Urine Automated 0 /lpf (0-5); Color Urine Yellow; Epithelial Cell Urine Auto 0-5 /lpf (0-5); Glucose Urine UA Trace (Negative); Ketones Urine Trace (Negative); Leukocyte Esterase Urine Negative (Negative); Nitrite Urine Negative (Negative); Protein Urine Negative (Negative); RBC Urine Automated 0-4 /hpf (0-4); Specific Gravity Urine 1.018 (1.000-1.030); Urobilinogen Urine Negative (Negative); pH Urine 8.5 (4.5-7.5)
--- NOTE | 2018-04-20 04:28 | History & Physical Report ---
Date of Service April 20, 2018 Assessment & Plan (1) Chest pain in adult: 61 y/o M Hx HTN, HLD, DM II, obese, hypothyroidism, seizures, Parkinson's , GERD. Presents with central CP radiating into L arm, accompanied by SOB and diaphoresis. The pain lasted for several minutes. He states that he has had this pain prior but that this time was more severe. She denies a history of NM or CAD. He last had a stress test over 5 years ago. 1) CP - Initial EKG and trop do not support ACS, however, pt has multiple risk factors and will be admitted for AM stress. We will trend enzymes and monitor him on telemetry. Cont ASA, Carvedilol, Crestor. 2) DM - Placed on a SS 3) HTN - Cont Losartan, Coreg, 4) Hypothyroidism - cont Synthroid 5) Seizures - cont Depakote 6) Parkinson's - cont Sinemet Full code - Heparin prophylaxis Total time for this admit including review of labs, meds, imaging, EKG - discussion with pt and ER atteding 37 in Full code - Heparin prophylaxis Total time for this consult including review of labs, meds, imaging, records - discussion with pt and ER attending - 35 min History of Present Illness Chief Complaint: chest pain Primary Care Provider: Farhad Loya, DO 61 y/o M Hx HTN, HLD, DM II, obese, hypothyroidism, seizures, Parkinson's, GERD. Presents with central CP radiating into L arm, accompanied by SOB and diaphoresis. The pain lasted for several minutes. He states that he has had this pain prior but that this time was more severe. She denies a history of NM or CAD. He last had a stress test over 5 years ago. 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 Verified 04/20/18 00:35 ANGIOEDEMA amitriptyline Allergy Intermediate HIVES Verified 04/20/18 00:35 Penicillins Allergy Intermediate HIVES Verified 04/20/18 00:35 tramadol Allergy Intermediate ITCHY Verified 04/20/18 00:35 gabapentin Allergy Unknown per Verified 04/20/18 00:35 product strategy director note -- UNKNOWN RX lorazepam Allergy Unknown "DON'T Verified 04/20/18 00:35 REMEMBER" codeine AdvReac Mild N&V Verified 04/20/18 00:35 Home Medications Home Medications Medication Instructions Recorded Confirmed Type divalproex [Depakote ER] 1,500 mg PO HS #0 10/27/12 04/20/18 History levothyroxine 100 mcg PO QAM #0 10/27/12 04/20/18 History losartan 100 mg PO HS #0 tab 10/27/12 04/20/18 History primidone 100 mg PO HS #0 10/27/12 04/20/18 History primidone 250 mg PO QAM #0 10/27/12 04/20/18 History rosuvastatin [Crestor] 40 mg PO HS #0 tab 10/27/12 04/20/18 History bupropion HCl 150 mg PO BID #0 tab 03/31/15 04/20/18 History duloxetine 20 mg PO QAM #0 04/01/16 04/20/18 History levocetirizine 5 mg PO HS #0 04/01/16 04/20/18 History oxybutynin chloride 10 mg PO HS #0 04/01/16 04/20/18 History insulin glargine [Lantus U-100 55 unit SUBCUT QAM #0 vial 05/29/16 04/20/18 History Insulin] insulin glargine [Lantus U-100 60 unit SUBCUT HS #0 vial 05/29/16 04/20/18 History Insulin] insulin lispro [Humalog KwikPen 22 unit SUBCUT TIDM #0 05/29/16 04/20/18 History Insulin] cholecalciferol (vitamin D3) 5,000 unit PO QID #0 12/27/16 04/20/18 History [Vitamin D3] omega [id number]-fish oil [Fish Oil] 1,000 mg PO BID #0 cap 12/27/16 04/20/18 History aspirin [Aspirin Low Dose] 81 mg PO HS #0 09/24/17 04/20/18 History carvedilol 3.125 mg PO BID #0 tab 09/24/17 04/20/18 History metoclopramide HCl [Reglan] 20 mg PO BID PRN 10/29/17 04/20/18 History omeprazole 20 mg PO DAILY 02/11/18 04/20/18 History carbidopa-levodopa 1 tab PO AC 04/20/18 04/20/18 History fluticasone [Flonase Allergy 2 spray INTRANASAL DAILY 04/20/18 04/20/18 History Relief] mirtazapine 15 mg PO HS 04/20/18 04/20/18 History ondansetron HCl [Zofran] 4 mg PO TID PRN 04/20/18 04/20/18 History propranolol 60 mg PO HS 04/20/18 04/20/18 History Past Med/Surg History Medical History Anxiety Asbestosis Asthma Stable. No inhaler for the past year. No h/o hospitalization or intubation BPH (benign prostatic hyperplasia) Chronic obstructive pulmonary disease Depression Diabetes mellitus, type 2 IDDM - FOLLOWS WITH PCP Essential tremor Fusion of spine C4-C6. FULL ROM. (~2002) GERD (gastroesophageal reflux disease) Hyperlipidemia Hypertension Hypothyroidism Osteoarthritis Seizure LAST SEIZURE ~2009 [facility] Surgical History History of adenoidectomy History of appendectomy History of arthroscopy of left shoulder History of carpal tunnel release History of cholecystectomy History of colonoscopy History of tonsillectomy Status post right foot surgery TENDON REPLACEMENTS Family History Mother Family history of diabetes mellitus Social History Current Living Situation: Spouse current occupational status: employed Feels Safe at Home: Yes Smoking Status: Never smoker Hx Alcohol Use: No Preferred Language: Chinese Review of Systems Gen: Denies fevers, night sweats, rigors, fatigue, malaise, weight loss/gain ENT: Denies congestion, throat pain, hearing loss Eyes: Denies acute visual changes CV: CP - with accompanying symptoms as above Pulmonary: Denies cough, wheezing - OB with CP GI: Chronic diarrhea - several months Neuro: Denies acute or unilateral weakness, acute gait impairment, headache or acute visual changes Musculoskeletal: Denies joint pain, inflammation Endocrine: Denies polydipsia, polyuria Skin: Denies acute rashes or ulcers Physical Exam 2 Vital Signs (Past 24 Hours): Last Vital Signs Temp 36.4 C L 04/19/18 23:22 Pulse 62 04/20/18 04:19 Resp 18 04/20/18 04:19 BP 120/75 04/20/18 04:19 Pulse Ox 96 04/20/18 04:19 Results & Data Diagnostic Findings EKG: NSR
[2018-04-20] MEDS ORDERED: ACETAMINOPHEN 325 MG TAB PO PRN (06:24)
[2018-04-20] MEDS ORDERED: SODIUM CHLORIDE 0.9% 500 ML IV SCH ×2 (06:24)
[2018-04-20] MEDS ORDERED: ALUMINUM/MAGNESIUM SUSP 30 ML UDC PO PRN (06:24)
[2018-04-20] MEDS ORDERED: NITROGLYCERIN SL 0.4 MG/TAB TAB SL PRN (06:24)
[2018-04-20] MEDS ORDERED: MoRPHine SULFATE 2 MG/ML CARP IV STA (06:24)
[2018-04-20] MEDS ORDERED: MAGNESIUM HYDROXIDE SUSP 30 ML UDC PO PRN (06:24)
[2018-04-20] MEDS ORDERED: POLYETHYLENE (MIRALAX) 17 GM PACK PO PRN (06:24)
[2018-04-20] MEDS ORDERED: ONDANSETRON INJ 2 MG/ML 2 ML VIAL IV PRN (06:24)
[2018-04-20] MEDS ORDERED: MoRPHine SULFATE 4 MG/ML 1 ML CARP\\VIAL ONE (06:45)
[2018-04-20] MEDS: MoRPHine SULFATE 4 MG/ML 1 ML CARP\\VIAL IV PRN ×2 (06:46→22:07)
[2018-04-20] MEDS ORDERED: GLUCOSE 40% GEL 15 GM TUBE PO PRN (06:56)
[2018-04-20] MEDS ORDERED: GLUCAGON FOR INJ 1 MG VIAL IM PRN (06:56)
[2018-04-20] MEDS ORDERED: GLUCOSE 10 TABS/TUBE PO PRN (06:56)
[2018-04-20] MEDS ORDERED: DEXTROSE 50% 50 ML SYRINGE IV PRN (06:56)
[2018-04-20] MEDS ORDERED: CARBOHYDRATES FOR HYPOGLYCEMIA PO PRN (06:56)
--- NOTE | 2018-04-20 07:13 | XRay Report ---
XR chest 1V portable HISTORY: 62 years-old Male CP acute atypical chest pain COMPARISON: Chest radiograph 11/13/2017 TECHNIQUE: Portable AP view of the chest FINDINGS: Cardiomediastinal and hilar silhouettes are unchanged. Mild right hemidiaphragmatic elevation. There is no pneumothorax, pleural effusion, focal airspace consolidation or overt pulmonary edema. The bone s of the chest appear grossly intact. Postoperative changes of the left humeral head. IMPRESSION: No acute process. The above report was generated using voice recognition software. It may contain grammatical, syntax o r spelling errors. Electronically signed by: Cristi Oakley M.D. 04/20/2018 7:12 AM
--- NOTE | 2018-04-20 08:42 | Family Medicine Progress Note ---
Date of Service April 20, 2018 Assessment & Plan (1) Chest pain in adult: 61 y/o M Hx HTN, HLD, DM II, obese, hypothyroidism, seizures, Parkinson's , GERD. Presents with central CP radiating into and down Left arm, accompanied by SOB without diaphoresis. The pain has been constant. He states that he has had this pain prior that was diagnosed as pneumonia but that this time was more severe. Chest pain is reproducible on exam. He denies a history of MT or CAD. He last had a stress test over 5 years ago. CP - Initial EKG and trop do not support ACS, however, pt has multiple risk factors and will be admitted for AM stress. We will trend enzymes and monitor him on telemetry. Cont ASA, Carvedilol, Crestor. Cardiology consult placed for stress test. If normal, expect discharge home. Full code - Heparin prophylaxis (2) Diabetes mellitus, type II: Placed on a SS, states last A1C was 10. (3) Seizure disorder: cont Depakote (4) Hypothyroidism: cont Synthroid (5) Hypertension: Cont Losartan, Coreg, (6) Parkinson disease: cont Sinemet, states diagnosed about 1 month ago. Supervising Physician Co-Signing Physician Notes I saw the patient with the resident and confirmed orr portions of the history and exam. I agree with the impression and plan as noted above. Patient lying semi reclined in bed. No complaints at rest. Reproducible ACW tenderness over sternum. Troponin negative x 3. Nuclear stress test pending. IMPRESSION 1) Chest pain, R/O 2) GERD PLAN 1) If stress test negative, will discharge. 2) He has GI appointment already set up for next month. 3) Symptoms could represent musculoskeletal pain - he does lift quite a bit at work. Subjective Mr. Erick De Santiago states that he had onset of chest pain while doing housework in the kitchen that was central, throbbing, radiating down left arm. He denies diaphoresis. States he has chronic nausea, did not have vomiting. He states he had shortness of breath. He states he had same pain previously that was diagnosed as pnuemonia. He denies previous hx of CAD or MT. He does state he has had recent cold like symptoms of runny nose and congestion. 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 Mom has family history of MT in her 60s, Father in [place], one sibling brother without heart disease. He is a insulin dependent DM with recent A1C of 10, he states. Physical Exam 2 Vital Signs (Past 24 Hours): Last Vital Signs Temp 36.6 C 04/20/18 06:00 Pulse 62 04/20/18 06:00 Resp 18 04/20/18 06:00 BP 166/98 H 04/20/18 06:00 Pulse Ox 96 04/20/18 06:00 Constitutional: WD/WN, vitals as above cooperative and comfortable; no acute distress and not ill appearing Eyes: + anicteric sclerae and EOM intact bilaterally Neck: normal visual inspection and trachea midline Respiratory: normal respiratory effort, lungs clear to auscultation Cardiovascular: RRR, no murmur, no edema chest pain reproducible on palpation to sternal area where patient points to where he is having pain Gastrointestinal (Abdomen): Inspection/Auscultation: normal bowel sounds Percussion/Palpation: abdomen soft; abdomen nontender Musculoskeletal: Head/Neck/Chest: normocephalic and head atraumatic Skin: numerous SKs on back, one neurofibroma to lower back on left Neurologic: moves all extremities and awake Psychiatric: A+Ox3, euthymic affect Results & Data Laboratory Results Laboratory Results - last 24 hr 04/19/18 04/19/18 04/19/18 23:35 23:35 23:35 WBC 5.84 RBC 4.37 L Hgb 13.0 L Hct 36.9 L MCV 84.4 MCH 29.7 MCHC 35.2 RDW Std Deviation 40.9 RDW Coeff of [place] 13.5 Plt Count 200 MPV 9.4 Neutrophils % (Manual) 44.0 Lymphocytes % (Manual) 37.0 Reactive Lymphs % (Man) 15.0 Monocytes % (Manual) 4.0 Neutrophils # (Manual) 2.57 Total Absolute Neuts 2.57 Lymphocytes # (Manual) 2.16 Reactive Lymphs # 0.88 Total Abs Lymphocytes 3.04 Monocytes # (Manual) 0.23 RBC Morphology Unremarkable PT Cancelled INR Cancelled APTT Cancelled PTT Ratio Cancelled D-Dimer Cancelled Sodium 139 Potassium 4.1 Chloride 100 Carbon Dioxide 33 H Anion Gap 6.0 BUN 15 Creatinine 1.00 Est Cr Clr Drug Dosing 84.7 Est GFR ( Amer) 93.7 Est GFR (Non-Af Amer) 80.9 BUN/Creatinine Ratio 14.8 Glucose 220 H Calcium 9.5 Total Bilirubin 0.2 AST 9 L ALT 18 Alkaline Phosphatase 94 Troponin I < 0.015 Total Protein 6.9 Albumin 3.7 Globulin 3.2 Albumin/Globulin Ratio 1.2 Lipase 202 Urine Color Urine Appearance Urine pH Ur Specific [place] Urine Protein Urine Glucose (UA) Urine Ketones Urine Blood Urine Nitrite Urine Bilirubin Urine Urobilinogen Ur Leukocyte Esterase Urine WBC (Auto) Urine RBC (Auto) U Hyaline Cast (Auto) U Epithel Cells (Auto) Urine Bacteria (Auto) Nasal Screen MRSA (PCR) Valproic Acid 04/19/18 04/20/18 04/20/18 23:35 00:14 03:40 WBC RBC Hgb Hct MCV MCH MCHC RDW Std Deviation RDW Coeff of [place] Plt Count MPV Neutrophils % (Manual) Lymphocytes % (Manual) Reactive Lymphs % (Man) Monocytes % (Manual) Neutrophils # (Manual) Total Absolute Neuts Lymphocytes # (Manual) Reactive Lymphs # Total Abs Lymphocytes Monocytes # (Manual) RBC Morphology PT 10.3 INR 1.0 APTT 23.1 PTT Ratio 0.9 D-Dimer 220 Sodium Potassium Chloride Carbon Dioxide Anion Gap BUN Creatinine Est Cr Clr Drug Dosing Est GFR ( Amer) Est GFR (Non-Af Amer) BUN/Creatinine Ratio Glucose Calcium Total Bilirubin AST ALT Alkaline Phosphatase Troponin I Total Protein Albumin Globulin Albumin/Globulin Ratio Lipase Urine Color Yellow Urine Appearance Cloudy H Urine pH 8.5 H Ur Specific [place] 1.018 Urine Protein Negative Urine Glucose (UA) Trace H Urine Ketones Trace H Urine Blood Negative Urine Nitrite Negative Urine Bilirubin Negative Urine Urobilinogen Negative Ur Leukocyte Esterase Negative Urine WBC (Auto) 1-5 Urine RBC (Auto) 0-4 U Hyaline Cast (Auto) 0 U Epithel Cells (Auto) 0-5 Urine Bacteria (Auto) Negative Nasal Screen MRSA (PCR) Valproic Acid 80 04/20/18 04/20/18 06:30 06:56 WBC RBC Hgb Hct MCV MCH MCHC RDW Std Deviation RDW Coeff of [place] Plt Count MPV Neutrophils % (Manual) Lymphocytes % (Manual) Reactive Lymphs % (Man) Monocytes % (Manual) Neutrophils # (Manual) Total Absolute Neuts Lymphocytes # (Manual) Reactive Lymphs # Total Abs Lymphocytes Monocytes # (Manual) RBC Morphology PT INR APTT PTT Ratio D-Dimer Sodium Potassium Chloride Carbon Dioxide Anion Gap BUN Creatinine Est Cr Clr Drug Dosing Est GFR ( Amer) Est GFR (Non-Af Amer) BUN/Creatinine Ratio Glucose Calcium Total Bilirubin AST ALT Alkaline Phosphatase Troponin I < 0.015 Total Protein Albumin Globulin Albumin/Globulin Ratio Lipase Urine Color Urine Appearance Urine pH Ur Specific [place] Urine Protein Urine Glucose (UA) Urine Ketones Urine Blood Urine Nitrite Urine Bilirubin Urine Urobilinogen Ur Leukocyte Esterase Urine WBC (Auto) Urine RBC (Auto) U Hyaline Cast (Auto) U Epithel Cells (Auto) Urine Bacteria (Auto) Nasal Screen MRSA (PCR) Negative Valproic Acid Medications Administered Morphine Sulfate (Morphine Sulfate) 2 mg IV Q30M PRN PRN Reason: Chest Pain Stop: 05/04/18 06:23 Last Admin: 04/20/18 06:46 Dose: 2 mg
[2018-04-20] MEDS ORDERED: LANTUS PER UNIT CHARGE SQ SCH ×2 (09:00→21:00)
[2018-04-20] MEDS: HEPARIN SOD 5,000 UNIT/0.5 ML VIAL SQ SCH ×3 (09:09→21:35)
[2018-04-20] MEDS: CARBIDOPA/LEVODOPA 25/100MG TAB PO SCH ×3 (09:09→16:37)
[2018-04-20] MEDS: PRIMIDONE 50 MG TAB PO SCH (09:09)
[2018-04-20] MEDS: LEVOTHYROXINE SODIUM 100 MCG TABLET PO SCH (09:09)
[2018-04-20] MEDS: DULOXETINE HCL 20 MG CAP PO SCH (09:09)
[2018-04-20] MEDS: BuPROPion XL 150 MG TABCR PO SCH ×2 (09:09→21:34)
[2018-04-20] MEDS: PANTOprazole 40 MG TAB PO SCH (09:09)
[2018-04-20] MEDS: INSULIN ASPART 100 UNITS/ML 3 ML PEN SC SCH ×3 (09:10→16:38)
[2018-04-20] MEDS: CARVEDILOL 3.125 MG TAB PO SCH ×2 (09:11→21:31)
--- NOTE | 2018-04-20 09:50 | Cardiology Consultation ---
Date of Consultation April 20, 2018 Assessment & Plan (1) Chest pain in adult: Patient's symptoms are not likely related to an acute coronary syndrome. He had a prolonged episode of discomfort without elevation in his biomarkers. He also has some pleuritic and positional symptoms associated with this chest pain. He certainly has some risk factors for cardiac disease. At other times he has an element of dyspnea which could be an anginal equivalent. However, he is also noted to have a history of COPD. He nuclear perfusion study has been ordered for later today. I think we can see with those results look like and determine if any additional evaluation is warranted. Again, I think his presenting symptoms are non cardiac. However, results of the stress test may prompt us to either be more aggressive with primary prevention or address any abnormality noted at that time. Present on Admission?: Yes History of Present Illness Reason for Consultation: Chest pain Requesting Physician: Kp Attending Physician: Lalito Goodrich MD History of Present Illness The patient is a 62-year-old gentleman with history cardiac risk factors but no known cardiac disease who experienced an episode of chest discomfort last night. The patient states that he experienced the the sudden onset of severe chest discomfort without significant activity last evening. He had been feeling well and had just finished washing some dishes when he went to reach for a broom. It is at that point that he experienced these symptoms. There was some radiation of the discomfort to the left arm and felt as if he had a numbness and tingling in the left arm. The chest pain was fairly well localized to the left parasternal region. Close to the xiphoid process. The symptoms persisted for at least an hour before the patient was brought to [facility] for evaluation. He was very specific in stating that his symptoms did not resolve until after he came to the medical center. [place] and did require relative to bring him to the hospital. This resulted in a fairly prolonged episode of chest discomfort. He was administered nitroglycerin with some relief of his symptoms. However, he states that he continues to have an element of minor chest discomfort even at this time. This discomfort is also notably worse with deep inspiration and movement and certain positions. He states this discomfort currently feels like he is being stabbed. In general he is a sedentary individual. He is limited by some orthopedic disease involving his foot as well as chronic dyspnea. It seems that he was previously diagnosed with COPD and was using supplemental oxygen. Unfortunately, he cannot afford supplemental oxygen is not used it recently. He has an element of orthopnea that is longstanding in nature. He does not report exertional chest pain. 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 He has been dyspneic with this activity. Allergies Allergy/AdvReac Type Severity Reaction Status Date / Time BIRGIT Inhibitors Allergy Intermediate ? Verified 04/20/18 00:35 ANGIOEDEMA amitriptyline Allergy Intermediate HIVES Verified 04/20/18 00:35 Penicillins Allergy Intermediate HIVES Verified 04/20/18 00:35 tramadol Allergy Intermediate ITCHY Verified 04/20/18 00:35 gabapentin Allergy Unknown per Verified 04/20/18 00:35 graphic coordinator note -- UNKNOWN RX lorazepam Allergy Unknown "DON'T Verified 04/20/18 00:35 REMEMBER" codeine AdvReac Mild N&V Verified 04/20/18 00:35 Home Medications Home Medications Medication Instructions Recorded Confirmed Type divalproex [Depakote ER] 1,500 mg PO HS #0 10/27/12 04/20/18 History levothyroxine 100 mcg PO QAM #0 10/27/12 04/20/18 History losartan 100 mg PO HS #0 tab 10/27/12 04/20/18 History primidone 100 mg PO HS #0 10/27/12 04/20/18 History primidone 250 mg PO QAM #0 10/27/12 04/20/18 History rosuvastatin [Crestor] 40 mg PO HS #0 tab 10/27/12 04/20/18 History bupropion HCl 150 mg PO BID #0 tab 03/31/15 04/20/18 History duloxetine 20 mg PO QAM #0 04/01/16 04/20/18 History levocetirizine 5 mg PO HS #0 04/01/16 04/20/18 History oxybutynin chloride 10 mg PO HS #0 04/01/16 04/20/18 History insulin glargine [Lantus U-100 55 unit SUBCUT QAM #0 vial 05/29/16 04/20/18 History Insulin] insulin glargine [Lantus U-100 60 unit SUBCUT HS #0 vial 05/29/16 04/20/18 History Insulin] insulin lispro [Humalog KwikPen 22 unit SUBCUT TIDM #0 05/29/16 04/20/18 History Insulin] cholecalciferol (vitamin D3) 5,000 unit PO QID #0 12/27/16 04/20/18 History [Vitamin D3] omega [id number]-fish oil [Fish Oil] 1,000 mg PO BID #0 cap 12/27/16 04/20/18 History aspirin [Aspirin Low Dose] 81 mg PO HS #0 09/24/17 04/20/18 History carvedilol 3.125 mg PO BID #0 tab 09/24/17 04/20/18 History metoclopramide HCl [Reglan] 20 mg PO BID PRN 10/29/17 04/20/18 History omeprazole 20 mg PO DAILY 02/11/18 04/20/18 History carbidopa-levodopa 1 tab PO AC 04/20/18 04/20/18 History fluticasone [Flonase Allergy 2 spray INTRANASAL DAILY 04/20/18 04/20/18 History Relief] mirtazapine 15 mg PO HS 04/20/18 04/20/18 History ondansetron HCl [Zofran] 4 mg PO TID PRN 04/20/18 04/20/18 History propranolol 60 mg PO HS 04/20/18 04/20/18 History Patient History Medical History Anxiety Asbestosis Asthma Stable. No inhaler for the past year. No h/o hospitalization or intubation BPH (benign prostatic hyperplasia) Chronic obstructive pulmonary disease Depression Diabetes mellitus, type 2 IDDM - FOLLOWS WITH PCP Essential tremor Fusion of spine C4-C6. FULL ROM. (~2002) GERD (gastroesophageal reflux disease) Hyperlipidemia Hypertension Hypothyroidism Osteoarthritis Seizure LAST SEIZURE ~2009 [facility] Surgical History History of adenoidectomy History of appendectomy History of arthroscopy of left shoulder History of carpal tunnel release History of cholecystectomy History of colonoscopy History of tonsillectomy Status post right foot surgery TENDON REPLACEMENTS Family History Mother Family history of diabetes mellitus Social History Current Living Situation: Spouse current occupational status: employed Feels Safe at Home: Yes Safety Concerns: Feels Safe At This Time Smoking Status: Never smoker Do You Dip or Chew Tobacco: No Second Hand Exposure: No Tobacco Cessation Education Requested by Patient: No Hx Alcohol Use: No Hx Substance Use: No Beliefs That Will Affect Care: None Preferred Language: Sami Communication Ability: Effective Cook Dessert Required: No Review of Systems Complete. Pertinent positives noted in history of present illness. Patient denies any recent constitutional symptoms such as fevers or chills. No productive cough. He has been eating and drinking normally. He does report some mild swelling of lower extremities. He has not been aware of any palpitations. No syncope. Physical Exam Vital Signs (Past 24 Hours): Last Vital Signs Temp 36.6 C 04/20/18 06:00 Pulse 62 04/20/18 06:00 Resp 18 04/20/18 06:00 BP 166/98 H 04/20/18 06:00 Pulse Ox 96 04/20/18 06:00 Physical Exam: The patient is alert and oriented. Mood and affect appeared normal. He answered all questions appropriately. HEENT: Pupils are equal and reactive to light and accommodation. Extraocular movements are intact. The sclerae are anicteric. Neuro: Cranial nerves intact Neck: Patient's neck is supple. He has palpable carotid pulses bilaterally without bruits on auscultation. There is no evidence of jugular venous distention. The thyroid is not enlarged. Lungs: Clear to auscultation bilaterally. He has good air movement without use of accessory muscles. No rales wheezes or rhonchi. Cardiac: Heart demonstrates a regular rate and rhythm. Normal S1 and S2. No murmurs on examination. Pulses: The patient has palpable radial pulses bilaterally that are equal in intensity Extremities: There was no evidence of hypoperfusion. There is no cyanosis or clubbing. There is only mild lower extremity edema. Skin: I did not appreciate any rashes on examination today. Results & Data Laboratory Results Abnormal Lab Results 04/19/18 04/19/18 04/19/18 23:35 23:35 23:35 WBC 5.84 RBC 4.37 L Hgb 13.0 L Hct 36.9 L MCV 84.4 MCH 29.7 MCHC 35.2 RDW Std Deviation 40.9 RDW Coeff of Cynthia 13.5 Plt Count 200 MPV 9.4 Neutrophils % (Manual) 44.0 Lymphocytes % (Manual) 37.0 Reactive Lymphs % (Man) 15.0 Monocytes % (Manual) 4.0 Neutrophils # (Manual) 2.57 Total Absolute Neuts 2.57 Lymphocytes # (Manual) 2.16 Reactive Lymphs # 0.88 Total Abs Lymphocytes 3.04 Monocytes # (Manual) 0.23 RBC Morphology Unremarkable PT Cancelled INR Cancelled APTT Cancelled PTT Ratio Cancelled D-Dimer Cancelled Sodium 139 Potassium 4.1 Chloride 100 Carbon Dioxide 33 H Anion Gap 6.0 BUN 15 Creatinine 1.00 Est Cr Clr Drug Dosing 84.7 Est GFR ( Amer) 93.7 Est GFR (Non-Af Amer) 80.9 BUN/Creatinine Ratio 14.8 Glucose 220 H POC Glucose Calcium 9.5 Total Bilirubin 0.2 AST 9 L ALT 18 Alkaline Phosphatase 94 Troponin I < 0.015 Total Protein 6.9 Albumin 3.7 Globulin 3.2 Albumin/Globulin Ratio 1.2 Lipase 202 Urine Color Urine Appearance Urine pH Ur Specific [place] Urine Protein Urine Glucose (UA) Urine Ketones Urine Blood Urine Nitrite Urine Bilirubin Urine Urobilinogen Ur Leukocyte Esterase Urine WBC (Auto) Urine RBC (Auto) U Hyaline Cast (Auto) U Epithel Cells (Auto) Urine Bacteria (Auto) Nasal Screen MRSA (PCR) Valproic Acid 04/19/18 04/20/18 04/20/18 23:35 00:14 03:40 WBC RBC Hgb Hct MCV MCH MCHC RDW Std Deviation RDW Coeff of Cynthia Plt Count MPV Neutrophils % (Manual) Lymphocytes % (Manual) Reactive Lymphs % (Man) Monocytes % (Manual) Neutrophils # (Manual) Total Absolute Neuts Lymphocytes # (Manual) Reactive Lymphs # Total Abs Lymphocytes Monocytes # (Manual) RBC Morphology PT 10.3 INR 1.0 APTT 23.1 PTT Ratio 0.9 D-Dimer 220 Sodium Potassium Chloride Carbon Dioxide Anion Gap BUN Creatinine Est Cr Clr Drug Dosing Est GFR ( Amer) Est GFR (Non-Af Amer) BUN/Creatinine Ratio Glucose POC Glucose Calcium Total Bilirubin AST ALT Alkaline Phosphatase Troponin I Total Protein Albumin Globulin Albumin/Globulin Ratio Lipase Urine Color Yellow Urine Appearance Cloudy H Urine pH 8.5 H Ur Specific [place] 1.018 Urine Protein Negative Urine Glucose (UA) Trace H Urine Ketones Trace H Urine Blood Negative Urine Nitrite Negative Urine Bilirubin Negative Urine Urobilinogen Negative Ur Leukocyte Esterase Negative Urine WBC (Auto) 1-5 Urine RBC (Auto) 0-4 U Hyaline Cast (Auto) 0 U Epithel Cells (Auto) 0-5 Urine Bacteria (Auto) Negative Nasal Screen MRSA (PCR) Valproic Acid 80 04/20/18 04/20/18 04/20/18 06:30 06:56 08:48 WBC RBC Hgb Hct MCV MCH MCHC RDW Std Deviation RDW Coeff of Cynthia Plt Count MPV Neutrophils % (Manual) Lymphocytes % (Manual) Reactive Lymphs % (Man) Monocytes % (Manual) Neutrophils # (Manual) Total Absolute Neuts Lymphocytes # (Manual) Reactive Lymphs # Total Abs Lymphocytes Monocytes # (Manual) RBC Morphology PT INR APTT PTT Ratio D-Dimer Sodium Potassium Chloride Carbon Dioxide Anion Gap BUN Creatinine Est Cr Clr Drug Dosing Est GFR ( Amer) Est GFR (Non-Af Amer) BUN/Creatinine Ratio Glucose POC Glucose 250 H Calcium Total Bilirubin AST ALT Alkaline Phosphatase Troponin I < 0.015 Total Protein Albumin Globulin Albumin/Globulin Ratio Lipase Urine Color Urine Appearance Urine pH Ur Specific [place] Urine Protein Urine Glucose (UA) Urine Ketones Urine Blood Urine Nitrite Urine Bilirubin Urine Urobilinogen Ur Leukocyte Esterase Urine WBC (Auto) Urine RBC (Auto) U Hyaline Cast (Auto) U Epithel Cells (Auto) Urine Bacteria (Auto) Nasal Screen MRSA (PCR) Negative Valproic Acid Diagnostic Findings Chest x-ray was obtained at the time of admission. No acute process. ECG Additional Comments: Serial EKGs were obtained at the time of admission. No abnormalities. Normal sinus rhythm.
[2018-04-20] MEDS ORDERED: SODIUM CHLORIDE 0.9% 1000ML 1,000 ML IV SCH (10:00)
[2018-04-20] MEDS ORDERED: REGADENOSON 0.4 MG/5 ML SYR IV ONE (10:01)
[2018-04-20] MEDS: INSULIN GLARGINE SOLOSTAR 100 UNITS/ML 3 ML PEN SC SCH ×2 (13:01→22:41)
--- NOTE | 2018-04-20 19:04 | Myocardial Perfusion Study ---
Date of Service April 20, 2018 Myocardial Perfusion Study [facility] Myocardial Perfusion Study Report ONE DAY NUCLEAR MEDICINE LEXISCAN TECHNETIUM 99M MYOCARDIAL PERFUSION SCAN Indication: Chest pain. Baseline ECG: Normal sinus rhythm, no ST abnormalities. Ventricular rate 68. Stress ECG: No Lexiscan induced ST changes. No arrhythmias. HR roly from 68- 75. Technique: For the stress portion of the study 33.0 mCi of Technetium 99m Cardiolite IV was injected at 11: 35 on 04/20/2018. 30 minutes following the injection, imaging of the heart was performed in multiple projections. For the rest portion of the study, 11.0 mCi of Technetium 99m Cardiolite was injected IV at 9: 45. One hour following the injection, imaging of the hear was performed in the same projections. Findings: Rotating raw images were reviewed in detail. Potential sources of attenuation include diaphragm, and minimal gut uptake impacting the inferior imaging border of the heart. No significant extracardiac pathologic uptake. Short axis, vertical long axis and horizontal long axis images were reviewed in detail. No visual TID. Normal myocardial perfusion on both stress and rest. Normal LV size. EDV 72 ml. Calculated EF 71 %. No regional wall motion abnormalities. SUMMARY: 1. Normal myocardial perfusion with no Lexiscan induced ischemia. 2. Normal LV size and function. LVEF 71 % with no regional wall motion abnormalities. 3. Non-diagnostic stress ECG due to inability to reach target HR with Lexiscan.
[2018-04-20] MEDS ORDERED: MIRTAZAPINE TAB 15 MG TAB PO SCH (21:00)
[2018-04-20] MEDS ORDERED: LOSARTAN POTASSIUM 50 MG TAB PO SCH (21:00)
[2018-04-20] MEDS ORDERED: ROSUVASTATIN CALCIUM 20 MG TAB PO SCH (21:00)
[2018-04-20] MEDS ORDERED: DIVALPROEX EXTENDED RELEASE 500 MG TAB PO SCH (21:00)
[2018-04-20] MEDS ORDERED: OXYBUTYNIN CHLORIDE XL 5 MG TABCR PO SCH (21:00)
[2018-04-20] MEDS ORDERED: ASPIRIN 81 MG ECTAB PO SCH (21:00)
[2018-04-20] MEDS ORDERED: PRIMIDONE 50 MG TAB PO SCH (21:00)
[2018-04-21] MEDS: INSULIN ASPART 100 UNITS/ML 3 ML PEN SC SCH ×3 (00:31→08:32)
[2018-04-21] MEDS: HEPARIN SOD 5,000 UNIT/0.5 ML VIAL SQ SCH (06:08)
[2018-04-21] MEDS: LEVOTHYROXINE SODIUM 100 MCG TABLET PO SCH (06:08)
--- NOTE | 2018-04-21 07:29 | Discharge Summary ---
Date of Service April 21, 2018 Admission HPI Per Admitting Provider 61 y/o M Hx HTN, HLD, DM II, obese, hypothyroidism, seizures, Parkinson's, GERD. Presents with central CP radiating into L arm, accompanied by SOB and diaphoresis. The pain lasted for several minutes. He states that he has had this pain prior but that this time was more severe. She denies a history of UT or CAD. He last had a stress test over 5 years ago. 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 [employer] Family: CAD, CA Principal Diagnosis Chest pain Discharge Exam Constitutional WD/WN, vitals as above cooperative and comfortable; no acute distress and not ill appearing Eyes + anicteric sclerae and EOM intact bilaterally Neck normal visual inspection and trachea midline Respiratory normal respiratory effort, lungs clear to auscultation Cardiovascular RRR, no murmur, no edema chest pain reproducible to palpation over sterum/xiphoid; no shelton's points appreciated at 2nd right IC space Gastrointestinal (Abdomen) Inspection/Auscultation: normal bowel sounds Percussion/Palpation: abdomen soft; abdomen nontender Musculoskeletal Head/Neck/Chest: normocephalic and head atraumatic Neurologic moves all extremities and awake Psychiatric A+Ox3, euthymic affect Discharge Data Allergies Allergy/AdvReac Type Severity Reaction Status Date / Time BIRGIT Inhibitors Allergy Intermediate ? Verified 04/20/18 00:35 ANGIOEDEMA amitriptyline Allergy Intermediate HIVES Verified 04/20/18 00:35 Penicillins Allergy Intermediate HIVES Verified 04/20/18 00:35 tramadol Allergy Intermediate ITCHY Verified 04/20/18 00:35 gabapentin Allergy Unknown per Verified 04/20/18 00:35 environmental health sanitarian note -- UNKNOWN RX lorazepam Allergy Unknown "DON'T Verified 04/20/18 00:35 REMEMBER" codeine AdvReac Mild N&V Verified 04/20/18 00:35 Consultations 04/20/18 08:04 Consult Cardiology Routine Cardiac Stress Test performed on 04/20/18 SUMMARY: 1. Normal myocardial perfusion with no Lexiscan induced ischemia. 2. Normal LV size and function. LVEF 71 % with no regional wall motion abnormalities. 3. Non-diagnostic stress ECG due to inability to reach target HR with Lexiscan. Hospital Course (1) Chest pain in adult: 61 y/o M Hx HTN, HLD, DM II, obese, hypothyroidism, seizures, Parkinson's, GERD. Presents with central CP radiating into and down Left arm, accompanied by SOB without diaphoresis. The pain has been constant. He states that he has had this pain prior that was diagnosed as pneumonia but that this time was more severe. Chest pain is reproducible on exam. He denies a history of UT or CAD. He last had a stress test over 5 years ago. CP - Initial EKG and trop do not support ACS, however, pt has multiple risk factors and will be admitted for AM stress. We will trend enzymes and monitor him on telemetry. Cont ASA, Carvedilol, Crestor. Cardiology consult placed for stress test. Had negative trops x3. Had cardiac stress test SUMMARY: 1. Normal myocardial perfusion with no Lexiscan induced ischemia. 2. Normal LV size and function. LVEF 71 % with no regional wall motion abnormalities. 3. Non-diagnostic stress ECG due to inability to reach target HR with Lexiscan. Full code - Heparin prophylaxis (2) Diabetes mellitus, type II: Placed on a SS, states last A1C was 10. (3) Seizure disorder: cont Depakote (4) Hypothyroidism: cont Synthroid (5) Hypertension: Cont Losartan, Coreg, (6) Parkinson disease: cont Sinemet, states diagnosed about 1 month ago. Total Time Total Time Spent Total Time Spent (In Minutes): 30 Total Time Includes: Examination of the Patient, Discharge Planning and Medication Reconciliation Discharge Plan Discharge Items Patient Disposition: Home - Self-Care Reason For Visit: CHEST PAIN Discharge Diagnosis: Chest Pain Condition: Good Discharge Goals: Improve disease control Activity: Per 'Additional Instructions' section Non-emergency contact: Primary Care Provider Call non-emergency contact if: you have any medication questions, your symptoms worsen and your pain is worsening Follow-up/Referrals: Farhad Loya, [Primary Care Provider] - 04/30/18 9:20 am (Please, follow up with Dr. Farhad Loya on ThursdayApril 30 at 9:20 am. *If you need to change this appointment, call the office at [phone].) Diet: Carb Count or DM1 Addtl Provider Instructions: You were admitted to the hospital for further investigation of your chest pain. Testing through cardiac enzyme markers through blood work, specifically lab called Troponin, were negative. You were monitored on telemetry (cardiac/heart monitor) and had ECGs (aka EKGs) which did not show any electrical signs of ischemia (where your heart isn't receiving adequate oxygen). You had a cardiac stress test of your heart, which did not show any signs of heart disease SUMMARY: 1. Normal myocardial perfusion with no Lexiscan induced ischemia. 2. Normal LV size and function. LVEF 71 % with no regional wall motion abnormalities. 3. Non-diagnostic stress ECG due to inability to reach target HR with Lexiscan. If you have worsening chest pain, especially if you become sweaty, please return to the Emergency Department for further investigation. Please continue current medications. Please follow up with your Primary Care Doctor and call for next available appointment. Your blood pressure was elevated during your stay and this would need to be re-checked in the office. Prescriptions: Continued primidone 50 mg Tablet 250 mg PO QAM Qty: 0 RF: 0 primidone 50 mg Tablet 100 mg PO HS Qty: 0 RF: 0 divalproex [Depakote ER] 500 mg Tablet Extended Release 24 Hr 1,500 mg PO HS Qty: 0 RF: 0 losartan 100 mg Tablet 100 mg PO HS Qty: 0 RF: 0 rosuvastatin [Crestor] 40 mg Tablet 40 mg PO HS Qty: 0 RF: 0 levothyroxine 100 mcg Tablet 100 mcg PO QAM Qty: 0 RF: 0 bupropion HCl 150 mg Tablet Extended Release 24 Hr 150 mg PO BID Qty: 0 RF: 0 duloxetine 20 mg Capsule,Delayed Release(Dr/Ec) 20 mg PO QAM Qty: 0 RF: 0 levocetirizine 5 mg Tablet 5 mg PO HS Qty: 0 RF: 0 oxybutynin chloride 10 mg Tablet Extended Release 24hr 10 mg PO HS Qty: 0 RF: 0 insulin glargine [Lantus U-100 Insulin] 100 unit/mL Solution 55 unit SUBCUT QAM Qty: 0 RF: 0 insulin glargine [Lantus U-100 Insulin] 100 unit/mL Solution 60 unit SUBCUT HS Qty: 0 RF: 0 insulin lispro [Humalog KwikPen Insulin] 100 unit/mL Insulin Pen 22 unit SUBCUT TIDM Qty: 0 RF: 0 cholecalciferol (vitamin D3) [Vitamin D3] 5,000 unit Tablet 5,000 unit PO QID Qty: 0 RF: 0 omega 6-acy-dho-fish oil [Fish Oil] 1,000 mg (120 mg-180 mg) Capsule 1,000 mg PO BID Qty: 0 RF: 0 aspirin [Aspirin Low Dose] 81 mg Tablet,Delayed Release (Dr/Ec) 81 mg PO HS Qty: 0 RF: 0 carvedilol 3.125 mg Tablet 3.125 mg PO BID Qty: 0 RF: 0 omeprazole 20 mg capsule,delayed release(DR/EC) 20 mg PO DAILY RF: 0 metoclopramide HCl [Reglan] 10 mg Tablet 20 mg PO BID PRN (Reason: Nausea) RF: 0 propranolol 60 mg Capsule,Extended Release 24 Hr 60 mg PO HS RF: 0 ondansetron HCl [Zofran] 4 mg Tablet 4 mg PO TID PRN (Reason: Nausea) RF: 0 mirtazapine 15 mg Tablet 15 mg PO HS RF: 0 carbidopa-levodopa 25-100 mg Tablet 1 tab PO AC RF: 0 fluticasone [Flonase Allergy Relief] 50 mcg/actuation [place],Suspension 2 spray INTRANASAL DAILY RF: 0 Stand-Alone Forms: [facility], Work/School Release (Inpt) [employer]/Other Patient Handouts: Angina Heart Attack Recognize, Heart Risk, Heart Attack Warning Signs Discharge Orders: Discharge Order (Routine); Ordered 04/21/18 Ordered By: Willie Duffy Admission Data Admit Date/Time: 04/20/18 05:12 Attending Provider: Marques Nice Admit Provider: Lalito Goodrich Primary Care Provider: Farhad Loya Other Providers: Dereck Cortes ; Isaac Wilson ; Jose Lino ; Shilo Martinez ; Vernon Luis Jr ; Cam Flaherty ; Mohini Coffman ; Kim Perea ; Sarabjit Jackson ; Sarabjit Iniguez ; Primo Pressley ; Luis A Goldman ; Tracy Watts ; Jyoti Fulton Service: Telemetry Other Interventions: Discharge Summary Assessment (RN) Last Done: 04/21/18 08:59 DC Date/Time DO NOT enter until pt leaves facility: 04/21/18 11:45 Supervising Physician Co-Signing Physician Notes I saw the patient independently and performed a history and physical exam. I discussed the case with the resident physician and agree with the documentation in his discharge summary. The patient did not have chest pain upon my examination. We discussed that his blood pressures have been elevated from time to time; he states that he is somewhat anxious being in the hospital. We discussed that this would have to be rechecked with his primary care physician in 1-2 weeks.
[2018-04-21] MEDS ORDERED: ALUMINUM/MAGNESIUM SUSP 18 ML, LIDOCAINE HCL VISCOUS 2% 6 ML, BARCODE IDENTIFIER 1 EA PO ONE (08:00)
[2018-04-21] MEDS: CARBIDOPA/LEVODOPA 25/100MG TAB PO SCH ×2 (08:28→11:38)
[2018-04-21] MEDS: DULOXETINE HCL 20 MG CAP PO SCH (08:29)
[2018-04-21] MEDS: PRIMIDONE 50 MG TAB PO SCH (08:29)
[2018-04-21] MEDS: PANTOprazole 40 MG TAB PO SCH (08:29)
[2018-04-21] MEDS: CARVEDILOL 3.125 MG TAB PO SCH (08:29)
[2018-04-21] MEDS: BuPROPion XL 150 MG TABCR PO SCH (08:30)
[2018-04-21] MEDS: INSULIN GLARGINE SOLOSTAR 100 UNITS/ML 3 ML PEN SC SCH (08:30)
== END 2018-04-21 11:45 | disposition home or self-care (01) ==
LOC: ED 23:14 → 1E 23:14 → SUATTDRO 04-20 05:12 → 1E 04-20 05:56 → 2N 04-20 17:02

== ENCOUNTER 2021-02-06 16:49 | Inpatient (IN) ==
[2021-02-06] MEDS ORDERED: dexAMETHasone**PF** 10 MG/ML VIAL IV ONE (17:21)
--- NOTE | 2021-02-06 17:24 | Emergency Department Note ---
Impression & Plan Respiratory failure, COVID-19, Cough, Chest congestion, Breath shortness, Anemia ED Provider Note NAME: JOLIE SINGH AGE: 65 SEX: M : 1955 ARRIVES VIA: Walk-In INFORMANT: Patient ED PROVIDER(S): Jose Ramon White DO CHIEF COMPLAINT: Shortness of breath HPI: Patient is a 65-year-old male who presents the ER for upper respiratory symptoms which started several days ago. He admits to cough and congestion. He has not been vaccinated. He has been following up with his PCP and was found to be hypoxic today and referred in. He admits to worsening shortness of breath. Denies any belly pain but has diarrhea. No dysuria, urgency, or frequency. Does admit to fevers as well. No other exacerbating or remitting factors. ROS: See above HPI for pertinent positives & negatives. A total of 10 systems reviewed and were otherwise negative. PAST MEDICAL HISTORY:See Below PAST SURGICAL HISTORY:See Below FAMILY HISTORY:See Below SOCIAL HISTORY:See Below HOME MEDICATIONS:See Below ALLERGIES:See Below VITALS:See Below PHYSICAL EXAMINATION: GENERAL: Sitting up in bed, alert, slightly ill-appearing, disheveled, intermittent cough on nasal cannula EYE EXAM: normal conjunctiva. PERRL and EOM's grossly intact. OROPHARYNX: Mask in place NECK: supple, no nuchal rigidity, no adenopathy, non-tender LUNGS: Clear to auscultation. Normal chest wall mechanics HEART: no murmurs, S1 normal and S2 normal ABDOMEN: abdomen soft, non-tender, normo-active bowel sounds, no masses, no rebound or guarding. BACK: Back is symmetrical on inspection and there is no deformity, no midline tenderness, no CVA tenderness. SKIN: no rashes and no bruising UPPER EXTREMITIES: upper extremities are grossly normal. LOWER EXTREMITIES: No pitting edema. Calves are equal bilateral NEURO EXAM: Normal sensorium, cranial nerves II-XII grossly intact, normal speech, no gross weakness of arms, no gross weakness of legs. MEDICAL DECISION MAKING: Patient is a 65-year-old male referred in by PCP found to be hypoxic. IV was established blood work was obtained. Labs show leukopenia 4000. Mild anemia 11.5. BMP with mild hyponatremia 130. FTs bilirubin troponin was negative. Lipase unremarkable. He was positive for Covid. Chest x-ray was read normal by the radiologist although appeared to have patchy infiltrates per my read. Hypoxic 85% was placed on 4 L nasal cannula. He was given fluids and Decadron. Discussed with the hospitalist admitted for further work-up. Remained on nasal cannula throughout the stay in the ER. Discussed with Pt concerning signs and symptoms to watch out for. Pt was instructed to follow up with their PCP and discussed with the patient their option to return to the ED at anytime for persistent or worsening symptoms. The appropriate anticipatory guidance and out- patient management, including indications for return to the emergency department, were explained at length to the patient and understood. Triage Nursing notes reviewed. Limited review of prior medical records performed Vital Signs: reviewed and remarkable for hypoxic, tachycardic Differential diagnosis: Differential diagnoses includes but is not limited to pneumonia, bronchitis, COPD/Asthma exacerbation, pneumothorax, pulmonary embolism, congestive heart failure, acute coronary syndrome ER treatment provided: See below Diagnostics interpreted by me: ECG: Sinus rhythm rate 98 Normal axis No PVCs QTC 431 Cardiac Monitoring: An order was placed for continuous cardiac monitoring. The monitor shows a rate of 97 with sinus rhythm. Laboratory studies: As stated above and show below. Imaging studies: Portable AP upright 1 view per my read shows patchy lower lobe bilateral infiltrates Consultation(s): Discussed with Kelley Oneal for further evaluation Procedures: none Critical Care: I have personally spent 31 minutes of critical care time in the direct management of this patient. This includes bedside care, interpretation of diagnostic studies, and testing, discussion with consultants, patient, and family members, and other required patient management activities. This 31 minutes is in excess of all separately billable procedures. Past Med/Surg History Medical History Adhesive capsulitis of shoulder Anxiety Asbestosis Asthma BPH (benign prostatic hyperplasia) Carpal tunnel syndrome Chronic obstructive pulmonary disease Depression Dermatitis Diabetes mellitus, type 2 Essential tremor GERD (gastroesophageal reflux disease) Gross hematuria Hematochezia Hyperlipidemia Hypertension Hypothyroidism Inflamed seborrheic keratosis Melena Osteoarthritis Seasonal allergies Seizure Surgical History Fusion of spine H/O arthroscopy of shoulder H/O transurethral resection of prostate History of adenoidectomy History of appendectomy History of appendectomy History of carpal tunnel release History of carpal tunnel surgery History of cholecystectomy History of cholecystectomy History of colonoscopy History of tonsillectomy History of tonsillectomy and adenoidectomy Hx of arthroscopy of shoulder Status post right foot surgery Family History Mother Family history of diabetes mellitus Colorectal cancer Hypertension Diabetes Grandmother Myocardial infarction Denies family history of Ovarian cancer Prostate cancer Breast cancer Social History Smoking Status: Never smoker Age Started Using Tobacco: 17; Age Quit Using Tobacco: 36; Years Smoked: 19; Number of Years Since Quit: 28; Second Hand Exposure: No; Hx Alcohol Use: No Hx Substance Use: No Preferred Language: Kazakh Communication Ability: Effective Visual Impairment: No Limitations Hearing Ability: Normal 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 Intern Required: No Beliefs That Will Affect Care: None marital status: Current Living Situation: Spouse current occupational status: employed current occupation: [employer] How many Children do You have: 3 Feels Safe at Home: Yes Childhood Exposure to Second-Hand Smoke: Yes caffeine: Yes during the past year weight has: remained stable Dental Care, Regularly: No Physical Activity Frequency: Daily Seatbelt Use: sometimes Sunscreen Use: No Assistive Devices: Glasses Allergies Allergies Allergy/AdvReac Type Severity Reaction Status Date / Time BIRGIT Inhibitors Allergy Intermediate ? Verified 12/07/20 13:41 ANGIOEDEMA amitriptyline Allergy Intermediate HIVES Verified 12/07/20 13:41 Penicillins Allergy Intermediate HIVES Verified 12/07/20 13:41 tramadol Allergy Intermediate ITCHY Verified 12/07/20 13:41 gabapentin Allergy Unknown per Verified 12/07/20 13:41 deaf/hard of hearing specialist note -- UNKNOWN RX lorazepam Allergy Unknown "DON'T Verified 12/07/20 13:41 REMEMBER" morphine Allergy Unknown Unknown Verified 12/07/20 13:41 codeine AdvReac Mild N&V Verified 12/07/20 13:41 Home Meds Home Medications Medication Instructions Recorded Confirmed cholecalciferol (vitamin D3) 125 5,000 unit PO QID #0 12/27/16 12/07/20 mcg (5,000 unit) tablet (Vitamin D3) omega 5-qfc-pfa-fish oil 1,000 mg 1,000 mg PO BID #0 cap 12/27/16 12/07/20 (120 mg-180 mg) capsule (Fish Oil) aspirin 81 mg tablet,delayed 81 mg PO HS #0 09/24/17 12/07/20 release (Aspirin Low Dose) hydrocortisone-pramoxine 1 %-1 % 1 applic TOPICAL TID PRN 09/01/20 12/07/20 topical foam (Epifoam) metoclopramide HCl 10 mg tablet 10 mg PO QID PRN 09/01/20 12/07/20 (Reglan) tamsulosin 0.4 mg capsule (Flomax) 0.4 mg PO HS 09/01/20 12/07/20 Previous Rx's Medication Instructions Recorded lancets (Accu-Chek Softclix #400 ea 02/02/19 Lancets) promethazine 25 mg tablet 25 mg PO Q6H PRN #10 tab 02/19/19 hydrocortisone 2.5 % topical cream 1 applic SC DAILY PRN #30 g 06/05/20 with perineal applicator (Proctozone-HC) pen needle, diabetic 32 gauge x #500 ea 06/05/20" (BD Ultra-Fine Christina Pen Needle) lacosamide 100 mg tablet (Vimpat) 100 mg PO BID 90 Days #180 tab 08/29/20 celecoxib 100 mg capsule (Celebrex) 100 mg PO BID #60 cap 09/04/20 oxybutynin chloride 10 mg 10 mg PO HS #90 tab 09/06/20 tablet,extended release 24 hr (Ditropan XL) furosemide 20 mg tablet (Lasix) 20 mg PO QAM #90 tab 09/20/20 levocetirizine 5 mg tablet (Xyzal) 5 mg PO HS #90 tab 09/20/20 levothyroxine 125 mcg tablet 125 mcg PO QAM #90 tab 09/20/20 (Synthroid) losartan 100 mg tablet (Cozaar) 100 mg PO HS #90 tab 09/20/20 rosuvastatin 40 mg tablet (Crestor) 40 mg PO HS #90 tab 09/20/20 triamcinolone acetonide 0.1 % 1 applic TOPICAL BID #30 g 12/07/20 topical ointment duloxetine 20 mg capsule,delayed 20 mg PO QAM #90 cap 12/13/20 release (Cymbalta) bupropion HCl 150 mg tablet,12 hr See Rx Instructions .ROUTE 01/07/21 sustained-release .COMPLEX #180 tablet fenofibrate nanocrystallized 145 See Rx Instructions .ROUTE 01/07/21 mg tablet .COMPLEX #90 tablet insulin aspart U-100 100 unit/mL 22 - 24 unit SQ AC #75 ml 01/07/21 (3 mL) subcutaneous pen (Novolog Flexpen U-100 Insulin aspart) omeprazole 40 mg capsule,delayed See Rx Instructions .ROUTE 01/07/21 release .COMPLEX #90 capsule insulin glargine U-300 conc 300 See Rx Instructions SQ BID #123 ml 01/22/21 unit/mL (3 mL) subcutaneous pen (Toujeo Max U-300 SoloStar) Results & Data (ED) Vital Signs Vital Signs - 24 hr 02/06/21 17:04 02/06/21 17:14 02/06/21 17:20 Temperature 36.7 C Temperature Source Temporal Artery Scan Pulse Rate 112 H 102 H 99 H Pulse Rate [Right Finger] Pulse Rate from SpO2 Sensor 102 H 99 H Respiratory Rate 19 14 14 Respiratory Effort / Characteristics Non-Labored Spontaneous Respiratory Depth Normal Respiratory Pattern Regular Blood Pressure 145/63 H Blood Pressure [Right Arm] Blood Pressure Mean 90 Blood Pressure Mean [Right Arm] Pulse Oximetry 85 L 94 93 Oxygen Delivery Method Room Air Oxygen Flow Rate Sepsis Recent Fever Within 48 Hours No Sepsis New/Unexplained Change in Mental Status N/A Sepsis Action Taken by Nursing No Action Required 02/06/21 17:30 02/06/21 17:40 02/06/21 17:50 Temperature Temperature Source Pulse Rate 99 H 99 H Pulse Rate [Right Finger] Pulse Rate from SpO2 Sensor 99 H 98 H 99 H Respiratory Rate 14 13 15 Respiratory Effort / Characteristics Respiratory Depth Respiratory Pattern Blood Pressure Blood Pressure [Right Arm] Blood Pressure Mean Blood Pressure Mean [Right Arm] Pulse Oximetry 93 93 93 Oxygen Delivery Method Oxygen Flow Rate Sepsis Recent Fever Within 48 Hours Sepsis New/Unexplained Change in Mental Status Sepsis Action Taken by Nursing 02/06/21 18:00 02/06/21 18:10 02/06/21 18:14 Temperature Temperature Source Pulse Rate 99 H 99 H Pulse Rate [Right Finger] Pulse Rate from SpO2 Sensor 99 H 99 H Respiratory Rate 13 17 Respiratory Effort / Characteristics Respiratory Depth Respiratory Pattern Blood Pressure Blood Pressure [Right Arm] Blood Pressure Mean Blood Pressure Mean [Right Arm] Pulse Oximetry 94 93 94 Oxygen Delivery Method Nasal Cannula Oxygen Flow Rate 2 Sepsis Recent Fever Within 48 Hours Sepsis New/Unexplained Change in Mental Status Sepsis Action Taken by Nursing 02/06/21 18:20 02/06/21 18:30 02/06/21 18:40 Temperature Temperature Source Pulse Rate 96 H 95 H 94 H Pulse Rate [Right Finger] Pulse Rate from SpO2 Sensor 96 H 95 H 95 H Respiratory Rate 13 15 16 Respiratory Effort / Characteristics Respiratory Depth Respiratory Pattern Blood Pressure Blood Pressure [Right Arm] Blood Pressure Mean Blood Pressure Mean [Right Arm] Pulse Oximetry 92 93 94 Oxygen Delivery Method Oxygen Flow Rate Sepsis Recent Fever Within 48 Hours Sepsis New/Unexplained Change in Mental Status Sepsis Action Taken by Nursing 02/06/21 18:50 02/06/21 19:00 02/06/21 19:10 Temperature Temperature Source Pulse Rate 95 H 97 H 95 H Pulse Rate [Right Finger] Pulse Rate from SpO2 Sensor 95 H 98 H 95 H Respiratory Rate 17 19 16 Respiratory Effort / Characteristics Respiratory Depth Respiratory Pattern Blood Pressure 120/73 Blood Pressure [Right Arm] Blood Pressure Mean 88 Blood Pressure Mean [Right Arm] Pulse Oximetry 94 92 92 Oxygen Delivery Method Oxygen Flow Rate Sepsis Recent Fever Within 48 Hours Sepsis New/Unexplained Change in Mental Status Sepsis Action Taken by Nursing 02/06/21 19:20 02/06/21 19:30 02/06/21 19:40 Temperature Temperature Source Pulse Rate 93 H 92 H 90 Pulse Rate [Right Finger] Pulse Rate from SpO2 Sensor 93 H 93 H 89 Respiratory Rate 18 16 16 Respiratory Effort / Characteristics Respiratory Depth Respiratory Pattern Blood Pressure Blood Pressure [Right Arm] Blood Pressure Mean Blood Pressure Mean [Right Arm] Pulse Oximetry 93 95 94 Oxygen Delivery Method Oxygen Flow Rate Sepsis Recent Fever Within 48 Hours Sepsis New/Unexplained Change in Mental Status Sepsis Action Taken by Nursing 02/06/21 19:43 02/06/21 19:50 02/06/21 20:00 Temperature 36.9 C Temperature Source Oral Pulse Rate 94 H 90 Pulse Rate [Right Finger] 96 H Pulse Rate from SpO2 Sensor 94 H Respiratory Rate 18 18 14 Respiratory Effort / Characteristics Respiratory Depth Respiratory Pattern Blood Pressure Blood Pressure [Right Arm] 137/76 Blood Pressure Mean Blood Pressure Mean [Right Arm] 96 Pulse Oximetry 92 95 Oxygen Delivery Method Oxygen Flow Rate Sepsis Recent Fever Within 48 Hours Sepsis New/Unexplained Change in Mental Status Sepsis Action Taken by Nursing 02/06/21 20:10 02/06/21 20:20 02/06/21 20:30 Temperature Temperature Source Pulse Rate 93 H 92 H 90 Pulse Rate [Right Finger] Pulse Rate from SpO2 Sensor 93 H 92 H 91 H Respiratory Rate 19 18 12 Respiratory Effort / Characteristics Respiratory Depth Respiratory Pattern Blood Pressure Blood Pressure [Right Arm] Blood Pressure Mean Blood Pressure Mean [Right Arm] Pulse Oximetry 95 94 96 Oxygen Delivery Method Oxygen Flow Rate Sepsis Recent Fever Within 48 Hours Sepsis New/Unexplained Change in Mental Status Sepsis Action Taken by Nursing 02/06/21 20:40 02/06/21 20:50 02/06/21 21:00 Temperature Temperature Source Pulse Rate 87 90 85 Pulse Rate [Right Finger] Pulse Rate from SpO2 Sensor 88 90 87 Respiratory Rate 14 18 15 Respiratory Effort / Characteristics Respiratory Depth Respiratory Pattern Blood Pressure Blood Pressure [Right Arm] Blood Pressure Mean Blood Pressure Mean [Right Arm] Pulse Oximetry 94 95 94 Oxygen Delivery Method Oxygen Flow Rate Sepsis Recent Fever Within 48 Hours Sepsis New/Unexplained Change in Mental Status Sepsis Action Taken by Nursing 02/06/21 21:10 02/06/21 21:20 02/06/21 21:30 Temperature Temperature Source Pulse Rate 88 87 88 Pulse Rate [Right Finger] Pulse Rate from SpO2 Sensor 88 87 88 Respiratory Rate 13 12 13 Respiratory Effort / Characteristics Respiratory Depth Respiratory Pattern Blood Pressure 139/80 Blood Pressure [Right Arm] Blood Pressure Mean 99 Blood Pressure Mean [Right Arm] Pulse Oximetry 95 95 95 Oxygen Delivery Method Oxygen Flow Rate Sepsis Recent Fever Within 48 Hours Sepsis New/Unexplained Change in Mental Status Sepsis Action Taken by Nursing Laboratory Data Result diagrams: 02/06/21 18:07 02/06/21 18:07 Lab Results 02/06/21 02/06/21 02/06/21 Range/Units 18:04 18:07 18:07 WBC 4.13 L (4.8-10.8) K/uL RBC 4.09 L (4.7-6.1) M/uL Hgb 11.5 L (14.0-18.0) g/dL Hct 33.0 L (42-52) % MCV 80.7 (80-100) fL MCH 28.1 (25-34) pg MCHC 34.8 (32-36) g/dL RDW Std Deviation 40.5 (36.4-46.3) fL RDW Coeff of Cynthia 13.5 (11.5-14.5) % Plt Count 144 (130-400) K/uL MPV 11.0 H (7.4-10.4) fL Immature Gran % (Auto) 0.0 % Neut % (Auto) 76.0 % Lymph % (Auto) 13.6 % [place] % (Auto) 10.2 % Eos % (Auto) 0.0 % Baso % (Auto) 0.2 % Neut # (Auto) 3.14 (1.4-6.5) K/uL Lymph # (Auto) 0.56 L (1.2-3.4) K/uL [place] # (Auto) 0.42 (0.11-0.59) K/uL Eos # (Auto) 0.00 (0-0.5) K/uL Baso # (Auto) 0.01 (0-0.2) K/uL Immature Gran # (Auto) 0.00 (0.00-0.02) K/uL Sodium 130 L (136-145) mmol/L Potassium 3.8 (3.5-5.1) mmol/L Chloride 97 L (98-107) mmol/L Carbon Dioxide 27 (21-32) mmol/L Anion Gap 6.0 (3-11) BUN 14 (7-18) mg/dl Creatinine 1.07 (0.6-1.4) mg/dl Est Cr Clr Drug Dosing 74.6 ml/min Est GFR ( Amer) 84.6 ml/min Est GFR (Non-Af Amer) 73.0 ml/min BUN/Creatinine Ratio 12.7 (10-20) Glucose 215 H (70-99) mg/dl Calcium 9.0 (8.5-10.1) mg/dl Total Bilirubin 0.3 (0.2-1) mg/dl AST 28 (15-37) U/L ALT 25 (12-78) Alkaline Phosphatase 67 (45-117) U/L Troponin I < 0.015 (0-0.045) ng/ml Total Protein 6.9 (6.4-8.2) gm/dl Albumin 3.1 L (3.4-5.0) gm/dl Globulin 3.8 (2.5-4.0) gm/dl Albumin/Globulin Ratio 0.8 L (0.9-2) Lipase 158 (73-393) U/L SARS-CoV-2 (PCR) POSITIVE A* (Negative) Influenza Type A (PCR) Negative (Neg) Influenza Type B (PCR) Negative (Neg) RSV (RT-PCR) Negative (Neg) Administered Medications Discontinued Medications Dexamethasone Sodium Phosphate (DexamethasonePf 10 Mg/Ml Vial) 10 mg IV NOW ONE Stop: 02/06/21 17:22 Last Admin: 02/06/21 18:05 Dose: 10 mg Documented by: [id number] Sodium Chloride (Nss 1000ml) 1,000 mls @ 999 mls/hr IV .Q1H1M ONE Stop: 02/06/21 20:45 Last Admin: 02/06/21 20:47 Dose: 999 mls/hr Documented by: [id number] Imaging Data Radiologist's Impression: Chest X-Ray 02/06/21 17:21 XR chest 1V portable CLINICAL HISTORY: Atypical chest pain TECHNIQUE: Single frontal radiograph of the chest was obtained. Comparison: Comparison is made to chest one view 02/19/2019 FINDINGS: No lines and tubes are seen. The cardiomediastinal silhouette is normal. The lungs are clear. No evidence of pleural effusion or pneumothorax. IMPRESSION: No acute chest disease. ACT 112: Negative or not required by law. Electronically signed by: Earl Hunt M.D. 02/06/2021 5:45 PM Discharge Plan Visit Data Chief Complaint: Respiratory Problems Stated Complaint: LOW OXYGEN LEVELS ED Provider: Jose Ramon White Discharge Problem: Respiratory failure, COVID-19, Cough, Chest congestion, Breath shortness, Anemia Forms Stand Alone Forms: My [facility] Prescriptions Prescriptions: No Action cholecalciferol (vitamin D3) [Vitamin D3] 5,000 unit Tablet 5,000 unit PO QID Qty: 0 RF: 0 omega 3-kzf-kyn-fish oil [Fish Oil] 1,000 mg (120 mg-180 mg) Capsule 1,000 mg PO BID Qty: 0 RF: 0 aspirin [Aspirin Low Dose] 81 mg Tablet,Delayed Release (Dr/Ec) 81 mg PO HS Qty: 0 RF: 0 (DME) lancets [Accu-Chek Softclix Lancets] misc See Rx Instructions .ROUTE .MEDSUPPLY Qty: 400 RF: 1 hydrocortisone [Proctozone-HC] 2.5 % cream with perineal applicator 1 applic SC DAILY PRN (Reason: hemorrhoids) Qty: 30 RF: 1 oxybutynin chloride [Ditropan XL] 10 mg tablet extended release 24hr 10 mg PO HS Qty: 90 RF: 0 furosemide [Lasix] 20 mg tablet 20 mg PO QAM Qty: 90 RF: 1 levocetirizine [Xyzal] 5 mg tablet 5 mg PO HS Qty: 90 RF: 1 levothyroxine [Synthroid] 125 mcg tablet 125 mcg PO QAM Qty: 90 RF: 1 losartan [Cozaar] 100 mg tablet 100 mg PO HS Qty: 90 RF: 1 rosuvastatin [Crestor] 40 mg tablet 40 mg PO HS Qty: 90 RF: 1 duloxetine [Cymbalta] 20 mg capsule,delayed release(DR/EC) 20 mg PO QAM Qty: 90 RF: 1 Novolog Flexpen U-100 Insulin 100 unit/mL (3 mL) insulin pen 22 - 24 unit SQ AC Qty: 75 RF: 1 fenofibrate nanocrystallized 145 mg tablet See Rx Instructions .ROUTE .COMPLEX Qty: 90 RF: 3 bupropion HCl 150 mg tablet sustained-release 12 hr See Rx Instructions .ROUTE .COMPLEX Qty: 180 RF: 3 omeprazole 40 mg capsule,delayed release(DR/EC) See Rx Instructions .ROUTE .COMPLEX Qty: 90 RF: 3 Toujeo Max U-300 SoloStar 300 unit/mL (3 mL) insulin pen See Rx Instructions SQ BID Qty: 123 RF: 1 COVID-19 vacc,mRNA(Pfizer)(PF) 30 mcg/0.3 mL suspension for reconstitution 0.3 ml IM ONCE Qty: 0.3 RF: 0 triamcinolone acetonide 0.1 % ointment 1 applic topical BID Qty: 30 RF: 0 celecoxib [Celebrex] 100 mg capsule 100 mg PO BID Qty: 60 RF: 5 (DME) pen needle, diabetic [BD Ultra-Fine Christina Pen Needle] 32 gauge x 5/32" needle See Rx Instructions .ROUTE .MEDSUPPLY Qty: 500 RF: 1 Vimpat 100 mg tablet 100 mg PO BID 90 Days Qty: 180 RF: 1 promethazine 25 mg tablet 25 mg PO Q6H PRN (Reason: sedation) Qty: 10 RF: 0 tamsulosin [Flomax] 0.4 mg capsule 0.4 mg PO HS RF: 0 Epifoam 1-1 % foam 1 applic topical TID PRN (Reason: hemorrhoids) RF: 0 metoclopramide HCl [Reglan] 10 mg tablet 10 mg PO QID PRN (Reason: nausea and vomiting) RF: 0 Referrals Referrals: Farhad Loya DO [Primary Care Provider] - Discharge Problem: Respiratory failure Qualifiers: Chronicity: acute Respiratory failure complication: hypoxia Qualified Code(s): J96.01 - Acute respiratory failure with hypoxia Anemia Qualifiers: Anemia type: unspecified type Qualified Code(s): D64.9 - Anemia, unspecified
--- NOTE | 2021-02-06 17:46 | XRay Report ---
XR chest 1V portable CLINICAL HISTORY: Atypical chest pain TECHNIQUE: Single frontal radiograph of the chest was obtained. Comparison: Comparison is made to chest one view 02/19/2019 FINDINGS: No lines and tubes are seen. The cardiomediastinal silhouette is normal. The lungs are clear. No evid ence of pleural effusion or pneumothorax. IMPRESSION: No acute chest disease. ACT 112: Negative or not required by law. Electronically signed by: Earl Hunt M.D. 02/06/2021 5:45 PM
[2021-02-06 18:21] LABS: Basophils # (auto) 0.01 K/uL (0-0.2); Basophils % (auto) 0.2 %; Hemoglobin 11.5 g/dL (14.0-18.0); Lymphocytes # (auto) 0.56 K/uL (1.2-3.4); Lymphocytes % (auto) 13.6 %; Mean Corpuscular Hemoglobin 28.1 pg (25-34); Mean Corpuscular Hgb Conc 34.8 g/dL (32-36); Mean Corpuscular Volume 80.7 fL (80-100); Monocytes # (auto) 0.42 K/uL (0.11-0.59); Monocytes % (auto) 10.2 %; Neutrophils # (auto) 3.14 K/uL (1.4-6.5); Platelet Count 144 K/uL (130-400); RDW Coefficient of Variation 13.5 % (11.5-14.5); RDW Standard Deviation 40.5 fL (36.4-46.3); Red Blood Count 4.09 M/uL (4.7-6.1); White Blood Count 4.13 K/uL (4.8-10.8)
[2021-02-06 18:42] LABS: Alanine Aminotransferase 25 (12-78); Albumin Level 3.1 gm/dl (3.4-5.0); Aspartate Aminotransferase 28 U/L (15-37); BUN Creatinine Ratio 12.7 (10-20); Blood Urea Nitrogen 14 mg/dl (7-18); Carbon Dioxide 27 mmol/L (21-32); Chloride 97 mmol/L (98-107); Creatinine Clr Calc Pharmacy 74.6 ml/min; Est GFR (African American) 84.6 ml/min; Glucose 215 mg/dl (70-99); Lipase 158 U/L (73-393); Potassium 3.8 mmol/L (3.5-5.1); Sodium 130 mmol/L (136-145)
[2021-02-06 18:46] LABS: Albumin Globulin Ratio 0.8 (0.9-2); Alkaline Phosphatase 67 U/L (45-117); Bilirubin,Total 0.3 mg/dl (0.2-1); Globulin 3.8 gm/dl (2.5-4.0); Total Protein 6.9 gm/dl (6.4-8.2); Troponin I < 0.015 ng/ml (0-0.045)
[2021-02-06 18:58] LABS: Influenza A virus by PCR Negative (Neg); Influenza B virus by PCR Negative (Neg); RSV by PCR Negative (Neg)
[2021-02-06 19:22] LABS: SARS CoV2 RNA(COVID-19) InHosp POSITIVE (Negative)
[2021-02-06] MEDS ORDERED: SODIUM CHLORIDE 0.9% 1000ML 1,000 ML IV ONE (19:45)
[2021-02-06] MEDS ORDERED: REMDESIVIR 200 MG in SODIUM CHLORIDE 0.9% 210 ML IV STA (20:53)
--- NOTE | 2021-02-06 20:54 | History & Physical Report ---
Date of Service February 06, 2021 Assessment & Plan (1) COVID-19: Plan: 65yo male with multiple medical problems presenting with Covid-19 PNA. Patient is on appx day 4 of symptoms. He reports weakness, fatigue, cough and SOB predominantly. Hypoxic on arrival to 85% on room air which improved with 2L NC. Labs are significant for leukopenia with WBC=4.13, lymphopenia, mild hyponatremia with Tw=267. He states he is not vaccinated against Covid-19. ?review of outpatient records suggest he was given a dose of Genapsys MRNA vaccine on 12/07/20? Uncertain if this was given. -Admit to medical -Maintain isolation precautions for Covid -Check CRP, Ferritin, Procal, BMP -Dexamethasone 6mg IV daily -Remdesivir per protocol -Lovenox 40mg BID (2) Hypothyroidism: Plan: Chronic -Continue Synthroid 125mcg po daily -Check TSH with AM labs (3) Dyslipidemia: Plan: Chronic -Continue Fenofibrate -Continue Crestor (4) Depression: Plan: Chronic. Stable on medications -Continue Bupropion 150mg po BID -Continue Duloxetine (5) Diabetes mellitus, type II: Plan: Chronic. Patient on Toujeo Max U-300, 44 units in the AM, 92u qHS and Novolog qAC. Elevated blood sugar presently at 215. Patient on dexamethasone as above for Covid 19. -Continue Toujeo -Glycemic management consultation appreciated for high dose insulin management while on Dex. Assistance appreciated (6) BPH (benign prostatic hyperplasia): Plan: Chronic -Continue Flomax -Continue Oxybutynin (7) Hypertension: Plan: Blood pressure stable -Continue Cozaar 100mg po daily (8) GERD without esophagitis: Plan: Chronic -Patient on Omeprazole - will give Pepcid while inpatient (9) Epilepsy: Plan: Chronic. Stable on medications. Patient follows with Neurology for epilepsy as well as tremor -Continue Vimpat 100mg po BID Plan: F/E/N - Heplock. Monitor electrolytes. CC diet as tolerated Ppx - Lovenox 40 BID Code - Full per discussion with patient Dispo - Admission to medical History of Present Illness Chief Complaint: Covid-19 hypoxia Primary Care Provider: DO Ernie Lobatofranchesca Pardo is a 65yo male with multiple medical comorbidities to include DM, HTN, HLP, GERD, Hypothyroidism and idiopathic fibrosing alveolitis presenting with Covid-19 PNA, hypoxia. Patient has had symptoms x 4 days to include cough, SOB, weakness, malaise, nausea and diarrhea. Patient is not fully vaccinated against Covid-19. No additional complaints at this time. Upon arrival to the ER patietn hypoxic to 85% on room air. He was placed on supplemental O2 - 2L by TN with improvement to 94%. No additional complaints at this time. ER Course: Dexamehtasone 6mg IV, NSS Allergies Allergy/AdvReac Type Severity Reaction Status Date / Time BIRGIT Inhibitors Allergy Intermediate ? 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 RX lorazepam Allergy Unknown "DON'T Verified 02/06/21 22:49 REMEMBER" morphine Allergy Unknown Unknown Verified 02/06/21 22:49 codeine AdvReac Mild N&V Verified 02/06/21 22:49 Home Medications Medication Instructions Recorded Confirmed Type cholecalciferol (vitamin D3) 125 5,000 unit PO BID #0 12/27/16 02/06/21 History mcg (5,000 unit) tablet (Vitamin D3) omega 6-for-drx-fish oil 1,000 mg 1,000 mg PO BID #0 cap 12/27/16 02/06/21 History (120 mg-180 mg) capsule (Fish Oil) aspirin 81 mg tablet,delayed 81 mg PO HS #0 09/24/17 02/06/21 History release (Aspirin Low Dose) promethazine 25 mg tablet 25 mg PO Q6H PRN #10 tab 02/19/19 02/06/21 Rx hydrocortisone 2.5 % topical cream 1 applic ID DAILY PRN #30 g 06/05/20 02/06/21 Rx with perineal applicator (Proctozone-HC) lacosamide 100 mg tablet (Vimpat) 100 mg PO BID 90 Days #180 tab 08/29/20 02/06/21 Rx hydrocortisone-pramoxine 1 %-1 % 1 applic TOPICAL TID PRN 09/01/20 02/06/21 History topical foam (Epifoam) metoclopramide HCl 10 mg tablet 10 mg PO QID PRN 09/01/20 02/06/21 History (Reglan) tamsulosin 0.4 mg capsule (Flomax) 0.4 mg PO HS 09/01/20 02/06/21 History celecoxib 100 mg capsule (Celebrex) 100 mg PO BID #60 cap 09/04/20 02/06/21 Rx oxybutynin chloride 10 mg 10 mg PO HS #90 tab 09/06/20 02/06/21 Rx tablet,extended release 24 hr (Ditropan XL) furosemide 20 mg tablet (Lasix) 20 mg PO QAM #90 tab 09/20/20 02/06/21 Rx levocetirizine 5 mg tablet (Xyzal) 5 mg PO HS #90 tab 09/20/20 02/06/21 Rx levothyroxine 125 mcg tablet 125 mcg PO QAM #90 tab 09/20/20 02/06/21 Rx (Synthroid) losartan 100 mg tablet (Cozaar) 100 mg PO HS #90 tab 09/20/20 02/06/21 Rx rosuvastatin 40 mg tablet (Crestor) 40 mg PO HS #90 tab 09/20/20 02/06/21 Rx duloxetine 20 mg capsule,delayed 20 mg PO QAM #90 cap 12/13/20 02/06/21 Rx release (Cymbalta) insulin aspart U-100 100 unit/mL 22 - 24 unit SQ AC #75 ml 01/07/21 02/06/21 Rx (3 mL) subcutaneous pen (Novolog Flexpen U-100 Insulin aspart) bupropion HCl 150 mg tablet,12 hr 150 mg PO BID 02/06/21 02/06/21 History sustained-release fenofibrate nanocrystallized 145 145 mg PO QAM 02/06/21 02/06/21 History mg tablet insulin glargine U-300 conc 300 44 unit SQ QAM 02/06/21 02/06/21 History unit/mL (3 mL) subcutaneous pen (Toujeo Max U-300 SoloStar) insulin glargine U-300 conc 300 92 unit SUBCUT HS 02/06/21 02/06/21 History unit/mL (3 mL) subcutaneous pen (Toujeo Max U-300 SoloStar) omeprazole 40 mg capsule,delayed 40 mg PO DAILY 02/06/21 02/06/21 History release triamcinolone acetonide 0.1 % 1 applic TOPICAL BID PRN 02/06/21 02/06/21 History topical ointment Past Med/Surg History Medical History Adhesive capsulitis of shoulder Anxiety Asbestosis Asthma BPH (benign prostatic hyperplasia) Carpal tunnel syndrome Chronic obstructive pulmonary disease Depression Dermatitis Diabetes mellitus, type 2 Essential tremor GERD (gastroesophageal reflux disease) Gross hematuria Hematochezia Hyperlipidemia Hypertension Hypothyroidism Inflamed seborrheic keratosis Melena Osteoarthritis Seasonal allergies Seizure Surgical History Fusion of spine H/O arthroscopy of shoulder H/O transurethral resection of prostate History of adenoidectomy History of appendectomy History of appendectomy History of carpal tunnel release History of carpal tunnel surgery History of cholecystectomy History of cholecystectomy History of colonoscopy History of tonsillectomy History of tonsillectomy and adenoidectomy Hx of arthroscopy of shoulder Status post right foot surgery Family History Mother Family history of diabetes mellitus Colorectal cancer Hypertension Diabetes Grandmother Myocardial infarction Denies family history of Ovarian cancer Prostate cancer Breast cancer Social History Smoking Status: Never smoker Age Started Using Tobacco: 17; Age Quit Using Tobacco: 36; Years Smoked: 19; Number of Years Since Quit: 28; Second Hand Exposure: No; Hx Alcohol Use: No Hx Substance Use: No Preferred Language: Irish Communication Ability: Effective Visual Impairment: No Limitations Hearing Ability: Normal 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 Room 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 Required: No Beliefs That Will Affect Care: None marital status: Current Living Situation: Spouse current occupational status: employed current occupation: [employer] How many Children do You have: 3 Feels Safe at Home: Yes Childhood Exposure to Second-Hand Smoke: Yes caffeine: Yes during the past year weight has: remained stable Dental Care, Regularly: No Physical Activity Frequency: Daily Seatbelt Use: sometimes Sunscreen Use: No Assistive Devices: Glasses Review of Systems Review of Systems: All systems reviewed & are unremarkable except as noted in HPI & below Physical Exam Physical Exam: General: patient resting comfortably, NAD, non-toxic in appearance, AA&O x 4 Skin: warm, dry, intact, no rashes or lesions HEENT: NC/AT, PERRL, EOMI, anicteric sclera, conjunctiva without injection, external ear normal to inspection and nontender, nares patent, moist mucus membranes, dentition intact, no oropharyngeal lesions, neck supple, trachea midline, no LAD, no thyromegaly, no JVD Heart: +S1/S2, regular, no m/r/g Lungs: equal air entry bilaterally, no rales/rhonchi/wheezes Abd: +BS, soft, NT/ND, no masses/organomegaly/ascites Ext: warm, 2+ pulses in UE/LE bilaterally, no clubbing/cyanosis or edema Neuro: nonfocal, patient AA&O x 4, speech intact, no facial droop, moving all extremities on command with equal strength 5/5 Results & Data Results & Data ([facility]) Vital Signs (Past 12 Hours) Vital Signs Temp Pulse Pulse Resp BP BP Pulse Ox 02/06/21 19:43 36.9 C 96 H 18 137/76 92 02/06/21 18:50 95 H 17 120/73 94 02/06/21 18:40 94 H 16 94 02/06/21 18:30 95 H 15 93 02/06/21 18:20 96 H 13 92 02/06/21 18:14 94 02/06/21 18:10 99 H 17 93 02/06/21 18:00 99 H 13 94 02/06/21 17:50 99 H 15 93 02/06/21 17:40 13 93 02/06/21 17:30 99 H 14 93 02/06/21 17:20 99 H 14 93 02/06/21 17:14 102 H 14 94 02/06/21 17:04 36.7 C 112 H 19 145/63 H 85 L Laboratory Results Laboratory Results WBC 4.13 K/uL (4.8-10.8) L 02/06/21 18:07 RBC 4.09 M/uL (4.7-6.1) L 02/06/21 18:07 Hgb 11.5 g/dL (14.0-18.0) L 12/15/21 18:07 Hct 33.0 % (42-52) L 02/06/21 18:07 MCV 80.7 fL (80-100) 02/06/21 18:07 MCH 28.1 pg (25-34) 02/06/21 18:07 MCHC 34.8 g/dL (32-36) 02/06/21 18:07 RDW Std Deviation 40.5 fL (36.4-46.3) 02/06/21 18:07 RDW Coeff of Cynthia 13.5 % (11.5-14.5) 02/06/21 18:07 Plt Count 144 K/uL (130-400) 02/06/21 18:07 MPV 11.0 fL (7.4-10.4) H 02/06/21 18:07 Immature Gran % (Auto) 0.0 % 02/06/21 18:07 Neut % (Auto) 76.0 % 02/06/21 18:07 Lymph % (Auto) 13.6 % 02/06/21 18:07 [place] % (Auto) 10.2 % 02/06/21 18:07 Eos % (Auto) 0.0 % 02/06/21 18:07 Baso % (Auto) 0.2 % 02/06/21 18:07 Neut # (Auto) 3.14 K/uL (1.4-6.5) 02/06/21 18:07 Lymph # (Auto) 0.56 K/uL (1.2-3.4) L 02/06/21 18:07 [place] # (Auto) 0.42 K/uL (0.11-0.59) 02/06/21 18:07 Eos # (Auto) 0.00 K/uL (0-0.5) 02/06/21 18:07 Baso # (Auto) 0.01 K/uL (0-0.2) 02/06/21 18:07 Immature Gran # (Auto) 0.00 K/uL (0.00-0.02) 02/06/21 18:07 Sodium 130 mmol/L (136-145) L 02/06/21 18:07 Potassium 3.8 mmol/L (3.5-5.1) 02/06/21 18:07 Chloride 97 mmol/L (98-107) L 02/06/21 18:07 Carbon Dioxide 27 mmol/L (21-32) 02/06/21 18:07 Anion Gap 6.0 (3-11) 02/06/21 18:07 BUN 14 mg/dl (7-18) 02/06/21 18:07 Creatinine 1.07 mg/dl (0.6-1.4) 02/06/21 18:07 Est Cr Clr Drug Dosing 74.6 ml/min 02/06/21 18:07 Est GFR ( Amer) 84.6 ml/min 02/06/21 18:07 Est GFR (Non-Af Amer) 73.0 ml/min 02/06/21 18:07 BUN/Creatinine Ratio 12.7 (10-20) 02/06/21 18:07 Glucose 215 mg/dl (70-99) H 02/06/21 18:07 Calcium 9.0 mg/dl (8.5-10.1) 02/06/21 18:07 Total Bilirubin 0.3 mg/dl (0.2-1) 02/06/21 18:07 AST 28 U/L (15-37) 02/06/21 18:07 ALT 25 (12-78) 02/06/21 18:07 Alkaline Phosphatase 67 U/L (45-117) 02/06/21 18:07 Troponin I < 0.015 ng/ml (0-0.045) 02/06/21 18:07 Total Protein 6.9 gm/dl (6.4-8.2) 02/06/21 18:07 Albumin 3.1 gm/dl (3.4-5.0) L 02/06/21 18:07 Globulin 3.8 gm/dl (2.5-4.0) 02/06/21 18:07 Albumin/Globulin Ratio 0.8 (0.9-2) L 02/06/21 18:07 Lipase 158 U/L (73-393) 02/06/21 18:07 SARS-CoV-2 (PCR) POSITIVE (Negative) A* 02/06/21 18:04 Influenza Type A (PCR) Negative (Neg) 02/06/21 18:04 Influenza Type B (PCR) Negative (Neg) 02/06/21 18:04 RSV (RT-PCR) Negative (Neg) 02/06/21 18:04 Impressions Chest X-Ray 02/06/21 17:21 XR chest 1V portable CLINICAL HISTORY: Atypical chest pain TECHNIQUE: Single frontal radiograph of the chest was obtained. Comparison: Comparison is made to chest one view 02/19/2019 FINDINGS: No lines and tubes are seen. The cardiomediastinal silhouette is normal. The lungs are clear. No evidence of pleural effusion or pneumothorax. IMPRESSION: No acute chest disease. ACT 112: Negative or not required by law. Electronically signed by: Earl Hunt M.D. 02/06/2021 5:45 PM ECG Additional Comments: EKG with NSR at 98, normal axis, GR=424, QRS=86, BKo=239. No acute ischemic changes Code Status & VTE Plan VTE Prophylaxis Plan VTE Prophylaxis will be ordered: Yes PG Care Time/CCT Total # of Minutes Spent Total Time Spent with Patient: Total time spent is greater than 50% in coordination of care (as documented) at patient's floor/unit and/or counseling patient: Coding Level of Care Code 62562 Initial Inpt Care Lvl 3 Diagnoses Hypothyroidism E03.9 Dyslipidemia E78.5 Depression F32.9 Diabetes mellitus, type II E11.9 BPH (benign prostatic hyperplasia) N40.0 Hypertension I10 GERD without esophagitis K21.9 COVID-19 U07.1 Epilepsy G40.909
[2021-02-07] MEDS ORDERED: GLUCAGON FOR INJ 1 MG VIAL SQ PRN (00:40)
[2021-02-07] MEDS ORDERED: ONDANSETRON INJ 2 MG/ML 2 ML VIAL IV PRN (00:40)
[2021-02-07] MEDS ORDERED: GLUCOSE 40% GEL 15 GM TUBE PO PRN (00:40)
[2021-02-07] MEDS ORDERED: DEXTROSE 50% 50 ML SYRINGE IV PRN (00:40)
[2021-02-07] MEDS ORDERED: GLUCOSE 10 TABS/TUBE PO PRN (00:40)
[2021-02-07] MEDS ORDERED: ACETAMINOPHEN 325 MG TAB PO PRN (00:40)
[2021-02-07] MEDS ORDERED: PHARMACY GLYCEMIC MGMT CONSULT PRN (00:40)
[2021-02-07] MEDS ORDERED: CARBOHYDRATES FOR HYPOGLYCEMIA PO PRN (00:40)
[2021-02-07] MEDS ORDERED: INSULIN GLARGINE 100 UNIT/ML VIAL SC ONE (01:30)
[2021-02-07 01:41] LABS: Ferritin 430.6 ng/ml (8-388); Magnesium 1.6 mg/dl (1.8-2.4); NT Pro B Type Natriuretic Pept 20 pg/ml (0-900); Phosphorus 2.3 mg/dl (2.5-4.9)
[2021-02-07] MEDS: INSULIN ASPART PER UNIT SC SCH ×5 (02:17→20:50)
[2021-02-07] MEDS: ENOXAPARIN INJ 40 MG/0.4 ML SYR SQ SCH ×2 (02:22→15:28)
[2021-02-07] MEDS ORDERED: INSULIN ASPART PER UNIT SC SCH ×2 (04:30→05:00)
[2021-02-07] MEDS: LEVOTHYROXINE SODIUM 125 MCG TABLET PO SCH (05:15)
[2021-02-07 07:05] LABS: Basophils # (auto) 0.02 K/uL (0-0.2); Basophils % (auto) 0.9 %; Hematocrit (blood only) 32.6 % (42-52); Hemoglobin 11.2 g/dL (14.0-18.0); Immature Granulocytes # (auto) 0.01 K/uL (0.00-0.02); Immature Granulocytes % (auto) 0.5 %; Lymphocytes # (auto) 0.42 K/uL (1.2-3.4); Lymphocytes % (auto) 19.1 %; Mean Corpuscular Hemoglobin 27.9 pg (25-34); Mean Corpuscular Hgb Conc 34.4 g/dL (32-36); Mean Corpuscular Volume 81.3 fL (80-100); Mean Platelet Volume 11.1 fL (7.4-10.4); Monocytes # (auto) 0.36 K/uL (0.11-0.59); Monocytes % (auto) 16.4 %; Neutrophils # (auto) 1.39 K/uL (1.4-6.5); Neutrophils % (auto) 63.1 %; Platelet Count 164 K/uL (130-400); RDW Coefficient of Variation 13.5 % (11.5-14.5); RDW Standard Deviation 40.7 fL (36.4-46.3); Red Blood Count 4.01 M/uL (4.7-6.1)
[2021-02-07 07:35] LABS: Estimated Average Glucose 148 mg/dl; Hemoglobin A1C 6.8 % (4.5-5.6)
[2021-02-07 07:41] LABS: BUN Creatinine Ratio 12.8 (10-20); Bilirubin Direct 0.1 mg/dl (0-0.2); Calcium 9.3 mg/dl (8.5-10.1); Creatinine Clr Calc Pharmacy 80.6 ml/min; Est GFR (African American) 92.9 ml/min; Est GFR (Non-African American) 80.2 ml/min; Potassium 4.3 mmol/L (3.5-5.1)
[2021-02-07 07:52] LABS: Bilirubin,Total 0.4 mg/dl (0.2-1); Thyroid Stimulating Hormone 0.356 uIu/ml (0.300-4.500); Total Protein 6.9 gm/dl (6.4-8.2)
[2021-02-07] MEDS ORDERED: INSULIN GLARGINE 100 UNIT/ML VIAL SC SCH (08:00)
[2021-02-07] MEDS ORDERED: NON-FORMULARY MEDICATION (Insulin Glargine U-300 Conc [Toujeo Max U-300 Solostar] 300 unit SQ SCH (09:00)
[2021-02-07] MEDS: CELECOXIB 100 MG CAP PO SCH ×2 (09:47→20:09)
[2021-02-07] MEDS: dexAMETHasone 6 MG in SYRINGE 0 ML IV SCH (09:47)
[2021-02-07] MEDS: FENOFIBRATE NANOCRYSTALLIZED 145 MG TABLET PO SCH (09:47)
[2021-02-07] MEDS: FUROSEMIDE 20 MG TAB PO SCH (09:47)
[2021-02-07] MEDS: DULoxetine HCL 20 MG CAP PO SCH (09:47)
[2021-02-07] MEDS: buPROPion SR 150 MG TABCR PO SCH ×2 (09:47→20:08)
[2021-02-07] MEDS: FAMOTIDINE 40 MG TABLET PO SCH (09:47)
[2021-02-07] MEDS: INSULIN HUMAN NPH SC SCH (09:56)
[2021-02-07] MEDS: LACOSAMIDE 50 MG TABLET PO SCH ×2 (10:50→20:52)
--- NOTE | 2021-02-07 15:57 | Hospitalist Progress Note ---
Date of Service February 07, 2021 Assessment & Plan (1) COVID-19: Plan: An unvaccinated male, presents with SOB, cough Found to have COVID 19, chest x ray shows infiltrates -Maintain isolation precautions for Covid -Check CRP, Ferritin, Procal, BMP -Dexamethasone 6mg IV daily -Remdesivir per protocol -Lovenox 40mg BID -Monitor inflammatory markers (2) Hypothyroidism: Plan: Chronic -Continue Synthroid 125mcg po daily -Check TSH with AM labs (3) Dyslipidemia: Plan: Chronic -Continue Fenofibrate -Continue Crestor (4) Depression: Plan: Chronic. Stable on medications -Continue Bupropion 150mg po BID -Continue Duloxetine (5) Diabetes mellitus, type II: Plan: Chronic. Patient on Toujeo Max U-300, 44 units in the AM, 92u qHS and Novolog qAC. Elevated blood sugar presently at 215. Patient on dexamethasone as above for Covid 19. -Continue Toujeo -Glycemic management consultation appreciated for high dose insulin management while on Dex. Assistance appreciated (6) BPH (benign prostatic hyperplasia): Plan: Chronic -Continue Flomax -Continue Oxybutynin (7) Hypertension: Plan: Blood pressure stable -Continue Cozaar 100mg po daily (8) GERD without esophagitis: Plan: Chronic -Patient on Omeprazole - will give Pepcid while inpatient (9) Epilepsy: Plan: Chronic. Stable on medications. Patient follows with Neurology for epilepsy as well as tremor -Continue Vimpat 100mg po BID Plan: F/E/N - Heplock. Monitor electrolytes. CC diet as tolerated Ppx - Lovenox 40 BID Code - Full per discussion with patient Dispo - Admission to medical Admission and Anticipated Discharge Date Admission Date: February 06, 2021 Subjective Patient seen and examined today, SOB is better Review of Systems Review of Systems: All systems reviewed are negative, apart from the ones contained in the history. Physical Exam Physical Exam: The patient is awake, alert and oriented 3, well developed and well nourished, normocephalic and atraumatic, lying in bed and in no acute distress. HEENT--PERRL, EOMI, mucous membranes and oropharynx mildly dry Neck--supple. No JVD. No bruits. Thyroid normal, trachea midline, no adenopathy. Heart--normal S1 and S2. No murmurs, rubs or gallops. Lungs--clear bilaterally, no respiratory distress, no accessory muscle use. Abdomen--normal bowel sounds and soft. Mild epigastric and left sided abdominal pain Extremities--no cyanosis or clubbing. No edema. Dermatologic--normal skin turgor, normal color, no abnormal lymph nodes, no rash. Neurologic--cranial nerves II through XII grossly intact. Rheumatologic--normal range of motion. Psychiatric--normal affect. Results & Data Results & Data ([facility]) Vital Signs (Past 12 Hours) Vital Signs Temp Pulse Resp BP Pulse Ox 02/07/21 07:17 98.6 F 79 16 139/69 93 Laboratory Results Laboratory Results - last 24 hr 02/06/21 02/06/21 02/06/21 18:04 18:07 18:07 WBC 4.13 L RBC 4.09 L Hgb 11.5 L Hct 33.0 L MCV 80.7 MCH 28.1 MCHC 34.8 RDW Std Deviation 40.5 RDW Coeff of Cynthia 13.5 Plt Count 144 MPV 11.0 H Immature Gran % (Auto) 0.0 Neut % (Auto) 76.0 Lymph % (Auto) 13.6 [place] % (Auto) 10.2 Eos % (Auto) 0.0 Baso % (Auto) 0.2 Neut # (Auto) 3.14 Lymph # (Auto) 0.56 L [place] # (Auto) 0.42 Eos # (Auto) 0.00 Baso # (Auto) 0.01 Immature Gran # (Auto) 0.00 Sodium 130 L Potassium 3.8 Chloride 97 L Carbon Dioxide 27 Anion Gap 6.0 BUN 14 Creatinine 1.07 Est Cr Clr Drug Dosing 74.6 Est GFR ( Amer) 84.6 Est GFR (Non-Af Amer) 73.0 BUN/Creatinine Ratio 12.7 Glucose 215 H POC Glucose Estimat Average Glucose Hemoglobin A1c Calcium 9.0 Phosphorus 2.3 L Magnesium 1.6 L Ferritin 430.6 H Total Bilirubin 0.3 Direct Bilirubin AST 28 ALT 25 Alkaline Phosphatase 67 Troponin I < 0.015 C-Reactive Protein 12.70 H NT-Pro-B Natriuret Pep 20 Total Protein 6.9 Albumin 3.1 L Globulin 3.8 Albumin/Globulin Ratio 0.8 L Lipase 158 Procalcitonin TSH SARS-CoV-2 (PCR) POSITIVE A* Hepatitis C Ab Screen Influenza Type A (PCR) Negative Influenza Type B (PCR) Negative RSV (RT-PCR) Negative 02/06/21 02/07/21 02/07/21 18:07 00:34 02:10 WBC RBC Hgb Hct MCV MCH MCHC RDW Std Deviation RDW Coeff of Cynthia Plt Count MPV Immature Gran % (Auto) Neut % (Auto) Lymph % (Auto) [place] % (Auto) Eos % (Auto) Baso % (Auto) Neut # (Auto) Lymph # (Auto) [place] # (Auto) Eos # (Auto) Baso # (Auto) Immature Gran # (Auto) Sodium Potassium Chloride Carbon Dioxide Anion Gap BUN Creatinine Est Cr Clr Drug Dosing Est GFR ( Amer) Est GFR (Non-Af Amer) BUN/Creatinine Ratio Glucose POC Glucose 298 H 324 H* Estimat Average Glucose Hemoglobin A1c Calcium Phosphorus Magnesium Ferritin Total Bilirubin Direct Bilirubin AST ALT Alkaline Phosphatase Troponin I C-Reactive Protein NT-Pro-B Natriuret Pep Total Protein Albumin Globulin Albumin/Globulin Ratio Lipase Procalcitonin 0.07 TSH SARS-CoV-2 (PCR) Hepatitis C Ab Screen Influenza Type A (PCR) Influenza Type B (PCR) RSV (RT-PCR) 02/07/21 02/07/21 02/07/21 05:04 05:34 05:34 WBC 2.20 L RBC 4.01 L Hgb 11.2 L Hct 32.6 L MCV 81.3 MCH 27.9 MCHC 34.4 RDW Std Deviation 40.7 RDW Coeff of Cynthia 13.5 Plt Count 164 MPV 11.1 H Immature Gran % (Auto) 0.5 Neut % (Auto) 63.1 Lymph % (Auto) 19.1 [place] % (Auto) 16.4 Eos % (Auto) 0.0 Baso % (Auto) 0.9 Neut # (Auto) 1.39 L Lymph # (Auto) 0.42 L [place] # (Auto) 0.36 Eos # (Auto) 0.00 Baso # (Auto) 0.02 Immature Gran # (Auto) 0.01 Sodium 134 L Potassium 4.3 Chloride 101 Carbon Dioxide 28 Anion Gap 5.0 BUN 13 Creatinine 0.99 Est Cr Clr Drug Dosing 80.6 Est GFR ( Amer) 92.9 Est GFR (Non-Af Amer) 80.2 BUN/Creatinine Ratio 12.8 Glucose 240 H POC Glucose 297 H Estimat Average Glucose Hemoglobin A1c Calcium 9.3 Phosphorus Magnesium Ferritin Total Bilirubin 0.4 Direct Bilirubin 0.1 AST 27 ALT 25 Alkaline Phosphatase 68 Troponin I C-Reactive Protein NT-Pro-B Natriuret Pep Total Protein 6.9 Albumin 3.0 L Globulin Albumin/Globulin Ratio Lipase Procalcitonin TSH 0.356 SARS-CoV-2 (PCR) Hepatitis C Ab Screen Influenza Type A (PCR) Influenza Type B (PCR) RSV (RT-PCR) 02/07/21 02/07/21 02/07/21 05:34 05:34 08:13 WBC RBC Hgb Hct MCV MCH MCHC RDW Std Deviation RDW Coeff of Cynthia Plt Count MPV Immature Gran % (Auto) Neut % (Auto) Lymph % (Auto) [place] % (Auto) Eos % (Auto) Baso % (Auto) Neut # (Auto) Lymph # (Auto) [place] # (Auto) Eos # (Auto) Baso # (Auto) Immature Gran # (Auto) Sodium Potassium Chloride Carbon Dioxide Anion Gap BUN Creatinine Est Cr Clr Drug Dosing Est GFR ( Amer) Est GFR (Non-Af Amer) BUN/Creatinine Ratio Glucose POC Glucose 186 H Estimat Average Glucose 148 Hemoglobin A1c 6.8 H Calcium Phosphorus Magnesium Ferritin Total Bilirubin Direct Bilirubin AST ALT Alkaline Phosphatase Troponin I C-Reactive Protein NT-Pro-B Natriuret Pep Total Protein Albumin Globulin Albumin/Globulin Ratio Lipase Procalcitonin TSH SARS-CoV-2 (PCR) Hepatitis C Ab Screen Neg Influenza Type A (PCR) Influenza Type B (PCR) RSV (RT-PCR) 02/07/21 12:14 WBC RBC Hgb Hct MCV MCH MCHC RDW Std Deviation RDW Coeff of Cynthia Plt Count MPV Immature Gran % (Auto) Neut % (Auto) Lymph % (Auto) [place] % (Auto) Eos % (Auto) Baso % (Auto) Neut # (Auto) Lymph # (Auto) [place] # (Auto) Eos # (Auto) Baso # (Auto) Immature Gran # (Auto) Sodium Potassium Chloride Carbon Dioxide Anion Gap BUN Creatinine Est Cr Clr Drug Dosing Est GFR ( Amer) Est GFR (Non-Af Amer) BUN/Creatinine Ratio Glucose POC Glucose 183 H Estimat Average Glucose Hemoglobin A1c Calcium Phosphorus Magnesium Ferritin Total Bilirubin Direct Bilirubin AST ALT Alkaline Phosphatase Troponin I C-Reactive Protein NT-Pro-B Natriuret Pep Total Protein Albumin Globulin Albumin/Globulin Ratio Lipase Procalcitonin TSH SARS-CoV-2 (PCR) Hepatitis C Ab Screen Influenza Type A (PCR) Influenza Type B (PCR) RSV (RT-PCR) PG Care Time/CCT Total # of Minutes Spent Total Time Spent with Patient: Total time spent is greater than 50% in coordination of care (as documented) at patient's floor/unit and/or counseling patient: Coding Level of Care Code 86287 Subseq Hosp Care Lvl 2 Diagnoses COVID-19 U07.1 Hypothyroidism E03.9 Dyslipidemia E78.5 Depression F32.9 Diabetes mellitus, type II E11.9 BPH (benign prostatic hyperplasia) N40.0 Hypertension I10 GERD without esophagitis K21.9 Epilepsy G40.909 Time Spent (min) 35
[2021-02-07] MEDS: REMDESIVIR 100 MG in SODIUM CHLORIDE 0.9% 230 ML IV SCH (20:04)
[2021-02-07] MEDS: ASPIRIN 81 MG ECTAB PO SCH (20:07)
[2021-02-07] MEDS: OXYBUTYNIN CHLORIDE XL 5 MG TABCR PO SCH (20:07)
[2021-02-07] MEDS: LOSARTAN POTASSIUM 50 MG TAB PO SCH (20:08)
[2021-02-07] MEDS: ROSUVASTATIN CALCIUM 20 MG TAB PO SCH (20:09)
[2021-02-07] MEDS: TAMSULOSIN HCL 0.4 MG CAP PO SCH (20:09)
[2021-02-07] MEDS: INSULIN GLARGINE 100 UNIT/ML VIAL SC SCH (20:50)
[2021-02-07] MEDS: SODIUM CHLORIDE 0.9% 10ML FLUSH IV SCH (21:10)
[2021-02-08] MEDS: ENOXAPARIN INJ 40 MG/0.4 ML SYR SQ SCH ×2 (02:04→13:25)
[2021-02-08] MEDS: LEVOTHYROXINE SODIUM 125 MCG TABLET PO SCH (05:36)
[2021-02-08] MEDS: buPROPion SR 150 MG TABCR PO SCH ×2 (08:37→21:10)
[2021-02-08] MEDS: dexAMETHasone 6 MG in SYRINGE 0 ML IV SCH (08:37)
[2021-02-08] MEDS: FUROSEMIDE 20 MG TAB PO SCH (08:37)
[2021-02-08] MEDS: CELECOXIB 100 MG CAP PO SCH ×2 (08:37→21:11)
[2021-02-08] MEDS: FENOFIBRATE NANOCRYSTALLIZED 145 MG TABLET PO SCH (08:37)
[2021-02-08] MEDS: FAMOTIDINE 40 MG TABLET PO SCH (08:37)
[2021-02-08] MEDS: DULoxetine HCL 20 MG CAP PO SCH (08:37)
[2021-02-08] MEDS ORDERED: INSULIN GLARGINE 100 UNIT/ML VIAL SC SCH (09:00)
[2021-02-08] MEDS: LACOSAMIDE 50 MG TABLET PO SCH ×2 (09:25→21:09)
[2021-02-08] MEDS: INSULIN ASPART PER UNIT SC SCH ×4 (09:49→21:21)
[2021-02-08] MEDS: INSULIN HUMAN NPH SC SCH (10:13)
[2021-02-08 10:31] LABS: BUN Creatinine Ratio 22.7 (10-20); C Reactive Protein 5.22 mg/dl (0-0.29); Calcium 9.7 mg/dl (8.5-10.1); Creatinine Clr Calc Pharmacy 73.9 ml/min; Est GFR (African American) 83.6 ml/min; Est GFR (Non-African American) 72.2 ml/min; Ferritin 475.4 ng/ml (8-388); Potassium 3.5 mmol/L (3.5-5.1)
--- NOTE | 2021-02-08 15:22 | Pharmacy Report ---
Pharmacy Glycemic Short Note 2 - Date of Service February 08, 2021 - Glycemic Short BSG Results (Last 24 hours): 02/07/21 02/07/21 02/08/21 17:16 20:42 08:05 Glucose POC Glucose 214 H 214 H 86 02/08/21 02/08/21 09:21 12:23 Glucose 125 H POC Glucose 146 H OUTPATIENT ANTIDIABETIC REGIMEN: * Toujeo 44 units qAM, 92 units qHS * Aspart 22-24 units AC * A1c = 6.7% ASSESSMENT: * Erick is a 65 yo male admitted with COVID-19 pneumonia * After consultation he was started on once daily NPH to cover for steroid induced hyperglycemia. His Lantus was increased temporally to make up for reduced dosage on 02/06 PM. Novolog was ordered based on home usage. * Glycemic control greatly improved today. Will slightly decrease basal insulin for fasting of 86 mg/dL and loosen carb coverage. PLAN FOR INPATIENT GLYCEMIC CONTROL: * Hold outpatient oral diabetes medications * Basal insulin * Lantus 40 units SQ AM * Lantus 75-85 units SQ HS (85 units for BSG or 140 mg/dL or more) * NPH 40 units SQ daily - administer with dexamethasone * Bolus insulin * NovoLog per scale ACHS or Q6hrs while NPO * Goal Range: Low 110 mg/dL - High 140 mg/dL * Correction Factor: 10 mg/dL/unit * Nutritional / Prandial insulin per carb ratio of 1 unit per 3 grams CHO consumed PLAN FOR DISCHARGE: *
--- NOTE | 2021-02-08 15:22 | Hospitalist Progress Note ---
Date of Service February 08, 2021 Assessment & Plan (1) COVID-19: Plan: An unvaccinated male, presents to the hospital with SOB, cough Found to have COVID 19, chest x ray shows infiltrates -Dexamethasone 6mg IV daily -Remdesivir per protocol, today is day 3 -Lovenox 40mg BID -Monitor inflammatory markers (2) Hypothyroidism: Plan: Chronic -Continue Synthroid 125mcg po daily -Check TSH with AM labs (3) Dyslipidemia: Plan: Chronic -Continue Fenofibrate -Continue Crestor (4) Depression: Plan: Chronic. Stable on medications -Continue Bupropion 150mg po BID -Continue Duloxetine (5) Diabetes mellitus, type II: Plan: Chronic. Patient on Toujeo Max U-300, 44 units in the AM, 92u qHS and Novolog qAC. -Continue Toujeo -Glycemic management consultation appreciated for high dose insulin management while on Dex. Assistance appreciated (6) BPH (benign prostatic hyperplasia): Plan: Chronic -Continue Flomax -Continue Oxybutynin (7) Hypertension: Plan: Blood pressure stable -Continue Cozaar 100mg po daily (8) GERD without esophagitis: Plan: Chronic -Patient on Omeprazole - will give Pepcid while inpatient (9) Epilepsy: Plan: Chronic. Stable on medications. Patient follows with Neurology for epilepsy as well as tremor -Continue Vimpat 100mg po BID Plan: F/E/N - Heplock. Monitor electrolytes. CC diet as tolerated Ppx - Lovenox 40 BID Code - Full per discussion with patient Dispo - Admission to medical Admission and Anticipated Discharge Date Admission Date: February 06, 2021 Subjective Patient seen and examined today, SOB is better, no new complaints Review of Systems Review of Systems: All systems reviewed are negative, apart from the ones contained in the history. Physical Exam Physical Exam: The patient is awake, alert and oriented 3, well developed and well nourished, normocephalic and atraumatic, lying in bed and in no acute distress. HEENT--PERRL, EOMI, mucous membranes and oropharynx mildly dry Neck--supple. No JVD. No bruits. Thyroid normal, trachea midline, no adenopathy. Heart--normal S1 and S2. No murmurs, rubs or gallops. Lungs--clear bilaterally, no respiratory distress, no accessory muscle use. Abdomen--normal bowel sounds and soft. Mild epigastric and left sided abdominal pain Extremities--no cyanosis or clubbing. No edema. Dermatologic--normal skin turgor, normal color, no abnormal lymph nodes, no rash. Neurologic--cranial nerves II through XII grossly intact. Rheumatologic--normal range of motion. Psychiatric--normal affect. Results & Data Results & Data ([facility]) Vital Signs (Past 12 Hours) Vital Signs Temp Pulse Resp BP Pulse Ox 02/08/21 15:15 92 02/08/21 13:20 94 02/08/21 12:45 92 02/08/21 11:29 93 02/08/21 10:34 88 L 02/08/21 10:15 90 02/08/21 09:54 91 02/08/21 07:15 92 02/08/21 07:06 97.9 F 68 16 129/78 93 PG Care Time/CCT Total # of Minutes Spent Total Time Spent with Patient: Total time spent is greater than 50% in coordination of care (as documented) at patient's floor/unit and/or counseling patient: Coding Level of Care Code 08319 Subseq Hosp Care Lvl 2 Diagnoses COVID-19 U07.1 Hypothyroidism E03.9 Dyslipidemia E78.5 Depression F32.9 Diabetes mellitus, type II E11.9 BPH (benign prostatic hyperplasia) N40.0 Hypertension I10 GERD without esophagitis K21.9 Epilepsy G40.909 Time Spent (min) 35
[2021-02-08] MEDS: REMDESIVIR 100 MG in SODIUM CHLORIDE 0.9% 230 ML IV SCH (19:48)
[2021-02-08] MEDS: SODIUM CHLORIDE 0.9% 10ML FLUSH IV SCH (21:09)
[2021-02-08] MEDS: ASPIRIN 81 MG ECTAB PO SCH (21:10)
[2021-02-08] MEDS: LOSARTAN POTASSIUM 50 MG TAB PO SCH (21:12)
[2021-02-08] MEDS: TAMSULOSIN HCL 0.4 MG CAP PO SCH (21:13)
[2021-02-08] MEDS: ROSUVASTATIN CALCIUM 20 MG TAB PO SCH (21:13)
[2021-02-08] MEDS: OXYBUTYNIN CHLORIDE XL 5 MG TABCR PO SCH (21:13)
[2021-02-08] MEDS: INSULIN GLARGINE 100 UNIT/ML VIAL SC SCH (21:14)
--- NOTE | 2021-02-08 21:21 | Electrocardiogram Report ---
Test Reason : Blood Pressure : / mmHG Vent. Rate : 098 BPM Atrial Rate : 098 BPM P-R Int : 138 ms QRS Dur : 086 ms QT Int : 338 ms P-R-T Axes : 048 029 042 degrees QTc Int : 431 ms Normal sinus rhythm Normal ECG When compared with ECG of 19-OCT-2019 11:46, No significant change was found Confirmed by Shilo Martinez ([id number]) on 02/08/2021 9:20:25 PM Referred By: REFERRED SELF Confirmed By:Shilo Martinez
[2021-02-09] MEDS: ENOXAPARIN INJ 40 MG/0.4 ML SYR SQ SCH ×2 (01:34→13:24)
[2021-02-09] MEDS: LEVOTHYROXINE SODIUM 125 MCG TABLET PO SCH (06:04)
[2021-02-09] MEDS: FAMOTIDINE 40 MG TABLET PO SCH (08:54)
[2021-02-09] MEDS: CELECOXIB 100 MG CAP PO SCH ×2 (08:54→20:37)
[2021-02-09] MEDS: FENOFIBRATE NANOCRYSTALLIZED 145 MG TABLET PO SCH (08:54)
[2021-02-09] MEDS: DULoxetine HCL 20 MG CAP PO SCH (08:54)
[2021-02-09] MEDS: FUROSEMIDE 20 MG TAB PO SCH (08:54)
[2021-02-09] MEDS: buPROPion SR 150 MG TABCR PO SCH ×2 (08:55→20:38)
[2021-02-09] MEDS: dexAMETHasone 6 MG in SYRINGE 0 ML IV SCH (08:55)
[2021-02-09] MEDS: INSULIN HUMAN NPH SC SCH (08:55)
[2021-02-09] MEDS: INSULIN ASPART PER UNIT SC SCH ×4 (08:56→20:49)
[2021-02-09] MEDS: LACOSAMIDE 50 MG TABLET PO SCH ×2 (09:19→20:35)
--- NOTE | 2021-02-09 13:06 | Pharmacy Report ---
Pharmacy Glycemic Short Note 2 - Date of Service February 09, 2021 - Glycemic Short BSG Results (Last 24 hours): 02/08/21 02/08/21 02/09/21 17:18 20:46 08:26 POC Glucose 173 H 158 H 72 02/09/21 12:18 POC Glucose 111 H OUTPATIENT ANTIDIABETIC REGIMEN: * Toujeo 44 units qAM, 92 units qHS * Aspart 22-24 units AC * A1c = 6.7% ASSESSMENT: 02/09/21 * Patient received 225 units of insulin yesterday with 165 units of basal (125 units of Lantus + 40 units of NPH) and 60 units of bolus. * Patient's BSGs yesterday were [phone] mg/dL. Fasting today is 72 mg/dL. * Will reduce Lantus by half to 60 units tonight. Concern for fasting hypoglycemia as fasting is trending downwards. Conservative treatment with multiple different insulins. PLUS patient is very basal heavy in terms of Lantus with over half of TDD coming from Lantus. * Continue NPH and Novolog for now. Background * Erick is a 65 yo male admitted with COVID-19 pneumonia * After consultation he was started on once daily NPH to cover for steroid induced hyperglycemia. His Lantus was increased temporally to make up for reduced dosage on 02/06 PM. Novolog was ordered based on home usage. * Glycemic control greatly improved today. Will slightly decrease basal insulin for fasting of 86 mg/dL and loosen carb coverage. PLAN FOR INPATIENT GLYCEMIC CONTROL: * Hold outpatient oral diabetes medications * Basal insulin * Lantus 60 units HS * NPH 40 units SQ daily - administer with dexamethasone * Bolus insulin * NovoLog per scale ACHS or Q6hrs while NPO * Goal Range: Low 110 mg/dL - High 140 mg/dL * Correction Factor: 10 mg/dL/unit * Nutritional / Prandial insulin per carb ratio of 1 unit per 3 grams CHO consumed PLAN FOR DISCHARGE: * TBD
--- NOTE | 2021-02-09 15:13 | Hospitalist Progress Note ---
Date of Service February 09, 2021 Assessment & Plan (1) COVID-19: Plan: An unvaccinated male, presents to the hospital with SOB, cough Found to have COVID 19, chest x ray shows infiltrates -Dexamethasone 6mg IV daily -Remdesivir per protocol, today is day 4 -Lovenox 40mg BID -Monitor inflammatory markers (2) Hypoxia: Plan: secondry to covid 19 pna Now on 5L, wean as tolerated (3) Hypothyroidism: Plan: Chronic -Continue Synthroid 125mcg po daily -Check TSH with AM labs (4) Dyslipidemia: Plan: Chronic -Continue Fenofibrate -Continue Crestor (5) Depression: Plan: Chronic. Stable on medications -Continue Bupropion 150mg po BID -Continue Duloxetine (6) Diabetes mellitus, type II: Plan: Blood glucose under better control now on Lantus 60 units and NPH 40 units (7) BPH (benign prostatic hyperplasia): Plan: Chronic -Continue Flomax -Continue Oxybutynin (8) Hypertension: Plan: Blood pressure stable -Continue Cozaar 100mg po daily (9) GERD without esophagitis: Plan: Chronic -Patient on Omeprazole - will give Pepcid while inpatient (10) Epilepsy: Plan: Chronic. Stable on medications. Patient follows with Neurology for epilepsy as well as tremor -Continue Vimpat 100mg po BID Plan: F/E/N - Heplock. Monitor electrolytes. CC diet as tolerated Ppx - Lovenox 40 BID Code - Full per discussion with patient Dispo - Admission to medical Admission and Anticipated Discharge Date Admission Date: February 06, 2021 Subjective Patient seen and examined today, SOB is better, denies chest pain, wants to go home Review of Systems Review of Systems: All systems reviewed are negative, apart from the ones contained in the history. Physical Exam Physical Exam: The patient is awake, alert and oriented 3, well developed and well nourished, normocephalic and atraumatic, lying in bed and in no acute distress. HEENT--PERRL, EOMI, mucous membranes and oropharynx mildly dry Neck--supple. No JVD. No bruits. Thyroid normal, trachea midline, no adenopathy. Heart--normal S1 and S2. No murmurs, rubs or gallops. Lungs--clear bilaterally, no respiratory distress, no accessory muscle use. Abdomen--normal bowel sounds and soft. Mild epigastric and left sided abdominal pain Extremities--no cyanosis or clubbing. No edema. Dermatologic--normal skin turgor, normal color, no abnormal lymph nodes, no rash. Neurologic--cranial nerves II through XII grossly intact. Rheumatologic--normal range of motion. Psychiatric--normal affect. Results & Data Results & Data ([facility]) Vital Signs (Past 12 Hours) Vital Signs Temp Pulse Resp BP Pulse Ox 02/09/21 11:37 97 02/09/21 08:04 97.7 F 65 18 121/73 95 PG Care Time/CCT Total # of Minutes Spent Total Time Spent with Patient: Total time spent is greater than 50% in coordination of care (as documented) at patient's floor/unit and/or counseling patient: Coding Level of Care Code 08771 Subseq Hosp Care Lvl 2 Diagnoses COVID-19 U07.1 Hypothyroidism E03.9 Dyslipidemia E78.5 Depression F32.9 Diabetes mellitus, type II E11.9 BPH (benign prostatic hyperplasia) N40.0 Hypertension I10 GERD without esophagitis K21.9 Epilepsy G40.909 Hypoxia R09.02 Time Spent (min) 35
[2021-02-09] MEDS: REMDESIVIR 100 MG in SODIUM CHLORIDE 0.9% 230 ML IV SCH (20:29)
[2021-02-09] MEDS: TAMSULOSIN HCL 0.4 MG CAP PO SCH (20:35)
[2021-02-09] MEDS: ROSUVASTATIN CALCIUM 20 MG TAB PO SCH (20:37)
[2021-02-09] MEDS: OXYBUTYNIN CHLORIDE XL 5 MG TABCR PO SCH (20:37)
[2021-02-09] MEDS: ASPIRIN 81 MG ECTAB PO SCH (20:38)
[2021-02-09] MEDS: LOSARTAN POTASSIUM 50 MG TAB PO SCH (20:38)
[2021-02-09] MEDS: INSULIN GLARGINE 100 UNIT/ML VIAL SC SCH (20:55)
[2021-02-09] MEDS: SODIUM CHLORIDE 0.9% 10ML FLUSH IV SCH (22:07)
[2021-02-10] MEDS: ENOXAPARIN INJ 40 MG/0.4 ML SYR SQ SCH ×2 (01:42→13:26)
[2021-02-10] MEDS: LEVOTHYROXINE SODIUM 125 MCG TABLET PO SCH (05:50)
[2021-02-10 08:44] LABS: Hematocrit (blood only) 35.9 % (42-52); Hemoglobin 12.2 g/dL (14.0-18.0); Mean Corpuscular Hemoglobin 27.5 pg (25-34); Mean Corpuscular Volume 80.9 fL (80-100); Mean Platelet Volume 10.7 fL (7.4-10.4); Platelet Count 274 K/uL (130-400); RDW Coefficient of Variation 13.4 % (11.5-14.5); Red Blood Count 4.44 M/uL (4.7-6.1); White Blood Count 6.67 K/uL (4.8-10.8)
[2021-02-10] MEDS: DULoxetine HCL 20 MG CAP PO SCH (09:09)
[2021-02-10] MEDS: buPROPion SR 150 MG TABCR PO SCH ×2 (09:09→20:24)
[2021-02-10] MEDS: FUROSEMIDE 20 MG TAB PO SCH (09:09)
[2021-02-10] MEDS: INSULIN HUMAN NPH SC SCH (09:09)
[2021-02-10] MEDS: dexAMETHasone 6 MG in SYRINGE 0 ML IV SCH (09:09)
[2021-02-10] MEDS: FENOFIBRATE NANOCRYSTALLIZED 145 MG TABLET PO SCH (09:09)
[2021-02-10] MEDS: FAMOTIDINE 40 MG TABLET PO SCH (09:09)
[2021-02-10] MEDS: CELECOXIB 100 MG CAP PO SCH ×2 (09:09→20:24)
[2021-02-10] MEDS: INSULIN ASPART PER UNIT SC SCH ×4 (09:12→20:35)
[2021-02-10 09:17] LABS: BUN Creatinine Ratio 26.6 (10-20); Calcium 9.8 mg/dl (8.5-10.1); Est GFR (African American) 97.7 ml/min; Est GFR (Non-African American) 84.3 ml/min
[2021-02-10] MEDS: LACOSAMIDE 50 MG TABLET PO SCH ×2 (10:51→20:25)
--- NOTE | 2021-02-10 14:25 | Hospitalist Progress Note ---
Date of Service February 10, 2021 Assessment & Plan (1) COVID-19: Plan: An unvaccinated male, presents to the hospital with SOB, cough Found to have COVID 19, chest x ray shows infiltrates -Dexamethasone 6mg IV daily -Remdesivir per protocol, today is day 5 -Lovenox 40mg BID -Monitor inflammatory markers (2) Hypoxia: Plan: secondry to covid 19 pna Now on 2.5L, wean as tolerated (3) Hypothyroidism: Plan: Chronic -Continue Synthroid 125mcg po daily -Check TSH with AM labs (4) Dyslipidemia: Plan: Chronic -Continue Fenofibrate -Continue Crestor (5) Depression: Plan: Chronic. Stable on medications -Continue Bupropion 150mg po BID -Continue Duloxetine (6) Diabetes mellitus, type II: Plan: Blood glucose under better control now on Lantus 60 units and NPH 40 units (7) BPH (benign prostatic hyperplasia): Plan: Chronic -Continue Flomax -Continue Oxybutynin (8) Hypertension: Plan: Blood pressure stable -Continue Cozaar 100mg po daily (9) GERD without esophagitis: Plan: Chronic -Patient on Omeprazole - will give Pepcid while inpatient (10) Epilepsy: Plan: Chronic. Stable on medications. Patient follows with Neurology for epilepsy as well as tremor -Continue Vimpat 100mg po BID Plan: F/E/N - Heplock. Monitor electrolytes. CC diet as tolerated Ppx - Lovenox 40 BID Code - Full per discussion with patient Dispo - Admission to medical Admission and Anticipated Discharge Date Admission Date: February 06, 2021 discharge in the next 24 hrs Subjective Patient seen and examined today, SOB is better, denies chest pain, wants to go home, however, will complete his last dose of remdesivir by 8pm Review of Systems Review of Systems: All systems reviewed are negative, apart from the ones contained in the history. Physical Exam Physical Exam: The patient is awake, alert and oriented 3, well developed and well nourished, normocephalic and atraumatic, lying in bed and in no acute distress. HEENT--PERRL, EOMI, mucous membranes and oropharynx mildly dry Neck--supple. No JVD. No bruits. Thyroid normal, trachea midline, no adenopathy. Heart--normal S1 and S2. No murmurs, rubs or gallops. Lungs--clear bilaterally, no respiratory distress, no accessory muscle use. Abdomen--normal bowel sounds and soft. Mild epigastric and left sided abdominal pain Extremities--no cyanosis or clubbing. No edema. Dermatologic--normal skin turgor, normal color, no abnormal lymph nodes, no rash. Neurologic--cranial nerves II through XII grossly intact. Rheumatologic--normal range of motion. Psychiatric--normal affect. Results & Data Results & Data ([facility]) Vital Signs (Past 12 Hours) Vital Signs Temp Pulse Resp BP Pulse Ox 02/10/21 07:58 97.9 F 74 18 124/73 90 PG Care Time/CCT Total # of Minutes Spent Total Time Spent with Patient: Total time spent is greater than 50% in coordination of care (as documented) at patient's floor/unit and/or counseling patient: Coding Level of Care Code 03546 Subseq Hosp Care Lvl 2 Diagnoses COVID-19 U07.1 Hypoxia R09.02 Hypothyroidism E03.9 Dyslipidemia E78.5 Depression F32.9 Diabetes mellitus, type II E11.9 BPH (benign prostatic hyperplasia) N40.0 Hypertension I10 GERD without esophagitis K21.9 Epilepsy G40.909 Time Spent (min) 35
[2021-02-10] MEDS: REMDESIVIR 100 MG in SODIUM CHLORIDE 0.9% 230 ML IV SCH (19:42)
[2021-02-10] MEDS: ROSUVASTATIN CALCIUM 20 MG TAB PO SCH (20:24)
[2021-02-10] MEDS: OXYBUTYNIN CHLORIDE XL 5 MG TABCR PO SCH (20:24)
[2021-02-10] MEDS: LOSARTAN POTASSIUM 50 MG TAB PO SCH (20:24)
[2021-02-10] MEDS: TAMSULOSIN HCL 0.4 MG CAP PO SCH (20:24)
[2021-02-10] MEDS: ASPIRIN 81 MG ECTAB PO SCH (20:25)
[2021-02-10] MEDS: INSULIN GLARGINE 100 UNIT/ML VIAL SC SCH (20:36)
[2021-02-10] MEDS: SODIUM CHLORIDE 0.9% 10ML FLUSH IV SCH (20:59)
[2021-02-11] MEDS: ENOXAPARIN INJ 40 MG/0.4 ML SYR SQ SCH (01:52)
[2021-02-11] MEDS: LEVOTHYROXINE SODIUM 125 MCG TABLET PO SCH (06:06)
[2021-02-11] MEDS: CELECOXIB 100 MG CAP PO SCH (08:49)
[2021-02-11] MEDS: buPROPion SR 150 MG TABCR PO SCH (08:49)
[2021-02-11] MEDS: DULoxetine HCL 20 MG CAP PO SCH (08:50)
[2021-02-11] MEDS: FUROSEMIDE 20 MG TAB PO SCH (08:50)
[2021-02-11] MEDS: FENOFIBRATE NANOCRYSTALLIZED 145 MG TABLET PO SCH (08:50)
[2021-02-11] MEDS: FAMOTIDINE 40 MG TABLET PO SCH (08:52)
[2021-02-11] MEDS: INSULIN HUMAN NPH SC SCH (08:55)
[2021-02-11] MEDS: INSULIN ASPART PER UNIT SC SCH ×2 (10:08→11:58)
[2021-02-11] MEDS: dexAMETHasone 6 MG in SYRINGE 0 ML IV SCH (10:10)
--- NOTE | 2021-02-11 10:34 | Pharmacy Report ---
Pharmacy Glycemic Short Note 2 - Date of Service February 11, 2021 - Glycemic Short BSG Results (Last 24 hours): 02/10/21 02/10/21 02/10/21 12:37 17:23 20:23 POC Glucose 112 H 207 H 150 H 02/11/21 02/11/21 01:52 08:08 POC Glucose 117 H 92 OUTPATIENT ANTIDIABETIC REGIMEN: * Toujeo 44 units SC AM + 92 units SC HS * Novolog 22-24 units SC AC * HbA1c = 6.7% (02/07/21) ASSESSMENT: 02/11: * Erick received a total of 160 units of insulin yesterday (60 units Lantus + 40 units NPH + 60 units Novolog) * BSGs were controlled for the most part: [phone] mg/dL * Fasting BSG well controlled at 92 mg/dL this AM * No change in Lantus or Novolog dose required. * Remains on IV Dexamethasone for COVID so continue with NPH. Remdesivir course completed. 02/09: * Patient received 225 units of insulin yesterday with 165 units of basal (125 units of Lantus + 40 units of NPH) and 60 units of bolus. * Patient's BSGs yesterday were [phone] mg/dL. Fasting today is 72 mg/dL. * Will reduce Lantus by half to 60 units tonight. Concern for fasting hypoglycemia as fasting is trending downwards. Conservative treatment with multiple different insulins. PLUS patient is very basal heavy in terms of La ntus with over half of TDD coming from Lantus. * Continue NPH and Novolog for now. PLAN FOR INPATIENT GLYCEMIC CONTROL: * Basal insulin * Lantus 60 units SC HS * NPH 40 units SC daily - administer with dexamethasone * Bolus insulin * NovoLog per scale ACHS or Q6hrs while NPO * Goal Range: Low 110 mg/dL - High 140 mg/dL * Correction Factor: 10 mg/dL/unit * Nutritional / Prandial insulin per carb ratio of 1 unit per 3 grams CHO consumed PLAN FOR DISCHARGE: * HbA1c is well controlled at 6.8% based on this patients age/comorbidities (goal HbA1c less than 7%). * Continue outpatient regimen upon discharge.
--- NOTE | 2021-02-11 11:08 | Discharge Summary ---
Date of Service February 11, 2021 Admission HPI Per Admitting Provider Erick Pardo is a 65yo male with multiple medical comorbidities to include DM, HTN, HLP, GERD, Hypothyroidism and idiopathic fibrosing alveolitis presenting with Covid-19 PNA, hypoxia. Patient has had symptoms x 4 days to include cough, SOB, weakness, malaise, nausea and diarrhea. Patient is not fully vaccinated against Covid-19. No additional complaints at this time. Upon arrival to the ER patietn hypoxic to 85% on room air. He was placed on supplemental O2 - 2L by MO with improvement to 94%. No additional complaints at this time. ER Course: Dexamehtasone 6mg IV, NSS Principal Diagnosis covid 19 pna Discharge Exam The patient is awake, alert and oriented 3, well developed and well nourished, normocephalic and atraumatic, lying in bed and in no acute distress. HEENT--PERRL, EOMI, mucous membranes and oropharynx mildly dry Neck--supple. No JVD. No bruits. Thyroid normal, trachea midline, no a denopathy. Heart--normal S1 and S2. No murmurs, rubs or gallops. Lungs--clear bilaterally, no respiratory distress, no accessory muscle use. Abdomen--normal bowel sounds and soft. Mild epigastric and left sided abdominal pain Extremities--no cyanosis or clubbing. No edema. Dermatologic--normal skin turgor, normal color, no abnormal lymph nodes, no rash. Neurologic--cranial nerves II through XII grossly intact. Rheumatologic--normal range of motion. Psychiatric--normal affect. Discharge Data Allergies Allergy/AdvReac Type Severity Reaction Status Date / Time BIRGIT Inhibitors Allergy Intermediate ? Verified 02/06/21 22:49 ANGIOEDEMA amitriptyline Allergy Intermediate HIVES Verified 02/06/21 22:49 Penicillins Allergy Intermediate HIVES Verified 02/06/21 22:49 tramadol Allergy Intermediate ITCHY Verified 02/06/21 22:49 gabapentin Allergy Unknown per Verified 02/06/21 22:49 clinical training specialist note -- UNKNOWN RX lorazepam Allergy Unknown "DON'T Verified 02/06/21 22:49 REMEMBER" morphine Allergy Unknown Unknown Verified 02/06/21 22:49 codeine AdvReac Mild N&V Verified 02/06/21 22:49 Consultations 02/06/21 19:45 ED Decision to Admit Stat Hospital Course (1) COVID-19: An unvaccinated male, presents to the hospital with SOB, cough Found to have COVID 19, chest x ray shows infiltrates -Dexamethasone 6mg IV daily -Completed Remdesivir -Lovenox 40mg BID -Monitor inflammatory markers (2) Hypoxia: weaned down to room air (3) Hypothyroidism: Chronic -Continue Synthroid 125mcg po daily -Check TSH with AM labs (4) Dyslipidemia: Chronic -Continue Fenofibrate -Continue Crestor (5) Depression: Chronic. Stable on medications -Continue Bupropion 150mg po BID -Continue Duloxetine (6) Diabetes mellitus, type II: Blood glucose under better control now on Lantus 60 units and NPH 40 units (7) BPH (benign prostatic hyperplasia): Chronic -Continue Flomax -Continue Oxybutynin (8) Hypertension: Blood pressure stable -Continue Cozaar 100mg po daily (9) GERD without esophagitis: Chronic -Patient on Omeprazole - will give Pepcid while inpatient (10) Epilepsy: Chronic. Stable on medications. Patient follows with Neurology for epilepsy as well as tremor -Continue Vimpat 100mg po BID F/E/N - Heplock. Monitor electrolytes. CC diet as tolerated Ppx - Lovenox 40 BID Code - Full per discussion with patient Dispo - Admission to medical Total Time Total Time Spent Total Time Spent (In Minutes): 35 Discharge Plan Discharge Items Patient Disposition: Home - Self-Care Reason For Visit: COVID-19, HYPOXIA Discharge Diagnosis: covid 19 pna Condition on Discharge: Good Activity: Resume your previous activity Non-emergency contact: Primary Care Provider Call non-emergency contact if: you have any medication questions Follow-up/Referrals: Farhad Loya, [Primary Care Provider] - Diet: Regular Addtl Attending Provider Instructions: Please Quarantine for 10 days. You can resume work on February 22 2021 Pending Studies at Discharge: No Stand-Alone Forms: My [employer], Smoking Cessation Medications and DC Order Prescriptions: New dexamethasone 6 mg tablet 6 mg PO DAILY Qty: 5 RF: 0 Continued cholecalciferol (vitamin D3) [Vitamin D3] 5,000 unit Tablet 5,000 unit PO BID Qty: 0 RF: 0 omega [id number] oil [Fish Oil] 1,000 mg (120 mg-180 mg) Capsule 1,000 mg PO BID Qty: 0 RF: 0 aspirin [Aspirin Low Dose] 81 mg Tablet,Delayed Release (Dr/Ec) 81 mg PO HS Qty: 0 RF: 0 hydrocortisone [Proctozone-HC] 2.5 % cream with perineal applicator 1 applic KS DAILY PRN (Reason: hemorrhoids) Qty: 30 RF: 1 oxybutynin chloride [Ditropan XL] 10 mg tablet extended release 24hr 10 mg PO HS Qty: 90 RF: 0 furosemide [Lasix] 20 mg tablet 20 mg PO QAM Qty: 90 RF: 1 levocetirizine [Xyzal] 5 mg tablet 5 mg PO HS Qty: 90 RF: 1 levothyroxine [Synthroid] 125 mcg tablet 125 mcg PO QAM Qty: 90 RF: 1 losartan [Cozaar] 100 mg tablet 100 mg PO HS Qty: 90 RF: 1 rosuvastatin [Crestor] 40 mg tablet 40 mg PO HS Qty: 90 RF: 1 duloxetine [Cymbalta] 20 mg capsule,delayed release(DR/EC) 20 mg PO QAM Qty: 90 RF: 1 Novolog Flexpen U-100 Insulin 100 unit/mL (3 mL) insulin pen 22 - 24 unit SQ AC Qty: 75 RF: 1 celecoxib [Celebrex] 100 mg capsule 100 mg PO BID Qty: 60 RF: 5 Vimpat 100 mg tablet 100 mg PO BID 90 Days Qty: 180 RF: 1 promethazine 25 mg tablet 25 mg PO Q6H PRN (Reason: sedation) Qty: 10 RF: 0 tamsulosin [Flomax] 0.4 mg capsule 0.4 mg PO HS RF: 0 Epifoam 1-1 % foam 1 applic topical TID PRN (Reason: hemorrhoids) RF: 0 metoclopramide HCl [Reglan] 10 mg tablet 10 mg PO QID PRN (Reason: nausea and vomiting) RF: 0 bupropion HCl 150 mg tablet sustained-release 12 hr 150 mg PO BID RF: 0 fenofibrate nanocrystallized 145 mg tablet 145 mg PO QAM RF: 0 Toujeo Max U-300 SoloStar 300 unit/mL (3 mL) insulin pen 44 unit SQ QAM RF: 0 Toujeo Max U-300 SoloStar 300 unit/mL (3 mL) insulin pen 92 unit SUBCUT HS RF: 0 omeprazole 40 mg capsule,delayed release(DR/EC) 40 mg PO DAILY RF: 0 triamcinolone acetonide 0.1 % ointment 1 applic topical BID PRN (Reason: Skin Irritation) RF: 0 Discharge Orders: Discharge Order (Routine); Ordered 02/11/21 Ordered By: Lina Avila/Other Patient Handouts: Managing Type 2 Diabetes Admission Data Admit Date/Time: 02/06/21 20:53 Attending Provider: Lina Son Admit Provider: Mami Oneal Primary Care Provider: Farhad Loya Other Providers: Mami Oneal Coding Level of Care Code D/C DAY MANAGEMENT >30 MINS Diagnoses COVID-19 U07.1 Hypoxia R09.02 Hypothyroidism E03.9 Dyslipidemia E78.5 Depression F32.9 Diabetes mellitus, type II E11.9 BPH (benign prostatic hyperplasia) N40.0 Hypertension I10 GERD without esophagitis K21.9 Epilepsy G40.909 Time Spent (min) 35
[2021-02-11] MEDS: LACOSAMIDE 50 MG TABLET PO SCH (11:10)
== END 2021-02-11 12:50 | disposition home or self-care (01) | DRG 177 ==
LOC: ED 16:49 → SUATTDRO 20:53 → 3W 20:53